=== PATIENT | male | born 1955 | race Caucasian/White ===

== ENCOUNTER 2017-04-27 23:44 | Inpatient (IN) | payer MEDICARE, MEDICAID ==
[~2017-04-27] VITALS: Ht 170.2 cm; Wt 99.3 kg
[2017-04-27 23:50] VITALS: BP 145/84
[2017-04-28] VITALS (7 sets, daily range): BP systolic 101–123; BP diastolic 56–68
[2017-04-28] MEDS ORDERED: LORazepam Inj 2mg/ml 1ml IV ONE
[2017-04-28] MEDS: Nitroglycerin Subl 0.4mg tab (Bottle Of 25) SL PRN ×2 (00:32→01:23)
[2017-04-28 00:41] LABS: BASOPHILS % (AUTO) 0.3 % (0.0-2.0); EOSINOPHILS % (AUTO) 2.7 % (0.0-3.0); LYMPHOCYTES % (AUTO) 19.3 % (20.0-45.0); MEAN CORPUSCULAR HEMOGLOBIN 31.5 PG (27.0-31.0); MEAN CORPUSCULAR HGB CONC 34.5 G/DL (32.0-36.0); MEAN CORPUSCULAR VOLUME 92 FL (80-99); MONOCYTES % (AUTO) 7.8 % (1.0-10.0); NEUTROPHILS % (AUTO) 69.9 % (45.0-75.0); PLATELET COUNT 145 K/UL (150-450); RED BLOOD COUNT 4.14 M/UL (4.70-6.10); RED CELL DISTRIBUTION WIDTH 14.8 % (11.6-14.8); WHITE BLOOD COUNT 4.6 K/UL (4.8-10.8)
--- NOTE | 2017-04-28 00:52 | Emergency Room Report ---
History of Present Illness General Chief Complaint: Chest Pain Source: Patient Present Illness HPI Is a 61-year-old male who resides in a fdc. He has his anxiety but also history of CAD with previous [place]. He present with chief complaint of chest pain. Is worsen when he is under stress or has lack of sleep. He was in [facility] looking at new places to stay where level care is just above assisted-living but not full fdc care. There was some paperwork problem where he was not yet improve. He had to drive all the way back to the old fdc. On the way there he was very stressed and has not taken his nighttime medicine yet. He developed chest pain. He called 911. Patient described pain as mid chest substernal. No radiation. Denies any fever or chills. EMS gave him aspirin and one spray of nitroglycerin. Pain went from 10 -6. Allergies: Coded Allergies: ADHESIVE TAPE (Verified Allergy, Unknown, 04/27/17) AMIODARONE (Verified Allergy, Unknown, 04/27/17) INFLUENZA VIRUS VACCINES (Verified Allergy, Unknown, 04/27/17) SULFAMETHIZOLE (Verified Allergy, Unknown, 04/27/17) Patient History Past Medical History: see triage record, old chart reviewed, HTN, AK Past Surgical History: other Pertinent Family History: none Social History: Denies: drug use Immunizations: other Reviewed Nursing Documentation: PMH: Agreed, PSxH: Agreed Nursing Documentation-PMH Hx Cardiac Problems: Yes - CAD, bypass 2003 Hx Hypertension: Yes - dysphagia, hyperlipidemia, anemia History Of Psychiatric Problem: Yes - upspecified psychosis Review of Systems Eye: Denies: eye pain, blurred vision ENT: Denies: ear pain, nose congestion, throat swelling Respiratory: Denies: cough, shortness of breath Cardiovascular: Reports: chest pain, Denies: palpitations Gastrointestinal: Denies: abdominal pain, diarrhea, nausea, vomiting Musculoskeletal: Denies: back pain, joint pain Skin: Denies: rash Neurological: Denies: headache, numbness Endocrine: Denies: increased thirst, increased urine Hematologic/Lymphatic: Denies: easy bruising All Other Systems: negative except mentioned in HPI Physical Exam Vital Signs Date Time Temp Pulse Resp B/P (MAP) Pulse Ox O2 Delivery O2 Flow Rate FiO2 04/27/17 23:46 79 16 145/84 98 Room Air 04/27/17 23:50 98.5 vitals normal Sp02 EP Interpretation: reviewed, normal General Appearance: well appearing, no apparent distress, alert, obese Head: normocephalic, atraumatic Eyes: bilateral eye PERRL, bilateral eye EOMI ENT: hearing grossly normal, normal pharynx Neck: full range of motion, supple, no meningismus Respiratory: chest non-tender, lungs clear, normal breath sounds Cardiovascular #1: regular rate, rhythm, no murmur Gastrointestinal: normal bowel sounds, non tender, no mass, no organomegaly, no bruit, non-distended Musculoskeletal: back normal, normal range of motion Neurologic: alert, oriented x3 Psychiatric: anxious Skin: warm/dry Medical Decision Making Diagnostic Impression: Primary Impression: Chest pain Qualified Codes: R07.9 - Chest pain, unspecified Additional Impressions: Stress reaction Hyperglycemia due to type 2 diabetes mellitus Qualified Codes: E11.65 - Type 2 diabetes mellitus with hyperglycemia; 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 Atypical in nature. He does have however known CAD. First set of troponins negative. Will admit for further workup. I discussed the case with Dr. Silva for admission. Also contacted Dr. Luna for orders. EKG Diagnostic Results EKG Time: 00:52 Rate: normal Rhythm: NSR ST Segments: no acute changes Rhythm Strip Diag. Results Rhythm Strip Time: 00:52 EP Interpretation: yes Rate: 72 Rhythm: NSR, no PVC's, no ectopy Chest X-Ray Diagnostic Results Chest X-Ray Diagnostic Results : Chest X-Ray Ordered: Yes # of Views/Limited/Complete: 1 View Indication: Chest Pain EP Interpretation: Yes Interpretation: no consolidation, no effusion, no pneumothorax, no acute cardiopulmonary disease Impression: No acute disease Interpreting ER Provider: Electronically signed by Donald Nath MD Last Vital Signs Date Time Temp Pulse Resp B/P (MAP) Pulse Ox O2 Delivery O2 Flow Rate FiO2 04/28/17 00:32 149/79 04/27/17 23:50 79 16 Room Air 04/27/17 23:50 98.5 98 Status: improved Disposition: ADMITTED INPATIENT Condition: Serious Referrals: ANDRE SILVA (PCP) DONALD NATH M.D. Apr 28, 2017 00:52
[2017-04-28 00:54] LABS: TROPONIN I < 0.30 ng/mL (<=0.30)
[2017-04-28 00:57] LABS: ALANINE AMINOTRANSFERASE 51 U/L (3-41); ALBUMIN/GLOBULIN RATIO 1.1 (1.0-2.7); ANION GAP 12 (5-15); ASPARTATE AMINO TRANSFERASE 35 U/L (5-40); CALCIUM 9.3 mg/dL (8.6-10.2); CARBON DIOXIDE 24 mEQ/L (20-30); CHLORIDE 105 mEQ/L (98-107); CREATININE 1.2 mg/dL (0.7-1.2); GLOMERULAR FILTRATION RATE > 60 mL/min (>60); HEMOLYSIS 6; POTASSIUM 3.7 mEQ/L (3.4-4.9); SODIUM 141 mEQ/L (135-145)
[2017-04-28 01:07] LABS: CKMB < 1.5 ng/mL (< 6.7)
[2017-04-28] MEDS ORDERED: PLAVIX75 MG ORAL (02:03)
[2017-04-28] MEDS ORDERED: METOPROLOL SUCC25 MG ORAL (02:04)
[2017-04-28] MEDS ORDERED: ISORDIL30 MG PO (02:06)
[2017-04-28] MEDS ORDERED: COUMADIN5 MG ORAL (02:08)
[2017-04-28] MEDS ORDERED: ATORVASTATIN CA40 MG ORAL ×2 (02:09→02:19)
[2017-04-28] MEDS ORDERED: ZETIA10 MG ORAL (02:19)
[2017-04-28] MEDS ORDERED: NITROGLYCERIN0.4 MG SL (02:22)
[2017-04-28] MEDS ORDERED: AMOXICILLI250 MG/5 M ORAL (02:30)
[2017-04-28] MEDS ORDERED: AMBIEN10 M1 ORAL (02:30)
[2017-04-28] MEDS ORDERED: TAMSULOSIN HCL0.4 MG ORAL (02:30)
[2017-04-28] MEDS ORDERED: HIBICLENS118 ML TP (02:30)
[2017-04-28] MEDS ORDERED: ABILIFY20 MG ORAL (02:30)
[2017-04-28] MEDS ORDERED: ASPIR 8181 MG ORAL (02:30)
[2017-04-28] MEDS ORDERED: LEXAPRO20 MG ORAL (02:30)
[2017-04-28] MEDS ORDERED: PROTONIX40 MG ORAL (02:30)
[2017-04-28] MEDS ORDERED: MELATONIN5 M4 ORAL (02:30)
[2017-04-28] MEDS ORDERED: SEROQUEL200 MG ORAL (02:30)
[2017-04-28] MEDS ORDERED: ALLOPURINOL300 M1 ORAL (02:30)
[2017-04-28] MEDS ORDERED: COENZYME Q10100 MG PO (02:30)
[2017-04-28] MEDS ORDERED: FUROSEMIDE20 M1 ORAL (02:30)
[2017-04-28] MEDS ORDERED: LANTUS SOL100 UNIT/1 SUBQ (02:33)
[2017-04-28] MEDS ORDERED: ASCORBIC ACID500 MG ORAL (02:33)
[2017-04-28] MEDS ORDERED: VITAMIN D310000 UNIT PO (02:33)
[2017-04-28] MEDS ORDERED: MULTIVITAMINS1 EAC2 ORAL (02:33)
[2017-04-28] MEDS ORDERED: FERROUS SULFAT325 MG ORAL (02:33)
[2017-04-28] MEDS ORDERED: MAGNESIUM250 M2 PO (02:33)
[2017-04-28] MEDS ORDERED: Ketorolac 30mg Inj IV PRN (06:30)
[2017-04-28] MEDS ORDERED: DuoNeb 0.5-3(2.5)mg/3ml neb HHN PRN (07:30)
[2017-04-28] MEDS ORDERED: Enalaprilat 2.5mg/2ml Inj IV PRN (07:30)
[2017-04-28] MEDS ORDERED: Diltiazem 25mg/5ml IV PRN (07:30)
[2017-04-28] MEDS ORDERED: QUEtiapine 200mg tab ORAL ONE (08:00)
[2017-04-28 08:20] LABS: TROPONIN I < 0.30 ng/mL (<=0.30)
[2017-04-28] MEDS: Aspirin Baby 81mg ORAL SCH (08:37)
[2017-04-28] MEDS: NovoLOG Insulin Flexpen SUBQ SCH ×4 (08:51→22:16)
[2017-04-28] MEDS ORDERED: Miralax 17gm pkt ORAL PRN (09:00)
[2017-04-28] MEDS ORDERED: ARIPiprazole 10mg tab ORAL SCH (10:00)
--- NOTE | 2017-04-28 11:12 | Diagnostic Imaging Report ---
Indication: Chest pain Comparison: None A single view chest radiograph was obtained. Findings: The bones are osteopenic. Sternotomy noted. Aorta is mildly ectatic. Lungs are clear. Heart size is normal. Impression: No acute disease
--- NOTE | 2017-04-28 13:31 | Consultation ---
History of Present Illness General Date patient seen: Apr 28, 2017 Chief Complaint: Chest Pain Reason for Consultation: inpatient management Present Illness HPI 61-year-old male with hx of anxiety, CAD with previous [place] presented to ER with chief complaint of chest pain. Patient described the pain as mid chest substernal. No radiation. Denies any fever or chills. EMS gave him aspirin and one spray of nitroglycerin. Pain went from 10-6. He is admitted to telemetry to rule out acute [place]. Allergies: Coded Allergies: ADHESIVE TAPE (Verified Allergy, Unknown, 04/27/17) AMIODARONE (Verified Allergy, Unknown, 04/27/17) INFLUENZA VIRUS VACCINES (Verified Allergy, Unknown, 04/27/17) SULFAMETHIZOLE (Verified Allergy, Unknown, 04/27/17) Medication History Scheduled Allopurinol* (Allopurinol*), 300 MG ORAL DAILY, (Reported) Amoxicillin* (Amoxicillin*), 2 GM ORAL EVERY 8 HOURS, (Reported) Aripiprazole* (Abilify*), 35 MG ORAL DAILY, (Reported) Ascorbic Acid* (Ascorbic Acid*), 500 MG ORAL TWICE A DAY, (Reported) Aspirin* (Aspir 81*), 81 MG ORAL DAILY, (Reported) Atorvastatin Calcium* (Atorvastatin Calcium*), 40 MG ORAL BEDTIME, (Reported) Atorvastatin Calcium* (Atorvastatin Calcium*), 40 MG ORAL BEDTIME, (Reported) Cholecalciferol (Vitamin D3) (Vitamin D3), 2,000 UNIT PO BID, (Reported) Clopidogrel Bisulfate* (Plavix*), 75 MG ORAL DAILY, (Reported) Escitalopram Oxalate* (Lexapro*), 20 MG ORAL DAILY, (Reported) Ezetimibe (Zetia*), 10 MG ORAL BEDTIME, (Reported) Ferrous Sulfate* (Ferrous Sulfate*), 325 MG ORAL TWICE A DAY, (Reported) Furosemide* (Lasix*), 20 MG ORAL DAILY, (Reported) Insulin Glargine (Lantus), 26 SUBQ BEDTIME, (Reported) Isosorbide Dinitrate (Isosorbide Dinitrate), 30 MG PO DAILY, (Reported) Magnesium Oxide (Magnesium), 200 MG PO DAILY, (Reported) Metoprolol Succinate* (Metoprolol Succinate*), 25 MG ORAL DAILY, (Reported) Multivitamins* (Multivitamins*), 1 TAB ORAL DAILY, (Reported) Pantoprazole* (Protonix*), 40 MG ORAL DAILY, (Reported) Quetiapine Fumarate* (Seroquel*), 200 MG ORAL BEDTIME, (Reported) Tamsulosin Hcl (Tamsulosin Hcl*), 0.4 MG ORAL BEDTIME, (Reported) Ubidecarenone (Coenzyme Q10), 300 MG PO BID, (Reported) Warfarin Sod* (Coumadin*), 5.5 MG ORAL DAILY, (Reported) Scheduled PRN Melatonin (Melatonin), 6 MG ORAL BEDTIME PRN for Insomnia, (Reported) Nitroglycerin (Nitroglycerin), 0.4 MG SL for For Pain, (Reported) Zolpidem Tartrate* (Ambien*), 10 MG ORAL HS PRN for Insomnia, (Reported) Miscellaneous Medications Chlorhexidine Gluconate* (Hibiclens*), 118 ML TP, (Reported) Patient History Healthcare decision maker Resuscitation status Full Code Advanced Directive on File No Past Medical/Surgical History Past Medical/Surgical History: (1) Diabetes mellitus (2) CAD (coronary artery disease) Review of Systems All Other Systems: negative except mentioned in HPI Physical Exam General Appearance: WD/WN, mild distress Lines, tubes and drains: peripheral HEENT: normocephalic, atraumatic Neck: non-tender, normal alignment Respiratory/Chest: chest wall non-tender, lungs clear Breasts: no masses Cardiovascular/Chest: normal peripheral pulses Abdomen: normal bowel sounds Genitourinary/Rectal: normal genital exam Extremities: normal range of motion, non-tender Last 24 Hour Vital Signs Date Time Temp Pulse Resp B/P (MAP) Pulse Ox O2 Delivery O2 Flow Rate FiO2 04/28/17 12:13 97.5 66 19 113/65 97 Nasal Cannula 2.0 66 04/28/17 12:00 72 04/28/17 08:00 76 04/28/17 04:05 79 04/28/17 03:16 98.1 83 20 115/62 95 Nasal Cannula 2.0 04/28/17 02:35 98.1 83 20 115/62 95 Nasal Cannula 2.0 04/28/17 01:59 98.0 76 20 101/56 96 Nasal Cannula 2.0 04/28/17 01:30 98.5 90 19 121/61 95 Nasal Cannula 2.0 04/28/17 01:23 121/61 04/28/17 00:32 149/79 04/27/17 23:50 79 16 Room Air 04/27/17 23:50 98.5 84 16 145/84 98 Room Air 04/27/17 23:46 79 16 145/84 98 Room Air Intake and Output 04/28/17 04/29/17 19:00 07:00 Intake Total 480 ml Balance 480 ml Intake Oral 480 ml # Voids 1 # Bowel Movements 1 Laboratory Tests Test 04/28/17 00:20 04/28/17 07:40 White Blood Count 4.6 K/UL (4.8-10.8) L Red Blood Count 4.14 M/UL (4.70-6.10) L Hemoglobin 13.0 G/DL (14.2-18.0) L Hematocrit 37.9 % (42.0-52.0) L Mean Corpuscular Volume 92 FL (80-99) Mean Corpuscular Hemoglobin 31.5 PG (27.0-31.0) H Mean Corpuscular Hemoglobin Concent 34.5 G/DL (32.0-36.0) Red Cell Distribution Width 14.8 % (11.6-14.8) Platelet Count 145 K/UL (150-450) L Mean Platelet Volume 6.0 FL (6.5-10.1) L Neutrophils (%) (Auto) 69.9 % (45.0-75.0) Lymphocytes (%) (Auto) 19.3 % (20.0-45.0) L Monocytes (%) (Auto) 7.8 % (1.0-10.0) Eosinophils (%) (Auto) 2.7 % (0.0-3.0) Basophils (%) (Auto) 0.3 % (0.0-2.0) Sodium Level 141 mEQ/L (135-145) Potassium Level 3.7 mEQ/L (3.4-4.9) Chloride Level 105 mEQ/L (98-107) Carbon Dioxide Level 24 mEQ/L (20-30) Anion Gap 12 (5-15) Blood Urea Nitrogen 18 mg/dL (7-23) Creatinine 1.2 mg/dL (0.7-1.2) Estimat Glomerular Filtration Rate > 60 mL/min (>60) Glucose Level 256 mg/dL (74-106) H Calcium Level 9.3 mg/dL (8.6-10.2) Total Bilirubin 0.4 mg/dL (0.0-1.2) Aspartate Amino Transf (AST/SGOT) 35 U/L (5-40) Alanine Aminotransferase (ALT/SGPT) 51 U/L (3-41) H Alkaline Phosphatase 125 U/L (40-129) Total Creatine Kinase 56 U/L (38-174) Creatine Kinase MB < 1.5 ng/mL (< 6.7) Creatine Kinase MB Relative Index 2.6 Troponin I < 0.30 ng/mL (<=0.30) < 0.30 ng/mL (<=0.30) Total Protein 7.0 g/dL (6.6-8.7) Albumin 3.8 g/dL (3.5-5.2) Globulin 3.2 g/dL Albumin/Globulin Ratio 1.1 (1.0-2.7) Height (Feet): 5 Height (Inches): 7.00 Weight (Pounds): 219 Medications Current Medications Medications (Trade) Dose Ordered Sig/Tanner Route PRN Reason Start Time Stop Time Status Last Admin Dose Admin Acetaminophen (Tylenol) 650 mg Q4H PRN ORAL FEVER>100.5 04/28/17 07:30 05/28/17 07:29 Albuterol/ Ipratropium (DuoNeb 0.5-3(2.5)mg/3ml) 3 ml Q4H PRN HHN Shortness of Breath 04/28/17 07:30 05/03/17 07:29 Allopurinol (Allopurinol) 300 mg DAILY ORAL 04/28/17 09:00 05/28/17 08:59 04/28/17 08:37 Aripiprazole (Abilify) 30 mg DAILY@1300 ORAL 04/28/17 13:00 05/28/17 12:59 Aspirin (ASA) 162 mg DAILY ORAL 04/28/17 09:00 05/28/17 08:59 04/28/17 08:37 Atorvastatin Calcium (Lipitor) 40 mg BEDTIME ORAL 04/28/17 21:00 05/28/17 20:59 Clopidogrel Bisulfate (Plavix) 75 mg DAILY ORAL 04/28/17 09:00 05/28/17 08:59 04/28/17 08:53 Dextrose (Dextrose 50%) STAT PRN IV Hypoglycemia 04/28/17 07:30 05/28/17 07:29 Diltiazem HCl (Cardizem) 10 mg Q1H PRN IV heart rate more than 120, 04/28/17 07:30 05/28/17 07:29 Enalaprilat (Vasotec) 2.5 mg Q6H PRN IV sbp more than 160 04/28/17 07:30 05/28/17 07:29 Escitalopram Oxalate (Lexapro) 20 mg DAILY@1300 ORAL 04/28/17 13:00 05/28/17 12:59 Heparin Sodium (Porcine) (Heparin 5000 units/ml) 5,000 units EVERY 8 HOURS SUBQ 04/28/17 14:00 05/28/17 13:59 Insulin Aspart (NovoLOG) BEFORE MEALS AND HS SUBQ 04/28/17 08:30 05/28/17 08:29 04/28/17 12:34 Mirtazapine (Remeron) 30 mg QHS ORAL 04/28/17 21:00 05/28/17 20:59 Morphine Sulfate (Morphine Sulfate) 2 mg Q4H PRN IVP severe Pain (Pain Scale 7-10) 04/28/17 07:30 05/05/17 07:29 Nitroglycerin (Ntg) 0.4 mg Q5M PRN SL Prn Chest Pain 04/28/17 07:30 05/28/17 07:29 Ondansetron HCl (Zofran) 4 mg Q6H PRN IVP Nausea & Vomiting 04/28/17 07:30 05/28/17 07:29 Pantoprazole (Protonix) 40 mg ACBREAKFAST ORAL 04/28/17 09:00 05/28/17 08:59 04/28/17 08:37 Polyethylene Glycol (Miralax) 17 gm DAILYPRN PRN ORAL Constipation 04/28/17 09:00 05/28/17 08:59 Quetiapine Fumarate (SEROquel) 200 mg BEDTIME ORAL 04/28/17 21:00 05/28/17 20:59 Tamsulosin HCl (Flomax) 0.4 mg BEDTIME ORAL 04/28/17 21:00 05/28/17 20:59 Temazepam (Restoril) 15 mg HSPRN PRN ORAL Insomnia 04/28/17 21:00 05/05/17 20:59 Assessment/Plan Problem List: (1) Acute coronary syndrome ICD Codes: I24.9 - Acute ischemic heart disease, unspecified SNOMED: 025431520 (2) Chest pain ICD Codes: R07.9 - Chest pain, unspecified SNOMED: 94349881 Qualifiers: Qualified Codes: R07.9 - Chest pain, unspecified (3) Diabetes mellitus ICD Codes: E11.9 - Type 2 diabetes mellitus without complications SNOMED: 06566048 (4) CAD (coronary artery disease) ICD Codes: I25.10 - Atherosclerotic heart disease of [place] coronary artery without angina pectoris SNOMED: 23650458 (5) Hx of CABG ICD Codes: Z95.1 - Presence of aortocoronary bypass graft SNOMED: 513672559, 058018702 Assessment/Plan serial ekg, troponin echo cardiology evaluation symptomatic treatment sliding scale diabetic diet pt/ot THADDEUS YA Apr 28, 2017 13:31
[2017-04-28] MEDS: ARIPiprazole 10mg tab ORAL SCH (13:35)
--- NOTE | 2017-04-28 13:37 | Diagnostic Imaging Report ---
APPROVED REPORT CPT Code: 51652 Present Symptoms Shortness of breath Comments: Chest pain. Hx CAD, [place], HTN. BILATERAL: Imaging reveals a patent deep venous system bilaterally. There is no evidence of thrombus within the femoral, popliteal or tibial segments. The greater saphenous veins are also within normal limits. Doppler indicates normal spontaneous flow within these segments.
--- NOTE | 2017-04-28 13:41 | Cardiology Report ---
APPROVED REPORT EKG Measurement Heart [id number] Normal sinus rhythm Low voltage QRS Nonspecific T wave abnormality Prolonged QT Abnormal ECG
[2017-04-28] MEDS ORDERED: Heparin 5000 units/ml inj SUBQ SCH (14:00)
--- NOTE | 2017-04-28 14:01 | Cardiology Report ---
APPROVED REPORT EXAM: Two-dimensional and M-mode echocardiogram with Doppler and color Doppler. INDICATION LV function M-Mode DIMENSIONS IVSd1.5 (0.7-1.1cm)Left Atrium (MM)5.0 (1.6-4.0cm) LVDd5.8 (3.5-5.6cm)Aortic Root3.5 (2.0-3.7cm) PWd0.7 (0.7-1.1cm)Aortic Cusp Exc.1.3 (1.5-2.0cm) IVSs1.8 cm LVDs4.3 (2.5-4.0cm) PWs1.8 cm Other Information Technically limited study due to poor acoustical windows. Normal left ventricular chamber size, systolic function and wall motion to extent visualized. Left ventricular ejection fraction estimated to be 60-65 %. Mild left ventricular hypertrophy. Anterior Echo-free space, may be due to pericardial fat or effusion. Left and right atrial sizes at upper limits of normal. Right ventricular chamber sizes i within normal limits. Aortic valve calcification with decreased cusp excursion c/w aortic stenosis. Thickened mitral valve leaflets with normal excursion. Mitral annulus and aortic root calcification. Pulmonic valve not well visualized. Normal tricuspid valve structure. IVC measured at 2.1 cm with physiologic collapse. A color flow and spectral Doppler study was performed and revealed: Trace aortic regurgitation. Peak aortic valve gradient of 35 mm Hg and a mean of 17 mmHg. Aortic valve area 1.1 cm2 calculated by continuity equation suggestive of moderate aortic stenosis. Trace to mild mitral regurgitation. Mitral inflow indicates normal left ventricular diastolic function. Trace to mild tricuspid regurgitation. Tricuspid systolic velocities suggests peak right ventricular systolic pressure of 32 mmHg.
--- NOTE | 2017-04-28 14:31 | Cardiac Electrophysiology PN ---
Subjective Subjective [id number] Objective Last 24 Hour Vital Signs Date Time Temp Pulse Resp B/P (MAP) Pulse Ox O2 Delivery O2 Flow Rate FiO2 04/28/17 12:13 97.5 66 19 113/65 97 Nasal Cannula 2.0 66 04/28/17 12:00 72 04/28/17 08:00 76 04/28/17 04:05 79 04/28/17 03:16 98.1 83 20 115/62 95 Nasal Cannula 2.0 04/28/17 02:35 98.1 83 20 115/62 95 Nasal Cannula 2.0 04/28/17 01:59 98.0 76 20 101/56 96 Nasal Cannula 2.0 04/28/17 01:30 98.5 90 19 121/61 95 Nasal Cannula 2.0 04/28/17 01:23 121/61 04/28/17 00:32 149/79 04/27/17 23:50 79 16 Room Air 04/27/17 23:50 98.5 84 16 145/84 98 Room Air 04/27/17 23:46 79 16 145/84 98 Room Air Intake and Output 04/28/17 04/29/17 19:00 07:00 Intake Total 480 ml Balance 480 ml Intake Oral 480 ml # Voids 1 # Bowel Movements 1 Laboratory Tests Test 04/28/17 00:20 04/28/17 07:40 White Blood Count 4.6 K/UL (4.8-10.8) L Red Blood Count 4.14 M/UL (4.70-6.10) L Hemoglobin 13.0 G/DL (14.2-18.0) L Hematocrit 37.9 % (42.0-52.0) L Mean Corpuscular Volume 92 FL (80-99) Mean Corpuscular Hemoglobin 31.5 PG (27.0-31.0) H Mean Corpuscular Hemoglobin Concent 34.5 G/DL (32.0-36.0) Red Cell Distribution Width 14.8 % (11.6-14.8) Platelet Count 145 K/UL (150-450) L Mean Platelet Volume 6.0 FL (6.5-10.1) L Neutrophils (%) (Auto) 69.9 % (45.0-75.0) Lymphocytes (%) (Auto) 19.3 % (20.0-45.0) L Monocytes (%) (Auto) 7.8 % (1.0-10.0) Eosinophils (%) (Auto) 2.7 % (0.0-3.0) Basophils (%) (Auto) 0.3 % (0.0-2.0) Sodium Level 141 mEQ/L (135-145) Potassium Level 3.7 mEQ/L (3.4-4.9) Chloride Level 105 mEQ/L (98-107) Carbon Dioxide Level 24 mEQ/L (20-30) Anion Gap 12 (5-15) Blood Urea Nitrogen 18 mg/dL (7-23) Creatinine 1.2 mg/dL (0.7-1.2) Estimat Glomerular Filtration Rate > 60 mL/min (>60) Glucose Level 256 mg/dL (74-106) H Calcium Level 9.3 mg/dL (8.6-10.2) Total Bilirubin 0.4 mg/dL (0.0-1.2) Aspartate Amino Transf (AST/SGOT) 35 U/L (5-40) Alanine Aminotransferase (ALT/SGPT) 51 U/L (3-41) H Alkaline Phosphatase 125 U/L (40-129) Total Creatine Kinase 56 U/L (38-174) Creatine Kinase MB < 1.5 ng/mL (< 6.7) Creatine Kinase MB Relative Index 2.6 Troponin I < 0.30 ng/mL (<=0.30) < 0.30 ng/mL (<=0.30) Total Protein 7.0 g/dL (6.6-8.7) Albumin 3.8 g/dL (3.5-5.2) Globulin 3.2 g/dL Albumin/Globulin Ratio 1.1 (1.0-2.7) ALEX VALDES Apr 28, 2017 14:31
--- NOTE | 2017-04-28 15:41 | Infectious Diseases Prog Note ---
Assessment/Plan Problems: (1) Diarrhea Assessment & Plan: rule out recurrent C DIFF, was treated for C diff colitis a month ago, will send stool culture and C diff toxin and start him on oral vancomycin empirically (2) Chest pain Assessment & Plan: rule out ACS , monitr in tele, follow troponin trends, cardiology is following (3) Diabetes mellitus Assessment & Plan: recommend tight glycemic control to keep blood glucose between 80-120 (4) CAD (coronary artery disease) Assessment & Plan: continue cardiac meds, cardiology is following Subjective Allergies: Coded Allergies: ADHESIVE TAPE (Verified Allergy, Unknown, 04/27/17) AMIODARONE (Verified Allergy, Unknown, 04/27/17) INFLUENZA VIRUS VACCINES (Verified Allergy, Unknown, 04/27/17) SULFAMETHIZOLE (Verified Allergy, Unknown, 04/27/17) Objective Vital Signs Last 24 Hour Vital Signs Date Time Temp Pulse Resp B/P (MAP) Pulse Ox O2 Delivery O2 Flow Rate FiO2 04/28/17 12:13 97.5 66 19 113/65 97 Nasal Cannula 2.0 66 04/28/17 12:00 72 04/28/17 08:00 76 04/28/17 04:05 79 04/28/17 03:16 98.1 83 20 115/62 95 Nasal Cannula 2.0 04/28/17 02:35 98.1 83 20 115/62 95 Nasal Cannula 2.0 04/28/17 01:59 98.0 76 20 101/56 96 Nasal Cannula 2.0 04/28/17 01:30 98.5 90 19 121/61 95 Nasal Cannula 2.0 04/28/17 01:23 121/61 04/28/17 00:32 149/79 04/27/17 23:50 79 16 Room Air 04/27/17 23:50 98.5 84 16 145/84 98 Room Air 04/27/17 23:46 79 16 145/84 98 Room Air Height (Feet): 5 Height (Inches): 7.00 Weight (Pounds): 219 Laboratory Tests Test 04/28/17 00:20 04/28/17 07:40 White Blood Count 4.6 K/UL (4.8-10.8) L Red Blood Count 4.14 M/UL (4.70-6.10) L Hemoglobin 13.0 G/DL (14.2-18.0) L Hematocrit 37.9 % (42.0-52.0) L Mean Corpuscular Volume 92 FL (80-99) Mean Corpuscular Hemoglobin 31.5 PG (27.0-31.0) H Mean Corpuscular Hemoglobin Concent 34.5 G/DL (32.0-36.0) Red Cell Distribution Width 14.8 % (11.6-14.8) Platelet Count 145 K/UL (150-450) L Mean Platelet Volume 6.0 FL (6.5-10.1) L Neutrophils (%) (Auto) 69.9 % (45.0-75.0) Lymphocytes (%) (Auto) 19.3 % (20.0-45.0) L Monocytes (%) (Auto) 7.8 % (1.0-10.0) Eosinophils (%) (Auto) 2.7 % (0.0-3.0) Basophils (%) (Auto) 0.3 % (0.0-2.0) Sodium Level 141 mEQ/L (135-145) Potassium Level 3.7 mEQ/L (3.4-4.9) Chloride Level 105 mEQ/L (98-107) Carbon Dioxide Level 24 mEQ/L (20-30) Anion Gap 12 (5-15) Blood Urea Nitrogen 18 mg/dL (7-23) Creatinine 1.2 mg/dL (0.7-1.2) Estimat Glomerular Filtration Rate > 60 mL/min (>60) Glucose Level 256 mg/dL (74-106) H Calcium Level 9.3 mg/dL (8.6-10.2) Total Bilirubin 0.4 mg/dL (0.0-1.2) Aspartate Amino Transf (AST/SGOT) 35 U/L (5-40) Alanine Aminotransferase (ALT/SGPT) 51 U/L (3-41) H Alkaline Phosphatase 125 U/L (40-129) Total Creatine Kinase 56 U/L (38-174) Creatine Kinase MB < 1.5 ng/mL (< 6.7) Creatine Kinase MB Relative Index 2.6 Troponin I < 0.30 ng/mL (<=0.30) < 0.30 ng/mL (<=0.30) Total Protein 7.0 g/dL (6.6-8.7) Albumin 3.8 g/dL (3.5-5.2) Globulin 3.2 g/dL Albumin/Globulin Ratio 1.1 (1.0-2.7) Current Medications Medications (Trade) Dose Ordered Sig/Tanner Route PRN Reason Start Time Stop Time Status Last Admin Dose Admin Acetaminophen (Tylenol) 650 mg Q4H PRN ORAL FEVER>100.5 04/28/17 07:30 05/28/17 07:29 Albuterol/ Ipratropium (DuoNeb 0.5-3(2.5)mg/3ml) 3 ml Q4H PRN HHN Shortness of Breath 04/28/17 07:30 05/03/17 07:29 Allopurinol (Allopurinol) 300 mg DAILY ORAL 04/28/17 09:00 05/28/17 08:59 04/28/17 08:37 Aripiprazole (Abilify) 30 mg DAILY@1300 ORAL 04/28/17 13:00 05/28/17 12:59 04/28/17 13:35 Aspirin (ASA) 162 mg DAILY ORAL 04/28/17 09:00 05/28/17 08:59 04/28/17 08:37 Atorvastatin Calcium (Lipitor) 40 mg BEDTIME ORAL 04/28/17 21:00 05/28/17 20:59 Clopidogrel Bisulfate (Plavix) 75 mg DAILY ORAL 04/28/17 09:00 05/28/17 08:59 04/28/17 08:53 Dextrose (Dextrose 50%) STAT PRN IV Hypoglycemia 04/28/17 07:30 05/28/17 07:29 Diltiazem HCl (Cardizem) 10 mg Q1H PRN IV heart rate more than 120, 04/28/17 07:30 05/28/17 07:29 Enalaprilat (Vasotec) 2.5 mg Q6H PRN IV sbp more than 160 04/28/17 07:30 05/28/17 07:29 Escitalopram Oxalate (Lexapro) 20 mg DAILY@1300 ORAL 04/28/17 13:00 05/28/17 12:59 04/28/17 13:35 Heparin Sodium (Porcine) (Heparin 5000 units/ml) 5,000 units EVERY 8 HOURS SUBQ 04/28/17 14:00 05/28/17 13:59 Insulin Aspart (NovoLOG) BEFORE MEALS AND HS SUBQ 04/28/17 08:30 05/28/17 08:29 04/28/17 12:34 Metoprolol Tartrate (Lopressor) 50 mg Q12HR ORAL 04/28/17 21:00 05/28/17 20:59 Mirtazapine (Remeron) 30 mg QHS ORAL 04/28/17 21:00 05/28/17 20:59 Morphine Sulfate (Morphine Sulfate) 2 mg Q4H PRN IVP severe Pain (Pain Scale 7-10) 04/28/17 07:30 05/05/17 07:29 Nitroglycerin (Ntg) 0.4 mg Q5M PRN SL Prn Chest Pain 04/28/17 07:30 05/28/17 07:29 Ondansetron HCl (Zofran) 4 mg Q6H PRN IVP Nausea & Vomiting 04/28/17 07:30 05/28/17 07:29 Pantoprazole (Protonix) 40 mg ACBREAKFAST ORAL 04/28/17 09:00 05/28/17 08:59 04/28/17 08:37 Polyethylene Glycol (Miralax) 17 gm DAILYPRN PRN ORAL Constipation 04/28/17 09:00 05/28/17 08:59 Quetiapine Fumarate (SEROquel) 200 mg BEDTIME ORAL 04/28/17 21:00 05/28/17 20:59 Tamsulosin HCl (Flomax) 0.4 mg BEDTIME ORAL 04/28/17 21:00 05/28/17 20:59 Temazepam (Restoril) 15 mg HSPRN PRN ORAL Insomnia 04/28/17 21:00 05/05/17 20:59 Warfarin Sodium (Coumadin per pharmacy) 1 ea DAILY PRN MISC Per rx protocol 04/28/17 14:45 05/28/17 14:44 Gladys Aguilar M.D. Apr 28, 2017 15:41
[2017-04-28] MEDS: Morphine Sulfate 2mg/ml Inj IVP PRN (16:06)
[2017-04-28 16:34] LABS: INR 1.9 (0.9-1.1); PROTHROMBIN TIME 20.2 SEC (9.30-11.50)
[2017-04-28] MEDS ORDERED: Vancomycin oral 125mg/2.5ml ORAL SCH (17:00)
[2017-04-28] MEDS ORDERED: Warfarin Sodium 3mg ORAL ONE (17:30)
[2017-04-28] MEDS: Vancomycin oral 125mg/2.5ml ORAL SCH ×2 (18:45→22:18)
[2017-04-28] MEDS: Atorvastatin 80mg tab ORAL SCH (22:07)
[2017-04-28] MEDS: Tamsulosin 0.4mg cap ORAL SCH (22:08)
[2017-04-28] MEDS: QUEtiapine 200mg tab ORAL SCH (22:08)
[2017-04-28] MEDS: Metoprolol Tartrate 50mg tab ORAL SCH (22:09)
[2017-04-29 03:54] VITALS: BP 105/62
--- NOTE | 2017-04-29 04:31 | History and Physical Report ---
DATE OF ADMISSION: 04/28/2017 TIME SEEN: At 3 p.m. CONSULTANTS: 1. Arnoldo Luna M.D. 2. Jody Armas M.D. 3. Cahdd Liu M.D. CHIEF COMPLAINT: Shortness of breath and chest pain. BRIEF HISTORY: The patient is a 61-year-old male, resident of [facility], presented with substernal chest pain yesterday, slight short of breath, sharp, and no radiation. The patient diagnosed with the above and admitted to telemetry for further care. Currently, slightly weak in bed, slight short of breath, O2 NC, getting echocardiogram and ultrasound. PAST MEDICAL HISTORY: Hypertension, diabetes, and encephalopathy. PAST SURGICAL HISTORY: Status post cardiac stent. MEDICATIONS: Lipitor, Seroquel, Flomax, Restoril, Remeron, Lopressor, heparin, Abilify, Lexapro, allopurinol, Plavix, and aspirin. ALLERGIES: Amiodarone, sulfa, and Spiriva. SOCIAL HISTORY: No smoking, no alcohol, and no intravenous drug abuse. FAMILY HISTORY: Noncontributory. PHYSICAL EXAMINATION: GENERAL: Calm in bed, oriented x3, slightly weak. VITAL SIGNS: Temperature is 97 degrees, pulse 56, respirations 19, and blood pressure 113/65. CARDIOVASCULAR: No murmurs. LUNGS: Poor exchange. ABDOMEN: Positive bowel sounds. Soft, nontender, and nondistended. EXTREMITIES: No cyanosis, clubbing, or edema. NEUROLOGIC: The patient moves all extremities. Slightly weak. LABORATORY DATA: White count of 4.6, hemoglobin and hematocrit are 13 and 37, and platelets 145,000. BMP showed glucose 256. ALT 51, otherwise CMP is normal. Troponin less than 0.3 x2. ASSESSMENT: 1. Shortness of breath. 2. Chest pain. 3. Hypertension. 4. Encephalopathy. 5. Diabetes. 6. Pancytopenia. PLAN: 1. Continue premedications. 2. O2 and pulmonary treatment. 3. Troponin q.8 h. x3. 4. EKG in the morning. 5. Resume home medications. 6. Pain control. 7. Blood pressure and blood sugar control. 8. OT, PT, and dietary evaluation. 9. CBC and BMP in the morning. 10. Dr. Luna, Dr. Armas, Dr. Liu, and Dr. Willis to consult. 11. We will continue to follow this patient medically. Sven Ordoñez D.O. DR: COBY JOB#: [id number] CC:
[2017-04-29] MEDS: NovoLOG Insulin Flexpen SUBQ SCH ×4 (05:20→20:39)
[2017-04-29 06:07] LABS: BASOPHILS % (AUTO) 0.6 % (0.0-2.0); EOSINOPHILS % (AUTO) 4.9 % (0.0-3.0); LYMPHOCYTES % (AUTO) 33.1 % (20.0-45.0); MEAN CORPUSCULAR HEMOGLOBIN 32.1 PG (27.0-31.0); MEAN CORPUSCULAR HGB CONC 34.2 G/DL (32.0-36.0); MEAN CORPUSCULAR VOLUME 94 FL (80-99); MEAN PLATELET VOLUME 5.2 FL (6.5-10.1); MONOCYTES % (AUTO) 8.9 % (1.0-10.0); NEUTROPHILS % (AUTO) 52.5 % (45.0-75.0); PLATELET COUNT 119 K/UL (150-450); RED BLOOD COUNT 3.85 M/UL (4.70-6.10); RED CELL DISTRIBUTION WIDTH 15.2 % (11.6-14.8); WHITE BLOOD COUNT 3.8 K/UL (4.8-10.8)
[2017-04-29 06:23] LABS: INR 1.6 (0.9-1.1); PROTHROMBIN TIME 17.1 SEC (9.30-11.50)
[2017-04-29 06:29] LABS: TROPONIN I < 0.30 ng/mL (<=0.30)
[2017-04-29 06:38] LABS: THYROID STIMULATING HORMONE 0.8 uIU/mL (0.300-4.500)
[2017-04-29 06:40] LABS: ANION GAP 13 (5-15); CALCIUM 9.1 mg/dL (8.6-10.2); CARBON DIOXIDE 24 mEQ/L (20-30); CHLORIDE 106 mEQ/L (98-107); CREATININE 1.1 mg/dL (0.7-1.2); GLOMERULAR FILTRATION RATE > 60 mL/min (>60); HEMOLYSIS 6; POTASSIUM 3.9 mEQ/L (3.4-4.9); SODIUM 143 mEQ/L (135-145)
[2017-04-29 06:41] LABS: CHOLESTEROL/HDL RATIO 6.4 (3.3-4.4); CRP QUANT 0.3 mg/dL (< 0.5)
[2017-04-29 08:00] VITALS: BP 112/65
[2017-04-29] MEDS: Metoprolol Tartrate 50mg tab ORAL SCH ×2 (09:00→20:37)
[2017-04-29] MEDS: Aspirin Baby 81mg ORAL SCH (10:14)
[2017-04-29] MEDS: Vancomycin oral 125mg/2.5ml ORAL SCH ×4 (10:21→20:35)
--- NOTE | 2017-04-29 10:30 | Consultation ---
DATE OF CONSULTATION: 04/28/2017 NOTE: "POOR AUDIO QUALITY" HISTORY OF PRESENT ILLNESS: This is a 61-year-old male patient, who has been admitted to [facility] acute coronary syndrome with chest pain and substernal chest pain, sharp, and radiating to the medication as well. working mg daily 30 mg at bedtime and Ambien 10 mg at bedtime . The patient he was admitted to the hospital . As far as this patient . SOCIAL HISTORY: . He is financially supported by [employer] and Medicare. SUBSTANCE ABUSE HISTORY: Denies drug and alcohol use. MEDICAL PROBLEMS: Acute coronary syndrome, . MENTAL STATUS EXAMINATION: This is a 61-year-old male with psychomotor retardation. Mood is depressed. Affect guarded and restricted. Thought process is disorganized and illogical. Denies any suicidal or homicidal thoughts. Insight and judgment is . DIAGNOSIS: Schizoaffective, bipolar type. PLAN: The patient this patient Abilify mg daily this patient mg daily, and Ambien 10 mg at bedtime . . Chart was reviewed and discussed with staff. The patient is seen and assessed at the bedside. I would like to thank, Dr. Sven Ordoñez, for this interesting consultation. Jody Armas M.D. DR: SUZETTE JOB#: [id number] CC:
[2017-04-29 12:00] VITALS: BP 110/66
--- NOTE | 2017-04-29 12:30 | Consultation ---
DATE OF CONSULTATION: 04/28/2017 CARDIOLOGY CONSULTATION REASON FOR CONSULTATION: Chest pain. HISTORY OF PRESENT ILLNESS: The patient is a 61-year-old gentleman with history of hypertension and coronary artery disease with history of coronary artery bypass graft as well as porcine aortic valve replacement in 2003. The patient also had multiple coronary interventions since then including [facility] in [place]. The most recent one was in June of 2016 and he had an angiogram in [facility] and he was told that some of his bypass grafts were occluded. The patient also has history of atrial fibrillation and ablation in 2013 in [place]. The patient presented to the emergency room complaining of chest pain, which was midsternal without any radiation. The patient received aspirin and nitroglycerin by EMS and the pain subsided from 10 to 6. His EKG shows sinus rhythm with nonspecific T-wave abnormality, but no acute ST elevation. PAST MEDICAL HISTORY: 1. Hypertension. 2. Myocardial infarction. 3. Coronary artery bypass graft in 2003. 4. Status post porcine aortic valve replacement in 2003. 5. History of atrial fibrillation and ablation in 2013 in [place]. 6. Multiple coronary interventions in 2013, 2014, and most recent one was in June 2016. 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 MEDICATIONS: Per reconciliation. ALLERGIES: He is allergic to adhesive, amiodarone, sulfamethizole, and influenza vaccine. REVIEW OF SYSTEMS: Review of systems was performed and was negative other than what was mentioned in the history of present illness. PHYSICAL EXAMINATION: VITAL SIGNS: Blood pressure is 113/65, pulse 66, respirations 18, and he is afebrile. HEAD AND NECK: Shows no JVD. LUNGS: Clear. CARDIOVASCULAR: Shows regular S1 and S2 with no gallop or murmur. is intact. ABDOMEN: Soft. EXTREMITIES: A 1+ pitting edema. LABORATORY DATA: Showed white count of 4.0, hemoglobin of 13, hematocrit 38, and platelet count of 145,000. Sodium 141, potassium 3.7, BUN of 18, creatinine 1.2, and glucose of 256. Troponins are negative x2. ASSESSMENT AND PLAN: 1. Chest pain. The patient with history of coronary artery bypass graft and multiple coronary interventions since then including most recent one in June 2016. We will try to get the report from [facility]. The patient was already ruled out for myocardial infarction. In the meantime, I scheduled the patient for nuclear stress test tomorrow. A 2D echocardiogram is also pending. The patient is also going to be continued with aspirin and Plavix and Lipitor 40 mg daily. 2. History of coronary artery bypass graft. 3. Status post aortic valve replacement with a porcine aortic valve. Echocardiogram is pending. 4. History of atrial fibrillation and ablation, currently in sinus rhythm. He is on aspirin and Plavix. The patient states he was on Coumadin for deep vein thrombosis. I will check the INR for further evaluation. 5. Diabetes. 6. Depression. 7. Status post amputation of the fingers. Thank you very much, Dr. Ordoñez, for allowing me to participate in the care of this patient. Please do not hesitate to contact for any questions regarding my evaluation. Chadd Liu M.D. DR: JAE JOB#: [id number] CC:
--- NOTE | 2017-04-29 13:47 | Pulmonology Progress Note ---
Assessment/Plan Problems: (1) Acute coronary syndrome (2) Chest pain (3) Diabetes mellitus (4) CAD (coronary artery disease) (5) Hx of CABG Assessment/Plan stress test in process symptomatic treatment sliding scale diabetic diet Subjective ROS Limited/Unobtainable: No Constitutional: Reports: no symptoms HEENT: Repors: no symptoms Respiratory: Reports: no symptoms Allergies: Coded Allergies: ADHESIVE TAPE (Verified Allergy, Unknown, 04/27/17) AMIODARONE (Verified Allergy, Unknown, 04/27/17) INFLUENZA VIRUS VACCINES (Verified Allergy, Unknown, 04/27/17) SULFAMETHIZOLE (Verified Allergy, Unknown, 04/27/17) Objective Last 24 Hour Vital Signs Date Time Temp Pulse Resp B/P (MAP) Pulse Ox O2 Delivery O2 Flow Rate FiO2 04/29/17 12:00 97.0 59 21 110/66 95 Nasal Cannula 2.0 04/29/17 08:00 97.2 58 21 112/65 98 Nasal Cannula 2.0 04/29/17 08:00 74 04/29/17 04:00 66 04/29/17 03:54 98.2 67 21 105/62 98 Nasal Cannula 67 04/29/17 00:00 65 04/28/17 23:32 98.2 69 20 104/67 98 Nasal Cannula 69 04/28/17 22:09 80 130/65 04/28/17 20:45 98.2 78 21 110/61 98 Nasal Cannula 78 04/28/17 20:10 82 18 Room Air 04/28/17 20:00 71 04/28/17 16:15 97.2 80 20 123/68 95 Room Air 80 04/28/17 16:00 88 General Appearance: WD/WN HEENT: normocephalic, atraumatic, anicteric Respiratory/Chest: chest wall non-tender Cardiovascular: normal peripheral pulses, normal rate Abdomen: normal bowel sounds, soft, non tender Genitourinary: normal external genitalia Extremities: no cyanosis Skin: no rash 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, no motor/sensory deficits Lymphatic: no neck adenopathy Laboratory Tests 04/28/17 15:50: Prothrombin Time 20.2H, Prothromb Time International Ratio 1.9H 04/29/17 05:35: Prothrombin Time 17.1H, Prothromb Time International Ratio 1.6H, White Blood Count 3.8L, Red Blood Count 3.85L, Hemoglobin 12.4L, Hematocrit 36.2L, Mean Corpuscular Volume 94, Mean Corpuscular Hemoglobin 32.1H, Mean Corpuscular Hemoglobin Concent 34.2, Red Cell Distribution Width 15.2H, Platelet Count 119L , Mean Platelet Volume 5.2L, Neutrophils (%) (Auto) 52.5, Lymphocytes (%) (Auto ) 33.1, Monocytes (%) (Auto) 8.9, Eosinophils (%) (Auto) 4.9H, Basophils (%) ( Auto) 0.6, Activated Partial Thromboplast Time 31, Sodium Level 143, Potassium Level 3.9, Chloride Level 106, Carbon Dioxide Level 24, Anion Gap 13, Blood Urea Nitrogen 14, Creatinine 1.1, Estimat Glomerular Filtration Rate > 60, Glucose Level 158H, Calcium Level 9.1, Troponin I < 0.30, C-Reactive Protein, Quantitative 0.3, Pro-B-Type Natriuretic Peptide 157H, Triglycerides Level 375H , Cholesterol Level 173, LDL Cholesterol 71, HDL Cholesterol 27, Cholesterol/ HDL Ratio 6.4H, Thyroid Stimulating Hormone (TSH) 0.800, Hepatitis A IgM Antibody [Pending], Hepatitis B Surface Antigen [Pending], Hepatitis B Core IgM Antibody [Pending], Hepatitis C Antibody [Pending], HIV (1&2) Antibody Rapid Negative Current Medications Medications (Trade) Dose Ordered Sig/Tanner Route PRN Reason Start Time Stop Time Status Last Admin Dose Admin Acetaminophen (Tylenol) 650 mg Q4H PRN ORAL FEVER>100.5 04/28/17 07:30 05/28/17 07:29 Albuterol/ Ipratropium (DuoNeb 0.5-3(2.5)mg/3ml) 3 ml Q4H PRN HHN Shortness of Breath 04/28/17 07:30 05/03/17 07:29 Allopurinol (Allopurinol) 300 mg DAILY ORAL 04/28/17 09:00 05/28/17 08:59 04/29/17 10:13 Aripiprazole (Abilify) 30 mg DAILY@1300 ORAL 04/28/17 13:00 05/28/17 12:59 04/28/17 13:35 Aspirin (ASA) 162 mg DAILY ORAL 04/28/17 09:00 05/28/17 08:59 04/29/17 10:14 Atorvastatin Calcium (Lipitor) 40 mg BEDTIME ORAL 04/28/17 21:00 05/28/17 20:59 04/28/17 22:07 Clopidogrel Bisulfate (Plavix) 75 mg DAILY ORAL 04/28/17 09:00 05/28/17 08:59 04/29/17 10:14 Dextrose (Dextrose 50%) STAT PRN IV Hypoglycemia 04/28/17 07:30 05/28/17 07:29 Diltiazem HCl (Cardizem) 10 mg Q1H PRN IV heart rate more than 120, 04/28/17 07:30 05/28/17 07:29 Enalaprilat (Vasotec) 2.5 mg Q6H PRN IV sbp more than 160 04/28/17 07:30 05/28/17 07:29 Escitalopram Oxalate (Lexapro) 20 mg DAILY@1300 ORAL 04/28/17 13:00 05/28/17 12:59 04/28/17 13:35 Insulin Aspart (NovoLOG) BEFORE MEALS AND HS SUBQ 04/28/17 08:30 05/28/17 08:29 04/28/17 22:16 Metoprolol Tartrate (Lopressor) 50 mg Q12HR ORAL 04/28/17 21:00 05/28/17 20:59 04/28/17 22:09 Mirtazapine (Remeron) 30 mg QHS ORAL 04/28/17 21:00 05/28/17 20:59 04/28/17 22:06 Morphine Sulfate (Morphine Sulfate) 2 mg Q4H PRN IVP severe Pain (Pain Scale 7-10) 04/28/17 07:30 05/05/17 07:29 04/28/17 16:06 Nitroglycerin (Ntg) 0.4 mg Q5M PRN SL Prn Chest Pain 04/28/17 07:30 05/28/17 07:29 Ondansetron HCl (Zofran) 4 mg Q6H PRN IVP Nausea & Vomiting 04/28/17 07:30 05/28/17 07:29 Pantoprazole (Protonix) 40 mg ACBREAKFAST ORAL 04/28/17 09:00 05/28/17 08:59 04/29/17 05:20 Polyethylene Glycol (Miralax) 17 gm DAILYPRN PRN ORAL Constipation 04/28/17 09:00 05/28/17 08:59 Quetiapine Fumarate (SEROquel) 200 mg BEDTIME ORAL 04/28/17 21:00 05/28/17 20:59 04/28/17 22:08 Tamsulosin HCl (Flomax) 0.4 mg BEDTIME ORAL 04/28/17 21:00 05/28/17 20:59 04/28/17 22:08 Temazepam (Restoril) 15 mg HSPRN PRN ORAL Insomnia 04/28/17 21:00 05/05/17 20:59 04/28/17 23:32 Vancomycin HCl (Vancomycin) 125 mg FOUR TIMES A DAY ORAL 04/28/17 18:00 05/05/17 17:59 04/29/17 10:21 Warfarin Sodium (Coumadin per pharmacy) 1 ea DAILYPRN PRN MISC Per rx protocol 04/28/17 14:45 05/28/17 14:44 Warfarin Sodium (Coumadin) 6 mg COUMADIN ONCE ORAL 04/29/17 17:00 04/29/17 17:01 THADDEUS YA Apr 29, 2017 13:47
--- NOTE | 2017-04-29 14:49 | General Progress Note ---
Assessment/Plan Problem List: (1) Stress reaction ICD Codes: F43.0 - Acute stress reaction SNOMED: 30451180 (2) Hyperglycemia due to type 2 diabetes mellitus ICD Codes: E11.65 - Type 2 diabetes mellitus with hyperglycemia SNOMED: 361238691930179, 07635217 Qualifiers: Qualified Codes: E11.65 - Type 2 diabetes mellitus with hyperglycemia; Z79.4 - [facility]CI (current) use of insulin (3) Chest pain ICD Codes: R07.9 - Chest pain, unspecified SNOMED: 15765881 Qualifiers: Qualified Codes: R07.9 - Chest pain, unspecified (4) Diabetes mellitus ICD Codes: E11.9 - Type 2 diabetes mellitus without complications SNOMED: 48963571 (5) Acute coronary syndrome ICD Codes: I24.9 - Acute ischemic heart disease, unspecified SNOMED: 813914920 Status: stable, progressing, tolerating diet Assessment/Plan ot pt diet pain control cbc bmp am dc plan to snf Subjective Constitutional: Reports: weakness Allergies: Coded Allergies: ADHESIVE TAPE (Verified Allergy, Unknown, 04/27/17) AMIODARONE (Verified Allergy, Unknown, 04/27/17) INFLUENZA VIRUS VACCINES (Verified Allergy, Unknown, 04/27/17) SULFAMETHIZOLE (Verified Allergy, Unknown, 04/27/17) All Systems: reviewed and negative except above Subjective sl chest pain sl weak Objective Last 24 Hour Vital Signs Date Time Temp Pulse Resp B/P (MAP) Pulse Ox O2 Delivery O2 Flow Rate FiO2 04/29/17 12:00 97.0 59 21 110/66 95 Nasal Cannula 2.0 04/29/17 08:00 97.2 58 21 112/65 98 Nasal Cannula 2.0 04/29/17 08:00 74 04/29/17 04:00 66 04/29/17 03:54 98.2 67 21 105/62 98 Nasal Cannula 67 04/29/17 00:00 65 04/28/17 23:32 98.2 69 20 104/67 98 Nasal Cannula 69 04/28/17 22:09 80 130/65 04/28/17 20:45 98.2 78 21 110/61 98 Nasal Cannula 78 04/28/17 20:10 82 18 Room Air 04/28/17 20:00 71 04/28/17 16:15 97.2 80 20 123/68 95 Room Air 80 04/28/17 16:00 88 Laboratory Tests 04/28/17 15:50: Prothrombin Time 20.2H, Prothromb Time International Ratio 1.9H 04/29/17 05:35: Prothrombin Time 17.1H, Prothromb Time International Ratio 1.6H, White Blood Count 3.8L, Red Blood Count 3.85L, Hemoglobin 12.4L, Hematocrit 36.2L, Mean Corpuscular Volume 94, Mean Corpuscular Hemoglobin 32.1H, Mean Corpuscular Hemoglobin Concent 34.2, Red Cell Distribution Width 15.2H, Platelet Count 119L , Mean Platelet Volume 5.2L, Neutrophils (%) (Auto) 52.5, Lymphocytes (%) (Auto ) 33.1, Monocytes (%) (Auto) 8.9, Eosinophils (%) (Auto) 4.9H, Basophils (%) ( Auto) 0.6, Activated Partial Thromboplast Time 31, Sodium Level 143, Potassium Level 3.9, Chloride Level 106, Carbon Dioxide Level 24, Anion Gap 13, Blood Urea Nitrogen 14, Creatinine 1.1, Estimat Glomerular Filtration Rate > 60, Glucose Level 158H, Calcium Level 9.1, Troponin I < 0.30, C-Reactive Protein, Quantitative 0.3, Pro-B-Type Natriuretic Peptide 157H, Triglycerides Level 375H , Cholesterol Level 173, LDL Cholesterol 71, HDL Cholesterol 27, Cholesterol/ HDL Ratio 6.4H, Thyroid Stimulating Hormone (TSH) 0.800, Hepatitis A IgM Antibody [Pending], Hepatitis B Surface Antigen [Pending], Hepatitis B Core IgM Antibody [Pending], Hepatitis C Antibody [Pending], HIV (1&2) Antibody Rapid Negative Height (Feet): 5 Height (Inches): 7.00 Weight (Pounds): 219 General Appearance: lethargic EENT: normal ENT inspection Neck: normal alignment Cardiovascular: normal peripheral pulses, normal rate, regular rhythm Respiratory/Chest: chest wall non-tender, lungs clear, normal breath sounds Abdomen: normal bowel sounds, non tender, soft Extremities: normal inspection Edema: no edema noted Arm (L), no edema noted Arm (R), no edema noted Leg (L), no edema noted Leg (R), no edema noted Pedal (L), no edema noted Pedal (R), no edema noted Generalized Neurologic: responsive, motor weakness Skin: normal pigmentation, warm/dry ANDRE SILVA Apr 29, 2017 14:49
[2017-04-29] MEDS: ARIPiprazole 10mg tab ORAL SCH (14:56)
--- NOTE | 2017-04-29 15:25 | Diagnostic Imaging Report ---
Indication: chest pain Technique: The study was conducted under the supervision of a education technician. Dolbutamine administration followed by intravenous administration of 32.6 mCi of technetium 99m Myoview was performed. Three plane SPECT imaging of the heart was then performed. A resting study was performed as part of the one-day protocol with 10.1 mCi of technetium 99m myoview injected intravenously at that time. Three plane SPECT imaging of the heart was obtained. Comparison: None Clinical data: Infusion was for 12 minutes. Resting heart rate: 56. Peak heart rate: 120 (75% maximum predicted heart rate) Resting BP: 122/84. Peak BP: 183/105 Patient experienced chest pain and palpitations. PVCs were noted on an EKG. 1. Clinical response: Ischemic 2. Electrocardiographic response: Ischemic Findings: The myocardial perfusion scan demonstrates no definite fixed or reversible perfusion defects. There is attenuation of the inferior wall. Impression: No definite scintigraphic evidence for myocardial ischemia. LVEF 70% Attenuation of the inferior wall noted.
[2017-04-29 16:00] VITALS: BP 103/64
--- NOTE | 2017-04-29 16:30 | Consultation ---
DATE OF CONSULTATION: INFECTIOUS DISEASE CONSULTATION REQUESTING PHYSICIAN: Sven Ordoñez D.O. REASON FOR CONSULTATION: Diarrhea, rule out recurrent Clostridium difficile colitis infection. HISTORY OF PRESENT ILLNESS: The patient is a 61-year-old male, who was sent from [facility] with history of coronary artery disease and CT with chief complaint of chest pain, which gets worse when he is under stress or with lack of sleep. The patient had a recent C. difficile colitis infection a month ago and he was treated for it. Today, he was admitted to [facility] for evaluation of his chest pain and to rule out acute coronary syndrome and I was consulted by the primary provider to rule out recurrent C diff colitis infection since he was having bouts of diarrhea. As of note, the patient is a poor historian. History has been obtained from the at the bedside and medical records. PAST MEDICAL HISTORY: Significant for coronary artery disease status post bypass, dysphagia, hyperlipidemia, anemia, and psychosis. PAST SURGICAL HISTORY: He had bypass surgery in 2003. MEDICATIONS: He is on atorvastatin, Seroquel, Flomax, Restoril, Remeron, Lopressor, vancomycin, warfarin, heparin, Abilify. ALLERGIES: He is allergic to adhesive tape, amiodarone, influenza virus vaccine, and sulfa drugs. SOCIAL HISTORY: He is a [facility] resident. Denied recent drugs, tobacco, or alcohol. FAMILY HISTORY: Noncontributory. REVIEW OF SYSTEMS: Unable to obtain at this point, the patient is a poor historian. PHYSICAL EXAMINATION: GENERAL: The patient is an elderly male, lying in bed, obese, alert and awake, not in distress, follow commands. VITAL SIGNS: Temperature 97.5 degrees, pulse 66, respirations 19, blood pressure 113/65, and saturation 97% on two liters nasal cannula. HEENT: Normocephalic and atraumatic. Pupils are reactive to light. Moist oral mucosa. No exudate or thrush. NECK: Supple. No lymphadenopathy. CARDIOVASCULAR: Regular rate and rhythm. No murmur or gallop. LUNGS: Clear bilaterally. Diminished breathing sounds at the bases. No wheezes or rhonchi. ABDOMEN: Soft, nontender, and nondistended. Positive bowel sounds. No hepatosplenomegaly. No ascites. EXTREMITIES: Trace edema. No cyanosis. SKIN: No rash. No hives. LABORATORY DATA: Labs showed white count of 4.6, hemoglobin 13, and platelet count of 145,000. BUN of 18 and creatinine of 1.2. AST 35 and ALT of 51. RADIOLOGY: Chest x-ray on admission showed no acute disease. Venous Doppler of both lower extremity showed patent deep vein system bilaterally with no evidence of thrombus within the veins. ASSESSMENT AND RECOMMENDATION: 1. Diarrhea, rule out recurrent Clostridium difficile, was treated for Clostridium colitis a month ago. We will send stool culture and stool for Clostridium difficile toxin check and start him empirically on oral vancomycin, pending test results. 2. Chest pain, rule out acute coronary syndrome. Monitor in telemetry unite. cardiology is following. 3. Diabetes. Recommend tight glycemic control to keep blood glucose between 80 to 120. 4. Coronary artery disease. Continue cardiac medications. Cardiology is following. 5. Psychosis. Continue psych medications. Consult psychiatrist. Thank you for the consultation. ID will continue to follow with you. Gladys Murillo M.D. DR: NOEMÍ JOB#: [id number] CC: ELOY
[2017-04-29] MEDS ORDERED: Warfarin Sodium 3mg ORAL ONE (17:00)
--- NOTE | 2017-04-29 18:39 | Infectious Diseases Prog Note ---
Assessment/Plan Problems: (1) Diarrhea Assessment & Plan: rule out recurrent C DIFF, was treated for C diff colitis a month ago, await stool culture and C diff toxin and continue oral vancomycin empirically (2) Chest pain Assessment & Plan: rule out ACS , monitr in tele, follow troponin trends, cardiology is following (3) Diabetes mellitus Assessment & Plan: recommend tight glycemic control to keep blood glucose between 80-120 (4) CAD (coronary artery disease) Assessment & Plan: continue cardiac meds, cardiology is following Subjective Constitutional: Reports: no symptoms HEENT: Reports: no symptoms Respiratory: Reports: no symptoms Breasts: Reports: no symptoms Cardiovascular: Reports: chest pain Gastrointestinal/Abdominal: Reports: diarrhea Genitourinary: Reports: no symptoms Neurologic: Reports: no symptoms Psychiatric: Reports: no symptoms Skin: Reports: ulcer Endocrine: Reports: feels warm Hematologic: Reports: no symptoms Allergies: Coded Allergies: ADHESIVE TAPE (Verified Allergy, Unknown, 04/27/17) AMIODARONE (Verified Allergy, Unknown, 04/27/17) INFLUENZA VIRUS VACCINES (Verified Allergy, Unknown, 04/27/17) SULFAMETHIZOLE (Verified Allergy, Unknown, 04/27/17) Objective Vital Signs Last 24 Hour Vital Signs Date Time Temp Pulse Resp B/P (MAP) Pulse Ox O2 Delivery O2 Flow Rate FiO2 04/29/17 16:00 97.1 71 21 103/64 Nasal Cannula 2.0 04/29/17 12:00 56 04/29/17 12:00 97.0 59 21 110/66 95 Nasal Cannula 2.0 04/29/17 09:00 70 109/70 04/29/17 08:00 97.2 58 21 112/65 98 Nasal Cannula 2.0 04/29/17 08:00 74 04/29/17 04:00 66 04/29/17 03:54 98.2 67 21 105/62 98 Nasal Cannula 67 04/29/17 00:00 65 04/28/17 23:32 98.2 69 20 104/67 98 Nasal Cannula 69 04/28/17 22:09 80 130/65 04/28/17 20:45 98.2 78 21 110/61 98 Nasal Cannula 78 04/28/17 20:10 82 18 Room Air 04/28/17 20:00 71 Height (Feet): 5 Height (Inches): 7.00 Weight (Pounds): 219 General Appearance: WD/WN, no acute distress HEENT: normocephalic, atraumatic, anicteric, mucous membranes moist, PERRL Respiratory/Chest: chest wall non-tender, lungs clear, normal breath sounds, no respiratory distress, no accessory muscle use Cardiovascular: normal peripheral pulses, normal rate, regular rhythm, no gallop/murmur, no JVD Abdomen: normal bowel sounds, soft, non tender, no organomegaly, non distended , no mass, no scars Extremities: no cyanosis, no clubbing Skin: no rash, no lesions, no ulcers Neurologic/Psychiatric: alert, responsive Lymphatic: no neck adenopathy, no groin adenopathy Laboratory Tests Test 04/29/17 05:35 White Blood Count 3.8 K/UL (4.8-10.8) L Red Blood Count 3.85 M/UL (4.70-6.10) L Hemoglobin 12.4 G/DL (14.2-18.0) L Hematocrit 36.2 % (42.0-52.0) L Mean Corpuscular Volume 94 FL (80-99) Mean Corpuscular Hemoglobin 32.1 PG (27.0-31.0) H Mean Corpuscular Hemoglobin Concent 34.2 G/DL (32.0-36.0) Red Cell Distribution Width 15.2 % (11.6-14.8) H Platelet Count 119 K/UL (150-450) L Mean Platelet Volume 5.2 FL (6.5-10.1) L Neutrophils (%) (Auto) 52.5 % (45.0-75.0) Lymphocytes (%) (Auto) 33.1 % (20.0-45.0) Monocytes (%) (Auto) 8.9 % (1.0-10.0) Eosinophils (%) (Auto) 4.9 % (0.0-3.0) H Basophils (%) (Auto) 0.6 % (0.0-2.0) Prothrombin Time 17.1 SEC (9.30-11.50) H Prothromb Time International Ratio 1.6 (0.9-1.1) H Activated Partial Thromboplast Time 31 SEC (23-33) Sodium Level 143 mEQ/L (135-145) Potassium Level 3.9 mEQ/L (3.4-4.9) Chloride Level 106 mEQ/L (98-107) Carbon Dioxide Level 24 mEQ/L (20-30) Anion Gap 13 (5-15) Blood Urea Nitrogen 14 mg/dL (7-23) Creatinine 1.1 mg/dL (0.7-1.2) Estimat Glomerular Filtration Rate > 60 mL/min (>60) Glucose Level 158 mg/dL (74-106) H Calcium Level 9.1 mg/dL (8.6-10.2) Troponin I < 0.30 ng/mL (<=0.30) C-Reactive Protein, Quantitative 0.3 mg/dL (< 0.5) Pro-B-Type Natriuretic Peptide 157 pg/mL (0-125) H Triglycerides Level 375 mg/dL (< 150) H Cholesterol Level 173 mg/dL (< 200) LDL Cholesterol 71 mg/dL (60-99) HDL Cholesterol 27 mg/dL (> 60) Cholesterol/HDL Ratio 6.4 (3.3-4.4) H Thyroid Stimulating Hormone (TSH) 0.800 uIU/mL (0.300-4.500) Hepatitis A IgM Antibody Pending Hepatitis B Surface Antigen Pending Hepatitis B Core IgM Antibody Pending Hepatitis C Antibody Pending HIV (1&2) Antibody Rapid Negative (NEGATIVE) Current Medications Medications (Trade) Dose Ordered Sig/Tanner Route PRN Reason Start Time Stop Time Status Last Admin Dose Admin Acetaminophen (Tylenol) 650 mg Q4H PRN ORAL FEVER>100.5 04/28/17 07:30 05/28/17 07:29 Albuterol/ Ipratropium (DuoNeb 0.5-3(2.5)mg/3ml) 3 ml Q4H PRN HHN Shortness of Breath 04/28/17 07:30 05/03/17 07:29 Allopurinol (Allopurinol) 300 mg DAILY ORAL 04/28/17 09:00 05/28/17 08:59 04/29/17 10:13 Aripiprazole (Abilify) 30 mg DAILY@1300 ORAL 04/28/17 13:00 05/28/17 12:59 04/29/17 14:56 Aspirin (ASA) 162 mg DAILY ORAL 04/28/17 09:00 05/28/17 08:59 04/29/17 10:14 Atorvastatin Calcium (Lipitor) 40 mg BEDTIME ORAL 04/28/17 21:00 05/28/17 20:59 04/28/17 22:07 Clopidogrel Bisulfate (Plavix) 75 mg DAILY ORAL 04/28/17 09:00 05/28/17 08:59 04/29/17 10:14 Dextrose (Dextrose 50%) STAT PRN IV Hypoglycemia 04/28/17 07:30 05/28/17 07:29 Diltiazem HCl (Cardizem) 10 mg Q1H PRN IV heart rate more than 120, 04/28/17 07:30 05/28/17 07:29 Enalaprilat (Vasotec) 2.5 mg Q6H PRN IV sbp more than 160 04/28/17 07:30 05/28/17 07:29 Escitalopram Oxalate (Lexapro) 20 mg DAILY@1300 ORAL 04/28/17 13:00 05/28/17 12:59 04/29/17 14:55 Insulin Aspart (NovoLOG) BEFORE MEALS AND HS SUBQ 04/28/17 08:30 05/28/17 08:29 04/29/17 18:11 Metoprolol Tartrate (Lopressor) 50 mg Q12HR ORAL 04/28/17 21:00 05/28/17 20:59 04/28/17 22:09 Mirtazapine (Remeron) 30 mg QHS ORAL 04/28/17 21:00 05/28/17 20:59 04/28/17 22:06 Morphine Sulfate (Morphine Sulfate) 2 mg Q4H PRN IVP severe Pain (Pain Scale 7-10) 04/28/17 07:30 05/05/17 07:29 04/28/17 16:06 Nitroglycerin (Ntg) 0.4 mg Q5M PRN SL Prn Chest Pain 04/28/17 07:30 05/28/17 07:29 Ondansetron HCl (Zofran) 4 mg Q6H PRN IVP Nausea & Vomiting 04/28/17 07:30 05/28/17 07:29 Pantoprazole (Protonix) 40 mg ACBREAKFAST ORAL 04/28/17 09:00 05/28/17 08:59 04/29/17 05:20 Polyethylene Glycol (Miralax) 17 gm DAILYPRN PRN ORAL Constipation 04/28/17 09:00 05/28/17 08:59 Quetiapine Fumarate (SEROquel) 200 mg BEDTIME ORAL 04/28/17 21:00 05/28/17 20:59 04/28/17 22:08 Tamsulosin HCl (Flomax) 0.4 mg BEDTIME ORAL 04/28/17 21:00 05/28/17 20:59 04/28/17 22:08 Temazepam (Restoril) 15 mg HSPRN PRN ORAL Insomnia 04/28/17 21:00 05/05/17 20:59 04/28/17 23:32 Vancomycin HCl (Vancomycin) 125 mg FOUR TIMES A DAY ORAL 04/28/17 18:00 05/05/17 17:59 04/29/17 18:10 Warfarin Sodium (Coumadin per pharmacy) 1 ea DAILYPRN PRN MISC Per rx protocol 04/28/17 14:45 05/28/17 14:44 Gladys Murillo M.D. Apr 29, 2017 18:38
--- NOTE | 2017-04-29 18:40 | Cardiac Electrophysiology PN ---
Assessment/Plan Assessment/Plan 1. Chest pain in a patient with history of coronary artery bypass graft and multiple coronary interventions since then including most recent one in June 2016. Awaiting cath report from [facility]. The patient was already ruled out for myocardial infarction. Nuclear stress test today showed no definite ischemia. 2D echocardiogram EF 65%. Continue aspirin,Toprol, Plavix and Lipitor 40 mg daily. 2. History of coronary artery bypass graft. 3. Status post aortic valve replacement with a porcine aortic valve. Echocardiogram mod . 4. History of atrial fibrillation and ablation, remained in sinus rhythm. He is on aspirin,Toprol 50 bid, Coumadin and Plavix. 5. Diabetes. 6. Depression. 7. Status post amputation of the fingers. DW Sister and RN Subjective Subjective Feeling better in SR. RN and sister at bedside. Completed adenosine stress test with no definitive ischemia on nuclear images.. Objective Last 24 Hour Vital Signs Date Time Temp Pulse Resp B/P (MAP) Pulse Ox O2 Delivery O2 Flow Rate FiO2 04/29/17 16:00 97.1 71 21 103/64 Nasal Cannula 2.0 04/29/17 12:00 56 04/29/17 12:00 97.0 59 21 110/66 95 Nasal Cannula 2.0 04/29/17 09:00 70 109/70 04/29/17 08:00 97.2 58 21 112/65 98 Nasal Cannula 2.0 04/29/17 08:00 74 04/29/17 04:00 66 04/29/17 03:54 98.2 67 21 105/62 98 Nasal Cannula 67 04/29/17 00:00 65 04/28/17 23:32 98.2 69 20 104/67 98 Nasal Cannula 69 04/28/17 22:09 80 130/65 04/28/17 20:45 98.2 78 21 110/61 98 Nasal Cannula 78 04/28/17 20:10 82 18 Room Air 04/28/17 20:00 71 Laboratory Tests Test 04/29/17 05:35 White Blood Count 3.8 K/UL (4.8-10.8) L Red Blood Count 3.85 M/UL (4.70-6.10) L Hemoglobin 12.4 G/DL (14.2-18.0) L Hematocrit 36.2 % (42.0-52.0) L Mean Corpuscular Volume 94 FL (80-99) Mean Corpuscular Hemoglobin 32.1 PG (27.0-31.0) H Mean Corpuscular Hemoglobin Concent 34.2 G/DL (32.0-36.0) Red Cell Distribution Width 15.2 % (11.6-14.8) H Platelet Count 119 K/UL (150-450) L Mean Platelet Volume 5.2 FL (6.5-10.1) L Neutrophils (%) (Auto) 52.5 % (45.0-75.0) Lymphocytes (%) (Auto) 33.1 % (20.0-45.0) Monocytes (%) (Auto) 8.9 % (1.0-10.0) Eosinophils (%) (Auto) 4.9 % (0.0-3.0) H Basophils (%) (Auto) 0.6 % (0.0-2.0) Prothrombin Time 17.1 SEC (9.30-11.50) H Prothromb Time International Ratio 1.6 (0.9-1.1) H Activated Partial Thromboplast Time 31 SEC (23-33) Sodium Level 143 mEQ/L (135-145) Potassium Level 3.9 mEQ/L (3.4-4.9) Chloride Level 106 mEQ/L (98-107) Carbon Dioxide Level 24 mEQ/L (20-30) Anion Gap 13 (5-15) Blood Urea Nitrogen 14 mg/dL (7-23) Creatinine 1.1 mg/dL (0.7-1.2) Estimat Glomerular Filtration Rate > 60 mL/min (>60) Glucose Level 158 mg/dL (74-106) H Calcium Level 9.1 mg/dL (8.6-10.2) Troponin I < 0.30 ng/mL (<=0.30) C-Reactive Protein, Quantitative 0.3 mg/dL (< 0.5) Pro-B-Type Natriuretic Peptide 157 pg/mL (0-125) H Triglycerides Level 375 mg/dL (< 150) H Cholesterol Level 173 mg/dL (< 200) LDL Cholesterol 71 mg/dL (60-99) HDL Cholesterol 27 mg/dL (> 60) Cholesterol/HDL Ratio 6.4 (3.3-4.4) H Thyroid Stimulating Hormone (TSH) 0.800 uIU/mL (0.300-4.500) Hepatitis A IgM Antibody Pending Hepatitis B Surface Antigen Pending Hepatitis B Core IgM Antibody Pending Hepatitis C Antibody Pending HIV (1&2) Antibody Rapid Negative (NEGATIVE) Objective HEAD AND NECK: Shows no JVD. LUNGS: Clear. CARDIOVASCULAR: Shows regular S1 and S2 with no gallop or murmur ABDOMEN: Soft. EXTREMITIES: A 1+ pitting edema. ALEX VALDES Apr 29, 2017 18:40
[2017-04-29 20:03] VITALS: BP 108/67
[2017-04-29] MEDS: QUEtiapine 200mg tab ORAL SCH (20:34)
[2017-04-29] MEDS: Atorvastatin 80mg tab ORAL SCH (20:35)
[2017-04-29] MEDS: Tamsulosin 0.4mg cap ORAL SCH (20:35)
[2017-04-30 00:30] VITALS: BP 97/60
--- NOTE | 2017-04-30 02:45 | Consultation ---
DATE OF CONSULTATION: 04/28/2017 NOTE: "POOR AUDIO QUALITY" HEMATOLOGY/ONCOLOGY CONSULTATION CONSULTING PHYSICIAN: Enrique Willis M.D. REFERRING PHYSICIAN: Sven Ordoñez D.O. REASON FOR CONSULTATION: Evaluation of pancytopenia. IDENTIFICATION DATA: Dear Dr. Sven Ordoñez, The patient is a pleasant 61-year-old male with a past medical history significant for anxiety, CAD, and previous history of CO, at this time presents to the ER with complaints of chest pain, described as midsternal, substernal, as well as nitroglycerin, pain improved, and admitted to telemetry. He has been seen by Dr. Liu from Cardiology service. The patient was noted to have pancytopenia. Therefore, Hematology service was consulted for evaluation. PAST MEDICAL HISTORY: CAD, diabetes mellitus, and history of BPH. PAST SURGICAL HISTORY: Has been reviewed. MEDICATIONS: Allopurinol, aspirin, Lipitor, enalapril, Celexa, Zofran, tamsulosin, and . ALLERGIES: Adhesive tape, amiodarone, and . REVIEW OF SYSTEMS: Negative except as mentioned in the HPI. PHYSICAL EXAMINATION: GENERAL: The patient is in no acute distress. VITAL SIGNS: Temperature 98 degrees Fahrenheit, pulse of 83, respiratory rate 12, and blood pressure 112/62. PULMONARY: Decreased breath sounds. No crackles noted at the bases. CARDIOVASCULAR: Regular rate. No S3 or S4. ABDOMEN: Soft, nontender, and nondistended. EXTREMITIES: There is 1+ edema. LABORATORY DATA: WBC 4.6, hemoglobin 13, hematocrit 38, and platelet count 145,000. ASSESSMENT: 1. Pancytopenia. I have reviewed the patient's medications potentially pantoprazole versus allopurinol versus most likely Lipitor. Potentially, the patient has a history of underlying liver disease. Ultrasound of the abdomen to be ordered as well as hepatitis and human immunodeficiency virus panel . 2. Anemia, very mild. Continue to closely monitor, likely secondary to chronic disease. 3. Diarrhea, rule out Clostridium difficile. He will be seen by ID team. 4. Chest pain, rule out acute coronary syndrome. Cardiology service is following. 5. Diabetes mellitus. Blood sugar goal between 80 and 120. I appreciate the consultation. Enrique Willis M.D. DR: JOHN JOB#: [id number] CC:
[2017-04-30 04:00] VITALS: BP 97/63
[2017-04-30] MEDS: NovoLOG Insulin Flexpen SUBQ SCH ×4 (05:22→22:01)
[2017-04-30 07:30] LABS: MEAN CORPUSCULAR HEMOGLOBIN 32.9 PG (27.0-31.0); MEAN CORPUSCULAR HGB CONC 34.7 G/DL (32.0-36.0); MEAN CORPUSCULAR VOLUME 95 FL (80-99); PLATELET COUNT 126 K/UL (150-450); RED BLOOD COUNT 3.67 M/UL (4.70-6.10); RED CELL DISTRIBUTION WIDTH 15.1 % (11.6-14.8); WHITE BLOOD COUNT 4.5 K/UL (4.8-10.8)
--- NOTE | 2017-04-30 07:42 | Pulmonology Progress Note ---
Assessment/Plan Assessment/Plan ASSESSMENT Chest pain Possible ACS CAD with hx of CABG and multiple cardiac interventions s/p AVR Moderate Hx of A fib with ablation DM Schizoaffective disorder, bipolar type Diarrhea, r/o C dif PLAN OF CARE Tele Serial troponin x 3 negative Cardio follows ECHO with pEF 60-65% and RBSP of 32, moderate Nuclear stress test negative Continue antiplatelet therapy ( ASA and Plavix), Coumadin, BB and statin- as per cardio recomemdnations Lipid panel with elevated TG counseled on low fat low cholesterol diet Add Fish oil Consider Tricor if cardio ok O2 prn to keep sat above 92% Pulmonary toilet prn CXR negative BS management with SS of insulin ID follows Hx of C dif, s/p Rx, on empiric Vanco stool C dif negative Psych follows Psych meds optimized as per psych Pain management PT/OT dc plan as per PMD case discussed and evaluated by supervising physician Subjective Allergies: Coded Allergies: ADHESIVE TAPE (Verified Allergy, Unknown, 04/27/17) AMIODARONE (Verified Allergy, Unknown, 04/27/17) INFLUENZA VIRUS VACCINES (Verified Allergy, Unknown, 04/27/17) SULFAMETHIZOLE (Verified Allergy, Unknown, 04/27/17) Subjective no chest pain, reports unsteady gait when ambulates to the bathroom Objective Last 24 Hour Vital Signs Date Time Temp Pulse Resp B/P (MAP) Pulse Ox O2 Delivery O2 Flow Rate FiO2 04/30/17 04:55 66 12 92 Full Face 25.0 04/30/17 04:00 59 04/30/17 04:00 98.0 56 20 97/63 98 Bi-pap 04/30/17 02:47 57 13 90 Full Face 25.0 04/30/17 01:06 52 14 92 Full Face 25.0 04/30/17 00:30 97.2 63 20 97/60 96 Bi-pap 04/30/17 00:00 61 04/29/17 22:58 88 15 98 Full Face 25.0 04/29/17 20:37 67 115/68 04/29/17 20:03 97.0 65 20 108/67 95 Room Air 04/29/17 20:00 64 04/29/17 19:57 63 18 Room Air 04/29/17 16:00 97 04/29/17 16:00 97.1 71 21 103/64 Nasal Cannula 2.0 04/29/17 12:00 56 04/29/17 12:00 97.0 59 21 110/66 95 Nasal Cannula 2.0 04/29/17 09:00 70 109/70 04/29/17 08:00 97.2 58 21 112/65 98 Nasal Cannula 2.0 04/29/17 08:00 74 General Appearance: no acute distress, other - awake, alert, responsive obese male HEENT: normocephalic, atraumatic, anicteric, mucous membranes moist Respiratory/Chest: chest wall non-tender, lungs clear, no respiratory distress , no accessory muscle use Cardiovascular: normal rate, regular rhythm Abdomen: normal bowel sounds, soft, non tender - obese Genitourinary: normal external genitalia Extremities: no edema, pedal pulses normal Neurologic/Psychiatric: abnormal gait, alert, responsive Musculoskeletal: normal muscle bulk Microbiology Date/Time Source Procedure Growth Status 04/28/17 01:48 Nasal Nares MRSA Culture - Final NO METHICILLIN RESISTANT STAPH AUREUS... Complete 04/29/17 20:19 Stool Stool Culture Pending Resulted 04/29/17 20:19 Stool Clostridium difficile Toxin Assay - Final Resulted 04/28/17 01:48 Rectum VRE Culture - Final Enterococcus Faecium - Vre Complete Laboratory Tests 04/30/17 05:25: White Blood Count 4.5L, Red Blood Count 3.67L, Hemoglobin 12.1L, Hematocrit 34.9L, Mean Corpuscular Volume 95, Mean Corpuscular Hemoglobin 32.9H, Mean Corpuscular Hemoglobin Concent 34.7, Red Cell Distribution Width 15.1H, Platelet Count 126L, Mean Platelet Volume 6.0L, Neutrophils (%) (Auto) , Lymphocytes (%) (Auto) , Monocytes (%) (Auto) , Eosinophils (%) (Auto) , Basophils (%) (Auto) , Neutrophils % (Manual) [Pending], Lymphocytes % (Manual) [Pending], Platelet Estimate [Pending], Platelet Morphology [Pending], Prothrombin Time [Pending], Prothromb Time International Ratio [Pending], Sodium Level [Pending], Potassium Level [Pending], Chloride Level [Pending], Carbon Dioxide Level [Pending], Blood Urea Nitrogen [Pending], Creatinine [ Pending], Estimat Glomerular Filtration Rate [Pending], Glucose Level [Pending] , Calcium Level [Pending], Troponin I [Pending] Current Medications Medications (Trade) Dose Ordered Sig/Tanner Route PRN Reason Start Time Stop Time Status Last Admin Dose Admin Acetaminophen (Tylenol) 650 mg Q4H PRN ORAL FEVER>100.5 04/28/17 07:30 05/28/17 07:29 Albuterol/ Ipratropium (DuoNeb 0.5-3(2.5)mg/3ml) 3 ml Q4H PRN HHN Shortness of Breath 04/28/17 07:30 05/03/17 07:29 Allopurinol (Allopurinol) 300 mg DAILY ORAL 04/28/17 09:00 05/28/17 08:59 04/29/17 10:13 Aripiprazole (Abilify) 30 mg DAILY@1300 ORAL 04/28/17 13:00 05/28/17 12:59 04/29/17 14:56 Aspirin (ASA) 162 mg DAILY ORAL 04/28/17 09:00 05/28/17 08:59 04/29/17 10:14 Atorvastatin Calcium (Lipitor) 40 mg BEDTIME ORAL 04/28/17 21:00 05/28/17 20:59 04/29/17 20:35 Clopidogrel Bisulfate (Plavix) 75 mg DAILY ORAL 04/28/17 09:00 05/28/17 08:59 04/29/17 10:14 Dextrose (Dextrose 50%) STAT PRN IV Hypoglycemia 04/28/17 07:30 05/28/17 07:29 Diltiazem HCl (Cardizem) 10 mg Q1H PRN IV heart rate more than 120, 04/28/17 07:30 05/28/17 07:29 Enalaprilat (Vasotec) 2.5 mg Q6H PRN IV sbp more than 160 04/28/17 07:30 05/28/17 07:29 Escitalopram Oxalate (Lexapro) 20 mg DAILY@1300 ORAL 04/28/17 13:00 05/28/17 12:59 04/29/17 14:55 Insulin Aspart (NovoLOG) BEFORE MEALS AND HS SUBQ 04/28/17 08:30 05/28/17 08:29 04/29/17 20:39 Metoprolol Tartrate (Lopressor) 50 mg Q12HR ORAL 04/28/17 21:00 05/28/17 20:59 04/29/17 20:37 Mirtazapine (Remeron) 30 mg QHS ORAL 04/28/17 21:00 05/28/17 20:59 04/29/17 20:35 Morphine Sulfate (Morphine Sulfate) 2 mg Q4H PRN IVP severe Pain (Pain Scale 7-10) 04/28/17 07:30 05/05/17 07:29 04/28/17 16:06 Nitroglycerin (Ntg) 0.4 mg Q5M PRN SL Prn Chest Pain 04/28/17 07:30 05/28/17 07:29 Ondansetron HCl (Zofran) 4 mg Q6H PRN IVP Nausea & Vomiting 04/28/17 07:30 05/28/17 07:29 Pantoprazole (Protonix) 40 mg ACBREAKFAST ORAL 04/28/17 09:00 05/28/17 08:59 04/30/17 05:18 Polyethylene Glycol (Miralax) 17 gm DAILYPRN PRN ORAL Constipation 04/28/17 09:00 05/28/17 08:59 Quetiapine Fumarate (SEROquel) 200 mg BEDTIME ORAL 04/28/17 21:00 05/28/17 20:59 04/29/17 20:34 Tamsulosin HCl (Flomax) 0.4 mg BEDTIME ORAL 04/28/17 21:00 05/28/17 20:59 04/29/17 20:35 Temazepam (Restoril) 15 mg HSPRN PRN ORAL Insomnia 04/28/17 21:00 05/05/17 20:59 04/29/17 22:32 Vancomycin HCl (Vancomycin) 125 mg FOUR TIMES A DAY ORAL 04/28/17 18:00 05/05/17 17:59 04/29/17 20:35 Warfarin Sodium (Coumadin per pharmacy) 1 ea DAILYPRN PRN MISC Per rx protocol 04/28/17 14:45 05/28/17 14:44 Kennedi Vickers NP (Vanchtein) Apr 30, 2017 07:41
[2017-04-30 07:43] LABS: TROPONIN I < 0.30 ng/mL (<=0.30)
[2017-04-30 08:00] VITALS: BP 99/67
[2017-04-30 08:14] LABS: CALCIUM 9.4 mg/dL (8.6-10.2); CREATININE 1.3 mg/dL (0.7-1.2); GLOMERULAR FILTRATION RATE 56.1 mL/min (>60); POTASSIUM 3.9 mEQ/L (3.4-4.9)
[2017-04-30 08:27] LABS: INR 1.7 (0.9-1.1); PROTHROMBIN TIME 16.8 SEC (9.30-11.50)
[2017-04-30] MEDS: Metoprolol Tartrate 50mg tab ORAL SCH ×2 (09:00→21:10)
--- NOTE | 2017-04-30 09:25 | General Progress Note ---
Assessment/Plan Problem List: (1) Stress reaction ICD Codes: F43.0 - Acute stress reaction SNOMED: 00052168 (2) Hyperglycemia due to type 2 diabetes mellitus ICD Codes: E11.65 - Type 2 diabetes mellitus with hyperglycemia SNOMED: 568777829395972, [id number] Qualifiers: Qualified Codes: E11.65 - Type 2 diabetes mellitus with hyperglycemia; Z79.4 - [facility] (current) use of insulin (3) Chest pain ICD Codes: R07.9 - Chest pain, unspecified SNOMED: 05455545 Qualifiers: Qualified Codes: R07.9 - Chest pain, unspecified (4) Diabetes mellitus ICD Codes: E11.9 - Type 2 diabetes mellitus without complications SNOMED: 78127382 (5) Acute coronary syndrome ICD Codes: I24.9 - Acute ischemic heart disease, unspecified SNOMED: 880817675 Status: stable, progressing, tolerating diet Assessment/Plan ot pt diet pain control cbc bmp am dc plan to snf Subjective Constitutional: Reports: weakness Allergies: Coded Allergies: ADHESIVE TAPE (Verified Allergy, Unknown, 04/27/17) AMIODARONE (Verified Allergy, Unknown, 04/27/17) INFLUENZA VIRUS VACCINES (Verified Allergy, Unknown, 04/27/17) SULFAMETHIZOLE (Verified Allergy, Unknown, 04/27/17) All Systems: reviewed and negative except above Subjective sl chest pain sl weak Objective Last 24 Hour Vital Signs Date Time Temp Pulse Resp B/P (MAP) Pulse Ox O2 Delivery O2 Flow Rate FiO2 04/30/17 08:00 97.8 60 20 99/67 100 Endotracheal Tube 2.0 04/30/17 04:55 66 12 92 Full Face 25.0 04/30/17 04:00 59 04/30/17 04:00 98.0 56 20 97/63 98 Bi-pap 04/30/17 02:47 57 13 90 Full Face 25.0 04/30/17 01:06 52 14 92 Full Face 25.0 04/30/17 00:30 97.2 63 20 97/60 96 Bi-pap 04/30/17 00:00 61 04/29/17 22:58 88 15 98 Full Face 25.0 25 04/29/17 20:37 67 115/68 04/29/17 20:03 97.0 65 20 108/67 95 Room Air 04/29/17 20:00 64 04/29/17 19:57 63 18 Room Air 04/29/17 16:00 97 04/29/17 16:00 97.1 71 21 103/64 Nasal Cannula 2.0 04/29/17 12:00 56 04/29/17 12:00 97.0 59 21 110/66 95 Nasal Cannula 2.0 Laboratory Tests 04/30/17 05:25: White Blood Count 4.5L, Red Blood Count 3.67L, Hemoglobin 12.1L, Hematocrit 34.9L, Mean Corpuscular Volume 95, Mean Corpuscular Hemoglobin 32.9H, Mean Corpuscular Hemoglobin Concent 34.7, Red Cell Distribution Width 15.1H, Platelet Count 126L, Mean Platelet Volume 6.0L, Neutrophils (%) (Auto) , Lymphocytes (%) (Auto) , Monocytes (%) (Auto) , Eosinophils (%) (Auto) , Basophils (%) (Auto) , Neutrophils % (Manual) [Pending], Lymphocytes % (Manual) [Pending], Platelet Estimate [Pending], Platelet Morphology [Pending], Prothrombin Time 16.8H, Prothromb Time International Ratio 1.7H, Sodium Level 139, Potassium Level 3.9, Chloride Level 102, Carbon Dioxide Level 26, Anion Gap 11, Blood Urea Nitrogen 17, Creatinine 1.3H, Estimat Glomerular Filtration Rate 56.1, Glucose Level 196H, Calcium Level 9.4, Troponin I < 0.30 Height (Feet): 5 Height (Inches): 7.00 Weight (Pounds): 219 General Appearance: lethargic EENT: normal ENT inspection Neck: normal alignment Cardiovascular: normal peripheral pulses, normal rate, regular rhythm Respiratory/Chest: chest wall non-tender, lungs clear, normal breath sounds Abdomen: normal bowel sounds, non tender, soft Extremities: normal inspection Edema: no edema noted Arm (L), no edema noted Arm (R), no edema noted Leg (L), no edema noted Leg (R), no edema noted Pedal (L), no edema noted Pedal (R), no edema noted Generalized Neurologic: motor weakness Skin: normal pigmentation, warm/dry ANDRE SILVA Apr 30, 2017 09:25
[2017-04-30] MEDS: Nitroglycerin Subl 0.4mg tab (Bottle Of 25) SL PRN (09:42)
[2017-04-30] MEDS: Aspirin Baby 81mg ORAL SCH (09:44)
[2017-04-30] MEDS: Vancomycin oral 125mg/2.5ml ORAL SCH ×2 (09:45→12:07)
[2017-04-30 09:51] LABS: ANISOCYTOSIS 1+; BAND NEUTROPHILS % (MANUAL) 0 % (0-8); BASOPHILS % (MANUAL) 0 % (0-2); EOSINOPHILS % (MANUAL) 5 % (0-3); LYMPHOCYTES % (MANUAL) 35 % (20-45); NEUTROPHILS % (MANUAL) 53 % (45-75); PLATELET ESTIMATE DECREASED; PLATELET MORPHOLOGY NORMAL; TOTAL CELLS COUNTED 100
[2017-04-30 12:00] VITALS: BP 107/71
[2017-04-30] MEDS: ARIPiprazole 10mg tab ORAL SCH (12:08)
--- NOTE | 2017-04-30 15:05 | Cardiac Electrophysiology PN ---
Assessment/Plan Assessment/Plan 1. Chest pain in a patient with history of CABG and multiple coronary interventions including most recent one in June 2016. Awaiting cath report from [facility]. Already ruled out for myocardial infarction. Nuclear stress test showed no definite ischemia. 2D echocardiogram EF 65%. Continue aspirin,Toprol, Plavix and Lipitor 2. History of coronary artery bypass graft. 3. Status post aortic valve replacement with a porcine aortic valve. Echocardiogram mod . 4. History of atrial fibrillation and ablation, remained in sinus rhythm. He is on aspirin,Toprol 50 bid, Coumadin and Plavix. 5. Diabetes. 6. Depression. 7. Status post amputation of the fingers. DW Sister and RN Subjective Subjective Feeling better in SR.Sister at bedside. Stress test with no definitive ischemia on nuclear images.. Objective Last 24 Hour Vital Signs Date Time Temp Pulse Resp B/P (MAP) Pulse Ox O2 Delivery O2 Flow Rate FiO2 04/30/17 12:00 69 04/30/17 12:00 97.2 61 21 107/71 97 Nasal Cannula 2.0 04/30/17 09:42 99/67 04/30/17 09:00 60 99/67 04/30/17 08:00 97.8 60 20 99/67 100 Endotracheal Tube 2.0 04/30/17 08:00 63 04/30/17 04:55 66 12 92 Full Face 25.0 04/30/17 04:00 59 04/30/17 04:00 98.0 56 20 97/63 98 Bi-pap 04/30/17 02:47 57 13 90 Full Face 25.0 04/30/17 01:06 52 14 92 Full Face 25.0 04/30/17 00:30 97.2 63 20 97/60 96 Bi-pap 04/30/17 00:00 61 04/29/17 22:58 88 15 98 Full Face 25.0 04/29/17 20:37 67 115/68 04/29/17 20:03 97.0 65 20 108/67 95 Room Air 04/29/17 20:00 64 04/29/17 19:57 63 18 Room Air 04/29/17 16:00 97 04/29/17 16:00 97.1 71 21 103/64 Nasal Cannula 2.0 Laboratory Tests Test 04/30/17 05:25 White Blood Count 4.5 K/UL (4.8-10.8) L Red Blood Count 3.67 M/UL (4.70-6.10) L Hemoglobin 12.1 G/DL (14.2-18.0) L Hematocrit 34.9 % (42.0-52.0) L Mean Corpuscular Volume 95 FL (80-99) Mean Corpuscular Hemoglobin 32.9 PG (27.0-31.0) H Mean Corpuscular Hemoglobin Concent 34.7 G/DL (32.0-36.0) Red Cell Distribution Width 15.1 % (11.6-14.8) H Platelet Count 126 K/UL (150-450) L Mean Platelet Volume 6.0 FL (6.5-10.1) L Neutrophils (%) (Auto) % (45.0-75.0) Lymphocytes (%) (Auto) % (20.0-45.0) Monocytes (%) (Auto) % (1.0-10.0) Eosinophils (%) (Auto) % (0.0-3.0) Basophils (%) (Auto) % (0.0-2.0) Differential Total Cells Counted 100 Neutrophils % (Manual) 53 % (45-75) Lymphocytes % (Manual) 35 % (20-45) Monocytes % (Manual) 7 % (1-10) Eosinophils % (Manual) 5 % (0-3) H Basophils % (Manual) 0 % (0-2) Band Neutrophils 0 % (0-8) Platelet Estimate Decreased L Platelet Morphology Normal Anisocytosis 1+ Prothrombin Time 16.8 SEC (9.30-11.50) H Prothromb Time International Ratio 1.7 (0.9-1.1) H Sodium Level 139 mEQ/L (135-145) Potassium Level 3.9 mEQ/L (3.4-4.9) Chloride Level 102 mEQ/L (98-107) Carbon Dioxide Level 26 mEQ/L (20-30) Anion Gap 11 (5-15) Blood Urea Nitrogen 17 mg/dL (7-23) Creatinine 1.3 mg/dL (0.7-1.2) H Estimat Glomerular Filtration Rate 56.1 mL/min (>60) Glucose Level 196 mg/dL (74-106) H Calcium Level 9.4 mg/dL (8.6-10.2) Troponin I < 0.30 ng/mL (<=0.30) Microbiology Date/Time Source Procedure Growth Status 04/28/17 01:48 Nasal Nares MRSA Culture - Final NO METHICILLIN RESISTANT STAPH AUREUS... Complete 04/29/17 20:19 Stool Stool Culture Pending Resulted 04/29/17 20:19 Stool Clostridium difficile Toxin Assay - Final Resulted 04/28/17 01:48 Rectum VRE Culture - Final Enterococcus Faecium - Vre Complete Objective HEAD AND NECK: Shows no JVD. LUNGS: Clear. CARDIOVASCULAR: Regular S1 and S2 with no gallop . 2/6 S. murmur. Sternotomy intact ABDOMEN: Soft. EXTREMITIES: A 1+ pitting edema. ALEX VALDES Apr 30, 2017 15:05
--- NOTE | 2017-04-30 15:09 | Infectious Diseases Prog Note ---
Assessment/Plan Problems: (1) Diarrhea Assessment & Plan: no evidence of recurrent C DIFF, await stool culture , will stop oral vancomycin empirically, avoid antibiotics (2) Chest pain Assessment & Plan: rule out ACS , monitr in tele, follow troponin trends, cardiology is following (3) Diabetes mellitus Assessment & Plan: recommend tight glycemic control to keep blood glucose between 80-120 (4) CAD (coronary artery disease) Assessment & Plan: continue cardiac meds, cardiology is following Subjective Constitutional: Reports: no symptoms HEENT: Reports: no symptoms Respiratory: Reports: no symptoms Breasts: Reports: no symptoms Cardiovascular: Reports: no symptoms Gastrointestinal/Abdominal: Reports: diarrhea Genitourinary: Reports: no symptoms Neurologic: Reports: no symptoms Psychiatric: Reports: no symptoms Skin: Reports: no symptoms Endocrine: Reports: no symptoms Hematologic: Reports: no symptoms Allergies: Coded Allergies: ADHESIVE TAPE (Verified Allergy, Unknown, 04/27/17) AMIODARONE (Verified Allergy, Unknown, 04/27/17) INFLUENZA VIRUS VACCINES (Verified Allergy, Unknown, 04/27/17) SULFAMETHIZOLE (Verified Allergy, Unknown, 04/27/17) Objective Vital Signs Last 24 Hour Vital Signs Date Time Temp Pulse Resp B/P (MAP) Pulse Ox O2 Delivery O2 Flow Rate FiO2 04/30/17 12:00 69 04/30/17 12:00 97.2 61 21 107/71 97 Nasal Cannula 2.0 04/30/17 09:42 99/67 04/30/17 09:00 60 99/67 04/30/17 08:00 97.8 60 20 99/67 100 Endotracheal Tube 2.0 04/30/17 08:00 63 04/30/17 04:55 66 12 92 Full Face 25.0 25 04/30/17 04:00 59 04/30/17 04:00 98.0 56 20 97/63 98 Bi-pap 04/30/17 02:47 57 13 90 Full Face 25.0 25 04/30/17 01:06 52 14 92 Full Face 25.0 25 04/30/17 00:30 97.2 63 20 97/60 96 Bi-pap 04/30/17 00:00 61 04/29/17 22:58 88 15 98 Full Face 25.0 25 04/29/17 20:37 67 115/68 04/29/17 20:03 97.0 65 20 108/67 95 Room Air 04/29/17 20:00 64 04/29/17 19:57 63 18 Room Air 04/29/17 16:00 97 04/29/17 16:00 97.1 71 21 103/64 Nasal Cannula 2.0 Height (Feet): 5 Height (Inches): 7.00 Weight (Pounds): 219 General Appearance: WD/WN, no acute distress HEENT: normocephalic, atraumatic, anicteric, mucous membranes moist, EOMI, pharynx normal, supple, no JVD Respiratory/Chest: chest wall non-tender, lungs clear, normal breath sounds, no respiratory distress, no accessory muscle use Breasts: no masses Cardiovascular: normal peripheral pulses, normal rate, regular rhythm, no gallop/murmur, no JVD Abdomen: normal bowel sounds, soft, non tender, no organomegaly, non distended , no mass, no scars Extremities: no cyanosis, no clubbing Skin: no rash, no lesions, no ulcers Neurologic/Psychiatric: alert, oriented x 3, responsive Lymphatic: no neck adenopathy, no groin adenopathy Microbiology Date/Time Source Procedure Growth Status 04/28/17 01:48 Nasal Nares MRSA Culture - Final NO METHICILLIN RESISTANT STAPH AUREUS... Complete 04/29/17 20:19 Stool Stool Culture Pending Resulted 04/29/17 20:19 Stool Clostridium difficile Toxin Assay - Final Resulted 04/28/17 01:48 Rectum VRE Culture - Final Enterococcus Faecium - Vre Complete Laboratory Tests Test 04/30/17 05:25 White Blood Count 4.5 K/UL (4.8-10.8) L Red Blood Count 3.67 M/UL (4.70-6.10) L Hemoglobin 12.1 G/DL (14.2-18.0) L Hematocrit 34.9 % (42.0-52.0) L Mean Corpuscular Volume 95 FL (80-99) Mean Corpuscular Hemoglobin 32.9 PG (27.0-31.0) H Mean Corpuscular Hemoglobin Concent 34.7 G/DL (32.0-36.0) Red Cell Distribution Width 15.1 % (11.6-14.8) H Platelet Count 126 K/UL (150-450) L Mean Platelet Volume 6.0 FL (6.5-10.1) L Neutrophils (%) (Auto) % (45.0-75.0) Lymphocytes (%) (Auto) % (20.0-45.0) Monocytes (%) (Auto) % (1.0-10.0) Eosinophils (%) (Auto) % (0.0-3.0) Basophils (%) (Auto) % (0.0-2.0) Differential Total Cells Counted 100 Neutrophils % (Manual) 53 % (45-75) Lymphocytes % (Manual) 35 % (20-45) Monocytes % (Manual) 7 % (1-10) Eosinophils % (Manual) 5 % (0-3) H Basophils % (Manual) 0 % (0-2) Band Neutrophils 0 % (0-8) Platelet Estimate Decreased L Platelet Morphology Normal Anisocytosis 1+ Prothrombin Time 16.8 SEC (9.30-11.50) H Prothromb Time International Ratio 1.7 (0.9-1.1) H Sodium Level 139 mEQ/L (135-145) Potassium Level 3.9 mEQ/L (3.4-4.9) Chloride Level 102 mEQ/L (98-107) Carbon Dioxide Level 26 mEQ/L (20-30) Anion Gap 11 (5-15) Blood Urea Nitrogen 17 mg/dL (7-23) Creatinine 1.3 mg/dL (0.7-1.2) H Estimat Glomerular Filtration Rate 56.1 mL/min (>60) Glucose Level 196 mg/dL (74-106) H Calcium Level 9.4 mg/dL (8.6-10.2) Troponin I < 0.30 ng/mL (<=0.30) Current Medications Medications (Trade) Dose Ordered Sig/Tanner Route PRN Reason Start Time Stop Time Status Last Admin Dose Admin Acetaminophen (Tylenol) 650 mg Q4H PRN ORAL FEVER>100.5 04/28/17 07:30 05/28/17 07:29 Albuterol/ Ipratropium (DuoNeb 0.5-3(2.5)mg/3ml) 3 ml Q4H PRN HHN Shortness of Breath 04/28/17 07:30 05/03/17 07:29 Allopurinol (Allopurinol) 300 mg DAILY ORAL 04/28/17 09:00 05/28/17 08:59 04/30/17 09:44 Aripiprazole (Abilify) 30 mg DAILY@1300 ORAL 04/28/17 13:00 05/28/17 12:59 04/30/17 12:08 Aspirin (ASA) 162 mg DAILY ORAL 04/28/17 09:00 05/28/17 08:59 04/30/17 09:44 Atorvastatin Calcium (Lipitor) 40 mg BEDTIME ORAL 04/28/17 21:00 05/28/17 20:59 04/29/17 20:35 Clopidogrel Bisulfate (Plavix) 75 mg DAILY ORAL 04/28/17 09:00 05/28/17 08:59 04/30/17 09:44 Dextrose (Dextrose 50%) STAT PRN IV Hypoglycemia 04/28/17 07:30 05/28/17 07:29 Diltiazem HCl (Cardizem) 10 mg Q1H PRN IV heart rate more than 120, 04/28/17 07:30 05/28/17 07:29 Enalaprilat (Vasotec) 2.5 mg Q6H PRN IV sbp more than 160 04/28/17 07:30 05/28/17 07:29 Escitalopram Oxalate (Lexapro) 20 mg DAILY@1300 ORAL 04/28/17 13:00 05/28/17 12:59 04/30/17 12:07 Fish Oil (Fish Oil) 1,000 mg DAILY ORAL 05/01/17 09:00 05/31/17 08:59 Insulin Aspart (NovoLOG) BEFORE MEALS AND HS SUBQ 04/28/17 08:30 05/28/17 08:29 04/30/17 12:51 Metoprolol Tartrate (Lopressor) 50 mg Q12HR ORAL 04/30/17 21:00 05/30/17 20:59 Mirtazapine (Remeron) 30 mg QHS ORAL 04/28/17 21:00 05/28/17 20:59 04/29/17 20:35 Morphine Sulfate (Morphine Sulfate) 2 mg Q4H PRN IVP severe Pain (Pain Scale 7-10) 04/28/17 07:30 05/05/17 07:29 04/28/17 16:06 Nitroglycerin (Ntg) 0.4 mg Q5M PRN SL Prn Chest Pain 04/28/17 07:30 05/28/17 07:29 04/30/17 09:42 Ondansetron HCl (Zofran) 4 mg Q6H PRN IVP Nausea & Vomiting 04/28/17 07:30 05/28/17 07:29 Pantoprazole (Protonix) 40 mg ACBREAKFAST ORAL 04/28/17 09:00 05/28/17 08:59 04/30/17 05:18 Polyethylene Glycol (Miralax) 17 gm DAILYPRN PRN ORAL Constipation 04/28/17 09:00 05/28/17 08:59 Quetiapine Fumarate (SEROquel) 200 mg BEDTIME ORAL 04/28/17 21:00 05/28/17 20:59 04/29/17 20:34 Tamsulosin HCl (Flomax) 0.4 mg BEDTIME ORAL 04/28/17 21:00 05/28/17 20:59 04/29/17 20:35 Temazepam (Restoril) 15 mg HSPRN PRN ORAL Insomnia 04/28/17 21:00 05/05/17 20:59 04/29/17 22:32 Warfarin Sodium (Coumadin per pharmacy) 1 ea DAILYPRN PRN MISC Per rx protocol 04/28/17 14:45 05/28/17 14:44 Warfarin Sodium (Coumadin) 7.5 mg ONCE ONCE ORAL 04/30/17 17:00 04/30/17 17:01 Gladys Murillo M.D. Apr 30, 2017 15:09
[2017-04-30 16:00] VITALS: BP 114/69
[2017-04-30] MEDS ORDERED: Warfarin Sodium 7.5mg ORAL ONE (17:00)
[2017-04-30 20:28] VITALS: BP 119/72
[2017-04-30] MEDS: QUEtiapine 200mg tab ORAL SCH (21:06)
[2017-04-30] MEDS: Tamsulosin 0.4mg cap ORAL SCH (21:07)
[2017-04-30] MEDS: Atorvastatin 80mg tab ORAL SCH (21:08)
[2017-05-01] VITALS (7 sets, daily range): BP systolic 102–123; BP diastolic 65–78
[2017-05-01] MEDS: NovoLOG Insulin Flexpen SUBQ SCH ×4 (06:33→20:47)
--- NOTE | 2017-05-01 06:58 | General Progress Note ---
Assessment/Plan Problem List: (1) Stress reaction ICD Codes: F43.0 - Acute stress reaction SNOMED: 76372732 (2) Hyperglycemia due to type 2 diabetes mellitus ICD Codes: E11.65 - Type 2 diabetes mellitus with hyperglycemia SNOMED: 841860750371538, [id number] Qualifiers: Qualified Codes: E11.65 - Type 2 diabetes mellitus with hyperglycemia; Z79.4 - prison (current) use of insulin (3) Chest pain ICD Codes: R07.9 - Chest pain, unspecified SNOMED: 59463895 Qualifiers: Qualified Codes: R07.9 - Chest pain, unspecified (4) Diabetes mellitus ICD Codes: E11.9 - Type 2 diabetes mellitus without complications SNOMED: 00441006 (5) Acute coronary syndrome ICD Codes: I24.9 - Acute ischemic heart disease, unspecified SNOMED: 619458887 Status: stable, progressing, tolerating diet Assessment/Plan ot pt diet pain control cbc bmp am dc plan to snf Subjective Constitutional: Reports: weakness Allergies: Coded Allergies: ADHESIVE TAPE (Verified Allergy, Unknown, 04/27/17) AMIODARONE (Verified Allergy, Unknown, 04/27/17) INFLUENZA VIRUS VACCINES (Verified Allergy, Unknown, 04/27/17) SULFAMETHIZOLE (Verified Allergy, Unknown, 04/27/17) All Systems: reviewed and negative except above Subjective sl chest pain sl weak Objective Last 24 Hour Vital Signs Date Time Temp Pulse Resp B/P (MAP) Pulse Ox O2 Delivery O2 Flow Rate FiO2 05/01/17 04:29 66 14 96 Full Face 25.0 30 05/01/17 04:00 97.2 58 19 119/74 100 Mechanical Ventilator 58 58 05/01/17 04:00 54 05/01/17 02:55 53 15 94 Full Face 25.0 30 05/01/17 00:49 60 15 94 Full Face 25.0 30 05/01/17 00:38 22 118/78 Bi-pap 05/01/17 00:08 97.2 05/01/17 00:00 55 04/30/17 22:15 63 14 98 Full Face 25.0 25 04/30/17 21:10 62 108/67 04/30/17 20:28 96.4 61 19 119/72 Room Air 61 61 04/30/17 20:00 66 04/30/17 19:46 66 18 Room Air 21 04/30/17 16:00 97.0 70 20 114/69 96 Room Air 04/30/17 16:00 61 04/30/17 12:00 69 04/30/17 12:00 97.2 61 21 107/71 97 Nasal Cannula 2.0 04/30/17 09:42 99/67 04/30/17 09:00 60 99/67 04/30/17 08:00 97.8 60 20 99/67 100 Endotracheal Tube 2.0 04/30/17 08:00 63 04/30/17 07:30 60 20 Nasal Cannula 2.0 28 Height (Feet): 5 Height (Inches): 7.00 Weight (Pounds): 219 General Appearance: lethargic EENT: normal ENT inspection Neck: normal alignment Cardiovascular: normal peripheral pulses, normal rate, regular rhythm Respiratory/Chest: chest wall non-tender, lungs clear, normal breath sounds Abdomen: normal bowel sounds, non tender, soft Extremities: normal inspection Edema: no edema noted Arm (L), no edema noted Arm (R), no edema noted Leg (L), no edema noted Leg (R), no edema noted Pedal (L), no edema noted Pedal (R), no edema noted Generalized Neurologic: responsive, motor weakness Skin: normal pigmentation, warm/dry ANDRE SILVA May 01, 2017 06:58
[2017-05-01 07:55] LABS: ANION GAP 13 (5-15); CALCIUM 9.9 mg/dL (8.6-10.2); CARBON DIOXIDE 25 mEQ/L (20-30); CHLORIDE 104 mEQ/L (98-107); CREATININE 1.2 mg/dL (0.7-1.2); GLOMERULAR FILTRATION RATE > 60 mL/min (>60); HEMOLYSIS 5; SODIUM 142 mEQ/L (135-145)
[2017-05-01] MEDS: Nitroglycerin Subl 0.4mg tab (Bottle Of 25) SL PRN ×2 (08:14→08:37)
[2017-05-01 08:16] LABS: BASOPHILS % (AUTO) 4.1 % (0.0-2.0); EOSINOPHILS % (AUTO) 5.4 % (0.0-3.0); MEAN CORPUSCULAR HGB CONC 34.4 G/DL (32.0-36.0); MEAN CORPUSCULAR VOLUME 93 FL (80-99); MEAN PLATELET VOLUME 5.6 FL (6.5-10.1); MONOCYTES % (AUTO) 15.5 % (1.0-10.0); NEUTROPHILS % (AUTO) 55.1 % (45.0-75.0); PLATELET COUNT 118 K/UL (150-450); RED BLOOD COUNT 4.06 M/UL (4.70-6.10); RED CELL DISTRIBUTION WIDTH 14.7 % (11.6-14.8); WHITE BLOOD COUNT 4.8 K/UL (4.8-10.8)
[2017-05-01 08:19] LABS: INR 1.7 (0.9-1.1); PROTHROMBIN TIME 17.2 SEC (9.30-11.50)
[2017-05-01] MEDS ORDERED: Dyna-Hex 2% Top Sol 8oz TOPIC SCH (09:00)
[2017-05-01] MEDS: Metoprolol Tartrate 50mg tab ORAL SCH ×2 (09:00→21:00)
[2017-05-01] MEDS: Aspirin Baby 81mg ORAL SCH (09:51)
--- NOTE | 2017-05-01 11:37 | Diagnostic Imaging Report ---
Indication:Abdominal pain Technique: Grayscale and duplex Doppler imaging of the abdomen performed. Comparison: None Findings: The liver is heterogeneous and increased echogenicity is noted. No obvious surface nodularity identified. Main portal vein is patent by Doppler. There are multiple cysts within the right kidney. The left kidney is not seen. Gallbladder is contracted. CBD is 5 mm. The main portal vein is patent. There is no ascites. Aorta is calcified. Spleen is enlarged measuring 15 cm. Impression: Fatty liver. Splenomegaly. Atherosclerotic vascular disease. Multiple cysts within the right kidney Absent left kidney
[2017-05-01] MEDS: ARIPiprazole 10mg tab ORAL SCH (12:24)
--- NOTE | 2017-05-01 13:25 | Pulmonology Progress Note ---
Assessment/Plan Assessment/Plan ASSESSMENT Chest pain Possible ACS CAD with hx of CABG and multiple cardiac interventions s/p AVR Moderate Hx of A fib with ablation DM Schizoaffective disorder, bipolar type Diarrhea, r/o C dif PLAN OF CARE Tele Serial troponin x 3 negative ECG no acute ischemic changes, ruled out for acute OH Cardio follows ECHO with pEF 60-65% and RBSP of 32, moderate Nuclear stress test negative Continue antiplatelet therapy ( ASA and Plavix), Coumadin, BB and statin- as per cardio recomemdnations Lipid panel with elevated TG counseled on low fat low cholesterol diet Added Fish oil Consider Tricor if cardio ok O2 prn to keep sat above 92% Pulmonary toilet prn CXR negative BS management with SS of insulin ID follows Hx of C dif, s/p Rx, on empiric Vanco stool C dif negative abdominal US with evidence of fatty liver. Splenomegaly. Psych follows Psych meds optimized as per psych Pain management PT/OT dc plan as per PMD awaiting for disposition case discussed and evaluated by supervising physician Subjective Allergies: Coded Allergies: ADHESIVE TAPE (Verified Allergy, Unknown, 04/27/17) AMIODARONE (Verified Allergy, Unknown, 04/27/17) INFLUENZA VIRUS VACCINES (Verified Allergy, Unknown, 04/27/17) SULFAMETHIZOLE (Verified Allergy, Unknown, 04/27/17) Subjective no chest pain, reports unsteady gait when ambulates to the bathroom feeling somewhat better awaiting for placement Objective Last 24 Hour Vital Signs Date Time Temp Pulse Resp B/P (MAP) Pulse Ox O2 Delivery O2 Flow Rate FiO2 05/01/17 11:43 97.5 71 18 114/75 96 Room Air 05/01/17 09:11 65 16 94 05/01/17 09:00 58 05/01/17 08:37 100/65 05/01/17 08:14 102/65 05/01/17 08:09 97.2 62 18 102/65 96 Room Air 05/01/17 08:00 60 05/01/17 06:47 63 16 93 05/01/17 06:47 63 16 Room Air 05/01/17 04:29 66 14 96 Full Face 25.0 30 05/01/17 04:00 97.2 58 19 119/74 100 Mechanical Ventilator 58 58 05/01/17 04:00 54 05/01/17 02:55 53 15 94 Full Face 25.0 30 05/01/17 00:49 60 15 94 Full Face 25.0 30 05/01/17 00:38 22 118/78 Bi-pap 05/01/17 00:08 97.2 05/01/17 00:00 55 04/30/17 22:15 63 14 98 Full Face 25.0 25 04/30/17 21:10 62 108/67 04/30/17 20:28 96.4 61 19 119/72 Room Air 61 61 04/30/17 20:00 66 04/30/17 19:46 66 18 Room Air 21 04/30/17 16:00 97.0 70 20 114/69 96 Room Air 04/30/17 16:00 61 Objective General Appearance: no acute distress, other - awake, alert, responsive obese male HEENT: normocephalic, atraumatic, anicteric, mucous membranes moist Respiratory/Chest: chest wall non-tender, lungs clear, no respiratory distress , no accessory muscle use Cardiovascular: normal rate, regular rhythm Abdomen: normal bowel sounds, soft, non tender - obese Genitourinary: normal external genitalia Extremities: no edema, pedal pulses normal Neurologic/Psychiatric: abnormal gait, alert, responsive Musculoskeletal: normal muscle bulk Microbiology Date/Time Source Procedure Growth Status 04/29/17 20:19 Stool Stool Culture - Preliminary NORMAL FECAL JESSICA. Resulted 04/29/17 20:19 Stool Clostridium difficile Toxin Assay - Final Resulted Laboratory Tests 05/01/17 05:55: White Blood Count 4.8, Red Blood Count 4.06L, Hemoglobin 13.0L, Hematocrit 37.8L , Mean Corpuscular Volume 93, Mean Corpuscular Hemoglobin 32.0H, Mean Corpuscular Hemoglobin Concent 34.4, Red Cell Distribution Width 14.7, Platelet Count 118L, Mean Platelet Volume 5.6L, Neutrophils (%) (Auto) 55.1, Lymphocytes (%) (Auto) 20.0, Monocytes (%) (Auto) 15.5H, Eosinophils (%) (Auto) 5.4H, Basophils (%) (Auto) 4.1H, Prothrombin Time 17.2H, Prothromb Time International Ratio 1.7H, Sodium Level 142, Potassium Level 4.0, Chloride Level 104, Carbon Dioxide Level 25, Anion Gap 13, Blood Urea Nitrogen 18, Creatinine 1.2, Estimat Glomerular Filtration Rate > 60, Glucose Level 192H, Calcium Level 9.9 Current Medications Medications (Trade) Dose Ordered Sig/Tanner Route PRN Reason Start Time Stop Time Status Last Admin Dose Admin Acetaminophen (Tylenol) 650 mg Q4H PRN ORAL FEVER>100.5 04/28/17 07:30 05/28/17 07:29 Albuterol/ Ipratropium (DuoNeb 0.5-3(2.5)mg/3ml) 3 ml Q4H PRN HHN Shortness of Breath 04/28/17 07:30 05/03/17 07:29 Allopurinol (Allopurinol) 300 mg DAILY ORAL 04/28/17 09:00 05/28/17 08:59 05/01/17 09:50 Aripiprazole (Abilify) 30 mg DAILY@1300 ORAL 04/28/17 13:00 05/28/17 12:59 05/01/17 12:24 Aspirin (ASA) 162 mg DAILY ORAL 04/28/17 09:00 05/28/17 08:59 05/01/17 09:51 Atorvastatin Calcium (Lipitor) 40 mg BEDTIME ORAL 04/28/17 21:00 05/28/17 20:59 04/30/17 21:08 Clopidogrel Bisulfate (Plavix) 75 mg DAILY ORAL 04/28/17 09:00 05/28/17 08:59 05/01/17 09:50 Dextrose (Dextrose 50%) STAT PRN IV Hypoglycemia 04/28/17 07:30 05/28/17 07:29 Diltiazem HCl (Cardizem) 10 mg Q1H PRN IV heart rate more than 120, 04/28/17 07:30 05/28/17 07:29 Enalaprilat (Vasotec) 2.5 mg Q6H PRN IV sbp more than 160 04/28/17 07:30 05/28/17 07:29 Escitalopram Oxalate (Lexapro) 20 mg DAILY@1300 ORAL 04/28/17 13:00 05/28/17 12:59 05/01/17 12:24 Fish Oil (Fish Oil) 1,000 mg DAILY ORAL 05/01/17 09:00 05/31/17 08:59 05/01/17 09:51 Insulin Aspart (NovoLOG) BEFORE MEALS AND HS SUBQ 04/28/17 08:30 05/28/17 08:29 05/01/17 12:25 Metoprolol Tartrate (Lopressor) 50 mg Q12HR ORAL 04/30/17 21:00 05/30/17 20:59 04/30/17 21:10 Mirtazapine (Remeron) 30 mg QHS ORAL 04/28/17 21:00 05/28/17 20:59 04/30/17 21:08 Morphine Sulfate (Morphine Sulfate) 2 mg Q4H PRN IVP severe Pain (Pain Scale 7-10) 04/28/17 07:30 05/05/17 07:29 04/28/17 16:06 Nitroglycerin (Ntg) 0.4 mg Q5M PRN SL Prn Chest Pain 04/28/17 07:30 05/28/17 07:29 05/01/17 08:37 Ondansetron HCl (Zofran) 4 mg Q6H PRN IVP Nausea & Vomiting 04/28/17 07:30 05/28/17 07:29 Pantoprazole (Protonix) 40 mg ACBREAKFAST ORAL 04/28/17 09:00 05/28/17 08:59 05/01/17 06:28 Polyethylene Glycol (Miralax) 17 gm DAILYPRN PRN ORAL Constipation 04/28/17 09:00 05/28/17 08:59 Quetiapine Fumarate (SEROquel) 25 mg DAILY@1700 ORAL 04/30/17 17:00 05/30/17 16:59 04/30/17 17:32 Quetiapine Fumarate (SEROquel) 200 mg BEDTIME ORAL 04/28/17 21:00 05/28/17 20:59 04/30/17 21:06 Tamsulosin HCl (Flomax) 0.4 mg BEDTIME ORAL 04/28/17 21:00 05/28/17 20:59 04/30/17 21:07 Temazepam (Restoril) 15 mg HSPRN PRN ORAL Insomnia 04/28/17 21:00 05/05/17 20:59 04/30/17 21:28 Warfarin Sodium (Coumadin per pharmacy) 1 ea DAILYPRN PRN MISC Per rx protocol 04/28/17 14:45 05/28/17 14:44 Warfarin Sodium (Coumadin) 10 mg COUMADIN ONCE ORAL 05/01/17 17:00 05/01/17 17:01 Rancho (Karthikeyanricky)Kennedi NP May 01, 2017 13:25
--- NOTE | 2017-05-01 15:33 | Infectious Diseases Prog Note ---
Assessment/Plan Problems: (1) Diarrhea Assessment & Plan: no evidence of recurrent C DIFF, or stool infection and negative stool culture , keep off antibiotics (2) Chest pain Assessment & Plan: rule out ACS , monitr in tele, follow troponin trends, cardiology is following (3) Diabetes mellitus Assessment & Plan: recommend tight glycemic control to keep blood glucose between 80-120 (4) CAD (coronary artery disease) Assessment & Plan: continue cardiac meds, cardiology is following (5) Dermatitis, seborrheic Assessment & Plan: ok for ketoconazol shampoo or cream Subjective Constitutional: Reports: no symptoms HEENT: Reports: no symptoms Respiratory: Reports: no symptoms Breasts: Reports: no symptoms Cardiovascular: Reports: no symptoms Gastrointestinal/Abdominal: Reports: no symptoms Genitourinary: Reports: no symptoms Neurologic: Reports: no symptoms Psychiatric: Reports: no symptoms Skin: Reports: no symptoms Endocrine: Reports: no symptoms Hematologic: Reports: no symptoms Musculoskeletal: Reports: no symptoms Allergies: Coded Allergies: ADHESIVE TAPE (Verified Allergy, Unknown, 04/27/17) AMIODARONE (Verified Allergy, Unknown, 04/27/17) INFLUENZA VIRUS VACCINES (Verified Allergy, Unknown, 04/27/17) SULFAMETHIZOLE (Verified Allergy, Unknown, 04/27/17) Objective Vital Signs Last 24 Hour Vital Signs Date Time Temp Pulse Resp B/P (MAP) Pulse Ox O2 Delivery O2 Flow Rate FiO2 05/01/17 12:00 63 05/01/17 11:43 97.5 71 18 114/75 96 Room Air 05/01/17 09:11 65 16 94 05/01/17 09:00 58 05/01/17 08:37 100/65 05/01/17 08:14 102/65 05/01/17 08:09 97.2 62 18 102/65 96 Room Air 05/01/17 08:00 60 05/01/17 06:47 63 16 93 05/01/17 06:47 63 16 Room Air 05/01/17 04:29 66 14 96 Full Face 25.0 30 05/01/17 04:00 97.2 58 19 119/74 100 Mechanical Ventilator 58 58 05/01/17 04:00 54 05/01/17 02:55 53 15 94 Full Face 25.0 30 05/01/17 00:49 60 15 94 Full Face 25.0 30 05/01/17 00:38 22 118/78 Bi-pap 05/01/17 00:08 97.2 05/01/17 00:00 55 04/30/17 22:15 63 14 98 Full Face 25.0 25 04/30/17 21:10 62 108/67 04/30/17 20:28 96.4 61 19 119/72 Room Air 61 61 04/30/17 20:00 66 04/30/17 19:46 66 18 Room Air 21 04/30/17 16:00 97.0 70 20 114/69 96 Room Air 04/30/17 16:00 61 Height (Feet): 5 Height (Inches): 7.00 Weight (Pounds): 219 General Appearance: WD/WN, no acute distress HEENT: normocephalic, atraumatic, anicteric, mucous membranes moist, PERRL, EOMI, pharynx normal, supple, no JVD Respiratory/Chest: chest wall non-tender, lungs clear, normal breath sounds, no respiratory distress, no accessory muscle use Cardiovascular: normal peripheral pulses, normal rate, regular rhythm, no gallop/murmur, no JVD Abdomen: normal bowel sounds, soft, non tender, no organomegaly, non distended , no mass, no scars Extremities: no cyanosis, no clubbing Skin: no rash, no lesions, no ulcers Neurologic/Psychiatric: alert, oriented x 3, responsive Microbiology Date/Time Source Procedure Growth Status 04/29/17 20:19 Stool Stool Culture - Preliminary NORMAL FECAL JESSICA. Resulted 04/29/17 20:19 Stool Clostridium difficile Toxin Assay - Final Resulted Laboratory Tests Test 05/01/17 05:55 White Blood Count 4.8 K/UL (4.8-10.8) Red Blood Count 4.06 M/UL (4.70-6.10) L Hemoglobin 13.0 G/DL (14.2-18.0) L Hematocrit 37.8 % (42.0-52.0) L Mean Corpuscular Volume 93 FL (80-99) Mean Corpuscular Hemoglobin 32.0 PG (27.0-31.0) H Mean Corpuscular Hemoglobin Concent 34.4 G/DL (32.0-36.0) Red Cell Distribution Width 14.7 % (11.6-14.8) Platelet Count 118 K/UL (150-450) L Mean Platelet Volume 5.6 FL (6.5-10.1) L Neutrophils (%) (Auto) 55.1 % (45.0-75.0) Lymphocytes (%) (Auto) 20.0 % (20.0-45.0) Monocytes (%) (Auto) 15.5 % (1.0-10.0) H Eosinophils (%) (Auto) 5.4 % (0.0-3.0) H Basophils (%) (Auto) 4.1 % (0.0-2.0) H Prothrombin Time 17.2 SEC (9.30-11.50) H Prothromb Time International Ratio 1.7 (0.9-1.1) H Sodium Level 142 mEQ/L (135-145) Potassium Level 4.0 mEQ/L (3.4-4.9) Chloride Level 104 mEQ/L (98-107) Carbon Dioxide Level 25 mEQ/L (20-30) Anion Gap 13 (5-15) Blood Urea Nitrogen 18 mg/dL (7-23) Creatinine 1.2 mg/dL (0.7-1.2) Estimat Glomerular Filtration Rate > 60 mL/min (>60) Glucose Level 192 mg/dL (74-106) H Calcium Level 9.9 mg/dL (8.6-10.2) Current Medications Medications (Trade) Dose Ordered Sig/Tanner Route PRN Reason Start Time Stop Time Status Last Admin Dose Admin Acetaminophen (Tylenol) 650 mg Q4H PRN ORAL FEVER>100.5 04/28/17 07:30 05/28/17 07:29 Albuterol/ Ipratropium (DuoNeb 0.5-3(2.5)mg/3ml) 3 ml Q4H PRN HHN Shortness of Breath 04/28/17 07:30 05/03/17 07:29 Allopurinol (Allopurinol) 300 mg DAILY ORAL 04/28/17 09:00 05/28/17 08:59 05/01/17 09:50 Aripiprazole (Abilify) 30 mg DAILY ORAL 05/02/17 09:00 05/28/17 12:59 Aspirin (ASA) 162 mg DAILY ORAL 04/28/17 09:00 05/28/17 08:59 05/01/17 09:51 Atorvastatin Calcium (Lipitor) 40 mg BEDTIME ORAL 04/28/17 21:00 05/28/17 20:59 04/30/17 21:08 Clopidogrel Bisulfate (Plavix) 75 mg DAILY ORAL 04/28/17 09:00 05/28/17 08:59 05/01/17 09:50 Dextrose (Dextrose 50%) STAT PRN IV Hypoglycemia 04/28/17 07:30 05/28/17 07:29 Diltiazem HCl (Cardizem) 10 mg Q1H PRN IV heart rate more than 120, 04/28/17 07:30 05/28/17 07:29 Enalaprilat (Vasotec) 2.5 mg Q6H PRN IV sbp more than 160 04/28/17 07:30 05/28/17 07:29 Escitalopram Oxalate (Lexapro) 20 mg DAILY ORAL 05/02/17 09:00 05/28/17 12:59 Fish Oil (Fish Oil) 1,000 mg DAILY ORAL 05/01/17 09:00 05/31/17 08:59 05/01/17 09:51 Insulin Aspart (NovoLOG) BEFORE MEALS AND HS SUBQ 04/28/17 08:30 05/28/17 08:29 05/01/17 12:25 Metoprolol Tartrate (Lopressor) 50 mg Q12HR ORAL 04/30/17 21:00 05/30/17 20:59 04/30/17 21:10 Mirtazapine (Remeron) 30 mg QHS ORAL 04/28/17 21:00 05/28/17 20:59 04/30/17 21:08 Morphine Sulfate (Morphine Sulfate) 2 mg Q4H PRN IVP severe Pain (Pain Scale 7-10) 04/28/17 07:30 05/05/17 07:29 04/28/17 16:06 Nitroglycerin (Ntg) 0.4 mg Q5M PRN SL Prn Chest Pain 04/28/17 07:30 05/28/17 07:29 05/01/17 08:37 Ondansetron HCl (Zofran) 4 mg Q6H PRN IVP Nausea & Vomiting 04/28/17 07:30 05/28/17 07:29 Pantoprazole (Protonix) 40 mg ACBREAKFAST ORAL 04/28/17 09:00 05/28/17 08:59 05/01/17 06:28 Polyethylene Glycol (Miralax) 17 gm DAILYPRN PRN ORAL Constipation 04/28/17 09:00 05/28/17 08:59 Quetiapine Fumarate (SEROquel) 25 mg DAILY@1700 ORAL 04/30/17 17:00 05/30/17 16:59 04/30/17 17:32 Quetiapine Fumarate (SEROquel) 200 mg BEDTIME ORAL 04/28/17 21:00 05/28/17 20:59 04/30/17 21:06 Tamsulosin HCl (Flomax) 0.4 mg BEDTIME ORAL 04/28/17 21:00 05/28/17 20:59 04/30/17 21:07 Temazepam (Restoril) 15 mg HSPRN PRN ORAL Insomnia 04/28/17 21:00 05/05/17 20:59 04/30/17 21:28 Warfarin Sodium (Coumadin per pharmacy) 1 ea DAILYPRN PRN MISC Per rx protocol 04/28/17 14:45 05/28/17 14:44 Warfarin Sodium (Coumadin) 10 mg COUMADIN ONCE ORAL 05/01/17 17:00 05/01/17 17:01 Gladys Murillo M.D. May 01, 2017 15:33
[2017-05-01] MEDS ORDERED: Warfarin Sodium 10mg ORAL ONE (17:00)
[2017-05-01] MEDS: Atorvastatin 80mg tab ORAL SCH (20:48)
[2017-05-01] MEDS: Tamsulosin 0.4mg cap ORAL SCH (20:51)
[2017-05-01] MEDS: QUEtiapine 200mg tab ORAL SCH (20:54)
--- NOTE | 2017-05-01 23:52 | General Progress Note ---
Assessment/Plan Assessment/Plan 1. Pancytopenia. I have reviewed the patient's medications potentially pantoprazole versus allopurinol versus most likely Lipitor. Potentially, the patient has a history of underlying liver disease. Ultrasound of the abdomen to be ordered as well as hepatitis and human immunodeficiency virus panel. 2. Anemia, very mild. Continue to closely monitor, likely secondary to chronic disease. --> No blood transfusion required unless symptomatic or hgb<7 3. Diarrhea, rule out Clostridium difficile. He will be seen by ID team. 4. Chest pain, rule out acute coronary syndrome. Cardiology service is following. 5. Diabetes mellitus. Blood sugar goal between 80 and 120. Subjective Date patient seen: Apr 30, 2017 Constitutional: Denies: no symptoms, chills, diaphoresis, fever, malaise, weakness, other HEENT: Denies: no symptoms, eye pain, blurred vision, tearing, double vision, ear pain, ear discharge, nose pain, nose congestion, throat pain, throat swelling, mouth pain, mouth swelling, other Respiratory: Denies: no symptoms, cough, orthopnea, shortness of breath, SOB with excertion, SOB at rest, sputum, stridor, wheezing, other Gastrointestinal/Abdominal: Denies: no symptoms, abdomen distended, abdominal pain, black stools, tarry stools, blood in stool, constipated, diarrhea, difficulty swallowing, nausea, poor appetite, poor fluid intake, rectal bleeding , vomiting, other Genitourinary: Denies: no symptoms, burning, discharge, frequency, flank pain, hematuria, incontinence, pain, urgency, other Hematologic/Lymphatic: Reports: anemia Allergies: Coded Allergies: ADHESIVE TAPE (Verified Allergy, Unknown, 04/27/17) AMIODARONE (Verified Allergy, Unknown, 04/27/17) INFLUENZA VIRUS VACCINES (Verified Allergy, Unknown, 04/27/17) SULFAMETHIZOLE (Verified Allergy, Unknown, 04/27/17) Subjective Anemia stable. Patient complained of chest pain Objective Last 24 Hour Vital Signs Date Time Temp Pulse Resp B/P (MAP) Pulse Ox O2 Delivery O2 Flow Rate FiO2 05/01/17 21:00 72 104/69 05/01/17 20:00 97.9 86 20 123/75 95 Room Air 05/01/17 19:30 82 20 Room Air 21 05/01/17 16:00 86 05/01/17 15:44 97.2 62 18 116/71 98 Room Air 05/01/17 12:00 63 05/01/17 11:43 97.5 71 18 114/75 96 Room Air 05/01/17 09:11 65 16 94 05/01/17 09:00 58 05/01/17 08:37 100/65 05/01/17 08:14 102/65 05/01/17 08:09 97.2 62 18 102/65 96 Room Air 05/01/17 08:00 60 05/01/17 06:47 63 16 93 05/01/17 06:47 63 16 Room Air 05/01/17 04:29 66 14 96 Full Face 25.0 30 05/01/17 04:00 97.2 58 19 119/74 100 Mechanical Ventilator 58 58 05/01/17 04:00 54 05/01/17 02:55 53 15 94 Full Face 25.0 30 05/01/17 00:49 60 15 94 Full Face 25.0 30 05/01/17 00:38 22 118/78 Bi-pap 05/01/17 00:08 97.2 05/01/17 00:00 55 04/30/17 22:15 63 14 98 Full Face 25.0 25 04/30/17 21:10 62 108/67 04/30/17 20:28 96.4 61 19 119/72 Room Air 61 61 04/30/17 20:00 66 04/30/17 19:46 66 18 Room Air 21 04/30/17 16:00 97.0 70 20 114/69 96 Room Air 04/30/17 16:00 61 04/30/17 12:00 69 04/30/17 12:00 97.2 61 21 107/71 97 Nasal Cannula 2.0 04/30/17 09:42 99/67 04/30/17 09:00 60 99/67 04/30/17 08:00 97.8 60 20 99/67 100 Endotracheal Tube 2.0 04/30/17 08:00 63 04/30/17 07:30 60 20 Nasal Cannula 2.0 28 04/30/17 04:55 66 12 92 Full Face 25.0 25 04/30/17 04:00 59 04/30/17 04:00 98.0 56 20 97/63 98 Bi-pap 04/30/17 02:47 57 13 90 Full Face 25.0 25 04/30/17 01:06 52 14 92 Full Face 25.0 25 04/30/17 00:30 97.2 63 20 97/60 96 Bi-pap 04/30/17 00:00 61 Last 24 Hour Vital Signs Date Time Temp Pulse Resp B/P (MAP) Pulse Ox O2 Delivery O2 Flow Rate FiO2 05/01/17 21:00 72 104/69 05/01/17 20:00 97.9 86 20 123/75 95 Room Air 05/01/17 19:30 82 20 Room Air 21 05/01/17 16:00 86 05/01/17 15:44 97.2 62 18 116/71 98 Room Air 05/01/17 12:00 63 05/01/17 11:43 97.5 71 18 114/75 96 Room Air 05/01/17 09:11 65 16 94 05/01/17 09:00 58 05/01/17 08:37 100/65 05/01/17 08:14 102/65 05/01/17 08:09 97.2 62 18 102/65 96 Room Air 05/01/17 08:00 60 05/01/17 06:47 63 16 93 05/01/17 06:47 63 16 Room Air 05/01/17 04:29 66 14 96 Full Face 25.0 30 05/01/17 04:00 97.2 58 19 119/74 100 Mechanical Ventilator 58 58 05/01/17 04:00 54 05/01/17 02:55 53 15 94 Full Face 25.0 30 05/01/17 00:49 60 15 94 Full Face 25.0 30 05/01/17 00:38 22 118/78 Bi-pap 05/01/17 00:08 97.2 05/01/17 00:00 55 Intake and Output 05/01/17 05/02/17 19:00 07:00 Intake Total 600 ml Balance 600 ml Intake Oral 600 ml # Voids 3 Labs Test 04/30/17 05:25 05/01/17 05:55 White Blood Count 4.5 K/UL (4.8-10.8) 4.8 K/UL (4.8-10.8) Red Blood Count 3.67 M/UL (4.70-6.10) 4.06 M/UL (4.70-6.10) Hemoglobin 12.1 G/DL (14.2-18.0) 13.0 G/DL (14.2-18.0) Hematocrit 34.9 % (42.0-52.0) 37.8 % (42.0-52.0) Mean Corpuscular Volume 95 FL (80-99) 93 FL (80-99) Mean Corpuscular Hemoglobin 32.9 PG (27.0-31.0) 32.0 PG (27.0-31.0) Mean Corpuscular Hemoglobin Concent 34.7 G/DL (32.0-36.0) 34.4 G/DL (32.0-36.0) Red Cell Distribution Width 15.1 % (11.6-14.8) 14.7 % (11.6-14.8) Platelet Count 126 K/UL (150-450) 118 K/UL (150-450) Mean Platelet Volume 6.0 FL (6.5-10.1) 5.6 FL (6.5-10.1) Neutrophils (%) (Auto) % (45.0-75.0) 55.1 % (45.0-75.0) Lymphocytes (%) (Auto) % (20.0-45.0) 20.0 % (20.0-45.0) Monocytes (%) (Auto) % (1.0-10.0) 15.5 % (1.0-10.0) Eosinophils (%) (Auto) % (0.0-3.0) 5.4 % (0.0-3.0) Basophils (%) (Auto) % (0.0-2.0) 4.1 % (0.0-2.0) Differential Total Cells Counted 100 Neutrophils % (Manual) 53 % (45-75) Lymphocytes % (Manual) 35 % (20-45) Monocytes % (Manual) 7 % (1-10) Eosinophils % (Manual) 5 % (0-3) Basophils % (Manual) 0 % (0-2) Band Neutrophils 0 % (0-8) Platelet Estimate Decreased Platelet Morphology Normal Anisocytosis 1+ Prothrombin Time 16.8 SEC (9.30-11.50) 17.2 SEC (9.30-11.50) Prothromb Time International Ratio 1.7 (0.9-1.1) 1.7 (0.9-1.1) Sodium Level 139 mEQ/L (135-145) 142 mEQ/L (135-145) Potassium Level 3.9 mEQ/L (3.4-4.9) 4.0 mEQ/L (3.4-4.9) Chloride Level 102 mEQ/L (98-107) 104 mEQ/L (98-107) Carbon Dioxide Level 26 mEQ/L (20-30) 25 mEQ/L (20-30) Anion Gap 11 (5-15) 13 (5-15) Blood Urea Nitrogen 17 mg/dL (7-23) 18 mg/dL (7-23) Creatinine 1.3 mg/dL (0.7-1.2) 1.2 mg/dL (0.7-1.2) Estimat Glomerular Filtration Rate 56.1 mL/min (>60) > 60 mL/min (>60) Glucose Level 196 mg/dL (74-106) 192 mg/dL (74-106) Calcium Level 9.4 mg/dL (8.6-10.2) 9.9 mg/dL (8.6-10.2) Troponin I < 0.30 ng/mL (<=0.30) Laboratory Tests 05/01/17 05:55: White Blood Count 4.8, Red Blood Count 4.06L, Hemoglobin 13.0L, Hematocrit 37.8L , Mean Corpuscular Volume 93, Mean Corpuscular Hemoglobin 32.0H, Mean Corpuscular Hemoglobin Concent 34.4, Red Cell Distribution Width 14.7, Platelet Count 118L, Mean Platelet Volume 5.6L, Neutrophils (%) (Auto) 55.1, Lymphocytes (%) (Auto) 20.0, Monocytes (%) (Auto) 15.5H, Eosinophils (%) (Auto) 5.4H, Basophils (%) (Auto) 4.1H, Prothrombin Time 17.2H, Prothromb Time International Ratio 1.7H, Sodium Level 142, Potassium Level 4.0, Chloride Level 104, Carbon Dioxide Level 25, Anion Gap 13, Blood Urea Nitrogen 18, Creatinine 1.2, Estimat Glomerular Filtration Rate > 60, Glucose Level 192H, Calcium Level 9.9 Height (Feet): 5 Height (Inches): 7.00 Weight (Pounds): 219 PREMA FONG May 01, 2017 23:52
--- NOTE | 2017-05-01 23:54 | General Progress Note ---
Assessment/Plan Status: stable Assessment/Plan 1. Pancytopenia. I have reviewed the patient's medications potentially pantoprazole versus allopurinol versus most likely Lipitor. Potentially, the patient has a history of underlying liver disease. Ultrasound of the abdomen to be ordered as well as hepatitis and human immunodeficiency virus panel. 2. Anemia, very mild. Continue to closely monitor, likely secondary to chronic disease. --> No blood transfusion required unless symptomatic or hgb<7 3. Diarrhea, rule out Clostridium difficile. He will be seen by ID team. 4. Chest pain, rule out acute coronary syndrome. Cardiology service is following. 5. Diabetes mellitus. Blood sugar goal between 80 and 120. Subjective Date patient seen: May 01, 2017 Constitutional: Denies: no symptoms, chills, diaphoresis, fever, malaise, weakness, other HEENT: Denies: no symptoms, eye pain, blurred vision, tearing, double vision, ear pain, ear discharge, nose pain, nose congestion, throat pain, throat swelling, mouth pain, mouth swelling, other Cardiovascular: Denies: no symptoms, chest pain, edema, irregular heart rate, lightheadedness, palpitations, syncope, other Respiratory: Denies: no symptoms, cough, orthopnea, shortness of breath, SOB with excertion, SOB at rest, sputum, stridor, wheezing, other Gastrointestinal/Abdominal: Denies: no symptoms, abdomen distended, abdominal pain, black stools, tarry stools, blood in stool, constipated, diarrhea, difficulty swallowing, nausea, poor appetite, poor fluid intake, rectal bleeding , vomiting, other Neurologic/Psychiatric: Denies: no symptoms, anxiety, depressed, emotional problems, headache, numbness, paresthesia, pre-existing deficit, seizure, tingling, tremors, weakness, other Hematologic/Lymphatic: Reports: anemia Allergies: Coded Allergies: ADHESIVE TAPE (Verified Allergy, Unknown, 04/27/17) AMIODARONE (Verified Allergy, Unknown, 04/27/17) INFLUENZA VIRUS VACCINES (Verified Allergy, Unknown, 04/27/17) SULFAMETHIZOLE (Verified Allergy, Unknown, 04/27/17) Subjective Anemia stable. Patient complained of chest pain. Afebrile. Pt in bed. Objective Last 24 Hour Vital Signs Date Time Temp Pulse Resp B/P (MAP) Pulse Ox O2 Delivery O2 Flow Rate FiO2 05/01/17 21:00 72 104/69 05/01/17 20:00 97.9 86 20 123/75 95 Room Air 05/01/17 19:30 82 20 Room Air 21 05/01/17 16:00 86 05/01/17 15:44 97.2 62 18 116/71 98 Room Air 05/01/17 12:00 63 05/01/17 11:43 97.5 71 18 114/75 96 Room Air 05/01/17 09:11 65 16 94 05/01/17 09:00 58 05/01/17 08:37 100/65 05/01/17 08:14 102/65 05/01/17 08:09 97.2 62 18 102/65 96 Room Air 05/01/17 08:00 60 05/01/17 06:47 63 16 93 05/01/17 06:47 63 16 Room Air 05/01/17 04:29 66 14 96 Full Face 25.0 30 05/01/17 04:00 97.2 58 19 119/74 100 Mechanical Ventilator 58 58 05/01/17 04:00 54 05/01/17 02:55 53 15 94 Full Face 25.0 30 05/01/17 00:49 60 15 94 Full Face 25.0 30 05/01/17 00:38 22 118/78 Bi-pap 05/01/17 00:08 97.2 05/01/17 00:00 55 Intake and Output 05/01/17 05/02/17 19:00 07:00 Intake Total 600 ml Balance 600 ml Intake Oral 600 ml # Voids 3 Laboratory Tests 05/01/17 05:55: White Blood Count 4.8, Red Blood Count 4.06L, Hemoglobin 13.0L, Hematocrit 37.8L , Mean Corpuscular Volume 93, Mean Corpuscular Hemoglobin 32.0H, Mean Corpuscular Hemoglobin Concent 34.4, Red Cell Distribution Width 14.7, Platelet Count 118L, Mean Platelet Volume 5.6L, Neutrophils (%) (Auto) 55.1, Lymphocytes (%) (Auto) 20.0, Monocytes (%) (Auto) 15.5H, Eosinophils (%) (Auto) 5.4H, Basophils (%) (Auto) 4.1H, Prothrombin Time 17.2H, Prothromb Time International Ratio 1.7H, Sodium Level 142, Potassium Level 4.0, Chloride Level 104, Carbon Dioxide Level 25, Anion Gap 13, Blood Urea Nitrogen 18, Creatinine 1.2, Estimat Glomerular Filtration Rate > 60, Glucose Level 192H, Calcium Level 9.9 Height (Feet): 5 Height (Inches): 7.00 Weight (Pounds): 219 General Appearance: mild distress Neck: normal alignment Skin: warm/dry PREMA FONG May 01, 2017 23:53
[2017-05-02] VITALS: BP 103/70
--- NOTE | 2017-05-02 03:02 | Consultation ---
DATE OF CONSULTATION: NOTE: INCOMPLETE DICTATION PSYCHOTHERAPY CONSULTATION PROGRESS NOTE CONSULTING PHYSICIAN: Zhen Davila M.D. TREATING ATTENDING PHYSICIAN: Sven Ordoñez D.O. Zhen Davila PsyD. DR: Rand JOB#: [id number] CC:
[2017-05-02 04:00] VITALS: BP 107/78
--- NOTE | 2017-05-02 04:30 | Consultation ---
DATE OF CONSULTATION: 04/28/2017 PSYCHOTHERAPY CONSULTATION PROGRESS NOTE CONSULTING PHYSICIAN: Zhen Davila M.D. TREATING ATTENDING PHYSICIAN: Sven Ordoñez D.O. HISTORY OF PRESENT ILLNESS: The patient is a 61-year-old male patient. The patient is from [facility]. The patient was brought into the hospital for chest pain and shortness of breath. The patient has a history of encephalopathy, confusion, , depression, and anxiety. The patient has been slightly confused and irritable and for these reasons, she is referred for psychotherapeutic services. PAST MEDICAL HISTORY: The patient's past medical history includes history of diabetes, encephalopathy, and hypertension. ALLERGIES: The patient had allergies to sulfa, Spiriva, and amiodarone. PSYCHIATRIC HISTORY: The patient has a history of encephalopathy, anxiety, and depression. SOCIAL HISTORY: The patient is a 61-year-old male from [facility]. Financially sustained through Medicare and [employer]. The patient is a single male. MENTAL STATUS EXAMINATION: The patient is alert and oriented x2, person and place. His mood is irritable. Affect is blunted. Thought process is disorganized. Thought content confused. The patient has poor attention and concentration. Poor insight, judgment, and impulse control. 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 Mcloud II Deferred. Mcloud III Per History and Physical. PLAN: This clinician assessed this patient, provided this patient with reality orientation and supportive psychotherapy. Continue with medication management and behavioral management. This clinician has reviewed the patient's chart and discussed the treatment with nursing staff. Zhen Davila PsyD. : Rand JOB#: [id number] CC:
[2017-05-02] MEDS: NovoLOG Insulin Flexpen SUBQ SCH ×4 (06:04→21:50)
[2017-05-02 07:30] LABS: MEAN CORPUSCULAR VOLUME 94 FL (80-99); MEAN PLATELET VOLUME 5.6 FL (6.5-10.1); PLATELET COUNT 116 K/UL (150-450); RED BLOOD COUNT 3.78 M/UL (4.70-6.10); RED CELL DISTRIBUTION WIDTH 15.6 % (11.6-14.8)
[2017-05-02 07:34] LABS: ANION GAP 12 (5-15); CALCIUM 9.6 mg/dL (8.6-10.2); CARBON DIOXIDE 25 mEQ/L (20-30); CHLORIDE 104 mEQ/L (98-107); CREATININE 1.1 mg/dL (0.7-1.2); GLOMERULAR FILTRATION RATE > 60 mL/min (>60); HEMOLYSIS 3; POTASSIUM 3.9 mEQ/L (3.4-4.9); SODIUM 141 mEQ/L (135-145)
[2017-05-02 07:57] LABS: PROTHROMBIN TIME 20.6 SEC (9.30-11.50)
[2017-05-02 08:00] VITALS: BP 112/74
[2017-05-02] MEDS ORDERED: KETOCONAZOLE 2% TOPIC SCH (09:00)
[2017-05-02] MEDS: Aspirin Baby 81mg ORAL SCH (09:09)
[2017-05-02] MEDS: ARIPiprazole 10mg tab ORAL SCH (09:09)
[2017-05-02] MEDS: Metoprolol Tartrate 50mg tab ORAL SCH ×2 (09:10→21:00)
[2017-05-02] MEDS: KETOCONAZOLE 2% TOPIC SCH (09:11)
[2017-05-02 10:43] LABS: BAND NEUTROPHILS % (MANUAL) 1 % (0-8); EOSINOPHILS % (MANUAL) 4 % (0-3); LYMPHOCYTES % (MANUAL) 24 % (20-45); NEUTROPHILS % (MANUAL) 62 % (45-75); TOTAL CELLS COUNTED 100
[2017-05-02 10:44] LABS: ANISOCYTOSIS 1+; BASOPHILS % (MANUAL) 0 % (0-2); PLATELET ESTIMATE DECREASED; PLATELET MORPHOLOGY NORMAL
--- NOTE | 2017-05-02 11:19 | Diagnostic Imaging Report ---
APPROVED REPORT CPT Code: 22800 Present Symptoms Comments: R/O DVT BILATERAL UPPER EXTREMITY: Imaging reveals patency of the internal jugular, subclavian, axillary and brachial veins. The cephalic and basilic veins are also patent. Doppler indicates normal spontaneous flow within these venous segments, bilaterally.
[2017-05-02 12:00] VITALS: BP 106/72
--- NOTE | 2017-05-02 12:50 | Pulmonology Progress Note ---
Assessment/Plan Problems: (1) Acute coronary syndrome (2) Chest pain (3) Diabetes mellitus (4) CAD (coronary artery disease) (5) Hx of CABG Assessment/Plan no ischemia on stress study symptomatic treatment bipap at night sliding scale diabetic diet Subjective ROS Limited/Unobtainable: No Constitutional: Reports: no symptoms HEENT: Repors: no symptoms Respiratory: Reports: no symptoms Allergies: Coded Allergies: ADHESIVE TAPE (Verified Allergy, Unknown, 04/27/17) AMIODARONE (Verified Allergy, Unknown, 04/27/17) INFLUENZA VIRUS VACCINES (Verified Allergy, Unknown, 04/27/17) SULFAMETHIZOLE (Verified Allergy, Unknown, 04/27/17) Objective Last 24 Hour Vital Signs Date Time Temp Pulse Resp B/P (MAP) Pulse Ox O2 Delivery O2 Flow Rate FiO2 05/02/17 12:00 66 05/02/17 09:10 80 112/74 05/02/17 08:10 78 18 99 Facial 30 05/02/17 08:10 78 18 Bi-pap 15.0 30 05/02/17 08:00 96.8 77 20 112/74 99 Bi-pap 05/02/17 08:00 100 05/02/17 04:58 70 14 98 Facial 30 05/02/17 04:00 65 05/02/17 04:00 98.4 76 20 107/78 99 05/02/17 02:39 76 20 99 Facial 30 05/02/17 00:03 80 22 99 Facial 30 05/02/17 00:00 67 05/02/17 00:00 97.9 70 20 103/70 96 05/01/17 22:00 97.9 73 20 103/70 05/01/17 21:00 72 104/69 05/01/17 20:00 97.9 86 20 123/75 95 Room Air 05/01/17 20:00 100 05/01/17 19:30 82 20 Room Air 21 05/01/17 16:00 86 05/01/17 15:44 97.2 62 18 116/71 98 Room Air General Appearance: WD/WN, no acute distress HEENT: atraumatic Respiratory/Chest: chest wall non-tender, no respiratory distress Cardiovascular: normal peripheral pulses, regular rhythm Abdomen: normal bowel sounds, soft, non tender Genitourinary: normal external genitalia Extremities: no clubbing Skin: no rash Microbiology Date/Time Source Procedure Growth Status 04/29/17 20:19 Stool Stool Culture - Preliminary Resulted 04/29/17 20:19 Stool Clostridium difficile Toxin Assay - Final Resulted Laboratory Tests 05/02/17 05:10: Sodium Level 141, Potassium Level 3.9, Chloride Level 104, Carbon Dioxide Level 25, Anion Gap 12, Blood Urea Nitrogen 19, Creatinine 1.1, Estimat Glomerular Filtration Rate > 60, Glucose Level 200H, Calcium Level 9.6 05/02/17 05:15: White Blood Count 5.0, Red Blood Count 3.78L, Hemoglobin 12.8L, Hematocrit 35.7L , Mean Corpuscular Volume 94, Mean Corpuscular Hemoglobin 34.0H, Mean Corpuscular Hemoglobin Concent 36.0, Red Cell Distribution Width 15.6H, Platelet Count 116L, Mean Platelet Volume 5.6L, Neutrophils (%) (Auto) , Lymphocytes (%) (Auto) , Monocytes (%) (Auto) , Eosinophils (%) (Auto) , Basophils (%) (Auto) , Differential Total Cells Counted 100, Neutrophils % ( Manual) 62, Lymphocytes % (Manual) 24, Monocytes % (Manual) 9, Eosinophils % ( Manual) 4H, Basophils % (Manual) 0, Band Neutrophils 1, Platelet Estimate DecreasedL, Platelet Morphology Normal, Anisocytosis 1+, Prothrombin Time 20.6H , Prothromb Time International Ratio 2.0H Current Medications Medications (Trade) Dose Ordered Sig/Tanner Route PRN Reason Start Time Stop Time Status Last Admin Dose Admin Acetaminophen (Tylenol) 650 mg Q4H PRN ORAL FEVER>100.5 04/28/17 07:30 05/28/17 07:29 Albuterol/ Ipratropium (DuoNeb 0.5-3(2.5)mg/3ml) 3 ml Q4H PRN HHN Shortness of Breath 04/28/17 07:30 05/03/17 07:29 Allopurinol (Allopurinol) 300 mg DAILY ORAL 04/28/17 09:00 05/28/17 08:59 05/02/17 09:09 Aripiprazole (Abilify) 30 mg DAILY ORAL 05/02/17 09:00 05/28/17 12:59 05/02/17 09:09 Aspirin (ASA) 162 mg DAILY ORAL 04/28/17 09:00 05/28/17 08:59 05/02/17 09:09 Atorvastatin Calcium (Lipitor) 40 mg BEDTIME ORAL 04/28/17 21:00 05/28/17 20:59 05/01/17 20:48 Clopidogrel Bisulfate (Plavix) 75 mg DAILY ORAL 04/28/17 09:00 05/28/17 08:59 05/02/17 09:10 Dextrose (Dextrose 50%) STAT PRN IV Hypoglycemia 04/28/17 07:30 05/28/17 07:29 Diltiazem HCl (Cardizem) 10 mg Q1H PRN IV heart rate more than 120, 04/28/17 07:30 05/28/17 07:29 Enalaprilat (Vasotec) 2.5 mg Q6H PRN IV sbp more than 160 04/28/17 07:30 05/28/17 07:29 Escitalopram Oxalate (Lexapro) 20 mg DAILY ORAL 05/02/17 09:00 05/28/17 12:59 05/02/17 09:10 Fish Oil (Fish Oil) 1,000 mg DAILY ORAL 05/01/17 09:00 05/31/17 08:59 05/02/17 09:09 Insulin Aspart (NovoLOG) BEFORE MEALS AND HS SUBQ 04/28/17 08:30 05/28/17 08:29 05/02/17 11:28 Ketoconazole (Nizoral 2% Cream) 1 applic DAILY TOPIC 05/02/17 09:00 06/01/17 08:59 05/02/17 09:11 Ketoconazole (Nizoral 2% Shampoo) 1 applic DAILY TOPIC 05/02/17 09:00 06/01/17 08:59 05/02/17 09:11 Metoprolol Tartrate (Lopressor) 50 mg Q12HR ORAL 04/30/17 21:00 05/30/17 20:59 05/02/17 09:10 Mirtazapine (Remeron) 30 mg QHS ORAL 04/28/17 21:00 05/28/17 20:59 05/01/17 20:54 Morphine Sulfate (Morphine Sulfate) 2 mg Q4H PRN IVP severe Pain (Pain Scale 7-10) 04/28/17 07:30 05/05/17 07:29 04/28/17 16:06 Nitroglycerin (Ntg) 0.4 mg Q5M PRN SL Prn Chest Pain 04/28/17 07:30 05/28/17 07:29 05/01/17 08:37 Ondansetron HCl (Zofran) 4 mg Q6H PRN IVP Nausea & Vomiting 04/28/17 07:30 05/28/17 07:29 Pantoprazole (Protonix) 40 mg ACBREAKFAST ORAL 04/28/17 09:00 05/28/17 08:59 05/01/17 06:28 Polyethylene Glycol (Miralax) 17 gm DAILYPRN PRN ORAL Constipation 04/28/17 09:00 05/28/17 08:59 Quetiapine Fumarate (SEROquel) 25 mg DAILY@1700 ORAL 04/30/17 17:00 05/30/17 16:59 05/01/17 16:50 Quetiapine Fumarate (SEROquel) 200 mg BEDTIME ORAL 04/28/17 21:00 05/28/17 20:59 05/01/17 20:54 Tamsulosin HCl (Flomax) 0.4 mg BEDTIME ORAL 04/28/17 21:00 05/28/17 20:59 05/01/17 20:51 Temazepam (Restoril) 15 mg HSPRN PRN ORAL Insomnia 04/28/17 21:00 05/05/17 20:59 05/01/17 20:55 Warfarin Sodium (Coumadin per pharmacy) 1 ea DAILYPRN PRN MISC Per rx protocol 04/28/17 14:45 05/28/17 14:44 Warfarin Sodium (Coumadin) 8 mg COUMADIN ONCE PO 05/02/17 17:00 05/02/17 17:01 THADDEUS YA May 02, 2017 12:50
--- NOTE | 2017-05-02 14:22 | General Progress Note ---
Assessment/Plan Problem List: (1) Stress reaction ICD Codes: F43.0 - Acute stress reaction SNOMED: 58049129 (2) Hyperglycemia due to type 2 diabetes mellitus ICD Codes: E11.65 - Type 2 diabetes mellitus with hyperglycemia SNOMED: 459347706098147, [id number] Qualifiers: Qualified Codes: E11.65 - Type 2 diabetes mellitus with hyperglycemia; Z79.4 - group home (current) use of insulin (3) Chest pain ICD Codes: R07.9 - Chest pain, unspecified SNOMED: 12666327 Qualifiers: Qualified Codes: R07.9 - Chest pain, unspecified (4) Diabetes mellitus ICD Codes: E11.9 - Type 2 diabetes mellitus without complications SNOMED: 04177536 (5) Acute coronary syndrome ICD Codes: I24.9 - Acute ischemic heart disease, unspecified SNOMED: 593087423 Status: stable, progressing, tolerating diet Assessment/Plan ot pt diet pain control dc to snf Subjective Constitutional: Reports: weakness Allergies: Coded Allergies: ADHESIVE TAPE (Verified Allergy, Unknown, 04/27/17) AMIODARONE (Verified Allergy, Unknown, 04/27/17) INFLUENZA VIRUS VACCINES (Verified Allergy, Unknown, 04/27/17) SULFAMETHIZOLE (Verified Allergy, Unknown, 04/27/17) All Systems: reviewed and negative except above Subjective sl weak Objective Last 24 Hour Vital Signs Date Time Temp Pulse Resp B/P (MAP) Pulse Ox O2 Delivery O2 Flow Rate FiO2 05/02/17 12:00 97.0 62 18 106/72 96 Room Air 05/02/17 12:00 66 05/02/17 09:10 80 112/74 05/02/17 08:10 78 18 99 Facial 30 05/02/17 08:10 78 18 Bi-pap 15.0 30 05/02/17 08:00 96.8 77 20 112/74 99 Bi-pap 05/02/17 08:00 100 05/02/17 04:58 70 14 98 Facial 30 05/02/17 04:00 65 05/02/17 04:00 98.4 76 20 107/78 99 05/02/17 02:39 76 20 99 Facial 30 05/02/17 00:03 80 22 99 Facial 30 05/02/17 00:00 67 05/02/17 00:00 97.9 70 20 103/70 96 05/01/17 22:00 97.9 73 20 103/70 05/01/17 21:00 72 104/69 05/01/17 20:00 97.9 86 20 123/75 95 Room Air 05/01/17 20:00 100 05/01/17 19:30 82 20 Room Air 21 05/01/17 16:00 86 05/01/17 15:44 97.2 62 18 116/71 98 Room Air Laboratory Tests 05/02/17 05:10: Sodium Level 141, Potassium Level 3.9, Chloride Level 104, Carbon Dioxide Level 25, Anion Gap 12, Blood Urea Nitrogen 19, Creatinine 1.1, Estimat Glomerular Filtration Rate > 60, Glucose Level 200H, Calcium Level 9.6 05/02/17 05:15: White Blood Count 5.0, Red Blood Count 3.78L, Hemoglobin 12.8L, Hematocrit 35.7L , Mean Corpuscular Volume 94, Mean Corpuscular Hemoglobin 34.0H, Mean Corpuscular Hemoglobin Concent 36.0, Red Cell Distribution Width 15.6H, Platelet Count 116L, Mean Platelet Volume 5.6L, Neutrophils (%) (Auto) , Lymphocytes (%) (Auto) , Monocytes (%) (Auto) , Eosinophils (%) (Auto) , Basophils (%) (Auto) , Differential Total Cells Counted 100, Neutrophils % ( Manual) 62, Lymphocytes % (Manual) 24, Monocytes % (Manual) 9, Eosinophils % ( Manual) 4H, Basophils % (Manual) 0, Band Neutrophils 1, Platelet Estimate DecreasedL, Platelet Morphology Normal, Anisocytosis 1+, Prothrombin Time 20.6H , Prothromb Time International Ratio 2.0H Height (Feet): 5 Height (Inches): 7.00 Weight (Pounds): 219 General Appearance: lethargic EENT: normal ENT inspection Neck: non-tender, normal alignment, supple Cardiovascular: normal peripheral pulses, normal rate, regular rhythm Respiratory/Chest: chest wall non-tender, lungs clear, normal breath sounds Abdomen: normal bowel sounds, non tender, soft Extremities: normal inspection Edema: no edema noted Arm (L), no edema noted Arm (R), no edema noted Leg (L), no edema noted Leg (R), no edema noted Pedal (L), no edema noted Pedal (R), no edema noted Generalized Neurologic: motor weakness Skin: normal pigmentation, warm/dry ANDRE SILVA May 02, 2017 14:22
--- NOTE | 2017-05-02 15:36 | Infectious Diseases Prog Note ---
Assessment/Plan Problems: (1) Diarrhea Assessment & Plan: improving, with no evidence of recurrent C DIFF, or stool infection and negative stool culture , keep off antibiotics (2) Chest pain Assessment & Plan: ruled out for ACS , with negative stress test , monitr in tele, cardiology is following (3) Diabetes mellitus Assessment & Plan: recommend tight glycemic control to keep blood glucose between 80-120 (4) CAD (coronary artery disease) Assessment & Plan: continue cardiac meds, cardiology is following (5) Dermatitis, seborrheic Assessment & Plan: ok for ketoconazol shampoo or cream Subjective Constitutional: Reports: no symptoms HEENT: Reports: no symptoms Respiratory: Reports: no symptoms Breasts: Reports: no symptoms Cardiovascular: Reports: no symptoms Gastrointestinal/Abdominal: Reports: no symptoms Genitourinary: Reports: no symptoms Neurologic: Reports: no symptoms Psychiatric: Reports: no symptoms Skin: Reports: no symptoms Endocrine: Reports: no symptoms Hematologic: Reports: no symptoms Allergies: Coded Allergies: ADHESIVE TAPE (Verified Allergy, Unknown, 04/27/17) AMIODARONE (Verified Allergy, Unknown, 04/27/17) INFLUENZA VIRUS VACCINES (Verified Allergy, Unknown, 04/27/17) SULFAMETHIZOLE (Verified Allergy, Unknown, 04/27/17) Objective Vital Signs Last 24 Hour Vital Signs Date Time Temp Pulse Resp B/P (MAP) Pulse Ox O2 Delivery O2 Flow Rate FiO2 05/02/17 12:00 97.0 62 18 106/72 96 Room Air 05/02/17 12:00 66 05/02/17 09:10 80 112/74 05/02/17 08:10 78 18 99 Facial 30 05/02/17 08:10 78 18 Bi-pap 15.0 30 05/02/17 08:00 96.8 77 20 112/74 99 Bi-pap 05/02/17 08:00 100 05/02/17 04:58 70 14 98 Facial 30 05/02/17 04:00 65 05/02/17 04:00 98.4 76 20 107/78 99 05/02/17 02:39 76 20 99 Facial 30 05/02/17 00:03 80 22 99 Facial 30 05/02/17 00:00 67 05/02/17 00:00 97.9 70 20 103/70 96 05/01/17 22:00 97.9 73 20 103/70 05/01/17 21:00 72 104/69 05/01/17 20:00 97.9 86 20 123/75 95 Room Air 05/01/17 20:00 100 05/01/17 19:30 82 20 Room Air 21 05/01/17 16:00 86 05/01/17 15:44 97.2 62 18 116/71 98 Room Air Height (Feet): 5 Height (Inches): 7.00 Weight (Pounds): 219 General Appearance: WD/WN, no acute distress HEENT: normocephalic, atraumatic, anicteric, mucous membranes moist Respiratory/Chest: chest wall non-tender, lungs clear, normal breath sounds, no respiratory distress, no accessory muscle use Cardiovascular: normal peripheral pulses, normal rate, regular rhythm, no gallop/murmur, no JVD Abdomen: normal bowel sounds, soft, non tender, no organomegaly, non distended , no mass Extremities: no cyanosis, no clubbing Skin: no rash, no lesions, no ulcers Neurologic/Psychiatric: alert, oriented x 3, responsive Lymphatic: no neck adenopathy, no groin adenopathy Musculoskeletal: normal muscle bulk Microbiology Date/Time Source Procedure Growth Status 04/29/17 20:19 Stool Stool Culture - Preliminary Resulted 04/29/17 20:19 Stool Clostridium difficile Toxin Assay - Final Resulted Laboratory Tests Test 05/02/17 05:10 05/02/17 05:15 Sodium Level 141 mEQ/L (135-145) Potassium Level 3.9 mEQ/L (3.4-4.9) Chloride Level 104 mEQ/L (98-107) Carbon Dioxide Level 25 mEQ/L (20-30) Anion Gap 12 (5-15) Blood Urea Nitrogen 19 mg/dL (7-23) Creatinine 1.1 mg/dL (0.7-1.2) Estimat Glomerular Filtration Rate > 60 mL/min (>60) Glucose Level 200 mg/dL (74-106) H Calcium Level 9.6 mg/dL (8.6-10.2) White Blood Count 5.0 K/UL (4.8-10.8) Red Blood Count 3.78 M/UL (4.70-6.10) L Hemoglobin 12.8 G/DL (14.2-18.0) L Hematocrit 35.7 % (42.0-52.0) L Mean Corpuscular Volume 94 FL (80-99) Mean Corpuscular Hemoglobin 34.0 PG (27.0-31.0) H Mean Corpuscular Hemoglobin Concent 36.0 G/DL (32.0-36.0) Red Cell Distribution Width 15.6 % (11.6-14.8) H Platelet Count 116 K/UL (150-450) L Mean Platelet Volume 5.6 FL (6.5-10.1) L Neutrophils (%) (Auto) % (45.0-75.0) Lymphocytes (%) (Auto) % (20.0-45.0) Monocytes (%) (Auto) % (1.0-10.0) Eosinophils (%) (Auto) % (0.0-3.0) Basophils (%) (Auto) % (0.0-2.0) Differential Total Cells Counted 100 Neutrophils % (Manual) 62 % (45-75) Lymphocytes % (Manual) 24 % (20-45) Monocytes % (Manual) 9 % (1-10) Eosinophils % (Manual) 4 % (0-3) H Basophils % (Manual) 0 % (0-2) Band Neutrophils 1 % (0-8) Platelet Estimate Decreased L Platelet Morphology Normal Anisocytosis 1+ Prothrombin Time 20.6 SEC (9.30-11.50) H Prothromb Time International Ratio 2.0 (0.9-1.1) H Current Medications Medications (Trade) Dose Ordered Sig/Tanner Route PRN Reason Start Time Stop Time Status Last Admin Dose Admin Acetaminophen (Tylenol) 650 mg Q4H PRN ORAL FEVER>100.5 04/28/17 07:30 05/28/17 07:29 Albuterol/ Ipratropium (DuoNeb 0.5-3(2.5)mg/3ml) 3 ml Q4H PRN HHN Shortness of Breath 04/28/17 07:30 05/03/17 07:29 Allopurinol (Allopurinol) 300 mg DAILY ORAL 04/28/17 09:00 05/28/17 08:59 05/02/17 09:09 Aripiprazole (Abilify) 30 mg DAILY ORAL 05/02/17 09:00 05/28/17 12:59 05/02/17 09:09 Aspirin (ASA) 162 mg DAILY ORAL 04/28/17 09:00 05/28/17 08:59 05/02/17 09:09 Atorvastatin Calcium (Lipitor) 40 mg BEDTIME ORAL 04/28/17 21:00 05/28/17 20:59 05/01/17 20:48 Clopidogrel Bisulfate (Plavix) 75 mg DAILY ORAL 04/28/17 09:00 05/28/17 08:59 05/02/17 09:10 Dextrose (Dextrose 50%) STAT PRN IV Hypoglycemia 04/28/17 07:30 05/28/17 07:29 Diltiazem HCl (Cardizem) 10 mg Q1H PRN IV heart rate more than 120, 04/28/17 07:30 05/28/17 07:29 Enalaprilat (Vasotec) 2.5 mg Q6H PRN IV sbp more than 160 04/28/17 07:30 05/28/17 07:29 Escitalopram Oxalate (Lexapro) 20 mg DAILY ORAL 05/02/17 09:00 05/28/17 12:59 05/02/17 09:10 Fish Oil (Fish Oil) 1,000 mg DAILY ORAL 05/01/17 09:00 05/31/17 08:59 05/02/17 09:09 Insulin Aspart (NovoLOG) BEFORE MEALS AND HS SUBQ 04/28/17 08:30 05/28/17 08:29 05/02/17 11:28 Ketoconazole (Nizoral 2% Cream) 1 applic DAILY TOPIC 05/02/17 09:00 06/01/17 08:59 05/02/17 09:11 Ketoconazole (Nizoral 2% Shampoo) 1 applic DAILY TOPIC 05/02/17 09:00 06/01/17 08:59 05/02/17 09:11 Metoprolol Tartrate (Lopressor) 50 mg Q12HR ORAL 04/30/17 21:00 05/30/17 20:59 05/02/17 09:10 Mirtazapine (Remeron) 30 mg QHS ORAL 04/28/17 21:00 05/28/17 20:59 05/01/17 20:54 Morphine Sulfate (Morphine Sulfate) 2 mg Q4H PRN IVP severe Pain (Pain Scale 7-10) 04/28/17 07:30 05/05/17 07:29 04/28/17 16:06 Nitroglycerin (Ntg) 0.4 mg Q5M PRN SL Prn Chest Pain 04/28/17 07:30 05/28/17 07:29 05/01/17 08:37 Ondansetron HCl (Zofran) 4 mg Q6H PRN IVP Nausea & Vomiting 04/28/17 07:30 05/28/17 07:29 Pantoprazole (Protonix) 40 mg ACBREAKFAST ORAL 04/28/17 09:00 05/28/17 08:59 05/01/17 06:28 Polyethylene Glycol (Miralax) 17 gm DAILYPRN PRN ORAL Constipation 04/28/17 09:00 05/28/17 08:59 Quetiapine Fumarate (SEROquel) 25 mg DAILY@1700 ORAL 04/30/17 17:00 05/30/17 16:59 05/01/17 16:50 Quetiapine Fumarate (SEROquel) 200 mg BEDTIME ORAL 04/28/17 21:00 05/28/17 20:59 05/01/17 20:54 Tamsulosin HCl (Flomax) 0.4 mg BEDTIME ORAL 04/28/17 21:00 05/28/17 20:59 05/01/17 20:51 Temazepam (Restoril) 15 mg HSPRN PRN ORAL Insomnia 04/28/17 21:00 05/05/17 20:59 05/01/17 20:55 Warfarin Sodium (Coumadin per pharmacy) 1 ea DAILYPRN PRN MISC Per rx protocol 04/28/17 14:45 05/28/17 14:44 Warfarin Sodium (Coumadin) 8 mg COUMADIN ONCE PO 05/02/17 17:00 05/02/17 17:01 Gladys Murillo M.D. May 02, 2017 15:36
[2017-05-02 16:03] VITALS: BP 116/73
--- NOTE | 2017-05-02 16:45 | Progress Note ---
DATE: 04/30/2017 Plan for this patient is that I am going to treat him with psychotropic medication regimen consisting of Remeron 30 mg nightly for depression, Seroquel 25 mg q.5 p.m. at 200 mg nightly for mood stabilization, and Lexapro 20 mg daily. Chart was reviewed and discussed with staff. Seen and assessed at bedside. Jody Armas M.D. DR: LOLA JOB#: [id number] CC:
[2017-05-02] MEDS ORDERED: Warfarin Sodium 4mg PO ONE (17:00)
--- NOTE | 2017-05-02 17:12 | Cardiac Electrophysiology PN ---
Assessment/Plan Assessment/Plan 1. Chest pain in a patient with history of CABG and multiple coronary interventions with most recent one June 2016. Awaiting cath report from [facility]. Already ruled out for myocardial infarction. Nuclear stress test showed no definite ischemia. 2D echocardiogram EF 65%. Continue aspirin,Toprol, Plavix and Lipitor 2. History of coronary artery bypass graft. 3. Status post aortic valve replacement with a porcine aortic valve. Echocardiogram mod . 4. History of atrial fibrillation and ablation, remained in sinus rhythm on aspirin,Toprol 50 bid, Coumadin and Plavix. 5. Diabetes. 6. Depression. 7. Status post amputation of the fingers. DW Sister and RN OK to DC from my perspective Subjective Subjective Alert in NAD.Sister at bedside. Stress test showed no definitive ischemia on nuclear images. Objective Last 24 Hour Vital Signs Date Time Temp Pulse Resp B/P (MAP) Pulse Ox O2 Delivery O2 Flow Rate FiO2 05/02/17 16:03 97.9 73 18 116/73 97 Room Air 05/02/17 12:00 97.0 62 18 106/72 96 Room Air 05/02/17 12:00 66 05/02/17 09:10 80 112/74 05/02/17 08:10 78 18 99 Facial 30 05/02/17 08:10 78 18 Bi-pap 15.0 30 05/02/17 08:00 96.8 77 20 112/74 99 Bi-pap 05/02/17 08:00 100 05/02/17 04:58 70 14 98 Facial 30 05/02/17 04:00 65 05/02/17 04:00 98.4 76 20 107/78 99 05/02/17 02:39 76 20 99 Facial 30 05/02/17 00:03 80 22 99 Facial 30 05/02/17 00:00 67 05/02/17 00:00 97.9 70 20 103/70 96 05/01/17 22:00 97.9 73 20 103/70 05/01/17 21:00 72 104/69 05/01/17 20:00 97.9 86 20 123/75 95 Room Air 05/01/17 20:00 100 05/01/17 19:30 82 20 Room Air 21 Intake and Output 05/02/17 05/03/17 19:00 07:00 Intake Total 720 ml Balance 720 ml Intake Oral 720 ml # Voids 3 Laboratory Tests Test 8/28/17 05:10 05/02/17 05:15 Sodium Level 141 mEQ/L (135-145) Potassium Level 3.9 mEQ/L (3.4-4.9) Chloride Level 104 mEQ/L (98-107) Carbon Dioxide Level 25 mEQ/L (20-30) Anion Gap 12 (5-15) Blood Urea Nitrogen 19 mg/dL (7-23) Creatinine 1.1 mg/dL (0.7-1.2) Estimat Glomerular Filtration Rate > 60 mL/min (>60) Glucose Level 200 mg/dL (74-106) H Calcium Level 9.6 mg/dL (8.6-10.2) White Blood Count 5.0 K/UL (4.8-10.8) Red Blood Count 3.78 M/UL (4.70-6.10) L Hemoglobin 12.8 G/DL (14.2-18.0) L Hematocrit 35.7 % (42.0-52.0) L Mean Corpuscular Volume 94 FL (80-99) Mean Corpuscular Hemoglobin 34.0 PG (27.0-31.0) H Mean Corpuscular Hemoglobin Concent 36.0 G/DL (32.0-36.0) Red Cell Distribution Width 15.6 % (11.6-14.8) H Platelet Count 116 K/UL (150-450) L Mean Platelet Volume 5.6 FL (6.5-10.1) L Neutrophils (%) (Auto) % (45.0-75.0) Lymphocytes (%) (Auto) % (20.0-45.0) Monocytes (%) (Auto) % (1.0-10.0) Eosinophils (%) (Auto) % (0.0-3.0) Basophils (%) (Auto) % (0.0-2.0) Differential Total Cells Counted 100 Neutrophils % (Manual) 62 % (45-75) Lymphocytes % (Manual) 24 % (20-45) Monocytes % (Manual) 9 % (1-10) Eosinophils % (Manual) 4 % (0-3) H Basophils % (Manual) 0 % (0-2) Band Neutrophils 1 % (0-8) Platelet Estimate Decreased L Platelet Morphology Normal Anisocytosis 1+ Prothrombin Time 20.6 SEC (9.30-11.50) H Prothromb Time International Ratio 2.0 (0.9-1.1) H Microbiology Date/Time Source Procedure Growth Status 04/29/17 20:19 Stool Stool Culture - Preliminary Resulted 04/29/17 20:19 Stool Clostridium difficile Toxin Assay - Final Resulted Objective HEAD AND NECK: Shows no JVD. LUNGS: Clear. CARDIOVASCULAR: Regular S1 and S2 with no gallop . 2/6 S. murmur. Sternotomy intact ABDOMEN: Soft. EXTREMITIES: A 1+ pitting edema. ALEX VALDES May 02, 2017 17:12
--- NOTE | 2017-05-02 17:45 | Progress Note ---
DATE: 04/29/2017 SUBJECTIVE: This is a male patient, who was admitted. He continues to have confusion, disorganized thought process, and mood lability. He still has some high levels of anxiety and agitation. Secondary to the progression of his medical illness, he does require acute inpatient treatment at this time. He has some confusion and disorganized thought process. The reason why he is in the hospital because he has coronary artery disease. Plan: My plan for this patient is to treat him with a psychiatric medication consisting of Seroquel 200 mg at night and 25 mg at 5:00 p.m. I am also going to treat with Remeron at a dose of 30 mg at bedtime, Lexapro 20 mg daily. He will continued to be followed by Psychiatry throughout his hospital course . Chart reviewed and discussed staff. Seen and assessed at bedside. Jody Armas M.D. DR: LOLA JOB#: [id number] CC:
--- NOTE | 2017-05-02 19:44 | General Progress Note ---
Assessment/Plan Status: unchanged Assessment/Plan 1. Pancytopenia. --> I have reviewed the patient's medications potentially pantoprazole versus allopurinol versus most likely Lipitor. --> Potentially, the patient has a history of underlying liver disease. --> Ultrasound of the abdomen to be ordered as well as hepatitis and human immunodeficiency virus panel. 2. Anemia, very mild. --> Continue to closely monitor, likely secondary to chronic disease. --> No blood transfusion required unless symptomatic or hgb<7 3. Diarrhea, rule out Clostridium difficile. He will be seen by ID team. 4. Chest pain, rule out acute coronary syndrome. Cardiology service is following. 5. Diabetes mellitus. Blood sugar goal between 80 and 120. Subjective Date patient seen: May 02, 2017 Constitutional: Reports: weakness Allergies: Coded Allergies: ADHESIVE TAPE (Verified Allergy, Unknown, 04/27/17) AMIODARONE (Verified Allergy, Unknown, 04/27/17) INFLUENZA VIRUS VACCINES (Verified Allergy, Unknown, 04/27/17) SULFAMETHIZOLE (Verified Allergy, Unknown, 04/27/17) Subjective Anemia stable. Patient complained of chest pain. Afebrile. Pt in bed. General weakness Objective Last 24 Hour Vital Signs Date Time Temp Pulse Resp B/P (MAP) Pulse Ox O2 Delivery O2 Flow Rate FiO2 05/02/17 16:03 97.9 73 18 116/73 97 Room Air 05/02/17 12:00 97.0 62 18 106/72 96 Room Air 05/02/17 12:00 66 05/02/17 09:10 80 112/74 05/02/17 08:10 78 18 99 Facial 30 05/02/17 08:10 78 18 Bi-pap 15.0 30 05/02/17 08:00 96.8 77 20 112/74 99 Bi-pap 05/02/17 08:00 100 05/02/17 04:58 70 14 98 Facial 30 05/02/17 04:00 65 05/02/17 04:00 98.4 76 20 107/78 99 05/02/17 02:39 76 20 99 Facial 30 05/02/17 00:03 80 22 99 Facial 30 05/02/17 00:00 67 05/02/17 00:00 97.9 70 20 103/70 96 05/01/17 22:00 97.9 73 20 103/70 8/27/17 21:00 72 104/69 05/01/17 20:00 97.9 86 20 123/75 95 Room Air 05/01/17 20:00 100 Intake and Output 05/02/17 05/03/17 19:00 07:00 Intake Total 1200 ml Balance 1200 ml Intake Oral 1200 ml # Voids 5 # Bowel Movements 1 Laboratory Tests 05/02/17 05:10: Sodium Level 141, Potassium Level 3.9, Chloride Level 104, Carbon Dioxide Level 25, Anion Gap 12, Blood Urea Nitrogen 19, Creatinine 1.1, Estimat Glomerular Filtration Rate > 60, Glucose Level 200H, Calcium Level 9.6 05/02/17 05:15: White Blood Count 5.0, Red Blood Count 3.78L, Hemoglobin 12.8L, Hematocrit 35.7L , Mean Corpuscular Volume 94, Mean Corpuscular Hemoglobin 34.0H, Mean Corpuscular Hemoglobin Concent 36.0, Red Cell Distribution Width 15.6H, Platelet Count 116L, Mean Platelet Volume 5.6L, Neutrophils (%) (Auto) , Lymphocytes (%) (Auto) , Monocytes (%) (Auto) , Eosinophils (%) (Auto) , Basophils (%) (Auto) , Differential Total Cells Counted 100, Neutrophils % ( Manual) 62, Lymphocytes % (Manual) 24, Monocytes % (Manual) 9, Eosinophils % ( Manual) 4H, Basophils % (Manual) 0, Band Neutrophils 1, Platelet Estimate DecreasedL, Platelet Morphology Normal, Anisocytosis 1+, Prothrombin Time 20.6H , Prothromb Time International Ratio 2.0H Height (Feet): 5 Height (Inches): 7.00 Weight (Pounds): 219 General Appearance: lethargic Neck: non-tender, normal alignment Cardiovascular: normal rate, regular rhythm Respiratory/Chest: decreased breath sounds Abdomen: normal bowel sounds, non tender PREMA FONG May 02, 2017 19:44
[2017-05-02 20:23] VITALS: BP 106/70
[2017-05-02] MEDS: Atorvastatin 80mg tab ORAL SCH (21:36)
[2017-05-02] MEDS: QUEtiapine 200mg tab ORAL SCH (21:51)
[2017-05-02] MEDS: Tamsulosin 0.4mg cap ORAL SCH (21:52)
--- NOTE | 2017-05-02 23:45 | Progress Note ---
DATE: 05/01/2017 SUBJECTIVE: This is a 61-year-old male patient with acute coronary syndrome. This patient is confused and disorganised with altered mental status. We will continue to treatment him with medication to stabilize his mood. PLAN: I am going to continue treatment with the medical regimen consisting of Lexapro 20 mg daily for depression; Remeron 30 mg nightly for insomnia, depression, and anxiety; Seroquel 25 mg daily at 5 p.m. and then 200 mg nightly; and encourage him to interact appropriately with staff. Chart reviewed and discussed with staff. Jody Armas M.D. DR: LOLA JOB#: [id number] CC:
[2017-05-03] VITALS (7 sets, daily range): BP systolic 93–120; BP diastolic 57–74
--- NOTE | 2017-05-03 01:45 | Progress Note ---
DATE: 05/02/2017 SUBJECTIVE: The patient was seen and assessed in his room. Continue treatment with Seroquel 25 mg daily, 200 mg nightly as well as Remeron 30 mg nightly, and Lexapro 20 mg daily to prevent any decline in his cognition. Chart was reviewed and discussed with staff. Seen and assessed at bedside. Jody Armas M.D. DR: LOLA JOB#: [id number] CC:
[2017-05-03] MEDS: NovoLOG Insulin Flexpen SUBQ SCH ×4 (06:47→21:10)
[2017-05-03] MEDS: Nitroglycerin Subl 0.4mg tab (Bottle Of 25) SL PRN ×3 (08:07→10:25)
[2017-05-03] MEDS: Metoprolol Tartrate 50mg tab ORAL SCH ×2 (09:00→21:05)
[2017-05-03 09:08] LABS: INR 2.9 (0.9-1.1); PROTHROMBIN TIME 30.4 SEC (9.30-11.50)
[2017-05-03] MEDS: Aspirin Baby 81mg ORAL SCH (09:17)
[2017-05-03] MEDS: ARIPiprazole 10mg tab ORAL SCH (09:17)
[2017-05-03] MEDS: Morphine Sulfate 2mg/ml Inj IVP PRN (09:17)
[2017-05-03] MEDS: KETOCONAZOLE 2% TOPIC SCH (09:37)
--- NOTE | 2017-05-03 14:21 | General Progress Note ---
Assessment/Plan Problem List: (1) Stress reaction ICD Codes: F43.0 - Acute stress reaction SNOMED: 48945719 (2) Hyperglycemia due to type 2 diabetes mellitus ICD Codes: E11.65 - Type 2 diabetes mellitus with hyperglycemia SNOMED: 552384476835676, 92808128 Qualifiers: Qualified Codes: E11.65 - Type 2 diabetes mellitus with hyperglycemia; Z79.4 - [facility] (current) use of insulin (3) Chest pain ICD Codes: R07.9 - Chest pain, unspecified SNOMED: 79242857 Qualifiers: Qualified Codes: R07.9 - Chest pain, unspecified (4) Diabetes mellitus ICD Codes: E11.9 - Type 2 diabetes mellitus without complications SNOMED: 82704955 (5) Acute coronary syndrome ICD Codes: I24.9 - Acute ischemic heart disease, unspecified SNOMED: 809529382 Status: stable, progressing, tolerating diet Assessment/Plan ot pt diet pain control dc w hh Subjective Constitutional: Reports: weakness Allergies: Coded Allergies: ADHESIVE TAPE (Verified Allergy, Unknown, 04/27/17) AMIODARONE (Verified Allergy, Unknown, 04/27/17) INFLUENZA VIRUS VACCINES (Verified Allergy, Unknown, 04/27/17) SULFAMETHIZOLE (Verified Allergy, Unknown, 04/27/17) All Systems: reviewed and negative except above Subjective sl weak Objective Last 24 Hour Vital Signs Date Time Temp Pulse Resp B/P (MAP) Pulse Ox O2 Delivery O2 Flow Rate FiO2 05/03/17 12:00 97.2 68 20 93/57 98 Room Air 05/03/17 10:25 100/62 05/03/17 09:35 107/65 05/03/17 09:00 69 107/65 05/03/17 08:19 81 18 Room Air 21 05/03/17 08:07 115/71 05/03/17 08:00 96.4 70 22 109/74 96 Room Air 05/03/17 05:14 77 16 99 Facial 30 05/03/17 04:25 98.0 67 20 106/71 96 Bi-pap 05/03/17 03:12 74 16 99 Facial 30 05/03/17 01:01 76 17 99 Facial 30 05/03/17 00:23 97.0 63 20 99/57 100 Bi-pap 05/02/17 23:01 73 17 99 Facial 30 05/02/17 21:00 70 98/72 05/02/17 20:23 97.7 70 20 106/70 96 Room Air 05/02/17 19:59 78 18 Room Air 21 05/02/17 16:03 97.9 73 18 116/73 97 Room Air Intake and Output 05/03/17 05/04/17 19:00 07:00 Intake Total 480 ml Balance 480 ml Intake Oral 480 ml Laboratory Tests 05/03/17 08:20: Prothrombin Time 30.4H, Prothromb Time International Ratio 2.9H Height (Feet): 5 Height (Inches): 7.00 Weight (Pounds): 219 General Appearance: alert EENT: normal ENT inspection Neck: normal alignment Cardiovascular: normal peripheral pulses, normal rate, regular rhythm Respiratory/Chest: chest wall non-tender, lungs clear, normal breath sounds Abdomen: normal bowel sounds, non tender, soft Extremities: normal inspection Edema: no edema noted Arm (L), no edema noted Arm (R), no edema noted Leg (L), no edema noted Leg (R), no edema noted Pedal (L), no edema noted Pedal (R), no edema noted Generalized Neurologic: responsive, motor weakness Skin: normal pigmentation, warm/dry ANDRE SILVA May 03, 2017 14:21
--- NOTE | 2017-05-03 14:51 | Infectious Diseases Prog Note ---
Assessment/Plan Problems: (1) Diarrhea Assessment & Plan: improving, with no evidence of recurrent C DIFF, or stool infection and negative stool culture , keep off antibiotics (2) Chest pain Assessment & Plan: ruled out for ACS , with negative stress test , medical management , cardiology is following (3) Diabetes mellitus Assessment & Plan: recommend tight glycemic control to keep blood glucose between 80-120 (4) CAD (coronary artery disease) Assessment & Plan: continue cardiac meds, cardiology is following (5) Dermatitis, seborrheic Assessment & Plan: ok for ketoconazol shampoo or cream Subjective Constitutional: Reports: no symptoms HEENT: Reports: no symptoms Respiratory: Reports: no symptoms Breasts: Reports: no symptoms Cardiovascular: Reports: no symptoms Gastrointestinal/Abdominal: Reports: no symptoms Genitourinary: Reports: no symptoms Neurologic: Reports: no symptoms Psychiatric: Reports: no symptoms Skin: Reports: no symptoms Endocrine: Reports: no symptoms Hematologic: Reports: no symptoms Allergies: Coded Allergies: ADHESIVE TAPE (Verified Allergy, Unknown, 04/27/17) AMIODARONE (Verified Allergy, Unknown, 04/27/17) INFLUENZA VIRUS VACCINES (Verified Allergy, Unknown, 04/27/17) SULFAMETHIZOLE (Verified Allergy, Unknown, 04/27/17) Objective Vital Signs Last 24 Hour Vital Signs Date Time Temp Pulse Resp B/P (MAP) Pulse Ox O2 Delivery O2 Flow Rate FiO2 05/03/17 12:00 97.2 68 20 93/57 98 Room Air 05/03/17 10:25 100/62 05/03/17 09:35 107/65 05/03/17 09:00 69 107/65 05/03/17 08:19 81 18 Room Air 21 05/03/17 08:07 115/71 05/03/17 08:00 96.4 70 22 109/74 96 Room Air 05/03/17 05:14 77 16 99 Facial 30 05/03/17 04:25 98.0 67 20 106/71 96 Bi-pap 05/03/17 03:12 74 16 99 Facial 30 05/03/17 01:01 76 17 99 Facial 30 05/03/17 00:23 97.0 63 20 99/57 100 Bi-pap 05/02/17 23:01 73 17 99 Facial 30 05/02/17 21:00 70 98/72 05/02/17 20:23 97.7 70 20 106/70 96 Room Air 05/02/17 19:59 78 18 Room Air 21 05/02/17 16:03 97.9 73 18 116/73 97 Room Air Height (Feet): 5 Height (Inches): 7.00 Weight (Pounds): 219 General Appearance: WD/WN, no acute distress HEENT: normocephalic, atraumatic, anicteric, mucous membranes moist, PERRL, EOMI, pharynx normal, supple, no JVD Respiratory/Chest: chest wall non-tender, lungs clear, normal breath sounds, no respiratory distress, no accessory muscle use Cardiovascular: normal peripheral pulses, normal rate, regular rhythm, no gallop/murmur, no JVD Abdomen: normal bowel sounds, soft, non tender, no organomegaly, non distended , no mass, no scars Extremities: no cyanosis, no clubbing Skin: no rash, no lesions Neurologic/Psychiatric: alert, oriented x 3, responsive Lymphatic: no neck adenopathy, no groin adenopathy Laboratory Tests Test 05/03/17 08:20 Prothrombin Time 30.4 SEC (9.30-11.50) H Prothromb Time International Ratio 2.9 (0.9-1.1) H Current Medications Medications (Trade) Dose Ordered Sig/Tanner Route PRN Reason Start Time Stop Time Status Last Admin Dose Admin Acetaminophen (Tylenol) 650 mg Q4H PRN ORAL FEVER>100.5 04/28/17 07:30 05/28/17 07:29 Allopurinol (Allopurinol) 300 mg DAILY ORAL 04/28/17 09:00 05/28/17 08:59 05/03/17 09:18 Aripiprazole (Abilify) 35 mg DAILY ORAL 05/04/17 09:00 06/03/17 08:59 Aspirin (ASA) 162 mg DAILY ORAL 04/28/17 09:00 05/28/17 08:59 05/03/17 09:17 Atorvastatin Calcium (Lipitor) 40 mg BEDTIME ORAL 04/28/17 21:00 05/28/17 20:59 05/02/17 21:36 Clopidogrel Bisulfate (Plavix) 75 mg DAILY ORAL 04/28/17 09:00 05/28/17 08:59 05/03/17 09:17 Dextrose (Dextrose 50%) STAT PRN IV Hypoglycemia 04/28/17 07:30 05/28/17 07:29 Diltiazem HCl (Cardizem) 10 mg Q1H PRN IV heart rate more than 120, 04/28/17 07:30 05/28/17 07:29 Enalaprilat (Vasotec) 2.5 mg Q6H PRN IV sbp more than 160 04/28/17 07:30 05/28/17 07:29 Escitalopram Oxalate (Lexapro) 20 mg DAILY ORAL 05/02/17 09:00 05/28/17 12:59 05/03/17 09:17 Fish Oil (Fish Oil) 1,000 mg DAILY ORAL 05/01/17 09:00 05/31/17 08:59 05/02/17 09:09 Insulin Aspart (NovoLOG) BEFORE MEALS AND HS SUBQ 04/28/17 08:30 05/28/17 08:29 05/03/17 11:45 Ketoconazole (Nizoral 2% Cream) 1 applic DAILY TOPIC 05/02/17 09:00 06/01/17 08:59 05/03/17 09:37 Ketoconazole (Nizoral 2% Shampoo) 1 applic DAILY TOPIC 05/02/17 09:00 06/01/17 08:59 05/03/17 09:37 Metoprolol Tartrate (Lopressor) 50 mg Q12HR ORAL 04/30/17 21:00 05/30/17 20:59 05/02/17 09:10 Mirtazapine (Remeron) 30 mg QHS ORAL 04/28/17 21:00 05/28/17 20:59 05/02/17 21:51 Morphine Sulfate (Morphine Sulfate) 2 mg Q4H PRN IVP severe Pain (Pain Scale 7-10) 04/28/17 07:30 05/05/17 07:29 04/28/17 16:06 Nitroglycerin (Ntg) 0.4 mg Q5M PRN SL Prn Chest Pain 04/28/17 07:30 05/28/17 07:29 05/03/17 10:25 Ondansetron HCl (Zofran) 4 mg Q6H PRN IVP Nausea & Vomiting 04/28/17 07:30 05/28/17 07:29 Pantoprazole (Protonix) 40 mg ACBREAKFAST ORAL 04/28/17 09:00 05/28/17 08:59 05/01/17 06:28 Polyethylene Glycol (Miralax) 17 gm DAILYPRN PRN ORAL Constipation 04/28/17 09:00 05/28/17 08:59 Quetiapine Fumarate (SEROquel) 25 mg DAILY@1700 ORAL 04/30/17 17:00 05/30/17 16:59 05/02/17 17:00 Quetiapine Fumarate (SEROquel) 200 mg BEDTIME ORAL 04/28/17 21:00 05/28/17 20:59 05/02/17 21:51 Tamsulosin HCl (Flomax) 0.4 mg BEDTIME ORAL 04/28/17 21:00 05/28/17 20:59 05/02/17 21:52 Temazepam (Restoril) 15 mg HSPRN PRN ORAL Insomnia 04/28/17 21:00 05/05/17 20:59 05/02/17 22:03 Warfarin Sodium (Coumadin per pharmacy) 1 ea DAILYPRN PRN MISC Per rx protocol 04/28/17 14:45 05/28/17 14:44 Gladys Murillo M.D. May 03, 2017 14:51
--- NOTE | 2017-05-03 17:12 | Cardiac Electrophysiology PN ---
Assessment/Plan Assessment/Plan 1. Chest pain and history of CABG and most recent PCI one June 2016 at [facility]. Already ruled out for myocardial infarction. Nuclear stress test showed no definite ischemia. 2D echocardiogram EF 65%. Continue aspirin,Toprol, Plavix and Lipitor. Add Imdur 60 daily and Renaxa 500 2. History of coronary artery bypass graft. 3. Status post aortic valve replacement with a porcine aortic valve. Echocardiogram mod . 4. History of atrial fibrillation and ablation, remained in sinus rhythm on aspirin,Toprol 50 bid, Coumadin and Plavix. 5. Diabetes. 6. Depression. 7. Status post amputation of the fingers. DW Sister and RN OK to DC from cardiac perspective Subjective Subjective Alert in NAD, had mild chest pain earlier.Sister at bedside. Stress test showed no definitive ischemia on nuclear images.No arrhythmia on tele. Objective Last 24 Hour Vital Signs Date Time Temp Pulse Resp B/P (MAP) Pulse Ox O2 Delivery O2 Flow Rate FiO2 05/03/17 12:00 97.2 68 20 93/57 98 Room Air 05/03/17 10:25 100/62 05/03/17 09:35 107/65 05/03/17 09:00 69 107/65 05/03/17 08:19 81 18 Room Air 21 05/03/17 08:07 115/71 05/03/17 08:00 96.4 70 22 109/74 96 Room Air 05/03/17 05:14 77 16 99 Facial 30 05/03/17 04:25 98.0 67 20 106/71 96 Bi-pap 05/03/17 03:12 74 16 99 Facial 30 05/03/17 01:01 76 17 99 Facial 30 05/03/17 00:23 97.0 63 20 99/57 100 Bi-pap 05/02/17 23:01 73 17 99 Facial 30 05/02/17 21:00 70 98/72 05/02/17 20:23 97.7 70 20 106/70 96 Room Air 05/02/17 19:59 78 18 Room Air 21 Intake and Output 05/03/17 05/04/17 19:00 07:00 Intake Total 480 ml Balance 480 ml Intake Oral 480 ml Laboratory Tests Test 05/03/17 08:20 Prothrombin Time 30.4 SEC (9.30-11.50) H Prothromb Time International Ratio 2.9 (0.9-1.1) H Objective HEAD AND NECK: Shows no JVD. LUNGS: Clear. CARDIOVASCULAR: Regular S1 and S2 with no gallop . 2/6 S. murmur. Sternotomy intact ABDOMEN: Soft. EXTREMITIES: A 1+ pitting edema. ALEX VALDES May 03, 2017 17:11
--- NOTE | 2017-05-03 18:53 | Pulmonology Progress Note ---
Assessment/Plan Problems: (1) Acute coronary syndrome (2) Chest pain (3) Diabetes mellitus (4) CAD (coronary artery disease) (5) Hx of CABG Assessment/Plan no ischemia on stress study symptomatic treatment bipap at night sliding scale diabetic diet dc planning in progress Subjective ROS Limited/Unobtainable: No Interval Events: no new complains Allergies: Coded Allergies: ADHESIVE TAPE (Verified Allergy, Unknown, 04/27/17) AMIODARONE (Verified Allergy, Unknown, 04/27/17) INFLUENZA VIRUS VACCINES (Verified Allergy, Unknown, 04/27/17) SULFAMETHIZOLE (Verified Allergy, Unknown, 04/27/17) Objective Last 24 Hour Vital Signs Date Time Temp Pulse Resp B/P (MAP) Pulse Ox O2 Delivery O2 Flow Rate FiO2 05/03/17 16:00 97.3 85 19 120/73 98 Room Air 05/03/17 12:00 97.2 68 20 93/57 98 Room Air 05/03/17 10:25 100/62 05/03/17 09:35 107/65 05/03/17 09:00 69 107/65 05/03/17 08:19 81 18 Room Air 21 05/03/17 08:07 115/71 05/03/17 08:00 96.4 70 22 109/74 96 Room Air 05/03/17 05:14 77 16 99 Facial 30 05/03/17 04:25 98.0 67 20 106/71 96 Bi-pap 05/03/17 03:12 74 16 99 Facial 30 05/03/17 01:01 76 17 99 Facial 30 05/03/17 00:23 97.0 63 20 99/57 100 Bi-pap 05/02/17 23:01 73 17 99 Facial 30 05/02/17 21:00 70 98/72 05/02/17 20:23 97.7 70 20 106/70 96 Room Air 05/02/17 19:59 78 18 Room Air 21 Intake and Output 05/03/17 05/04/17 19:00 07:00 Intake Total 600 ml Balance 600 ml Intake Oral 600 ml General Appearance: WD/WN HEENT: normocephalic, atraumatic Respiratory/Chest: chest wall non-tender, lungs clear Cardiovascular: normal peripheral pulses, normal rate Abdomen: normal bowel sounds, soft, non tender Genitourinary: normal external genitalia Extremities: no cyanosis Skin: no rash 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 Laboratory Tests 05/03/17 08:20: Prothrombin Time 30.4H, Prothromb Time International Ratio 2.9H Current Medications Medications (Trade) Dose Ordered Sig/Tanner Route PRN Reason Start Time Stop Time Status Last Admin Dose Admin Acetaminophen (Tylenol) 650 mg Q4H PRN ORAL FEVER>100.5 04/28/17 07:30 05/28/17 07:29 Allopurinol (Allopurinol) 300 mg DAILY ORAL 04/28/17 09:00 05/28/17 08:59 05/03/17 09:18 Aripiprazole (Abilify) 35 mg DAILY ORAL 05/04/17 09:00 06/03/17 08:59 Aspirin (ASA) 162 mg DAILY ORAL 04/28/17 09:00 05/28/17 08:59 05/03/17 09:17 Atorvastatin Calcium (Lipitor) 40 mg BEDTIME ORAL 04/28/17 21:00 05/28/17 20:59 05/02/17 21:36 Clopidogrel Bisulfate (Plavix) 75 mg DAILY ORAL 04/28/17 09:00 05/28/17 08:59 05/03/17 09:17 Dextrose (Dextrose 50%) STAT PRN IV Hypoglycemia 04/28/17 07:30 05/28/17 07:29 Diltiazem HCl (Cardizem) 10 mg Q1H PRN IV heart rate more than 120, 04/28/17 07:30 05/28/17 07:29 Enalaprilat (Vasotec) 2.5 mg Q6H PRN IV sbp more than 160 04/28/17 07:30 05/28/17 07:29 Escitalopram Oxalate (Lexapro) 20 mg DAILY ORAL 05/02/17 09:00 05/28/17 12:59 05/03/17 09:17 Fish Oil (Fish Oil) 1,000 mg DAILY ORAL 05/01/17 09:00 05/31/17 08:59 05/02/17 09:09 Insulin Aspart (NovoLOG) BEFORE MEALS AND HS SUBQ 04/28/17 08:30 05/28/17 08:29 05/03/17 16:34 Isosorbide Dinitrate (Isordil) 30 mg Q12HR ORAL 05/03/17 21:00 06/02/17 20:59 Ketoconazole (Nizoral 2% Cream) 1 applic DAILY TOPIC 05/02/17 09:00 06/01/17 08:59 05/03/17 09:37 Ketoconazole (Nizoral 2% Shampoo) 1 applic DAILY TOPIC 05/02/17 09:00 06/01/17 08:59 05/03/17 09:37 Metoprolol Tartrate (Lopressor) 50 mg Q12HR ORAL 04/30/17 21:00 05/30/17 20:59 05/02/17 09:10 Mirtazapine (Remeron) 30 mg QHS ORAL 04/28/17 21:00 05/28/17 20:59 05/02/17 21:51 Morphine Sulfate (Morphine Sulfate) 2 mg Q4H PRN IVP severe Pain (Pain Scale 7-10) 04/28/17 07:30 05/05/17 07:29 04/28/17 16:06 Nitroglycerin (Ntg) 0.4 mg Q5M PRN SL Prn Chest Pain 04/28/17 07:30 05/28/17 07:29 05/03/17 10:25 Ondansetron HCl (Zofran) 4 mg Q6H PRN IVP Nausea & Vomiting 04/28/17 07:30 05/28/17 07:29 Pantoprazole (Protonix) 40 mg ACBREAKFAST ORAL 04/28/17 09:00 05/28/17 08:59 05/01/17 06:28 Polyethylene Glycol (Miralax) 17 gm DAILYPRN PRN ORAL Constipation 04/28/17 09:00 05/28/17 08:59 Quetiapine Fumarate (SEROquel) 25 mg DAILY@1700 ORAL 04/30/17 17:00 05/30/17 16:59 05/03/17 16:35 Quetiapine Fumarate (SEROquel) 200 mg BEDTIME ORAL 04/28/17 21:00 05/28/17 20:59 05/02/17 21:51 Ranolazine (Ranexa ER 500mg) 500 mg Q12HR ORAL 05/03/17 21:00 06/02/17 20:59 Tamsulosin HCl (Flomax) 0.4 mg BEDTIME ORAL 04/28/17 21:00 05/28/17 20:59 05/02/17 21:52 Temazepam (Restoril) 15 mg HSPRN PRN ORAL Insomnia 04/28/17 21:00 05/05/17 20:59 05/02/17 22:03 Warfarin Sodium (Coumadin per pharmacy) 1 ea DAILYPRN PRN MISC Per rx protocol 04/28/17 14:45 05/28/17 14:44 THADDEUS YA May 03, 2017 18:53
[2017-05-03] MEDS: Tamsulosin 0.4mg cap ORAL SCH (21:05)
[2017-05-03] MEDS: Atorvastatin 80mg tab ORAL SCH (21:05)
[2017-05-03] MEDS: QUEtiapine 200mg tab ORAL SCH (21:06)
[2017-05-03] MEDS: Ranolazine 500mg tab ORAL SCH (21:10)
--- NOTE | 2017-05-03 22:49 | General Progress Note ---
Assessment/Plan Status: unchanged Assessment/Plan 1. Pancytopenia. --> Wbc, hgb, and platelets have been stable --> Potentially, the patient has a history of underlying liver disease. --> HIV and hepatitis panel are both negative --> Ultrasound of the abdomen reveal cysts on right kidney and that the liver is heterogenous and increased echogenicity noted. 2. Anemia, very mild. --> Continue to closely monitor, likely secondary to chronic disease. --> No blood transfusion required unless symptomatic or hgb<7 --> Has been stable with hgb >12 3. Diarrhea, rule out Clostridium difficile. He will be seen by ID team. 4. Chest pain, rule out acute coronary syndrome. Cardiology service is following. 5. Diabetes mellitus. Blood sugar goal between 80 and 120. Subjective Date patient seen: May 03, 2017 Time patient seen: 06:00 Constitutional: Reports: weakness HEENT: Denies: no symptoms, eye pain, blurred vision, tearing, double vision, ear pain, ear discharge, nose pain, nose congestion, throat pain, throat swelling, mouth pain, mouth swelling, other Cardiovascular: Denies: no symptoms, chest pain, edema, irregular heart rate, lightheadedness, palpitations, syncope, other Respiratory: Denies: no symptoms, cough, orthopnea, shortness of breath, SOB with excertion, SOB at rest, sputum, stridor, wheezing, other Gastrointestinal/Abdominal: Denies: no symptoms, abdomen distended, abdominal pain, black stools, tarry stools, blood in stool, constipated, diarrhea, difficulty swallowing, nausea, poor appetite, poor fluid intake, rectal bleeding , vomiting, other Genitourinary: Denies: no symptoms, burning, discharge, frequency, flank pain, hematuria, incontinence, pain, urgency, other Neurologic/Psychiatric: Denies: no symptoms, anxiety, depressed, emotional problems, headache, numbness, paresthesia, pre-existing deficit, seizure, tingling, tremors, weakness, other Allergies: Coded Allergies: ADHESIVE TAPE (Verified Allergy, Unknown, 04/27/17) AMIODARONE (Verified Allergy, Unknown, 04/27/17) INFLUENZA VIRUS VACCINES (Verified Allergy, Unknown, 04/27/17) SULFAMETHIZOLE (Verified Allergy, Unknown, 04/27/17) Subjective Anemia stable. Patient complained of chest pain. Afebrile. Pt in bed. General weakness Objective Last 24 Hour Vital Signs Date Time Temp Pulse Resp B/P (MAP) Pulse Ox O2 Delivery O2 Flow Rate FiO2 05/03/17 21:05 117/70 05/03/17 21:05 70 117/70 05/03/17 20:39 97.3 70 19 117/70 Room Air 05/03/17 19:30 84 20 Room Air 21 05/03/17 16:00 97.3 85 19 120/73 98 Room Air 05/03/17 12:00 97.2 68 20 93/57 98 Room Air 05/03/17 10:25 100/62 05/03/17 09:35 107/65 05/03/17 09:00 69 107/65 05/03/17 08:19 81 18 Room Air 21 05/03/17 08:07 115/71 05/03/17 08:00 96.4 70 22 109/74 96 Room Air 05/03/17 05:14 77 16 99 Facial 30 05/03/17 04:25 98.0 67 20 106/71 96 Bi-pap 05/03/17 03:12 74 16 99 Facial 30 05/03/17 01:01 76 17 99 Facial 30 05/03/17 00:23 97.0 63 20 99/57 100 Bi-pap 05/02/17 23:01 73 17 99 Facial 30 Intake and Output 05/03/17 05/04/17 19:00 07:00 Intake Total 600 ml Balance 600 ml Intake Oral 600 ml Labs Test 05/02/17 05:10 05/02/17 05:15 05/03/17 08:20 Sodium Level 141 mEQ/L (135-145) Potassium Level 3.9 mEQ/L (3.4-4.9) Chloride Level 104 mEQ/L (98-107) Carbon Dioxide Level 25 mEQ/L (20-30) Anion Gap 12 (5-15) Blood Urea Nitrogen 19 mg/dL (7-23) Creatinine 1.1 mg/dL (0.7-1.2) Estimat Glomerular Filtration Rate > 60 mL/min (>60) Glucose Level 200 mg/dL (74-106) Calcium Level 9.6 mg/dL (8.6-10.2) White Blood Count 5.0 K/UL (4.8-10.8) Red Blood Count 3.78 M/UL (4.70-6.10) Hemoglobin 12.8 G/DL (14.2-18.0) Hematocrit 35.7 % (42.0-52.0) Mean Corpuscular Volume 94 FL (80-99) Mean Corpuscular Hemoglobin 34.0 PG (27.0-31.0) Mean Corpuscular Hemoglobin Concent 36.0 G/DL (32.0-36.0) Red Cell Distribution Width 15.6 % (11.6-14.8) Platelet Count 116 K/UL (150-450) Mean Platelet Volume 5.6 FL (6.5-10.1) Neutrophils (%) (Auto) % (45.0-75.0) Lymphocytes (%) (Auto) % (20.0-45.0) Monocytes (%) (Auto) % (1.0-10.0) Eosinophils (%) (Auto) % (0.0-3.0) Basophils (%) (Auto) % (0.0-2.0) Differential Total Cells Counted 100 Neutrophils % (Manual) 62 % (45-75) Lymphocytes % (Manual) 24 % (20-45) Monocytes % (Manual) 9 % (1-10) Eosinophils % (Manual) 4 % (0-3) Basophils % (Manual) 0 % (0-2) Band Neutrophils 1 % (0-8) Platelet Estimate Decreased Platelet Morphology Normal Anisocytosis 1+ Prothrombin Time 20.6 SEC (9.30-11.50) 30.4 SEC (9.30-11.50) Prothromb Time International Ratio 2.0 (0.9-1.1) 2.9 (0.9-1.1) Laboratory Tests 05/03/17 08:20: Prothrombin Time 30.4H, Prothromb Time International Ratio 2.9H Height (Feet): 5 Height (Inches): 7.00 Weight (Pounds): 219 General Appearance: lethargic EENT: normal ENT inspection Neck: normal alignment Cardiovascular: normal rate, regular rhythm Respiratory/Chest: decreased breath sounds Abdomen: normal bowel sounds, non tender PREMA FONG May 03, 2017 22:49
[2017-05-04] VITALS (7 sets, daily range): BP systolic 81–107; BP diastolic 54–64
[2017-05-04] MEDS: NovoLOG Insulin Flexpen SUBQ SCH ×4 (06:40→21:31)
[2017-05-04 08:26] LABS: BASOPHILS % (AUTO) 0.4 % (0.0-2.0); EOSINOPHILS % (AUTO) 5.2 % (0.0-3.0); LYMPHOCYTES % (AUTO) 29.9 % (20.0-45.0); MEAN CORPUSCULAR HEMOGLOBIN 33.1 PG (27.0-31.0); MEAN CORPUSCULAR HGB CONC 35.3 G/DL (32.0-36.0); MEAN CORPUSCULAR VOLUME 94 FL (80-99); MEAN PLATELET VOLUME 5.5 FL (6.5-10.1); NEUTROPHILS % (AUTO) 54.5 % (45.0-75.0); PLATELET COUNT 114 K/UL (150-450); RED BLOOD COUNT 3.68 M/UL (4.70-6.10); RED CELL DISTRIBUTION WIDTH 15.4 % (11.6-14.8); WHITE BLOOD COUNT 4.6 K/UL (4.8-10.8)
[2017-05-04 08:41] LABS: INR 2.3 (0.9-1.1); PROTHROMBIN TIME 24.4 SEC (9.30-11.50)
[2017-05-04 08:45] LABS: CALCIUM 9.4 mg/dL (8.6-10.2); CREATININE 1.3 mg/dL (0.7-1.2); GLOMERULAR FILTRATION RATE 56.1 mL/min (>60); POTASSIUM 3.8 mEQ/L (3.4-4.9)
[2017-05-04] MEDS: Metoprolol Tartrate 50mg tab ORAL SCH ×2 (09:00→21:00)
[2017-05-04] MEDS: ARIPiprazole 10mg tab ORAL SCH (09:41)
[2017-05-04] MEDS: Aspirin Baby 81mg ORAL SCH (09:42)
[2017-05-04] MEDS: Ranolazine 500mg tab ORAL SCH ×2 (09:52→21:25)
[2017-05-04] MEDS: KETOCONAZOLE 2% TOPIC SCH (09:52)
--- NOTE | 2017-05-04 11:56 | Wound Care Consultation ---
Wound Assessment Wound Assessment : Wound Number: 1 Wound Present on Admission: Yes New Wound: No Status Change of Wound: No Wound Location Body Site Modif: mid Wound Location Body Site: other - sacrococcygeal Wound Type: pressure ulcer Kayla Test: Does not Kayla Pressure Ulcer Stage: I Wound Length: 4.5 Wound Width: 3.0 Percent of Wound [place]ver[place]/Red: 100 Wound Drainage Amount: None Wound Drainage Odor: None/Absent Tissue Surrounding Wound: Intact Wound General Appearance: Reddened Wound Comment #1 Sacrococcygeal stage I pressure ulcer Recommendation -Local wound care per protocol -Keep clean and dry -Low air loss SPR mattress -Turn and reposition -Optimize nutrition -Offload both heels -Heel protector on both heels -Assess and f/u accordingly for any changes SURY DIAZ RN May 04, 2017 11:56
--- NOTE | 2017-05-04 13:05 | General Progress Note ---
Assessment/Plan Problem List: (1) Stress reaction ICD Codes: F43.0 - Acute stress reaction SNOMED: 56439887 (2) Hyperglycemia due to type 2 diabetes mellitus ICD Codes: E11.65 - Type 2 diabetes mellitus with hyperglycemia SNOMED: 242113998772334, 72306208 Qualifiers: Qualified Codes: E11.65 - Type 2 diabetes mellitus with hyperglycemia; Z79.4 - [facility] (current) use of insulin (3) Chest pain ICD Codes: R07.9 - Chest pain, unspecified SNOMED: 16900699 Qualifiers: Qualified Codes: R07.9 - Chest pain, unspecified (4) Diabetes mellitus ICD Codes: E11.9 - Type 2 diabetes mellitus without complications SNOMED: 86621570 (5) Acute coronary syndrome ICD Codes: I24.9 - Acute ischemic heart disease, unspecified SNOMED: 932275331 Status: stable, progressing, tolerating diet Assessment/Plan ot pt diet pain control dc to snf Subjective Constitutional: Reports: weakness Allergies: Coded Allergies: ADHESIVE TAPE (Verified Allergy, Unknown, 04/27/17) AMIODARONE (Verified Allergy, Unknown, 04/27/17) INFLUENZA VIRUS VACCINES (Verified Allergy, Unknown, 04/27/17) SULFAMETHIZOLE (Verified Allergy, Unknown, 04/27/17) All Systems: reviewed and negative except above Subjective sl weak Objective Last 24 Hour Vital Signs Date Time Temp Pulse Resp B/P (MAP) Pulse Ox O2 Delivery O2 Flow Rate FiO2 05/04/17 12:46 87 95/60 05/04/17 11:37 97.6 64 20 81/54 94 Room Air 05/04/17 09:44 105/63 05/04/17 09:00 66 105/66 05/04/17 08:05 97.4 66 20 90/63 94 Room Air 05/04/17 07:55 66 18 Room Air 05/04/17 04:41 70 18 99 Facial 30 05/04/17 04:41 97.5 64 19 92/64 98 Room Air 64 05/04/17 03:30 68 20 97 Facial 30 05/04/17 01:30 64 18 98 Facial 30 05/03/17 23:53 97.3 69 19 100/67 98 Room Air 05/03/17 22:56 70 20 98 Facial 30 05/03/17 21:05 117/70 05/03/17 21:05 70 117/70 05/03/17 20:39 97.3 70 19 117/70 Room Air 05/03/17 19:30 84 20 Room Air 21 05/03/17 16:00 97.3 85 19 120/73 98 Room Air Laboratory Tests 05/04/17 07:35: White Blood Count 4.6L, Red Blood Count 3.68L, Hemoglobin 12.2L, Hematocrit 34.5L, Mean Corpuscular Volume 94, Mean Corpuscular Hemoglobin 33.1H, Mean Corpuscular Hemoglobin Concent 35.3, Red Cell Distribution Width 15.4H, Platelet Count 114L, Mean Platelet Volume 5.5L, Neutrophils (%) (Auto) 54.5, Lymphocytes (%) (Auto) 29.9, Monocytes (%) (Auto) 10.0, Eosinophils (%) (Auto) 5.2H, Basophils (%) (Auto) 0.4, Prothrombin Time 24.4H, Prothromb Time International Ratio 2.3H, Sodium Level 140, Potassium Level 3.8, Chloride Level 103, Carbon Dioxide Level 24, Anion Gap 13, Blood Urea Nitrogen 20, Creatinine 1.3H, Estimat Glomerular Filtration Rate 56.1, Glucose Level 206H, Calcium Level 9.4 Height (Feet): 5 Height (Inches): 7.00 Weight (Pounds): 219 General Appearance: lethargic EENT: normal ENT inspection Neck: normal alignment Cardiovascular: normal peripheral pulses, normal rate, regular rhythm Respiratory/Chest: chest wall non-tender, lungs clear, normal breath sounds Abdomen: normal bowel sounds, non tender, soft Extremities: normal inspection Edema: no edema noted Arm (L), no edema noted Arm (R), no edema noted Leg (L), no edema noted Leg (R), no edema noted Pedal (L), no edema noted Pedal (R), no edema noted Generalized Neurologic: responsive, motor weakness Skin: normal pigmentation, warm/dry ANDRE SILVA May 04, 2017 13:05
--- NOTE | 2017-05-04 15:35 | Infectious Diseases Prog Note ---
Assessment/Plan Problems: (1) Diarrhea Assessment & Plan: resolved, no evidence of recurrent C DIFF, or stool infection and negative stool culture , keep off antibiotics. advised to avoid any unnecessary antibiotics in the future (2) Chest pain Assessment & Plan: ruled out for ACS , with negative stress test , medical management , cardiology is following (3) Diabetes mellitus Assessment & Plan: recommend tight glycemic control to keep blood glucose between 80-120 (4) CAD (coronary artery disease) Assessment & Plan: continue cardiac meds, cardiology is following (5) Dermatitis, seborrheic Assessment & Plan: on ketoconazole shampoo prn Subjective Constitutional: Reports: no symptoms HEENT: Reports: no symptoms Respiratory: Reports: no symptoms Breasts: Reports: no symptoms Cardiovascular: Reports: no symptoms Gastrointestinal/Abdominal: Reports: no symptoms Genitourinary: Reports: no symptoms Neurologic: Reports: no symptoms Psychiatric: Reports: no symptoms Skin: Reports: no symptoms Endocrine: Reports: no symptoms Hematologic: Reports: no symptoms Musculoskeletal: Reports: no symptoms Allergies: Coded Allergies: ADHESIVE TAPE (Verified Allergy, Unknown, 04/27/17) AMIODARONE (Verified Allergy, Unknown, 04/27/17) INFLUENZA VIRUS VACCINES (Verified Allergy, Unknown, 04/27/17) SULFAMETHIZOLE (Verified Allergy, Unknown, 04/27/17) Objective Vital Signs Last 24 Hour Vital Signs Date Time Temp Pulse Resp B/P (MAP) Pulse Ox O2 Delivery O2 Flow Rate FiO2 05/04/17 12:46 87 95/60 05/04/17 11:37 97.6 64 20 81/54 94 Room Air 05/04/17 09:44 105/63 05/04/17 09:00 66 105/66 05/04/17 08:05 97.4 66 20 90/63 94 Room Air 05/04/17 07:55 66 18 Room Air 05/04/17 04:41 70 18 99 Facial 30 05/04/17 04:41 97.5 64 19 92/64 98 Room Air 64 05/04/17 03:30 68 20 97 Facial 30 05/04/17 01:30 64 18 98 Facial 30 05/03/17 23:53 97.3 69 19 100/67 98 Room Air 05/03/17 22:56 70 20 98 Facial 30 05/03/17 21:05 117/70 05/03/17 21:05 70 117/70 05/03/17 20:39 97.3 70 19 117/70 Room Air 05/03/17 19:30 84 20 Room Air 21 05/03/17 16:00 97.3 85 19 120/73 98 Room Air Height (Feet): 5 Height (Inches): 7.00 Weight (Pounds): 219 General Appearance: WD/WN, no acute distress HEENT: normocephalic, atraumatic, anicteric, mucous membranes moist, PERRL, EOMI, pharynx normal, supple, no JVD Respiratory/Chest: chest wall non-tender, lungs clear, normal breath sounds, no respiratory distress, no accessory muscle use Breasts: no masses Cardiovascular: normal peripheral pulses, normal rate, regular rhythm, no gallop/murmur, no JVD Abdomen: normal bowel sounds, soft, non tender, no organomegaly, non distended , no mass, no scars Extremities: no cyanosis, no clubbing Skin: no rash, no lesions, no ulcers Neurologic/Psychiatric: alert, oriented x 3, responsive Musculoskeletal: normal muscle bulk, no effusion Laboratory Tests Test 05/04/17 07:35 White Blood Count 4.6 K/UL (4.8-10.8) L Red Blood Count 3.68 M/UL (4.70-6.10) L Hemoglobin 12.2 G/DL (14.2-18.0) L Hematocrit 34.5 % (42.0-52.0) L Mean Corpuscular Volume 94 FL (80-99) Mean Corpuscular Hemoglobin 33.1 PG (27.0-31.0) H Mean Corpuscular Hemoglobin Concent 35.3 G/DL (32.0-36.0) Red Cell Distribution Width 15.4 % (11.6-14.8) H Platelet Count 114 K/UL (150-450) L Mean Platelet Volume 5.5 FL (6.5-10.1) L Neutrophils (%) (Auto) 54.5 % (45.0-75.0) Lymphocytes (%) (Auto) 29.9 % (20.0-45.0) Monocytes (%) (Auto) 10.0 % (1.0-10.0) Eosinophils (%) (Auto) 5.2 % (0.0-3.0) H Basophils (%) (Auto) 0.4 % (0.0-2.0) Prothrombin Time 24.4 SEC (9.30-11.50) H Prothromb Time International Ratio 2.3 (0.9-1.1) H Sodium Level 140 mEQ/L (135-145) Potassium Level 3.8 mEQ/L (3.4-4.9) Chloride Level 103 mEQ/L (98-107) Carbon Dioxide Level 24 mEQ/L (20-30) Anion Gap 13 (5-15) Blood Urea Nitrogen 20 mg/dL (7-23) Creatinine 1.3 mg/dL (0.7-1.2) H Estimat Glomerular Filtration Rate 56.1 mL/min (>60) Glucose Level 206 mg/dL (74-106) H Calcium Level 9.4 mg/dL (8.6-10.2) Current Medications Medications (Trade) Dose Ordered Sig/Tanner Route PRN Reason Start Time Stop Time Status Last Admin Dose Admin Acetaminophen (Tylenol) 650 mg Q4H PRN ORAL FEVER>100.5 04/28/17 07:30 05/28/17 07:29 Allopurinol (Allopurinol) 300 mg DAILY ORAL 04/28/17 09:00 05/28/17 08:59 05/04/17 09:42 Aripiprazole (Abilify) 35 mg DAILY ORAL 05/04/17 09:00 06/03/17 08:59 05/04/17 09:41 Aspirin (ASA) 162 mg DAILY ORAL 04/28/17 09:00 05/28/17 08:59 05/04/17 09:42 Atorvastatin Calcium (Lipitor) 40 mg BEDTIME ORAL 04/28/17 21:00 05/28/17 20:59 05/03/17 21:05 Clopidogrel Bisulfate (Plavix) 75 mg DAILY ORAL 04/28/17 09:00 05/28/17 08:59 05/04/17 09:46 Dextrose (Dextrose 50%) STAT PRN IV Hypoglycemia 04/28/17 07:30 05/28/17 07:29 Diltiazem HCl (Cardizem) 10 mg Q1H PRN IV heart rate more than 120, 04/28/17 07:30 05/28/17 07:29 Enalaprilat (Vasotec) 2.5 mg Q6H PRN IV sbp more than 160 04/28/17 07:30 05/28/17 07:29 Escitalopram Oxalate (Lexapro) 20 mg DAILY ORAL 05/02/17 09:00 05/28/17 12:59 05/04/17 09:44 Fish Oil (Fish Oil) 1,000 mg DAILY ORAL 05/01/17 09:00 05/31/17 08:59 05/02/17 09:09 Insulin Aspart (NovoLOG) BEFORE MEALS AND HS SUBQ 04/28/17 08:30 05/28/17 08:29 05/04/17 12:17 Isosorbide Dinitrate (Isordil) 30 mg Q12HR ORAL 05/03/17 21:00 06/02/17 20:59 05/04/17 09:44 Ketoconazole (Nizoral 2% Cream) 1 applic DAILY TOPIC 05/02/17 09:00 06/01/17 08:59 05/04/17 09:52 Ketoconazole (Nizoral 2% Shampoo) 1 applic DAILY TOPIC 05/02/17 09:00 06/01/17 08:59 05/04/17 09:52 Metoprolol Tartrate (Lopressor) 50 mg Q12HR ORAL 04/30/17 21:00 05/30/17 20:59 05/03/17 21:05 Mirtazapine (Remeron) 30 mg QHS ORAL 04/28/17 21:00 05/28/17 20:59 05/03/17 21:06 Morphine Sulfate (Morphine Sulfate) 2 mg Q4H PRN IVP severe Pain (Pain Scale 7-10) 04/28/17 07:30 05/05/17 07:29 04/28/17 16:06 Nitroglycerin (Ntg) 0.4 mg Q5M PRN SL Prn Chest Pain 04/28/17 07:30 05/28/17 07:29 05/03/17 10:25 Ondansetron HCl (Zofran) 4 mg Q6H PRN IVP Nausea & Vomiting 04/28/17 07:30 05/28/17 07:29 Pantoprazole (Protonix) 40 mg ACBREAKFAST ORAL 04/28/17 09:00 05/28/17 08:59 05/04/17 06:37 Polyethylene Glycol (Miralax) 17 gm DAILYPRN PRN ORAL Constipation 04/28/17 09:00 05/28/17 08:59 Quetiapine Fumarate (SEROquel) 25 mg DAILY@1700 ORAL 04/30/17 17:00 05/30/17 16:59 05/03/17 16:35 Quetiapine Fumarate (SEROquel) 200 mg BEDTIME ORAL 04/28/17 21:00 05/28/17 20:59 05/03/17 21:06 Ranolazine (Ranexa ER 500mg) 500 mg Q12HR ORAL 05/03/17 21:00 06/02/17 20:59 05/04/17 09:52 Tamsulosin HCl (Flomax) 0.4 mg BEDTIME ORAL 04/28/17 21:00 05/28/17 20:59 05/03/17 21:05 Temazepam (Restoril) 15 mg HSPRN PRN ORAL Insomnia 04/28/17 21:00 05/05/17 20:59 05/03/17 21:41 Warfarin Sodium (Coumadin per pharmacy) 1 ea DAILYPRN PRN MISC Per rx protocol 04/28/17 14:45 05/28/17 14:44 Warfarin Sodium (Coumadin) 5 mg COUMADIN ORAL 05/04/17 17:00 05/04/17 17:01 Gladys Murillo M.D. May 04, 2017 15:35
[2017-05-04] MEDS ORDERED: Warfarin Sodium 5mg ORAL SCH (17:00)
--- NOTE | 2017-05-04 17:38 | Cardiac Electrophysiology PN ---
Assessment/Plan Assessment/Plan 1. Chest pain and history of CABG and most recent PCI one June 2016 at [facility]. Already ruled out for myocardial infarction. Nuclear stress test showed no definite ischemia. 2D echocardiogram EF 65%. Continue aspirin,Toprol, Plavix and Lipitor and Renaxa 500. Change isordil to 30 bid 6 am and 6 pm. 2. History of coronary artery bypass graft. 3. Status post aortic valve replacement with a porcine aortic valve. Echocardiogram mod . 4. History of atrial fibrillation and ablation, remained in sinus rhythm on aspirin,Toprol 50 bid, Coumadin and Plavix. 5. Diabetes. 6. Depression. 7. Status post amputation of the fingers. DW Sister and RN DC to [facility] in am. Subjective Subjective Alert in NAD, feeling better. Says BP dropped after Isordil in am.Sister at bedside. Now is off tele. Objective Last 24 Hour Vital Signs Date Time Temp Pulse Resp B/P (MAP) Pulse Ox O2 Delivery O2 Flow Rate FiO2 05/04/17 15:42 97.5 72 20 101/63 97 Room Air 05/04/17 12:46 87 95/60 05/04/17 11:37 97.6 64 20 81/54 94 Room Air 05/04/17 09:44 105/63 05/04/17 09:00 66 105/66 05/04/17 08:05 97.4 66 20 90/63 94 Room Air 05/04/17 07:55 66 18 Room Air 05/04/17 04:41 70 18 99 Facial 30 05/04/17 04:41 97.5 64 19 92/64 98 Room Air 64 05/04/17 03:30 68 20 97 Facial 30 05/04/17 01:30 64 18 98 Facial 30 05/03/17 23:53 97.3 69 19 100/67 98 Room Air 05/03/17 22:56 70 20 98 Facial 30 05/03/17 21:05 117/70 05/03/17 21:05 70 117/70 05/03/17 20:39 97.3 70 19 117/70 Room Air 05/03/17 19:30 84 20 Room Air 21 Intake and Output 05/04/17 05/05/17 19:00 07:00 Intake Total 650 ml Balance 650 ml Intake Oral 650 ml # Voids 3 Laboratory Tests Test 8/30/17 07:35 White Blood Count 4.6 K/UL (4.8-10.8) L Red Blood Count 3.68 M/UL (4.70-6.10) L Hemoglobin 12.2 G/DL (14.2-18.0) L Hematocrit 34.5 % (42.0-52.0) L Mean Corpuscular Volume 94 FL (80-99) Mean Corpuscular Hemoglobin 33.1 PG (27.0-31.0) H Mean Corpuscular Hemoglobin Concent 35.3 G/DL (32.0-36.0) Red Cell Distribution Width 15.4 % (11.6-14.8) H Platelet Count 114 K/UL (150-450) L Mean Platelet Volume 5.5 FL (6.5-10.1) L Neutrophils (%) (Auto) 54.5 % (45.0-75.0) Lymphocytes (%) (Auto) 29.9 % (20.0-45.0) Monocytes (%) (Auto) 10.0 % (1.0-10.0) Eosinophils (%) (Auto) 5.2 % (0.0-3.0) H Basophils (%) (Auto) 0.4 % (0.0-2.0) Prothrombin Time 24.4 SEC (9.30-11.50) H Prothromb Time International Ratio 2.3 (0.9-1.1) H Sodium Level 140 mEQ/L (135-145) Potassium Level 3.8 mEQ/L (3.4-4.9) Chloride Level 103 mEQ/L (98-107) Carbon Dioxide Level 24 mEQ/L (20-30) Anion Gap 13 (5-15) Blood Urea Nitrogen 20 mg/dL (7-23) Creatinine 1.3 mg/dL (0.7-1.2) H Estimat Glomerular Filtration Rate 56.1 mL/min (>60) Glucose Level 206 mg/dL (74-106) H Calcium Level 9.4 mg/dL (8.6-10.2) Objective HEAD AND NECK: Shows no JVD. LUNGS: Clear. CARDIOVASCULAR: Regular S1 and S2 with no gallop . 2/6 S. murmur. Sternotomy intact ABDOMEN: Soft. EXTREMITIES: A 1+ pitting edema. ALEX VALDES May 04, 2017 17:38
--- NOTE | 2017-05-04 18:24 | Pulmonology Progress Note ---
Assessment/Plan Problems: (1) Acute coronary syndrome (2) Chest pain (3) Diabetes mellitus (4) CAD (coronary artery disease) (5) Hx of CABG Assessment/Plan no new complains, doing better symptomatic treatment bipap at night sliding scale diabetic diet dc planning in progress Subjective ROS Limited/Unobtainable: No Constitutional: Reports: no symptoms HEENT: Repors: no symptoms Respiratory: Reports: no symptoms Allergies: Coded Allergies: ADHESIVE TAPE (Verified Allergy, Unknown, 04/27/17) AMIODARONE (Verified Allergy, Unknown, 04/27/17) INFLUENZA VIRUS VACCINES (Verified Allergy, Unknown, 04/27/17) SULFAMETHIZOLE (Verified Allergy, Unknown, 04/27/17) Objective Last 24 Hour Vital Signs Date Time Temp Pulse Resp B/P (MAP) Pulse Ox O2 Delivery O2 Flow Rate FiO2 05/04/17 18:15 106/61 05/04/17 15:42 97.5 72 20 101/63 97 Room Air 05/04/17 12:46 87 95/60 05/04/17 11:37 97.6 64 20 81/54 94 Room Air 05/04/17 09:44 105/63 05/04/17 09:00 66 105/66 05/04/17 08:05 97.4 66 20 90/63 94 Room Air 05/04/17 07:55 66 18 Room Air 05/04/17 04:41 70 18 99 Facial 30 05/04/17 04:41 97.5 64 19 92/64 98 Room Air 64 05/04/17 03:30 68 20 97 Facial 30 05/04/17 01:30 64 18 98 Facial 30 05/03/17 23:53 97.3 69 19 100/67 98 Room Air 05/03/17 22:56 70 20 98 Facial 30 05/03/17 21:05 117/70 05/03/17 21:05 70 117/70 05/03/17 20:39 97.3 70 19 117/70 Room Air 05/03/17 19:30 84 20 Room Air 21 Intake and Output 05/04/17 05/05/17 19:00 07:00 Intake Total 1010 ml Balance 1010 ml Intake Oral 1010 ml # Voids 5 General Appearance: WD/WN HEENT: normocephalic, atraumatic Respiratory/Chest: chest wall non-tender, lungs clear Cardiovascular: normal peripheral pulses, normal rate Abdomen: normal bowel sounds, soft, non tender Extremities: no cyanosis Skin: no rash 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 Laboratory Tests 05/04/17 07:35: White Blood Count 4.6L, Red Blood Count 3.68L, Hemoglobin 12.2L, Hematocrit 34.5L, Mean Corpuscular Volume 94, Mean Corpuscular Hemoglobin 33.1H, Mean Corpuscular Hemoglobin Concent 35.3, Red Cell Distribution Width 15.4H, Platelet Count 114L, Mean Platelet Volume 5.5L, Neutrophils (%) (Auto) 54.5, Lymphocytes (%) (Auto) 29.9, Monocytes (%) (Auto) 10.0, Eosinophils (%) (Auto) 5.2H, Basophils (%) (Auto) 0.4, Prothrombin Time 24.4H, Prothromb Time International Ratio 2.3H, Sodium Level 140, Potassium Level 3.8, Chloride Level 103, Carbon Dioxide Level 24, Anion Gap 13, Blood Urea Nitrogen 20, Creatinine 1.3H, Estimat Glomerular Filtration Rate 56.1, Glucose Level 206H, Calcium Level 9.4 Current Medications Medications (Trade) Dose Ordered Sig/Tanner Route PRN Reason Start Time Stop Time Status Last Admin Dose Admin Acetaminophen (Tylenol) 650 mg Q4H PRN ORAL FEVER>100.5 04/28/17 07:30 05/28/17 07:29 Allopurinol (Allopurinol) 300 mg DAILY ORAL 04/28/17 09:00 05/28/17 08:59 05/04/17 09:42 Aripiprazole (Abilify) 35 mg DAILY ORAL 05/04/17 09:00 06/03/17 08:59 05/04/17 09:41 Aspirin (ASA) 162 mg DAILY ORAL 04/28/17 09:00 05/28/17 08:59 05/04/17 09:42 Atorvastatin Calcium (Lipitor) 40 mg BEDTIME ORAL 04/28/17 21:00 05/28/17 20:59 05/03/17 21:05 Clopidogrel Bisulfate (Plavix) 75 mg DAILY ORAL 04/28/17 09:00 05/28/17 08:59 05/04/17 09:46 Dextrose (Dextrose 50%) STAT PRN IV Hypoglycemia 04/28/17 07:30 05/28/17 07:29 Diltiazem HCl (Cardizem) 10 mg Q1H PRN IV heart rate more than 120, 04/28/17 07:30 05/28/17 07:29 Enalaprilat (Vasotec) 2.5 mg Q6H PRN IV sbp more than 160 04/28/17 07:30 05/28/17 07:29 Escitalopram Oxalate (Lexapro) 20 mg DAILY ORAL 05/02/17 09:00 05/28/17 12:59 05/04/17 09:44 Fish Oil (Fish Oil) 1,000 mg DAILY ORAL 05/01/17 09:00 05/31/17 08:59 05/02/17 09:09 Insulin Aspart (NovoLOG) BEFORE MEALS AND HS SUBQ 04/28/17 08:30 05/28/17 08:29 05/04/17 17:14 Isosorbide Dinitrate (Isordil) 30 mg BID@0600,1800 ORAL 05/04/17 18:05 06/03/17 18:04 05/04/17 18:15 Ketoconazole (Nizoral 2% Cream) 1 applic DAILY TOPIC 05/02/17 09:00 06/01/17 08:59 05/04/17 09:52 Ketoconazole (Nizoral 2% Shampoo) 1 applic DAILY TOPIC 05/02/17 09:00 06/01/17 08:59 05/04/17 09:52 Metoprolol Tartrate (Lopressor) 50 mg Q12HR ORAL 04/30/17 21:00 05/30/17 20:59 05/03/17 21:05 Mirtazapine (Remeron) 30 mg QHS ORAL 04/28/17 21:00 05/28/17 20:59 05/03/17 21:06 Morphine Sulfate (Morphine Sulfate) 2 mg Q4H PRN IVP severe Pain (Pain Scale 7-10) 04/28/17 07:30 05/05/17 07:29 04/28/17 16:06 Nitroglycerin (Ntg) 0.4 mg Q5M PRN SL Prn Chest Pain 04/28/17 07:30 05/28/17 07:29 05/03/17 10:25 Ondansetron HCl (Zofran) 4 mg Q6H PRN IVP Nausea & Vomiting 04/28/17 07:30 05/28/17 07:29 Pantoprazole (Protonix) 40 mg ACBREAKFAST ORAL 04/28/17 09:00 05/28/17 08:59 05/04/17 06:37 Polyethylene Glycol (Miralax) 17 gm DAILYPRN PRN ORAL Constipation 04/28/17 09:00 05/28/17 08:59 Quetiapine Fumarate (SEROquel) 25 mg DAILY@1700 ORAL 04/30/17 17:00 05/30/17 16:59 05/04/17 17:24 Quetiapine Fumarate (SEROquel) 200 mg BEDTIME ORAL 04/28/17 21:00 05/28/17 20:59 05/03/17 21:06 Ranolazine (Ranexa ER 500mg) 500 mg Q12HR ORAL 05/03/17 21:00 06/02/17 20:59 05/04/17 09:52 Tamsulosin HCl (Flomax) 0.4 mg BEDTIME ORAL 04/28/17 21:00 05/28/17 20:59 05/03/17 21:05 Temazepam (Restoril) 15 mg HSPRN PRN ORAL Insomnia 04/28/17 21:00 05/05/17 20:59 05/03/17 21:41 Warfarin Sodium (Coumadin per pharmacy) 1 ea DAILYPRN PRN MISC Per rx protocol 04/28/17 14:45 05/28/17 14:44 THADDEUS YA May 04, 2017 18:24
[2017-05-04] MEDS: Tamsulosin 0.4mg cap ORAL SCH (21:23)
[2017-05-04] MEDS: QUEtiapine 200mg tab ORAL SCH (21:24)
[2017-05-04] MEDS: Atorvastatin 80mg tab ORAL SCH (21:25)
--- NOTE | 2017-05-04 22:51 | General Progress Note ---
Assessment/Plan Status: unchanged Assessment/Plan 1. Pancytopenia. --> Wbc, hgb, and platelets are low but not critical --> Give prbc if hgb<7 and platelets if <20k --> Potentially, the patient has a history of underlying liver disease. --> HIV and hepatitis panel are both negative --> Ultrasound of the abdomen reveal cysts on right kidney, fatty liver, splenomegaly, atherosclerotic vascular disease, and absent left kidney 2. Anemia, very mild. --> Continue to closely monitor, likely secondary to chronic disease. --> No blood transfusion required unless symptomatic or hgb<7 --> Has been stable with hgb >12 3. Diarrhea, rule out Clostridium difficile. He will be seen by ID team. 4. Chest pain, rule out acute coronary syndrome. Cardiology service is following. 5. Diabetes mellitus. Blood sugar goal between 80 and 120. Subjective Date patient seen: May 04, 2017 Time patient seen: 06:00 Constitutional: Reports: weakness HEENT: Denies: no symptoms, eye pain, blurred vision, tearing, double vision, ear pain, ear discharge, nose pain, nose congestion, throat pain, throat swelling, mouth pain, mouth swelling, other Cardiovascular: Denies: no symptoms, chest pain, edema, irregular heart rate, lightheadedness, palpitations, syncope, other Respiratory: Denies: no symptoms, cough, orthopnea, shortness of breath, SOB with excertion, SOB at rest, sputum, stridor, wheezing, other Gastrointestinal/Abdominal: Denies: no symptoms, abdomen distended, abdominal pain, black stools, tarry stools, blood in stool, constipated, diarrhea, difficulty swallowing, nausea, poor appetite, poor fluid intake, rectal bleeding , vomiting, other Genitourinary: Denies: no symptoms, burning, discharge, frequency, flank pain, hematuria, incontinence, pain, urgency, other Neurologic/Psychiatric: Denies: no symptoms, anxiety, depressed, emotional problems, headache, numbness, paresthesia, pre-existing deficit, seizure, tingling, tremors, weakness, other Hematologic/Lymphatic: Reports: anemia Allergies: Coded Allergies: ADHESIVE TAPE (Verified Allergy, Unknown, 04/27/17) AMIODARONE (Verified Allergy, Unknown, 04/27/17) INFLUENZA VIRUS VACCINES (Verified Allergy, Unknown, 04/27/17) SULFAMETHIZOLE (Verified Allergy, Unknown, 04/27/17) Subjective Anemia stable as hgb high. Afebrile. Pt in bed. General weakness. No active bleeding. Objective Last 24 Hour Vital Signs Date Time Temp Pulse Resp B/P (MAP) Pulse Ox O2 Delivery O2 Flow Rate FiO2 05/04/17 21:37 69 18 Room Air 05/04/17 21:00 65 101/62 05/04/17 20:17 96.8 65 21 101/62 98 Room Air 05/04/17 18:15 106/61 05/04/17 15:42 97.5 72 20 101/63 97 Room Air 05/04/17 12:46 87 95/60 05/04/17 11:37 97.6 64 20 81/54 94 Room Air 05/04/17 09:44 105/63 05/04/17 09:00 66 105/66 05/04/17 08:05 97.4 66 20 90/63 94 Room Air 05/04/17 07:55 66 18 Room Air 05/04/17 04:41 70 18 99 Facial 30 05/04/17 04:41 97.5 64 19 92/64 98 Room Air 64 05/04/17 03:30 68 20 97 Facial 30 05/04/17 01:30 64 18 98 Facial 30 05/03/17 23:53 97.3 69 19 100/67 98 Room Air 05/03/17 22:56 70 20 98 Facial 30 Intake and Output 05/04/17 05/05/17 19:00 07:00 Intake Total 1010 ml Balance 1010 ml Intake Oral 1010 ml # Voids 5 Laboratory Tests 05/04/17 07:35: White Blood Count 4.6L, Red Blood Count 3.68L, Hemoglobin 12.2L, Hematocrit 34.5L, Mean Corpuscular Volume 94, Mean Corpuscular Hemoglobin 33.1H, Mean Corpuscular Hemoglobin Concent 35.3, Red Cell Distribution Width 15.4H, Platelet Count 114L, Mean Platelet Volume 5.5L, Neutrophils (%) (Auto) 54.5, Lymphocytes (%) (Auto) 29.9, Monocytes (%) (Auto) 10.0, Eosinophils (%) (Auto) 5.2H, Basophils (%) (Auto) 0.4, Prothrombin Time 24.4H, Prothromb Time International Ratio 2.3H, Sodium Level 140, Potassium Level 3.8, Chloride Level 103, Carbon Dioxide Level 24, Anion Gap 13, Blood Urea Nitrogen 20, Creatinine 1.3H, Estimat Glomerular Filtration Rate 56.1, Glucose Level 206H, Calcium Level 9.4 Height (Feet): 5 Height (Inches): 7.00 Weight (Pounds): 219 General Appearance: lethargic Neck: non-tender Cardiovascular: normal rate, regular rhythm Respiratory/Chest: chest wall non-tender, lungs clear, decreased breath sounds Abdomen: normal bowel sounds, non tender PREMA FONG May 04, 2017 22:51
[2017-05-05 03:56] VITALS: BP 103/71
[2017-05-05] MEDS: NovoLOG Insulin Flexpen SUBQ SCH ×4 (06:27→21:34)
[2017-05-05 08:00] VITALS: BP 109/62
[2017-05-05] MEDS: Metoprolol Tartrate 50mg tab ORAL SCH ×2 (09:00→21:00)
[2017-05-05] MEDS: Aspirin Baby 81mg ORAL SCH (09:13)
[2017-05-05] MEDS: Ranolazine 500mg tab ORAL SCH ×2 (09:14→21:27)
[2017-05-05] MEDS: ARIPiprazole 10mg tab ORAL SCH (09:15)
[2017-05-05] MEDS: KETOCONAZOLE 2% TOPIC SCH (09:15)
[2017-05-05 10:58] LABS: INR 1.9 (0.9-1.1); PROTHROMBIN TIME 20.4 SEC (9.30-11.50)
[2017-05-05 11:53] VITALS: BP 107/70
--- NOTE | 2017-05-05 12:04 | General Progress Note ---
Assessment/Plan Problem List: (1) Stress reaction ICD Codes: F43.0 - Acute stress reaction SNOMED: 24191416 (2) Hyperglycemia due to type 2 diabetes mellitus ICD Codes: E11.65 - Type 2 diabetes mellitus with hyperglycemia SNOMED: 532501655488954, [id number] Qualifiers: Qualified Codes: E11.65 - Type 2 diabetes mellitus with hyperglycemia; Z79.4 - care home (current) use of insulin (3) Chest pain ICD Codes: R07.9 - Chest pain, unspecified SNOMED: 10028069 Qualifiers: Qualified Codes: R07.9 - Chest pain, unspecified (4) Diabetes mellitus ICD Codes: E11.9 - Type 2 diabetes mellitus without complications SNOMED: 46178449 (5) Acute coronary syndrome ICD Codes: I24.9 - Acute ischemic heart disease, unspecified SNOMED: 846637800 Status: stable, progressing, tolerating diet Assessment/Plan ot pt diet pain control dc to snf Subjective Constitutional: Reports: weakness Allergies: Coded Allergies: ADHESIVE TAPE (Verified Allergy, Unknown, 04/27/17) AMIODARONE (Verified Allergy, Unknown, 04/27/17) INFLUENZA VIRUS VACCINES (Verified Allergy, Unknown, 04/27/17) SULFAMETHIZOLE (Verified Allergy, Unknown, 04/27/17) All Systems: reviewed and negative except above Subjective sl weak Objective Last 24 Hour Vital Signs Date Time Temp Pulse Resp B/P (MAP) Pulse Ox O2 Delivery O2 Flow Rate FiO2 05/05/17 11:53 97.2 82 20 107/70 97 Room Air 05/05/17 09:00 82 109/67 05/05/17 08:10 75 18 Room Air 05/05/17 08:00 96.8 82 19 109/62 97 Room Air 05/05/17 06:00 97/63 05/05/17 05:23 75 18 99 Facial 30 05/05/17 03:56 97.3 60 19 103/71 100 Bi-pap 05/05/17 03:07 73 19 99 Facial 30 05/04/17 23:54 96.6 71 20 107/62 96 Bi-pap 05/04/17 22:59 71 19 99 Facial 30 05/04/17 21:37 69 18 Room Air 05/04/17 21:00 65 101/62 05/04/17 20:17 96.8 65 21 101/62 98 Room Air 05/04/17 18:15 106/61 05/04/17 15:42 97.5 72 20 101/63 97 Room Air 05/04/17 12:46 87 95/60 Laboratory Tests 05/05/17 04:00: Prothrombin Time 20.4H, Prothromb Time International Ratio 1.9H Height (Feet): 5 Height (Inches): 7.00 Weight (Pounds): 219 General Appearance: lethargic EENT: normal ENT inspection Neck: normal alignment Cardiovascular: normal peripheral pulses, normal rate, regular rhythm Respiratory/Chest: chest wall non-tender, lungs clear, normal breath sounds Abdomen: normal bowel sounds, non tender, soft Extremities: normal inspection Edema: no edema noted Arm (L), no edema noted Arm (R), no edema noted Leg (L), no edema noted Leg (R), no edema noted Pedal (L), no edema noted Pedal (R), no edema noted Generalized Neurologic: responsive, motor weakness Skin: normal pigmentation, warm/dry ANDRE SILVA May 05, 2017 12:04
--- NOTE | 2017-05-05 15:49 | Pulmonology Progress Note ---
Assessment/Plan Problems: (1) Acute coronary syndrome (2) Chest pain (3) Diabetes mellitus (4) CAD (coronary artery disease) (5) Hx of CABG Assessment/Plan no new complains, doing better symptomatic treatment bipap at night sliding scale diabetic diet dc planning in progress Subjective ROS Limited/Unobtainable: No Constitutional: Reports: no symptoms HEENT: Repors: no symptoms Respiratory: Reports: no symptoms Allergies: Coded Allergies: ADHESIVE TAPE (Verified Allergy, Unknown, 04/27/17) AMIODARONE (Verified Allergy, Unknown, 04/27/17) INFLUENZA VIRUS VACCINES (Verified Allergy, Unknown, 04/27/17) SULFAMETHIZOLE (Verified Allergy, Unknown, 04/27/17) Objective Last 24 Hour Vital Signs Date Time Temp Pulse Resp B/P (MAP) Pulse Ox O2 Delivery O2 Flow Rate FiO2 05/05/17 11:53 97.2 82 20 107/70 97 Room Air 05/05/17 09:00 82 109/67 05/05/17 08:10 75 18 Room Air 05/05/17 08:00 96.8 82 19 109/62 97 Room Air 05/05/17 06:00 97/63 05/05/17 05:23 75 18 99 Facial 30 05/05/17 03:56 97.3 60 19 103/71 100 Bi-pap 05/05/17 03:07 73 19 99 Facial 30 05/04/17 23:54 96.6 71 20 107/62 96 Bi-pap 05/04/17 22:59 71 19 99 Facial 30 05/04/17 21:37 69 18 Room Air 05/04/17 21:00 65 101/62 05/04/17 20:17 96.8 65 21 101/62 98 Room Air 05/04/17 18:15 106/61 General Appearance: WD/WN HEENT: normocephalic, atraumatic Respiratory/Chest: chest wall non-tender, lungs clear Cardiovascular: normal peripheral pulses, normal rate Abdomen: normal bowel sounds, soft, non tender Extremities: no cyanosis Skin: no rash 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, no motor/sensory deficits Laboratory Tests 05/05/17 04:00: Prothrombin Time 20.4H, Prothromb Time International Ratio 1.9H Current Medications Medications (Trade) Dose Ordered Sig/Tanner Route PRN Reason Start Time Stop Time Status Last Admin Dose Admin Acetaminophen (Tylenol) 650 mg Q4H PRN ORAL FEVER>100.5 04/28/17 07:30 05/28/17 07:29 Allopurinol (Allopurinol) 300 mg DAILY ORAL 04/28/17 09:00 05/28/17 08:59 05/05/17 09:13 Aripiprazole (Abilify) 35 mg DAILY ORAL 05/04/17 09:00 06/03/17 08:59 05/05/17 09:15 Aspirin (ASA) 162 mg DAILY ORAL 04/28/17 09:00 05/28/17 08:59 05/05/17 09:13 Atorvastatin Calcium (Lipitor) 40 mg BEDTIME ORAL 04/28/17 21:00 05/28/17 20:59 05/04/17 21:25 Clopidogrel Bisulfate (Plavix) 75 mg DAILY ORAL 04/28/17 09:00 05/28/17 08:59 05/05/17 09:14 Dextrose (Dextrose 50%) STAT PRN IV Hypoglycemia 04/28/17 07:30 05/28/17 07:29 Diltiazem HCl (Cardizem) 10 mg Q1H PRN IV heart rate more than 120, 04/28/17 07:30 05/28/17 07:29 Enalaprilat (Vasotec) 2.5 mg Q6H PRN IV sbp more than 160 04/28/17 07:30 05/28/17 07:29 Escitalopram Oxalate (Lexapro) 20 mg DAILY ORAL 05/02/17 09:00 05/28/17 12:59 05/05/17 09:14 Fish Oil (Fish Oil) 1,000 mg DAILY ORAL 05/01/17 09:00 05/31/17 08:59 05/02/17 09:09 Insulin Aspart (NovoLOG) BEFORE MEALS AND HS SUBQ 04/28/17 08:30 05/28/17 08:29 05/05/17 12:19 Isosorbide Dinitrate (Isordil) 30 mg BID@0600,1800 ORAL 05/04/17 18:05 06/03/17 18:04 05/04/17 18:15 Ketoconazole (Nizoral 2% Cream) 1 applic DAILY TOPIC 05/02/17 09:00 06/01/17 08:59 05/05/17 09:15 Ketoconazole (Nizoral 2% Shampoo) 1 applic DAILY TOPIC 05/02/17 09:00 06/01/17 08:59 05/05/17 09:15 Metoprolol Tartrate (Lopressor) 50 mg Q12HR ORAL 04/30/17 21:00 05/30/17 20:59 05/03/17 21:05 Mirtazapine (Remeron) 30 mg QHS ORAL 04/28/17 21:00 05/28/17 20:59 05/04/17 21:24 Nitroglycerin (Ntg) 0.4 mg Q5M PRN SL Prn Chest Pain 04/28/17 07:30 05/28/17 07:29 05/03/17 10:25 Ondansetron HCl (Zofran) 4 mg Q6H PRN IVP Nausea & Vomiting 04/28/17 07:30 05/28/17 07:29 Pantoprazole (Protonix) 40 mg ACBREAKFAST ORAL 04/28/17 09:00 05/28/17 08:59 05/05/17 06:24 Polyethylene Glycol (Miralax) 17 gm DAILYPRN PRN ORAL Constipation 04/28/17 09:00 05/28/17 08:59 Quetiapine Fumarate (SEROquel) 25 mg DAILY@1700 ORAL 04/30/17 17:00 05/30/17 16:59 05/04/17 17:24 Quetiapine Fumarate (SEROquel) 200 mg BEDTIME ORAL 04/28/17 21:00 05/28/17 20:59 05/04/17 21:24 Ranolazine (Ranexa ER 500mg) 500 mg Q12HR ORAL 05/03/17 21:00 06/02/17 20:59 05/05/17 09:14 Tamsulosin HCl (Flomax) 0.4 mg BEDTIME ORAL 04/28/17 21:00 05/28/17 20:59 05/04/17 21:23 Temazepam (Restoril) 15 mg HSPRN PRN ORAL Insomnia 04/28/17 21:00 05/05/17 20:59 05/04/17 21:27 Warfarin Sodium (Coumadin per pharmacy) 1 ea DAILYPRN PRN MISC Per rx protocol 04/28/17 14:45 05/28/17 14:44 Warfarin Sodium (Coumadin) 7.5 mg COUMADIN ORAL 05/05/17 17:00 05/05/17 17:01 THADDEUS YA May 05, 2017 15:49
[2017-05-05 16:00] VITALS: BP 107/73
[2017-05-05] MEDS ORDERED: Diltiazem 25mg/5ml IV PRN (16:30)
[2017-05-05] MEDS ORDERED: Enalaprilat 2.5mg/2ml Inj IV PRN (17:00)
[2017-05-05] MEDS ORDERED: Warfarin Sodium 7.5mg ORAL SCH ×2 (17:00)
[2017-05-05] MEDS ORDERED: Miralax 17gm pkt ORAL PRN (17:00)
--- NOTE | 2017-05-05 17:24 | Infectious Diseases Prog Note ---
Assessment/Plan Problems: (1) Diarrhea Assessment & Plan: resolved, no evidence of recurrent C DIFF, or stool infection and negative stool culture , keep off antibiotics. advised to avoid any unnecessary antibiotics in the future (2) Chest pain Assessment & Plan: ruled out for ACS , with negative stress test , medical management , cardiology is following (3) Diabetes mellitus Assessment & Plan: recommend tight glycemic control to keep blood glucose between 80-120 (4) CAD (coronary artery disease) Assessment & Plan: continue cardiac meds, cardiology is following (5) Dermatitis, seborrheic Assessment & Plan: on ketoconazole shampoo prn Subjective Constitutional: Reports: no symptoms HEENT: Reports: no symptoms Respiratory: Reports: no symptoms Breasts: Reports: no symptoms Cardiovascular: Reports: no symptoms Gastrointestinal/Abdominal: Reports: no symptoms Genitourinary: Reports: no symptoms Neurologic: Reports: no symptoms Psychiatric: Reports: no symptoms Skin: Reports: no symptoms Endocrine: Reports: no symptoms Hematologic: Reports: no symptoms Musculoskeletal: Reports: no symptoms Allergies: Coded Allergies: ADHESIVE TAPE (Verified Allergy, Unknown, 04/27/17) AMIODARONE (Verified Allergy, Unknown, 04/27/17) INFLUENZA VIRUS VACCINES (Verified Allergy, Unknown, 04/27/17) SULFAMETHIZOLE (Verified Allergy, Unknown, 04/27/17) Objective Vital Signs Last 24 Hour Vital Signs Date Time Temp Pulse Resp B/P (MAP) Pulse Ox O2 Delivery O2 Flow Rate FiO2 05/05/17 11:53 97.2 82 20 107/70 97 Room Air 05/05/17 09:00 82 109/67 05/05/17 08:10 75 18 Room Air 05/05/17 08:00 96.8 82 19 109/62 97 Room Air 05/05/17 06:00 97/63 05/05/17 05:23 75 18 99 Facial 30 05/05/17 03:56 97.3 60 19 103/71 100 Bi-pap 05/05/17 03:07 73 19 99 Facial 30 05/04/17 23:54 96.6 71 20 107/62 96 Bi-pap 05/04/17 22:59 71 19 99 Facial 30 05/04/17 21:37 69 18 Room Air 05/04/17 21:00 65 101/62 05/04/17 20:17 96.8 65 21 101/62 98 Room Air 05/04/17 18:15 106/61 Height (Feet): 5 Height (Inches): 7.00 Weight (Pounds): 219 General Appearance: WD/WN, no acute distress HEENT: normocephalic, atraumatic, anicteric, mucous membranes moist, PERRL, pharynx normal, no JVD Respiratory/Chest: chest wall non-tender, lungs clear, normal breath sounds, no respiratory distress, no accessory muscle use Cardiovascular: normal peripheral pulses, normal rate, regular rhythm, no gallop/murmur, no JVD Abdomen: normal bowel sounds, soft, non tender, no organomegaly, non distended , no mass, no scars Extremities: no cyanosis, no clubbing Skin: no rash, no lesions, no ulcers Neurologic/Psychiatric: alert, oriented x 3 Lymphatic: no neck adenopathy, no groin adenopathy Musculoskeletal: normal muscle bulk Laboratory Tests Test 05/05/17 04:00 Prothrombin Time 20.4 SEC (9.30-11.50) H Prothromb Time International Ratio 1.9 (0.9-1.1) H Current Medications Medications (Trade) Dose Ordered Sig/Tanner Route PRN Reason Start Time Stop Time Status Last Admin Dose Admin Acetaminophen (Tylenol) 650 mg Q4H PRN ORAL FEVER>100.5 05/05/17 17:00 05/28/17 16:59 Allopurinol (Allopurinol) 300 mg DAILY ORAL 05/06/17 09:00 05/28/17 08:59 Aripiprazole (Abilify) 35 mg DAILY ORAL 05/06/17 09:00 06/05/17 08:59 Aspirin (ASA) 162 mg DAILY ORAL 05/06/17 09:00 05/28/17 08:59 Atorvastatin Calcium (Lipitor) 40 mg BEDTIME ORAL 05/05/17 21:00 05/28/17 20:59 Clopidogrel Bisulfate (Plavix) 75 mg DAILY ORAL 05/06/17 09:00 05/28/17 08:59 Dextrose (Dextrose 50%) STAT PRN IV Hypoglycemia 05/05/17 17:00 06/04/17 16:59 Enalaprilat (Vasotec) 2.5 mg Q6H PRN IV sbp more than 160 05/05/17 17:00 06/04/17 16:59 Escitalopram Oxalate (Lexapro) 20 mg DAILY ORAL 05/06/17 09:00 05/28/17 12:59 Fish Oil (Fish Oil) 1,000 mg DAILY ORAL 05/06/17 09:00 05/31/17 08:59 Insulin Aspart (NovoLOG) BEFORE MEALS AND HS SUBQ 05/05/17 17:30 05/28/17 17:29 Isosorbide Dinitrate (Isordil) 30 mg BID@0600,1800 ORAL 05/05/17 18:00 06/03/17 18:04 Ketoconazole (Nizoral 2% Cream) 1 applic DAILY TOPIC 05/06/17 09:00 06/01/17 08:59 Ketoconazole (Nizoral 2% Shampoo) 1 applic DAILY TOPIC 05/06/17 09:00 06/01/17 08:59 Metoprolol Tartrate (Lopressor) 50 mg Q12HR ORAL 05/05/17 21:00 05/30/17 20:59 Mirtazapine (Remeron) 30 mg QHS ORAL 05/05/17 21:00 05/28/17 20:59 Nitroglycerin (Ntg) 0.4 mg Q5MIN PRN SL Prn Chest Pain 05/05/17 16:00 06/04/17 15:59 Ondansetron HCl (Zofran) 4 mg Q6H PRN IVP Nausea & Vomiting 05/05/17 17:00 05/28/17 16:59 Pantoprazole (Protonix) 40 mg ACBREAKFAST ORAL 05/06/17 06:30 05/28/17 08:59 Polyethylene Glycol (Miralax) 17 gm DAILYPRN PRN ORAL Constipation 05/05/17 17:00 06/04/17 16:59 Quetiapine Fumarate (SEROquel) 25 mg DAILY@1700 ORAL 05/05/17 17:00 05/30/17 16:59 Quetiapine Fumarate (SEROquel) 200 mg BEDTIME ORAL 05/05/17 21:00 05/28/17 20:59 Ranolazine (Ranexa ER 500mg) 500 mg Q12HR ORAL 05/05/17 21:00 06/02/17 20:59 Tamsulosin HCl (Flomax) 0.4 mg BEDTIME ORAL 05/05/17 21:00 05/28/17 20:59 Temazepam (Restoril) 15 mg HSPRN PRN ORAL Insomnia 05/05/17 21:00 05/06/17 20:59 Warfarin Sodium (Coumadin per pharmacy) 1 ea DAILYPRN PRN MISC Per rx protocol 05/05/17 17:00 06/04/17 16:59 Gladys Murillo M.D. May 05, 2017 17:24
--- NOTE | 2017-05-05 17:58 | Cardiac Electrophysiology PN ---
Assessment/Plan Assessment/Plan 1. Chest pain and history of CABG and most recent PCI June 2016 at [facility]. Already ruled out for myocardial infarction. Nuclear stress test showed no definite ischemia. 2D echocardiogram EF 65%. Continue aspirin,Toprol, Plavix and Lipitor and Renaxa 500. 2. History of coronary artery bypass graft. 3. Status post aortic valve replacement with a porcine aortic valve. Echocardiogram mod . 4. History of atrial fibrillation and ablation, remained in sinus rhythm on aspirin,Toprol 50 bid, Coumadin and Plavix. 5. Diabetes. 6. Depression. 7. Status post amputation of the fingers. DW Sister and RN DC to NH today Subjective Subjective Alert in NAD, feeling better. Awaiting DC today if BIPAP machine delivered to NH..Sister at bedside. Objective Last 24 Hour Vital Signs Date Time Temp Pulse Resp B/P (MAP) Pulse Ox O2 Delivery O2 Flow Rate FiO2 05/05/17 16:00 97.2 83 18 107/73 96 Room Air 05/05/17 11:53 97.2 82 20 107/70 97 Room Air 05/05/17 09:00 82 109/67 05/05/17 08:10 75 18 Room Air 05/05/17 08:00 96.8 82 19 109/62 97 Room Air 05/05/17 06:00 97/63 05/05/17 05:23 75 18 99 Facial 30 05/05/17 03:56 97.3 60 19 103/71 100 Bi-pap 05/05/17 03:07 73 19 99 Facial 30 05/04/17 23:54 96.6 71 20 107/62 96 Bi-pap 05/04/17 22:59 71 19 99 Facial 30 05/04/17 21:37 69 18 Room Air 05/04/17 21:00 65 101/62 05/04/17 20:17 96.8 65 21 101/62 98 Room Air 05/04/17 18:15 106/61 Intake and Output 05/05/17 05/06/17 19:00 07:00 Intake Total 480 ml Balance 480 ml Intake Oral 480 ml # Voids 2 Laboratory Tests Test 05/05/17 04:00 Prothrombin Time 20.4 SEC (9.30-11.50) H Prothromb Time International Ratio 1.9 (0.9-1.1) H Objective HEAD AND NECK: Shows no JVD. LUNGS: Clear. CARDIOVASCULAR: Regular S1 and S2 with no gallop . 2/6 S. murmur. Sternotomy intact ABDOMEN: Soft. EXTREMITIES: A 1+ pitting edema. ALEX VALDES May 05, 2017 17:58
[2017-05-05] MEDS ORDERED: ATORVASTATIN CA40 MG ORAL (18:12)
[2017-05-05] MEDS ORDERED: QUETIAPINE FUM300 MG ORAL (18:14)
[2017-05-05] MEDS ORDERED: FLOMAX0.4 MG ORAL (18:14)
[2017-05-05] MEDS ORDERED: PANTOPRAZOLE SO20 MG ORAL (18:15)
[2017-05-05] MEDS ORDERED: NOVOLOG100 UNIT/5 (18:16)
[2017-05-05] MEDS ORDERED: METOPROLOL TART50 M1 ORAL (18:20)
[2017-05-05] MEDS ORDERED: LEXAPRO20 MG ORAL (18:24)
[2017-05-05] MEDS ORDERED: NIZORAL 2% C1 APPLIC TOPIC (18:26)
[2017-05-05] MEDS ORDERED: ARIPIPRAZOLE10 MG PO (18:27)
[2017-05-05] MEDS ORDERED: MIRTAZAPINE30 M1 ORAL (18:28)
[2017-05-05] MEDS ORDERED: RANEXA500 MG ORAL (18:28)
[2017-05-05] MEDS ORDERED: COUMADIN7.5 MG ORAL (18:28)
[2017-05-05] MEDS ORDERED: FISH OIL 1,0001 EAC5 ORAL (18:29)
[2017-05-05 20:00] VITALS: BP 96/65
[2017-05-05] MEDS: QUEtiapine 200mg tab ORAL SCH (21:00)
[2017-05-05] MEDS ORDERED: Atorvastatin 80mg tab ORAL SCH (21:00)
[2017-05-05] MEDS: Tamsulosin 0.4mg cap ORAL SCH (21:29)
--- NOTE | 2017-05-05 23:19 | General Progress Note ---
Assessment/Plan Status: unchanged Assessment/Plan 1. Pancytopenia. --> Wbc, hgb, and platelets are low but not critical --> Give prbc if hgb<7 and platelets if <20k --> Potentially, the patient has a history of underlying liver disease. --> HIV and hepatitis panel are both negative --> Ultrasound of the abdomen reveal cysts on right kidney, fatty liver, splenomegaly, atherosclerotic vascular disease, and absent left kidney 2. Anemia, very mild. --> Continue to closely monitor, likely secondary to chronic disease. --> No blood transfusion required unless symptomatic or hgb<7 --> Has been stable with hgb >12 3. Diarrhea, rule out Clostridium difficile. He will be seen by ID team. 4. Chest pain, rule out acute coronary syndrome. Cardiology service is following. 5. Diabetes mellitus. Blood sugar goal between 80 and 120. Subjective Date patient seen: May 05, 2017 Time patient seen: 06:00 Hematologic/Lymphatic: Reports: anemia Allergies: Coded Allergies: ADHESIVE TAPE (Verified Allergy, Unknown, 04/27/17) AMIODARONE (Verified Allergy, Unknown, 04/27/17) INFLUENZA VIRUS VACCINES (Verified Allergy, Unknown, 04/27/17) SULFAMETHIZOLE (Verified Allergy, Unknown, 04/27/17) Subjective Anemia stable as hgb high. Afebrile. Pt in bed. General weakness. No active bleeding. No acute distress. Objective Last 24 Hour Vital Signs Date Time Temp Pulse Resp B/P (MAP) Pulse Ox O2 Delivery O2 Flow Rate FiO2 05/05/17 21:00 77 96/65 05/05/17 20:00 97.0 77 18 96/65 95 Room Air 05/05/17 19:12 78 20 Room Air 05/05/17 19:02 107/73 05/05/17 16:00 97.2 83 18 107/73 96 Room Air 05/05/17 11:53 97.2 82 20 107/70 97 Room Air 05/05/17 09:00 82 109/67 05/05/17 08:10 75 18 Room Air 05/05/17 08:00 96.8 82 19 109/62 97 Room Air 05/05/17 06:00 97/63 05/05/17 05:23 75 18 99 Facial 30 05/05/17 03:56 97.3 60 19 103/71 100 Bi-pap 05/05/17 03:07 73 19 99 Facial 30 05/04/17 23:54 96.6 71 20 107/62 96 Bi-pap Intake and Output 05/05/17 05/06/17 19:00 07:00 Intake Total 840 ml 360 ml Balance 840 ml 360 ml Intake Oral 840 ml 360 ml # Voids 2 Labs Test 05/04/17 07:35 05/05/17 04:00 White Blood Count 4.6 K/UL (4.8-10.8) Red Blood Count 3.68 M/UL (4.70-6.10) Hemoglobin 12.2 G/DL (14.2-18.0) Hematocrit 34.5 % (42.0-52.0) Mean Corpuscular Volume 94 FL (80-99) Mean Corpuscular Hemoglobin 33.1 PG (27.0-31.0) Mean Corpuscular Hemoglobin Concent 35.3 G/DL (32.0-36.0) Red Cell Distribution Width 15.4 % (11.6-14.8) Platelet Count 114 K/UL (150-450) Mean Platelet Volume 5.5 FL (6.5-10.1) Neutrophils (%) (Auto) 54.5 % (45.0-75.0) Lymphocytes (%) (Auto) 29.9 % (20.0-45.0) Monocytes (%) (Auto) 10.0 % (1.0-10.0) Eosinophils (%) (Auto) 5.2 % (0.0-3.0) Basophils (%) (Auto) 0.4 % (0.0-2.0) Prothrombin Time 24.4 SEC (9.30-11.50) 20.4 SEC (9.30-11.50) Prothromb Time International Ratio 2.3 (0.9-1.1) 1.9 (0.9-1.1) Sodium Level 140 mEQ/L (135-145) Potassium Level 3.8 mEQ/L (3.4-4.9) Chloride Level 103 mEQ/L (98-107) Carbon Dioxide Level 24 mEQ/L (20-30) Anion Gap 13 (5-15) Blood Urea Nitrogen 20 mg/dL (7-23) Creatinine 1.3 mg/dL (0.7-1.2) Estimat Glomerular Filtration Rate 56.1 mL/min (>60) Glucose Level 206 mg/dL (74-106) Calcium Level 9.4 mg/dL (8.6-10.2) Laboratory Tests 05/05/17 04:00: Prothrombin Time 20.4H, Prothromb Time International Ratio 1.9H Height (Feet): 5 Height (Inches): 7.00 Weight (Pounds): 219 General Appearance: lethargic Neck: non-tender, normal alignment Cardiovascular: normal rate, regular rhythm Respiratory/Chest: chest wall non-tender, lungs clear Abdomen: normal bowel sounds, non tender, soft PREMA FONG May 05, 2017 23:19
[2017-05-06] VITALS (8 sets, daily range): BP systolic 93–118; BP diastolic 52–73
[2017-05-06 05:43] LABS: PROTHROMBIN TIME 21.3 SEC (9.30-11.50)
[2017-05-06] MEDS: NovoLOG Insulin Flexpen SUBQ SCH ×4 (06:50→22:01)
[2017-05-06] MEDS: KETOCONAZOLE 2% TOPIC SCH (09:00)
[2017-05-06] MEDS: Aspirin Baby 81mg ORAL SCH (09:00)
[2017-05-06] MEDS: ARIPiprazole 10mg tab ORAL SCH (09:35)
[2017-05-06] MEDS: Ranolazine 500mg tab ORAL SCH ×2 (09:37→21:37)
[2017-05-06] MEDS: Metoprolol Tartrate 50mg tab ORAL SCH ×2 (09:38→21:00)
--- NOTE | 2017-05-06 13:01 | General Progress Note ---
Assessment/Plan Problem List: (1) Stress reaction ICD Codes: F43.0 - Acute stress reaction SNOMED: 37126850 (2) Hyperglycemia due to type 2 diabetes mellitus ICD Codes: E11.65 - Type 2 diabetes mellitus with hyperglycemia SNOMED: 910921028640305, 12771008 Qualifiers: Qualified Codes: E11.65 - Type 2 diabetes mellitus with hyperglycemia; Z79.4 - halfway (current) use of insulin (3) Chest pain ICD Codes: R07.9 - Chest pain, unspecified SNOMED: 16832378 Qualifiers: Qualified Codes: R07.9 - Chest pain, unspecified (4) Diabetes mellitus ICD Codes: E11.9 - Type 2 diabetes mellitus without complications SNOMED: 95793378 (5) Acute coronary syndrome ICD Codes: I24.9 - Acute ischemic heart disease, unspecified SNOMED: 018348299 Status: stable, progressing, tolerating diet Assessment/Plan ot pt diet pain control dc to snf Subjective Constitutional: Reports: weakness Allergies: Coded Allergies: ADHESIVE TAPE (Verified Allergy, Unknown, 04/27/17) AMIODARONE (Verified Allergy, Unknown, 04/27/17) INFLUENZA VIRUS VACCINES (Verified Allergy, Unknown, 04/27/17) SULFAMETHIZOLE (Verified Allergy, Unknown, 04/27/17) All Systems: reviewed and negative except above Subjective sl weak Objective Last 24 Hour Vital Signs Date Time Temp Pulse Resp B/P (MAP) Pulse Ox O2 Delivery O2 Flow Rate FiO2 05/06/17 09:38 86 118/73 05/06/17 08:00 97.2 86 18 118/73 95 Room Air 05/06/17 07:59 76 18 Room Air 05/06/17 06:00 98/66 05/06/17 05:42 71 98/66 05/06/17 05:10 70 14 99 Facial 30 05/06/17 04:00 97.1 64 18 98/54 95 Bi-pap 05/06/17 03:15 68 12 99 Facial 30 05/06/17 01:05 70 19 99 Facial 30 05/06/17 00:00 97.6 79 18 101/69 96 Room Air 05/05/17 23:30 66 19 99 30 05/05/17 21:00 77 96/65 05/05/17 20:00 97.0 77 18 96/65 95 Room Air 05/05/17 19:12 78 20 Room Air 05/05/17 19:02 107/73 05/05/17 16:00 97.2 83 18 107/73 96 Room Air Laboratory Tests 05/06/17 05:10: Prothrombin Time 21.3H, Prothromb Time International Ratio 2.0H Height (Feet): 5 Height (Inches): 7.00 Weight (Pounds): 219 General Appearance: lethargic EENT: normal ENT inspection Neck: normal alignment Cardiovascular: normal peripheral pulses, normal rate, regular rhythm Respiratory/Chest: chest wall non-tender, lungs clear, normal breath sounds Abdomen: normal bowel sounds, non tender, soft Extremities: normal inspection Edema: no edema noted Arm (L), no edema noted Arm (R), no edema noted Leg (L), no edema noted Leg (R), no edema noted Pedal (L), no edema noted Pedal (R), no edema noted Generalized Neurologic: responsive, motor weakness Skin: normal pigmentation, warm/dry ANDRE SILVA May 06, 2017 13:01
--- NOTE | 2017-05-06 13:25 | Pulmonology Progress Note ---
Assessment/Plan Problems: (1) Acute coronary syndrome (2) Chest pain (3) Diabetes mellitus (4) CAD (coronary artery disease) (5) Hx of CABG Assessment/Plan no new complains, doing better symptomatic treatment bipap at night sliding scale diabetic diet dc planning in progress Subjective ROS Limited/Unobtainable: No Constitutional: Reports: no symptoms HEENT: Repors: no symptoms Cardiovascular: Reports: no symptoms Allergies: Coded Allergies: ADHESIVE TAPE (Verified Allergy, Unknown, 04/27/17) AMIODARONE (Verified Allergy, Unknown, 04/27/17) INFLUENZA VIRUS VACCINES (Verified Allergy, Unknown, 04/27/17) SULFAMETHIZOLE (Verified Allergy, Unknown, 04/27/17) Objective Last 24 Hour Vital Signs Date Time Temp Pulse Resp B/P (MAP) Pulse Ox O2 Delivery O2 Flow Rate FiO2 05/06/17 12:00 98.2 60 18 107/65 97 Room Air 05/06/17 09:38 86 118/73 05/06/17 08:00 97.2 86 18 118/73 95 Room Air 05/06/17 07:59 76 18 Room Air 05/06/17 06:00 98/66 05/06/17 05:42 71 98/66 05/06/17 05:10 70 14 99 Facial 30 05/06/17 04:00 97.1 64 18 98/54 95 Bi-pap 05/06/17 03:15 68 12 99 Facial 30 05/06/17 01:05 70 19 99 Facial 30 05/06/17 00:00 97.6 79 18 101/69 96 Room Air 05/05/17 23:30 66 19 99 30 05/05/17 21:00 77 96/65 05/05/17 20:00 97.0 77 18 96/65 95 Room Air 05/05/17 19:12 78 20 Room Air 05/05/17 19:02 107/73 05/05/17 16:00 97.2 83 18 107/73 96 Room Air General Appearance: WD/WN HEENT: normocephalic, atraumatic Respiratory/Chest: chest wall non-tender, lungs clear Cardiovascular: normal peripheral pulses, normal rate Abdomen: no organomegaly Extremities: no cyanosis, no clubbing Skin: no rash Laboratory Tests 05/06/17 05:10: Prothrombin Time 21.3H, Prothromb Time International Ratio 2.0H Current Medications Medications (Trade) Dose Ordered Sig/Tanner Route PRN Reason Start Time Stop Time Status Last Admin Dose Admin Acetaminophen (Tylenol) 650 mg Q4H PRN ORAL FEVER>100.5 05/05/17 17:00 05/28/17 16:59 Allopurinol (Allopurinol) 300 mg DAILY ORAL 05/06/17 09:00 05/28/17 08:59 05/06/17 09:29 Aripiprazole (Abilify) 35 mg DAILY ORAL 05/06/17 09:00 06/05/17 08:59 05/06/17 09:35 Aspirin (ASA) 162 mg DAILY ORAL 05/06/17 09:00 05/28/17 08:59 05/06/17 09:00 Atorvastatin Calcium (Lipitor) 40 mg BEDTIME ORAL 05/05/17 21:00 05/28/17 20:59 05/05/17 21:27 Clopidogrel Bisulfate (Plavix) 75 mg DAILY ORAL 05/06/17 09:00 05/28/17 08:59 05/06/17 09:37 Dextrose (Dextrose 50%) STAT PRN IV Hypoglycemia 05/05/17 17:00 06/04/17 16:59 Enalaprilat (Vasotec) 2.5 mg Q6H PRN IV sbp more than 160 05/05/17 17:00 06/04/17 16:59 Escitalopram Oxalate (Lexapro) 20 mg DAILY ORAL 05/06/17 09:00 05/28/17 12:59 05/06/17 09:30 Fish Oil (Fish Oil) 1,000 mg DAILY ORAL 05/06/17 09:00 05/31/17 08:59 Insulin Aspart (NovoLOG) BEFORE MEALS AND HS SUBQ 05/05/17 17:30 05/28/17 17:29 05/06/17 11:45 Isosorbide Dinitrate (Isordil) 30 mg BID@0600,1800 ORAL 05/05/17 18:00 06/03/17 18:04 05/05/17 19:02 Ketoconazole (Nizoral 2% Cream) 1 applic DAILY TOPIC 05/06/17 09:00 06/01/17 08:59 05/06/17 09:00 Ketoconazole (Nizoral 2% Shampoo) 1 applic DAILY TOPIC 05/06/17 09:00 06/01/17 08:59 05/06/17 09:00 Metoprolol Tartrate (Lopressor) 50 mg Q12HR ORAL 05/05/17 21:00 05/30/17 20:59 05/06/17 09:38 Mirtazapine (Remeron) 30 mg QHS ORAL 05/05/17 21:00 05/28/17 20:59 05/05/17 21:28 Nitroglycerin (Ntg) 0.4 mg Q5MIN PRN SL Prn Chest Pain 05/05/17 16:00 06/04/17 15:59 Ondansetron HCl (Zofran) 4 mg Q6H PRN IVP Nausea & Vomiting 05/05/17 17:00 05/28/17 16:59 Pantoprazole (Protonix) 40 mg ACBREAKFAST ORAL 05/06/17 06:30 05/28/17 08:59 05/06/17 06:43 Polyethylene Glycol (Miralax) 17 gm DAILYPRN PRN ORAL Constipation 05/05/17 17:00 06/04/17 16:59 Quetiapine Fumarate (SEROquel) 25 mg DAILY@1700 ORAL 05/05/17 17:00 05/30/17 16:59 05/05/17 17:39 Quetiapine Fumarate (SEROquel) 200 mg BEDTIME ORAL 05/05/17 21:00 05/28/17 20:59 05/05/17 21:00 Ranolazine (Ranexa ER 500mg) 500 mg Q12HR ORAL 05/05/17 21:00 06/02/17 20:59 05/06/17 09:37 Tamsulosin HCl (Flomax) 0.4 mg BEDTIME ORAL 05/05/17 21:00 05/28/17 20:59 05/05/17 21:29 Temazepam (Restoril) 15 mg HSPRN PRN ORAL Insomnia 05/05/17 21:00 05/06/17 20:59 05/05/17 22:16 Warfarin Sodium (Coumadin per pharmacy) 1 ea DAILYPRN PRN MISC Per rx protocol 05/05/17 17:00 06/04/17 16:59 Warfarin Sodium (Coumadin) 7.5 mg COUMADIN ONCE ORAL 05/06/17 17:00 05/06/17 17:01 THADDEUS YA May 06, 2017 13:25
--- NOTE | 2017-05-06 15:03 | Infectious Diseases Prog Note ---
Assessment/Plan Problems: (1) Diarrhea Assessment & Plan: resolved, with no evidence of recurrent C DIFF, or stool infection and negative stool culture, keep off antibiotics. advised to avoid any unnecessary antibiotics in the future (2) Chest pain Assessment & Plan: ruled out for ACS , with negative stress test , medical management as per cardiology team (3) Diabetes mellitus Assessment & Plan: recommend tight glycemic control to keep blood glucose between 80-120 (4) CAD (coronary artery disease) Assessment & Plan: continue cardiac meds, cardiology is following (5) Dermatitis, seborrheic Assessment & Plan: on ketoconazole shampoo prn Subjective Constitutional: Reports: no symptoms HEENT: Reports: no symptoms Respiratory: Reports: no symptoms Breasts: Reports: no symptoms Cardiovascular: Reports: no symptoms Gastrointestinal/Abdominal: Reports: no symptoms Genitourinary: Reports: no symptoms Neurologic: Reports: no symptoms Psychiatric: Reports: no symptoms Skin: Reports: no symptoms Endocrine: Reports: no symptoms Hematologic: Reports: no symptoms Allergies: Coded Allergies: ADHESIVE TAPE (Verified Allergy, Unknown, 04/27/17) AMIODARONE (Verified Allergy, Unknown, 04/27/17) INFLUENZA VIRUS VACCINES (Verified Allergy, Unknown, 04/27/17) SULFAMETHIZOLE (Verified Allergy, Unknown, 04/27/17) Objective Vital Signs Last 24 Hour Vital Signs Date Time Temp Pulse Resp B/P (MAP) Pulse Ox O2 Delivery O2 Flow Rate FiO2 05/06/17 12:00 98.2 60 18 107/65 97 Room Air 05/06/17 09:38 86 118/73 05/06/17 08:00 97.2 86 18 118/73 95 Room Air 05/06/17 07:59 76 18 Room Air 05/06/17 06:00 98/66 05/06/17 05:42 71 98/66 05/06/17 05:10 70 14 99 Facial 30 05/06/17 04:00 97.1 64 18 98/54 95 Bi-pap 05/06/17 03:15 68 12 99 Facial 30 05/06/17 01:05 70 19 99 Facial 30 05/06/17 00:00 97.6 79 18 101/69 96 Room Air 05/05/17 23:30 66 19 99 30 05/05/17 21:00 77 96/65 05/05/17 20:00 97.0 77 18 96/65 95 Room Air 05/05/17 19:12 78 20 Room Air 05/05/17 19:02 107/73 05/05/17 16:00 97.2 83 18 107/73 96 Room Air Height (Feet): 5 Height (Inches): 7.00 Weight (Pounds): 219 General Appearance: WD/WN, no acute distress HEENT: normocephalic, atraumatic, anicteric, mucous membranes moist Respiratory/Chest: chest wall non-tender, lungs clear, normal breath sounds, no respiratory distress, no accessory muscle use Cardiovascular: normal peripheral pulses, normal rate, regular rhythm, no gallop/murmur, no JVD Abdomen: normal bowel sounds, soft, non tender, no organomegaly, non distended , no mass, no scars Extremities: no cyanosis, no clubbing Skin: no rash, no lesions, no ulcers Neurologic/Psychiatric: alert, oriented x 3 Laboratory Tests Test 05/06/17 05:10 Prothrombin Time 21.3 SEC (9.30-11.50) H Prothromb Time International Ratio 2.0 (0.9-1.1) H Current Medications Medications (Trade) Dose Ordered Sig/Tanner Route PRN Reason Start Time Stop Time Status Last Admin Dose Admin Acetaminophen (Tylenol) 650 mg Q4H PRN ORAL FEVER>100.5 05/05/17 17:00 05/28/17 16:59 Allopurinol (Allopurinol) 300 mg DAILY ORAL 05/06/17 09:00 05/28/17 08:59 05/06/17 09:29 Aripiprazole (Abilify) 35 mg DAILY ORAL 05/06/17 09:00 06/05/17 08:59 05/06/17 09:35 Aspirin (ASA) 162 mg DAILY ORAL 05/06/17 09:00 05/28/17 08:59 05/06/17 09:00 Atorvastatin Calcium (Lipitor) 40 mg BEDTIME ORAL 05/05/17 21:00 05/28/17 20:59 05/05/17 21:27 Clopidogrel Bisulfate (Plavix) 75 mg DAILY ORAL 05/06/17 09:00 05/28/17 08:59 05/06/17 09:37 Dextrose (Dextrose 50%) STAT PRN IV Hypoglycemia 05/05/17 17:00 06/04/17 16:59 Enalaprilat (Vasotec) 2.5 mg Q6H PRN IV sbp more than 160 05/05/17 17:00 06/04/17 16:59 Escitalopram Oxalate (Lexapro) 20 mg DAILY ORAL 05/06/17 09:00 05/28/17 12:59 05/06/17 09:30 Fish Oil (Fish Oil) 1,000 mg DAILY ORAL 05/06/17 09:00 05/31/17 08:59 Insulin Aspart (NovoLOG) BEFORE MEALS AND HS SUBQ 05/05/17 17:30 05/28/17 17:29 05/06/17 11:45 Isosorbide Dinitrate (Isordil) 30 mg BID@0600,1800 ORAL 05/05/17 18:00 06/03/17 18:04 05/05/17 19:02 Ketoconazole (Nizoral 2% Cream) 1 applic DAILY TOPIC 05/06/17 09:00 06/01/17 08:59 05/06/17 09:00 Ketoconazole (Nizoral 2% Shampoo) 1 applic DAILY TOPIC 05/06/17 09:00 06/01/17 08:59 05/06/17 09:00 Metoprolol Tartrate (Lopressor) 50 mg Q12HR ORAL 05/05/17 21:00 05/30/17 20:59 05/06/17 09:38 Mirtazapine (Remeron) 30 mg QHS ORAL 05/05/17 21:00 05/28/17 20:59 05/05/17 21:28 Nitroglycerin (Ntg) 0.4 mg Q5MIN PRN SL Prn Chest Pain 05/05/17 16:00 06/04/17 15:59 Ondansetron HCl (Zofran) 4 mg Q6H PRN IVP Nausea & Vomiting 05/05/17 17:00 05/28/17 16:59 Pantoprazole (Protonix) 40 mg ACBREAKFAST ORAL 05/06/17 06:30 05/28/17 08:59 05/06/17 06:43 Polyethylene Glycol (Miralax) 17 gm DAILYPRN PRN ORAL Constipation 05/05/17 17:00 06/04/17 16:59 Quetiapine Fumarate (SEROquel) 25 mg DAILY@1700 ORAL 05/05/17 17:00 05/30/17 16:59 05/05/17 17:39 Quetiapine Fumarate (SEROquel) 200 mg BEDTIME ORAL 05/05/17 21:00 05/28/17 20:59 05/05/17 21:00 Ranolazine (Ranexa ER 500mg) 500 mg Q12HR ORAL 05/05/17 21:00 06/02/17 20:59 05/06/17 09:37 Tamsulosin HCl (Flomax) 0.4 mg BEDTIME ORAL 05/05/17 21:00 05/28/17 20:59 05/05/17 21:29 Temazepam (Restoril) 15 mg HSPRN PRN ORAL Insomnia 05/05/17 21:00 05/06/17 20:59 05/05/17 22:16 Warfarin Sodium (Coumadin per pharmacy) 1 ea DAILYPRN PRN MISC Per rx protocol 05/05/17 17:00 06/04/17 16:59 Warfarin Sodium (Coumadin) 7.5 mg COUMADIN ONCE ORAL 05/06/17 17:00 05/06/17 17:01 Gladys Murillo M.D. May 06, 2017 15:03
--- NOTE | 2017-05-06 16:19 | Cardiac Electrophysiology PN ---
Assessment/Plan Assessment/Plan 1. Chest pain and history of CABG and most recent PCI June 2016 at [facility]. Already ruled out for myocardial infarction. Nuclear stress test showed no definite ischemia. 2D echocardiogram EF 65%. Continue aspirin,Toprol, Plavix and Lipitor and Renaxa 500. 2. History of coronary artery bypass graft. 3. Status post aortic valve replacement with a porcine aortic valve with residual mod . 4. History of atrial fibrillation and ablation, remained in sinus rhythm on aspirin,Toprol 50 bid, Coumadin and Plavix. 5. Diabetes. 6. Depression. 7. Status post amputation of the fingers. DW Sister and RN Subjective Subjective Alert in NAD. DC today if BIPAP machine delivered to NH. Objective Last 24 Hour Vital Signs Date Time Temp Pulse Resp B/P (MAP) Pulse Ox O2 Delivery O2 Flow Rate FiO2 05/06/17 15:52 97.2 64 19 112/67 95 Room Air 05/06/17 12:00 98.2 60 18 107/65 97 Room Air 05/06/17 09:38 86 118/73 05/06/17 08:00 97.2 86 18 118/73 95 Room Air 05/06/17 07:59 76 18 Room Air 05/06/17 06:00 98/66 05/06/17 05:42 71 98/66 05/06/17 05:10 70 14 99 Facial 30 05/06/17 04:00 97.1 64 18 98/54 95 Bi-pap 05/06/17 03:15 68 12 99 Facial 30 05/06/17 01:05 70 19 99 Facial 30 05/06/17 00:00 97.6 79 18 101/69 96 Room Air 05/05/17 23:30 66 19 99 30 05/05/17 21:00 77 96/65 05/05/17 20:00 97.0 77 18 96/65 95 Room Air 05/05/17 19:12 78 20 Room Air 05/05/17 19:02 107/73 Laboratory Tests Test 05/06/17 05:10 Prothrombin Time 21.3 SEC (9.30-11.50) H Prothromb Time International Ratio 2.0 (0.9-1.1) H Objective HEAD AND NECK: Shows no JVD. LUNGS: Clear. CARDIOVASCULAR: Regular S1 and S2 with no gallop . 2/6 S. murmur. Sternotomy intact ABDOMEN: Soft. EXTREMITIES: A 1+ pitting edema. ALEX VALDES May 06, 2017 16:19
[2017-05-06] MEDS ORDERED: Warfarin Sodium 7.5mg ORAL ONE (17:00)
[2017-05-06] MEDS: Tamsulosin 0.4mg cap ORAL SCH (21:36)
[2017-05-06] MEDS: QUEtiapine 200mg tab ORAL SCH (21:36)
--- NOTE | 2017-05-06 22:20 | General Progress Note ---
Assessment/Plan Status: stable Assessment/Plan 1. Pancytopenia. Monitor. --> Wbc, hgb, and platelets are low but not critical --> Give prbc if hgb<7 and platelets if <20k --> Potentially, the patient has a history of underlying liver disease. --> HIV and hepatitis panel are both negative --> Ultrasound of the abdomen reveal cysts on right kidney, fatty liver, splenomegaly, atherosclerotic vascular disease, and absent left kidney 2. Anemia, very mild. --> Continue to closely monitor, likely secondary to chronic disease. --> No blood transfusion required unless symptomatic or hgb<7 --> Has been stable with hgb >12 3. Diarrhea, rule out Clostridium difficile. He will be seen by ID team. 4. Chest pain, rule out acute coronary syndrome. Cardiology service is following. 5. Diabetes mellitus. Blood sugar goal between 80 and 120. Subjective Date patient seen: May 06, 2017 Time patient seen: 06:00 Hematologic/Lymphatic: Reports: anemia - Mild Allergies: Coded Allergies: ADHESIVE TAPE (Verified Allergy, Unknown, 04/27/17) AMIODARONE (Verified Allergy, Unknown, 04/27/17) INFLUENZA VIRUS VACCINES (Verified Allergy, Unknown, 04/27/17) SULFAMETHIZOLE (Verified Allergy, Unknown, 04/27/17) Subjective Anemia stable as hgb high. Afebrile. Pt in bed. General weakness. No active bleeding. No acute distress. Objective Last 24 Hour Vital Signs Date Time Temp Pulse Resp B/P (MAP) Pulse Ox O2 Delivery O2 Flow Rate FiO2 05/06/17 21:00 61 93/52 05/06/17 20:00 98.7 61 20 93/52 95 Room Air 05/06/17 19:58 72 18 Room Air 05/06/17 17:41 112/67 05/06/17 15:52 97.2 64 19 112/67 95 Room Air 05/06/17 12:00 98.2 60 18 107/65 97 Room Air 05/06/17 09:38 86 118/73 05/06/17 08:00 97.2 86 18 118/73 95 Room Air 05/06/17 07:59 76 18 Room Air 05/06/17 06:00 98/66 05/06/17 05:42 71 98/66 05/06/17 05:10 70 14 99 Facial 30 05/06/17 04:00 97.1 64 18 98/54 95 Bi-pap 05/06/17 03:15 68 12 99 Facial 30 05/06/17 01:05 70 19 99 Facial 30 05/06/17 00:00 97.6 79 18 101/69 96 Room Air 05/05/17 23:30 66 19 99 30 Intake and Output 05/06/17 05/07/17 19:00 07:00 Intake Total 360 ml Output Total 400 ml Balance -40 ml Intake Oral 360 ml Output Urine Total 400 ml Labs Test 05/05/17 04:00 05/06/17 05:10 Prothrombin Time 20.4 SEC (9.30-11.50) 21.3 SEC (9.30-11.50) Prothromb Time International Ratio 1.9 (0.9-1.1) 2.0 (0.9-1.1) Laboratory Tests 05/06/17 05:10: Prothrombin Time 21.3H, Prothromb Time International Ratio 2.0H Height (Feet): 5 Height (Inches): 7.00 Weight (Pounds): 219 General Appearance: no apparent distress PREMA FONG May 06, 2017 22:20
[2017-05-07] MEDS: Nitroglycerin Subl 0.4mg tab (Bottle Of 25) SL PRN (00:12)
[2017-05-07 04:00] VITALS: BP 113/71
[2017-05-07] MEDS: NovoLOG Insulin Flexpen SUBQ SCH ×4 (06:19→21:50)
[2017-05-07 08:15] VITALS: BP 93/58
[2017-05-07 08:17] LABS: BASOPHILS % (AUTO) 3.1 % (0.0-2.0); EOSINOPHILS % (AUTO) 5.6 % (0.0-3.0); LYMPHOCYTES % (AUTO) 29.4 % (20.0-45.0); MEAN CORPUSCULAR HEMOGLOBIN 32.1 PG (27.0-31.0); MEAN CORPUSCULAR HGB CONC 34.3 G/DL (32.0-36.0); MEAN CORPUSCULAR VOLUME 94 FL (80-99); MEAN PLATELET VOLUME 5.8 FL (6.5-10.1); MONOCYTES % (AUTO) 15.7 % (1.0-10.0); NEUTROPHILS % (AUTO) 46.2 % (45.0-75.0); PLATELET COUNT 133 K/UL (150-450); RED BLOOD COUNT 3.64 M/UL (4.70-6.10); RED CELL DISTRIBUTION WIDTH 14.8 % (11.6-14.8); WHITE BLOOD COUNT 4.2 K/UL (4.8-10.8)
[2017-05-07 08:31] LABS: CALCIUM 9.4 mg/dL (8.6-10.2); CREATININE 1.3 mg/dL (0.7-1.2); GLOMERULAR FILTRATION RATE 56.1 mL/min (>60); POTASSIUM 3.5 mEQ/L (3.4-4.9)
--- NOTE | 2017-05-07 08:36 | General Progress Note ---
Assessment/Plan Problem List: (1) Stress reaction ICD Codes: F43.0 - Acute stress reaction SNOMED: 10373646 (2) Hyperglycemia due to type 2 diabetes mellitus ICD Codes: E11.65 - Type 2 diabetes mellitus with hyperglycemia SNOMED: 660885473087048, 71471772 Qualifiers: Qualified Codes: E11.65 - Type 2 diabetes mellitus with hyperglycemia; Z79.4 - prison (current) use of insulin (3) Chest pain ICD Codes: R07.9 - Chest pain, unspecified SNOMED: 21859618 Qualifiers: Qualified Codes: R07.9 - Chest pain, unspecified (4) Diabetes mellitus ICD Codes: E11.9 - Type 2 diabetes mellitus without complications SNOMED: 03784425 (5) Acute coronary syndrome ICD Codes: I24.9 - Acute ischemic heart disease, unspecified SNOMED: 156035978 Status: stable, progressing, tolerating diet Assessment/Plan ot pt diet pain control dc to snf Subjective Constitutional: Reports: weakness Allergies: Coded Allergies: ADHESIVE TAPE (Verified Allergy, Unknown, 04/27/17) AMIODARONE (Verified Allergy, Unknown, 04/27/17) INFLUENZA VIRUS VACCINES (Verified Allergy, Unknown, 04/27/17) SULFAMETHIZOLE (Verified Allergy, Unknown, 04/27/17) All Systems: reviewed and negative except above Subjective sl weak Objective Last 24 Hour Vital Signs Date Time Temp Pulse Resp B/P (MAP) Pulse Ox O2 Delivery O2 Flow Rate FiO2 05/07/17 08:15 97.1 76 19 93/58 94 Room Air 05/07/17 07:03 66 20 Room Air 05/07/17 06:18 113/71 05/07/17 05:21 74 20 99 Facial 30 05/07/17 04:00 97.0 65 18 113/71 94 Room Air 05/07/17 03:11 70 13 99 Facial 30 05/07/17 01:14 73 14 99 Facial 30 05/07/17 00:12 101/66 05/06/17 23:29 98.2 70 20 94/52 95 Room Air 05/06/17 21:00 61 93/52 05/06/17 20:00 98.7 61 20 93/52 95 Room Air 05/06/17 19:58 72 18 Room Air 05/06/17 17:41 112/67 05/06/17 15:52 97.2 64 19 112/67 95 Room Air 05/06/17 12:00 98.2 60 18 107/65 97 Room Air 05/06/17 09:38 86 118/73 Laboratory Tests 05/07/17 06:30: White Blood Count 4.2L, Red Blood Count 3.64L, Hemoglobin 11.7L, Hematocrit 34.0L, Mean Corpuscular Volume 94, Mean Corpuscular Hemoglobin 32.1H, Mean Corpuscular Hemoglobin Concent 34.3, Red Cell Distribution Width 14.8, Platelet Count 133L, Mean Platelet Volume 5.8L, Neutrophils (%) (Auto) 46.2, Lymphocytes (%) (Auto) 29.4, Monocytes (%) (Auto) 15.7H, Eosinophils (%) (Auto) 5.6H, Basophils (%) (Auto) 3.1H, Prothrombin Time [Pending], Prothromb Time International Ratio [Pending], Sodium Level 138, Potassium Level 3.5, Chloride Level 102, Carbon Dioxide Level 24, Anion Gap 12, Blood Urea Nitrogen 17, Creatinine 1.3H, Estimat Glomerular Filtration Rate 56.1, Glucose Level 174H, Calcium Level 9.4 Height (Feet): 5 Height (Inches): 7.00 Weight (Pounds): 219 General Appearance: lethargic EENT: normal ENT inspection Neck: normal alignment Cardiovascular: normal peripheral pulses, normal rate, regular rhythm Respiratory/Chest: chest wall non-tender, lungs clear, normal breath sounds Abdomen: normal bowel sounds, non tender, soft Extremities: normal inspection Edema: no edema noted Arm (L), no edema noted Arm (R), no edema noted Leg (L), no edema noted Leg (R), no edema noted Pedal (L), no edema noted Pedal (R), no edema noted Generalized Neurologic: motor weakness Skin: normal pigmentation, warm/dry ANDRE SILVA May 07, 2017 08:36
[2017-05-07 08:43] LABS: INR 2.2 (0.9-1.1); PROTHROMBIN TIME 23.3 SEC (9.30-11.50)
[2017-05-07] MEDS ORDERED: Dyna-Hex 2% Top Sol 8oz TOPIC SCH (09:00)
[2017-05-07] MEDS: Ranolazine 500mg tab ORAL SCH ×2 (09:12→21:42)
[2017-05-07] MEDS: Aspirin Baby 81mg ORAL SCH (09:12)
[2017-05-07] MEDS: Metoprolol Tartrate 50mg tab ORAL SCH ×2 (09:13→21:42)
[2017-05-07] MEDS: ARIPiprazole 10mg tab ORAL SCH (09:47)
[2017-05-07] MEDS: KETOCONAZOLE 2% TOPIC SCH (10:00)
[2017-05-07 12:00] VITALS: BP 103/63
--- NOTE | 2017-05-07 15:22 | Pulmonology Progress Note ---
Assessment/Plan Problems: (1) Acute coronary syndrome (2) Chest pain (3) Diabetes mellitus (4) CAD (coronary artery disease) (5) Hx of CABG Assessment/Plan no new complains, doing better symptomatic treatment bipap at night sliding scale diabetic diet dc planning in progress Subjective Allergies: Coded Allergies: ADHESIVE TAPE (Verified Allergy, Unknown, 04/27/17) AMIODARONE (Verified Allergy, Unknown, 04/27/17) INFLUENZA VIRUS VACCINES (Verified Allergy, Unknown, 04/27/17) SULFAMETHIZOLE (Verified Allergy, Unknown, 04/27/17) Objective Last 24 Hour Vital Signs Date Time Temp Pulse Resp B/P (MAP) Pulse Ox O2 Delivery O2 Flow Rate FiO2 05/07/17 12:00 97.2 62 19 103/63 96 Room Air 05/07/17 09:13 76 93/58 05/07/17 08:15 97.1 76 19 93/58 94 Room Air 05/07/17 07:03 66 20 Room Air 05/07/17 06:18 113/71 05/07/17 05:21 74 20 99 Facial 30 05/07/17 04:00 97.0 65 18 113/71 94 Room Air 05/07/17 03:11 70 13 99 Facial 30 05/07/17 01:14 73 14 99 Facial 30 05/07/17 00:12 101/66 05/06/17 23:29 98.2 70 20 94/52 95 Room Air 05/06/17 21:00 61 93/52 05/06/17 20:00 98.7 61 20 93/52 95 Room Air 05/06/17 19:58 72 18 Room Air 05/06/17 17:41 112/67 05/06/17 15:52 97.2 64 19 112/67 95 Room Air Intake and Output 05/07/17 05/08/17 19:00 07:00 Intake Total 720 ml Balance 720 ml Intake Oral 720 ml Laboratory Tests 05/07/17 06:30: White Blood Count 4.2L, Red Blood Count 3.64L, Hemoglobin 11.7L, Hematocrit 34.0L, Mean Corpuscular Volume 94, Mean Corpuscular Hemoglobin 32.1H, Mean Corpuscular Hemoglobin Concent 34.3, Red Cell Distribution Width 14.8, Platelet Count 133L, Mean Platelet Volume 5.8L, Neutrophils (%) (Auto) 46.2, Lymphocytes (%) (Auto) 29.4, Monocytes (%) (Auto) 15.7H, Eosinophils (%) (Auto) 5.6H, Basophils (%) (Auto) 3.1H, Prothrombin Time 23.3H, Prothromb Time International Ratio 2.2H, Sodium Level 138, Potassium Level 3.5, Chloride Level 102, Carbon Dioxide Level 24, Anion Gap 12, Blood Urea Nitrogen 17, Creatinine 1.3H, Estimat Glomerular Filtration Rate 56.1, Glucose Level 174H, Calcium Level 9.4 Current Medications Medications (Trade) Dose Ordered Sig/Tanner Route PRN Reason Start Time Stop Time Status Last Admin Dose Admin Acetaminophen (Tylenol) 650 mg Q4H PRN ORAL FEVER>100.5 05/05/17 17:00 05/28/17 16:59 Allopurinol (Allopurinol) 300 mg DAILY ORAL 05/06/17 09:00 05/28/17 08:59 05/07/17 09:12 Aripiprazole (Abilify) 35 mg DAILY ORAL 05/06/17 09:00 06/05/17 08:59 05/07/17 09:47 Aspirin (ASA) 162 mg DAILY ORAL 05/06/17 09:00 05/28/17 08:59 05/07/17 09:12 Atorvastatin Calcium (Lipitor) 40 mg BEDTIME ORAL 05/05/17 21:00 05/28/17 20:59 05/06/17 21:37 Clopidogrel Bisulfate (Plavix) 75 mg DAILY ORAL 05/06/17 09:00 05/28/17 08:59 05/07/17 09:13 Dextrose (Dextrose 50%) STAT PRN IV Hypoglycemia 05/05/17 17:00 06/04/17 16:59 Enalaprilat (Vasotec) 2.5 mg Q6H PRN IV sbp more than 160 05/05/17 17:00 06/04/17 16:59 Escitalopram Oxalate (Lexapro) 20 mg DAILY ORAL 05/06/17 09:00 05/28/17 12:59 05/07/17 09:12 Fish Oil (Fish Oil) 1,000 mg DAILY ORAL 05/06/17 09:00 05/31/17 08:59 05/07/17 09:13 Insulin Aspart (NovoLOG) BEFORE MEALS AND HS SUBQ 05/05/17 17:30 05/28/17 17:29 05/07/17 12:10 Isosorbide Dinitrate (Isordil) 30 mg BID@0600,1800 ORAL 05/05/17 18:00 06/03/17 18:04 05/07/17 06:18 Ketoconazole (Nizoral 2% Cream) 1 applic DAILY TOPIC 05/06/17 09:00 06/01/17 08:59 05/07/17 10:00 Ketoconazole (Nizoral 2% Shampoo) 1 applic DAILY TOPIC 05/06/17 09:00 06/01/17 08:59 05/07/17 10:00 Metoprolol Tartrate (Lopressor) 50 mg Q12HR ORAL 05/05/17 21:00 05/30/17 20:59 05/07/17 09:13 Mirtazapine (Remeron) 30 mg QHS ORAL 05/05/17 21:00 05/28/17 20:59 05/06/17 21:37 Nitroglycerin (Ntg) 0.4 mg Q5MIN PRN SL Prn Chest Pain 05/05/17 16:00 06/04/17 15:59 05/07/17 00:12 Ondansetron HCl (Zofran) 4 mg Q6H PRN IVP Nausea & Vomiting 05/05/17 17:00 05/28/17 16:59 Pantoprazole (Protonix) 40 mg ACBREAKFAST ORAL 05/06/17 06:30 05/28/17 08:59 05/07/17 06:17 Polyethylene Glycol (Miralax) 17 gm DAILYPRN PRN ORAL Constipation 05/05/17 17:00 06/04/17 16:59 Quetiapine Fumarate (SEROquel) 25 mg DAILY@1700 ORAL 05/05/17 17:00 05/30/17 16:59 05/06/17 16:46 Quetiapine Fumarate (SEROquel) 200 mg BEDTIME ORAL 05/05/17 21:00 05/28/17 20:59 05/06/17 21:36 Ranolazine (Ranexa ER 500mg) 500 mg Q12HR ORAL 05/05/17 21:00 06/02/17 20:59 05/07/17 09:12 Tamsulosin HCl (Flomax) 0.4 mg BEDTIME ORAL 05/05/17 21:00 05/28/17 20:59 05/06/17 21:36 Temazepam (Restoril) 15 mg HSPRN PRN ORAL Insomnia 05/06/17 23:30 05/13/17 23:29 05/06/17 23:46 Warfarin Sodium (Coumadin per pharmacy) 1 ea DAILYPRN PRN MISC Per rx protocol 05/05/17 17:00 06/04/17 16:59 Warfarin Sodium (Coumadin) 7.5 mg COUMADIN ONCE ORAL 05/07/17 17:00 05/07/17 17:01 THADDEUS YA May 07, 2017 15:22
--- NOTE | 2017-05-07 15:23 | Cardiac Electrophysiology PN ---
Assessment/Plan Assessment/Plan 1. Chest pain and history of CABG with most recent PCI June 2016 at [facility]. Already ruled out for myocardial infarction. Nuclear stress test showed no definite ischemia. 2D echocardiogram EF 65%. Continue aspirin,Toprol, Plavix and Lipitor and Renaxa 500. 2. Status post CABG and aortic valve replacement with a porcine aortic valve with residual mod . 3. History of atrial fibrillation and ablation, remained in sinus rhythm on aspirin,Toprol 50 bid, Coumadin and Plavix. 4. Diabetes. 5. Depression. 6. Status post amputation of the fingers. DW Sister and RN Subjective Subjective Alert in NAD. Still awaiting DC after BIPAP machine delivered to [facility]. Objective Last 24 Hour Vital Signs Date Time Temp Pulse Resp B/P (MAP) Pulse Ox O2 Delivery O2 Flow Rate FiO2 05/07/17 12:00 97.2 62 19 103/63 96 Room Air 05/07/17 09:13 76 93/58 05/07/17 08:15 97.1 76 19 93/58 94 Room Air 05/07/17 07:03 66 20 Room Air 05/07/17 06:18 113/71 05/07/17 05:21 74 20 99 Facial 30 05/07/17 04:00 97.0 65 18 113/71 94 Room Air 05/07/17 03:11 70 13 99 Facial 30 05/07/17 01:14 73 14 99 Facial 30 05/07/17 00:12 101/66 05/06/17 23:29 98.2 70 20 94/52 95 Room Air 05/06/17 21:00 61 93/52 05/06/17 20:00 98.7 61 20 93/52 95 Room Air 05/06/17 19:58 72 18 Room Air 05/06/17 17:41 112/67 05/06/17 15:52 97.2 64 19 112/67 95 Room Air Intake and Output 05/07/17 05/08/17 19:00 07:00 Intake Total 720 ml Balance 720 ml Intake Oral 720 ml Laboratory Tests Test 05/07/17 06:30 White Blood Count 4.2 K/UL (4.8-10.8) L Red Blood Count 3.64 M/UL (4.70-6.10) L Hemoglobin 11.7 G/DL (14.2-18.0) L Hematocrit 34.0 % (42.0-52.0) L Mean Corpuscular Volume 94 FL (80-99) Mean Corpuscular Hemoglobin 32.1 PG (27.0-31.0) H Mean Corpuscular Hemoglobin Concent 34.3 G/DL (32.0-36.0) Red Cell Distribution Width 14.8 % (11.6-14.8) Platelet Count 133 K/UL (150-450) L Mean Platelet Volume 5.8 FL (6.5-10.1) L Neutrophils (%) (Auto) 46.2 % (45.0-75.0) Lymphocytes (%) (Auto) 29.4 % (20.0-45.0) Monocytes (%) (Auto) 15.7 % (1.0-10.0) H Eosinophils (%) (Auto) 5.6 % (0.0-3.0) H Basophils (%) (Auto) 3.1 % (0.0-2.0) H Prothrombin Time 23.3 SEC (9.30-11.50) H Prothromb Time International Ratio 2.2 (0.9-1.1) H Sodium Level 138 mEQ/L (135-145) Potassium Level 3.5 mEQ/L (3.4-4.9) Chloride Level 102 mEQ/L (98-107) Carbon Dioxide Level 24 mEQ/L (20-30) Anion Gap 12 (5-15) Blood Urea Nitrogen 17 mg/dL (7-23) Creatinine 1.3 mg/dL (0.7-1.2) H Estimat Glomerular Filtration Rate 56.1 mL/min (>60) Glucose Level 174 mg/dL (74-106) H Calcium Level 9.4 mg/dL (8.6-10.2) Objective HEAD AND NECK: Shows no JVD. LUNGS: Clear. CARDIOVASCULAR: Nl S1 and S2 with no gallop . 2/6 S. murmur. Sternotomy intact ABDOMEN: Soft. EXTREMITIES: 1+ pitting edema. ALEX VALDES May 07, 2017 15:23
[2017-05-07 16:00] VITALS: BP 104/59
[2017-05-07] MEDS ORDERED: Warfarin Sodium 7.5mg ORAL ONE (17:00)
[2017-05-07 20:00] VITALS: BP 129/64
--- NOTE | 2017-05-07 21:06 | Infectious Diseases Prog Note ---
Assessment/Plan Problems: (1) Diarrhea Assessment & Plan: resolved, with no evidence of recurrent C DIFF, or stool infection and negative stool culture, keep off antibiotics. advised to avoid any unnecessary antibiotics in the future (2) Chest pain Assessment & Plan: ruled out for ACS , with negative stress test , medical management as per cardiology team (3) Diabetes mellitus Assessment & Plan: recommend tight glycemic control to keep blood glucose between 80-120 (4) CAD (coronary artery disease) Assessment & Plan: continue cardiac meds, cardiology is following (5) Dermatitis, seborrheic Assessment & Plan: on ketoconazole shampoo prn Subjective Allergies: Coded Allergies: ADHESIVE TAPE (Verified Allergy, Unknown, 04/27/17) AMIODARONE (Verified Allergy, Unknown, 04/27/17) INFLUENZA VIRUS VACCINES (Verified Allergy, Unknown, 04/27/17) SULFAMETHIZOLE (Verified Allergy, Unknown, 04/27/17) Objective Vital Signs Last 24 Hour Vital Signs Date Time Temp Pulse Resp B/P (MAP) Pulse Ox O2 Delivery O2 Flow Rate FiO2 05/07/17 17:20 104/59 05/07/17 16:00 97.4 64 19 104/59 95 Room Air 05/07/17 12:00 97.2 62 19 103/63 96 Room Air 05/07/17 09:13 76 93/58 05/07/17 08:15 97.1 76 19 93/58 94 Room Air 05/07/17 07:03 66 20 Room Air 05/07/17 06:18 113/71 05/07/17 05:21 74 20 99 Facial 30 05/07/17 04:00 97.0 65 18 113/71 94 Room Air 05/07/17 03:11 70 13 99 Facial 30 05/07/17 01:14 73 14 99 Facial 30 05/07/17 00:12 101/66 05/06/17 23:29 98.2 70 20 94/52 95 Room Air Height (Feet): 5 Height (Inches): 7.00 Weight (Pounds): 219 Laboratory Tests Test 05/07/17 06:30 White Blood Count 4.2 K/UL (4.8-10.8) L Red Blood Count 3.64 M/UL (4.70-6.10) L Hemoglobin 11.7 G/DL (14.2-18.0) L Hematocrit 34.0 % (42.0-52.0) L Mean Corpuscular Volume 94 FL (80-99) Mean Corpuscular Hemoglobin 32.1 PG (27.0-31.0) H Mean Corpuscular Hemoglobin Concent 34.3 G/DL (32.0-36.0) Red Cell Distribution Width 14.8 % (11.6-14.8) Platelet Count 133 K/UL (150-450) L Mean Platelet Volume 5.8 FL (6.5-10.1) L Neutrophils (%) (Auto) 46.2 % (45.0-75.0) Lymphocytes (%) (Auto) 29.4 % (20.0-45.0) Monocytes (%) (Auto) 15.7 % (1.0-10.0) H Eosinophils (%) (Auto) 5.6 % (0.0-3.0) H Basophils (%) (Auto) 3.1 % (0.0-2.0) H Prothrombin Time 23.3 SEC (9.30-11.50) H Prothromb Time International Ratio 2.2 (0.9-1.1) H Sodium Level 138 mEQ/L (135-145) Potassium Level 3.5 mEQ/L (3.4-4.9) Chloride Level 102 mEQ/L (98-107) Carbon Dioxide Level 24 mEQ/L (20-30) Anion Gap 12 (5-15) Blood Urea Nitrogen 17 mg/dL (7-23) Creatinine 1.3 mg/dL (0.7-1.2) H Estimat Glomerular Filtration Rate 56.1 mL/min (>60) Glucose Level 174 mg/dL (74-106) H Calcium Level 9.4 mg/dL (8.6-10.2) Current Medications Medications (Trade) Dose Ordered Sig/Tanner Route PRN Reason Start Time Stop Time Status Last Admin Dose Admin Acetaminophen (Tylenol) 650 mg Q4H PRN ORAL FEVER>100.5 05/05/17 17:00 05/28/17 16:59 Allopurinol (Allopurinol) 300 mg DAILY ORAL 05/06/17 09:00 05/28/17 08:59 05/07/17 09:12 Aripiprazole (Abilify) 35 mg DAILY ORAL 05/06/17 09:00 06/05/17 08:59 05/07/17 09:47 Aspirin (ASA) 162 mg DAILY ORAL 05/06/17 09:00 05/28/17 08:59 05/07/17 09:12 Atorvastatin Calcium (Lipitor) 40 mg BEDTIME ORAL 05/05/17 21:00 05/28/17 20:59 05/06/17 21:37 Clopidogrel Bisulfate (Plavix) 75 mg DAILY ORAL 05/06/17 09:00 05/28/17 08:59 05/07/17 09:13 Dextrose (Dextrose 50%) STAT PRN IV Hypoglycemia 05/05/17 17:00 06/04/17 16:59 Enalaprilat (Vasotec) 2.5 mg Q6H PRN IV sbp more than 160 05/05/17 17:00 06/04/17 16:59 Escitalopram Oxalate (Lexapro) 20 mg DAILY ORAL 05/06/17 09:00 05/28/17 12:59 05/07/17 09:12 Fish Oil (Fish Oil) 1,000 mg DAILY ORAL 05/06/17 09:00 05/31/17 08:59 05/07/17 09:13 Insulin Aspart (NovoLOG) BEFORE MEALS AND HS SUBQ 05/05/17 17:30 05/28/17 17:29 05/07/17 17:07 Isosorbide Dinitrate (Isordil) 30 mg BID@0600,1800 ORAL 05/05/17 18:00 06/03/17 18:04 05/07/17 17:20 Ketoconazole (Nizoral 2% Cream) 1 applic DAILY TOPIC 05/06/17 09:00 06/01/17 08:59 05/07/17 10:00 Ketoconazole (Nizoral 2% Shampoo) 1 applic DAILY TOPIC 05/06/17 09:00 06/01/17 08:59 05/07/17 10:00 Metoprolol Tartrate (Lopressor) 50 mg Q12HR ORAL 05/05/17 21:00 05/30/17 20:59 05/07/17 09:13 Mirtazapine (Remeron) 30 mg QHS ORAL 05/05/17 21:00 05/28/17 20:59 05/06/17 21:37 Nitroglycerin (Ntg) 0.4 mg Q5MIN PRN SL Prn Chest Pain 05/05/17 16:00 06/04/17 15:59 05/07/17 00:12 Ondansetron HCl (Zofran) 4 mg Q6H PRN IVP Nausea & Vomiting 05/05/17 17:00 05/28/17 16:59 Pantoprazole (Protonix) 40 mg ACBREAKFAST ORAL 05/06/17 06:30 05/28/17 08:59 05/07/17 06:17 Polyethylene Glycol (Miralax) 17 gm DAILYPRN PRN ORAL Constipation 05/05/17 17:00 06/04/17 16:59 Quetiapine Fumarate (SEROquel) 25 mg DAILY@1700 ORAL 05/05/17 17:00 05/30/17 16:59 05/07/17 17:19 Quetiapine Fumarate (SEROquel) 200 mg BEDTIME ORAL 05/05/17 21:00 05/28/17 20:59 05/06/17 21:36 Ranolazine (Ranexa ER 500mg) 500 mg Q12HR ORAL 05/05/17 21:00 06/02/17 20:59 05/07/17 09:12 Tamsulosin HCl (Flomax) 0.4 mg BEDTIME ORAL 05/05/17 21:00 05/28/17 20:59 05/06/17 21:36 Temazepam (Restoril) 15 mg HSPRN PRN ORAL Insomnia 05/06/17 23:30 05/13/17 23:29 05/06/17 23:46 Warfarin Sodium (Coumadin per pharmacy) 1 ea DAILYPRN PRN MISC Per rx protocol 05/05/17 17:00 06/04/17 16:59 Gladys Murillo M.D. May 07, 2017 21:06
--- NOTE | 2017-05-07 21:37 | General Progress Note ---
Assessment/Plan Status: unchanged Assessment/Plan 1. Pancytopenia. Monitor. --> Wbc, hgb, and platelets are low but not critical currently --> Give prbc if hgb<7 and platelets if <20k --> Potentially, the patient has a history of underlying liver disease. --> HIV and hepatitis panel are both negative --> Ultrasound of the abdomen reveal cysts on right kidney, fatty liver, splenomegaly, atherosclerotic vascular disease, and absent left kidney 2. Anemia, very mild. --> Continue to closely monitor, likely secondary to chronic disease. --> No blood transfusion required unless symptomatic or hgb<7 --> Has been stable with hgb >11 3. Diarrhea, rule out Clostridium difficile. He will be seen by ID team. 4. Chest pain, rule out acute coronary syndrome. Cardiology service is following. 5. Diabetes mellitus. Blood sugar goal between 80 and 120. Subjective Date patient seen: May 07, 2017 Time patient seen: 06:00 Constitutional: Reports: weakness Hematologic/Lymphatic: Reports: anemia Allergies: Coded Allergies: ADHESIVE TAPE (Verified Allergy, Unknown, 04/27/17) AMIODARONE (Verified Allergy, Unknown, 04/27/17) INFLUENZA VIRUS VACCINES (Verified Allergy, Unknown, 04/27/17) SULFAMETHIZOLE (Verified Allergy, Unknown, 04/27/17) Subjective Anemia stable as hgb high. Afebrile. General weakness. No active bleeding. No acute distress. Sleeping. Objective Last 24 Hour Vital Signs Date Time Temp Pulse Resp B/P (MAP) Pulse Ox O2 Delivery O2 Flow Rate FiO2 05/07/17 17:20 104/59 05/07/17 16:00 97.4 64 19 104/59 95 Room Air 05/07/17 12:00 97.2 62 19 103/63 96 Room Air 05/07/17 09:13 76 93/58 05/07/17 08:15 97.1 76 19 93/58 94 Room Air 05/07/17 07:03 66 20 Room Air 05/07/17 06:18 113/71 05/07/17 05:21 74 20 99 Facial 30 05/07/17 04:00 97.0 65 18 113/71 94 Room Air 05/07/17 03:11 70 13 99 Facial 30 05/07/17 01:14 73 14 99 Facial 30 05/07/17 00:12 101/66 05/06/17 23:29 98.2 70 20 94/52 95 Room Air Intake and Output 05/07/17 05/08/17 19:00 07:00 Intake Total 1080 ml Balance 1080 ml Intake Oral 1080 ml # Voids 7 # Bowel Movements 2 Laboratory Tests 05/07/17 06:30: White Blood Count 4.2L, Red Blood Count 3.64L, Hemoglobin 11.7L, Hematocrit 34.0L, Mean Corpuscular Volume 94, Mean Corpuscular Hemoglobin 32.1H, Mean Corpuscular Hemoglobin Concent 34.3, Red Cell Distribution Width 14.8, Platelet Count 133L, Mean Platelet Volume 5.8L, Neutrophils (%) (Auto) 46.2, Lymphocytes (%) (Auto) 29.4, Monocytes (%) (Auto) 15.7H, Eosinophils (%) (Auto) 5.6H, Basophils (%) (Auto) 3.1H, Prothrombin Time 23.3H, Prothromb Time International Ratio 2.2H, Sodium Level 138, Potassium Level 3.5, Chloride Level 102, Carbon Dioxide Level 24, Anion Gap 12, Blood Urea Nitrogen 17, Creatinine 1.3H, Estimat Glomerular Filtration Rate 56.1, Glucose Level 174H, Calcium Level 9.4 Height (Feet): 5 Height (Inches): 7.00 Weight (Pounds): 219 General Appearance: no apparent distress Cardiovascular: normal rate, regular rhythm Respiratory/Chest: chest wall non-tender, lungs clear Abdomen: normal bowel sounds, non tender PREMA FONG May 07, 2017 21:37
[2017-05-07] MEDS: Tamsulosin 0.4mg cap ORAL SCH (21:41)
[2017-05-07] MEDS: QUEtiapine 200mg tab ORAL SCH (21:41)
[2017-05-08] VITALS: BP 123/59
[2017-05-08 04:00] VITALS: BP 112/71
[2017-05-08] MEDS: NovoLOG Insulin Flexpen SUBQ SCH ×4 (06:29→22:09)
[2017-05-08 07:14] LABS: MEAN CORPUSCULAR HEMOGLOBIN 33.7 PG (27.0-31.0); MEAN CORPUSCULAR HGB CONC 36.6 G/DL (32.0-36.0); MEAN CORPUSCULAR VOLUME 92 FL (80-99); MEAN PLATELET VOLUME 6.2 FL (6.5-10.1); PLATELET COUNT 137 K/UL (150-450); RED BLOOD COUNT 3.57 M/UL (4.70-6.10); RED CELL DISTRIBUTION WIDTH 14.2 % (11.6-14.8); WHITE BLOOD COUNT 4.1 K/UL (4.8-10.8)
[2017-05-08 07:43] LABS: CALCIUM 9.8 mg/dL (8.6-10.2); CREATININE 1.3 mg/dL (0.7-1.2); GLOMERULAR FILTRATION RATE 56.1 mL/min (>60); POTASSIUM 3.7 mEQ/L (3.4-4.9)
[2017-05-08 07:50] LABS: INR 2.5 (0.9-1.1); PROTHROMBIN TIME 26.1 SEC (9.30-11.50)
[2017-05-08 08:15] VITALS: BP 103/61
[2017-05-08] MEDS: Metoprolol Tartrate 50mg tab ORAL SCH ×2 (09:00→22:06)
[2017-05-08] MEDS: KETOCONAZOLE 2% TOPIC SCH ×2 (09:00→09:34)
[2017-05-08] MEDS: ARIPiprazole 10mg tab ORAL SCH (09:12)
[2017-05-08] MEDS: Aspirin Baby 81mg ORAL SCH (09:13)
[2017-05-08] MEDS: Ranolazine 500mg tab ORAL SCH ×2 (09:13→22:07)
[2017-05-08 09:24] LABS: ANISOCYTOSIS 1+; BAND NEUTROPHILS % (MANUAL) 0 % (0-8); BASOPHILS % (MANUAL) 0 % (0-2); EOSINOPHILS % (MANUAL) 4 % (0-3); LYMPHOCYTES % (MANUAL) 31 % (20-45); NEUTROPHILS % (MANUAL) 59 % (45-75); PLATELET ESTIMATE DECREASED; PLATELET MORPHOLOGY NORMAL; TOTAL CELLS COUNTED 100
[2017-05-08 12:06] VITALS: BP 106/67
--- NOTE | 2017-05-08 14:01 | Pulmonology Progress Note ---
Assessment/Plan Problems: (1) Acute coronary syndrome (2) Chest pain (3) Diabetes mellitus (4) CAD (coronary artery disease) (5) Hx of CABG Assessment/Plan no new complains, doing better symptomatic treatment bipap at night sliding scale diabetic diet dc planning in progress Subjective Allergies: Coded Allergies: ADHESIVE TAPE (Verified Allergy, Unknown, 04/27/17) AMIODARONE (Verified Allergy, Unknown, 04/27/17) INFLUENZA VIRUS VACCINES (Verified Allergy, Unknown, 04/27/17) SULFAMETHIZOLE (Verified Allergy, Unknown, 04/27/17) Objective Last 24 Hour Vital Signs Date Time Temp Pulse Resp B/P (MAP) Pulse Ox O2 Delivery O2 Flow Rate FiO2 05/08/17 12:06 97.7 61 21 106/67 99 Room Air 05/08/17 09:00 59 103/60 05/08/17 08:15 97.3 66 21 103/61 99 Room Air 05/08/17 08:09 70 18 Room Air 21 05/08/17 06:27 112/71 05/08/17 04:09 64 16 99 Facial 30 05/08/17 04:00 97.3 61 20 112/71 100 Bi-pap 05/08/17 01:19 72 20 100 Facial 30 05/08/17 00:00 97.5 66 20 123/59 100 Bi-pap 2.0 05/07/17 23:40 71 21 98 Facial 30 05/07/17 21:42 66 138/64 05/07/17 20:22 66 18 Room Air 05/07/17 20:00 97.3 66 20 129/64 96 Room Air 05/07/17 17:20 104/59 05/07/17 16:00 97.4 64 19 104/59 95 Room Air Intake and Output 05/08/17 05/09/17 19:00 07:00 Intake Total 240 ml Balance 240 ml Intake Oral 240 ml Laboratory Tests 05/08/17 06:40: White Blood Count 4.1L, Red Blood Count 3.57L, Hemoglobin 12.0L, Hematocrit 32.9L, Mean Corpuscular Volume 92, Mean Corpuscular Hemoglobin 33.7H, Mean Corpuscular Hemoglobin Concent 36.6H, Red Cell Distribution Width 14.2, Platelet Count 137L, Mean Platelet Volume 6.2L, Neutrophils (%) (Auto) , Lymphocytes (%) (Auto) , Monocytes (%) (Auto) , Eosinophils (%) (Auto) , Basophils (%) (Auto) , Differential Total Cells Counted 100, Neutrophils % ( Manual) 59, Lymphocytes % (Manual) 31, Monocytes % (Manual) 6, Eosinophils % ( Manual) 4H, Basophils % (Manual) 0, Band Neutrophils 0, Platelet Estimate DecreasedL, Platelet Morphology Normal, Anisocytosis 1+, Prothrombin Time 26.1H , Prothromb Time International Ratio 2.5H, Sodium Level 142, Potassium Level 3.7 , Chloride Level 105, Carbon Dioxide Level 24, Anion Gap 13, Blood Urea Nitrogen 19, Creatinine 1.3H, Estimat Glomerular Filtration Rate 56.1, Glucose Level 268H, Calcium Level 9.8 Current Medications Medications (Trade) Dose Ordered Sig/Tanner Route PRN Reason Start Time Stop Time Status Last Admin Dose Admin Acetaminophen (Tylenol) 650 mg Q4H PRN ORAL FEVER>100.5 05/05/17 17:00 05/28/17 16:59 Allopurinol (Allopurinol) 300 mg DAILY ORAL 05/06/17 09:00 05/28/17 08:59 05/08/17 09:12 Aripiprazole (Abilify) 35 mg DAILY ORAL 05/06/17 09:00 06/05/17 08:59 05/08/17 09:12 Aspirin (ASA) 162 mg DAILY ORAL 05/06/17 09:00 05/28/17 08:59 05/08/17 09:13 Atorvastatin Calcium (Lipitor) 40 mg BEDTIME ORAL 05/05/17 21:00 05/28/17 20:59 05/07/17 21:41 Clopidogrel Bisulfate (Plavix) 75 mg DAILY ORAL 05/06/17 09:00 05/28/17 08:59 05/08/17 09:14 Dextrose (Dextrose 50%) STAT PRN IV Hypoglycemia 05/05/17 17:00 06/04/17 16:59 Enalaprilat (Vasotec) 2.5 mg Q6H PRN IV sbp more than 160 05/05/17 17:00 06/04/17 16:59 Escitalopram Oxalate (Lexapro) 20 mg DAILY ORAL 05/06/17 09:00 05/28/17 12:59 05/08/17 09:14 Fish Oil (Fish Oil) 1,000 mg DAILY ORAL 05/06/17 09:00 05/31/17 08:59 05/07/17 09:13 Insulin Aspart (NovoLOG) BEFORE MEALS AND HS SUBQ 05/05/17 17:30 05/28/17 17:29 05/08/17 11:57 Isosorbide Dinitrate (Isordil) 30 mg BID@0600,1800 ORAL 05/05/17 18:00 06/03/17 18:04 05/08/17 06:27 Ketoconazole (Nizoral 2% Cream) 1 applic DAILY TOPIC 05/06/17 09:00 06/01/17 08:59 05/08/17 09:34 Ketoconazole (Nizoral 2% Shampoo) 1 applic DAILY TOPIC 05/06/17 09:00 06/01/17 08:59 05/07/17 10:00 Metoprolol Tartrate (Lopressor) 50 mg Q12HR ORAL 05/05/17 21:00 05/30/17 20:59 05/07/17 21:42 Mirtazapine (Remeron) 30 mg QHS ORAL 05/05/17 21:00 05/28/17 20:59 05/07/17 21:43 Nitroglycerin (Ntg) 0.4 mg Q5MIN PRN SL Prn Chest Pain 05/05/17 16:00 06/04/17 15:59 05/07/17 00:12 Ondansetron HCl (Zofran) 4 mg Q6H PRN IVP Nausea & Vomiting 05/05/17 17:00 05/28/17 16:59 Pantoprazole (Protonix) 40 mg ACBREAKFAST ORAL 05/06/17 06:30 05/28/17 08:59 05/08/17 06:27 Polyethylene Glycol (Miralax) 17 gm DAILYPRN PRN ORAL Constipation 05/05/17 17:00 06/04/17 16:59 Quetiapine Fumarate (SEROquel) 25 mg DAILY@1700 ORAL 05/05/17 17:00 05/30/17 16:59 05/07/17 17:19 Quetiapine Fumarate (SEROquel) 200 mg BEDTIME ORAL 05/05/17 21:00 05/28/17 20:59 05/07/17 21:41 Ranolazine (Ranexa ER 500mg) 500 mg Q12HR ORAL 05/05/17 21:00 06/02/17 20:59 05/08/17 09:13 Tamsulosin HCl (Flomax) 0.4 mg BEDTIME ORAL 05/05/17 21:00 05/28/17 20:59 05/07/17 21:41 Temazepam (Restoril) 15 mg HSPRN PRN ORAL Insomnia 05/06/17 23:30 05/13/17 23:29 05/07/17 21:42 Warfarin Sodium (Coumadin per pharmacy) 1 ea DAILYPRN PRN MISC Per rx protocol 05/05/17 17:00 06/04/17 16:59 Warfarin Sodium (Coumadin) 7.5 mg COUMADIN ONCE ORAL 05/08/17 17:00 05/08/17 17:01 THADDEUS YA May 08, 2017 14:01
--- NOTE | 2017-05-08 15:02 | Infectious Diseases Prog Note ---
Assessment/Plan Problems: (1) Diarrhea Assessment & Plan: resolved, with no evidence of recurrent C DIFF, or stool infection and negative stool culture, keep off antibiotics. advised to avoid any unnecessary antibiotics in the future (2) Chest pain Assessment & Plan: ruled out for ACS , with negative stress test , medical management as per cardiology team (3) Diabetes mellitus Assessment & Plan: recommend tight glycemic control to keep blood glucose between 80-120 (4) CAD (coronary artery disease) Assessment & Plan: continue cardiac meds, cardiology is following (5) Dermatitis, seborrheic Assessment & Plan: on ketoconazole shampoo prn (6) THOMAS (acute kidney injury) Assessment & Plan: suspect dehydration, recommend hydration and close monitor of renal function test . Subjective Constitutional: Reports: no symptoms HEENT: Reports: no symptoms Respiratory: Reports: no symptoms Breasts: Reports: no symptoms Cardiovascular: Reports: no symptoms Gastrointestinal/Abdominal: Reports: no symptoms Genitourinary: Reports: no symptoms Neurologic: Reports: no symptoms Psychiatric: Reports: no symptoms Skin: Reports: no symptoms Endocrine: Reports: no symptoms Hematologic: Reports: no symptoms Musculoskeletal: Reports: no symptoms Allergies: Coded Allergies: ADHESIVE TAPE (Verified Allergy, Unknown, 04/27/17) AMIODARONE (Verified Allergy, Unknown, 04/27/17) INFLUENZA VIRUS VACCINES (Verified Allergy, Unknown, 04/27/17) SULFAMETHIZOLE (Verified Allergy, Unknown, 04/27/17) Objective Vital Signs Last 24 Hour Vital Signs Date Time Temp Pulse Resp B/P (MAP) Pulse Ox O2 Delivery O2 Flow Rate FiO2 05/08/17 12:06 97.7 61 21 106/67 99 Room Air 05/08/17 09:00 59 103/60 05/08/17 08:15 97.3 66 21 103/61 99 Room Air 05/08/17 08:09 70 18 Room Air 21 05/08/17 06:27 112/71 05/08/17 04:09 64 16 99 Facial 30 05/08/17 04:00 97.3 61 20 112/71 100 Bi-pap 05/08/17 01:19 72 20 100 Facial 30 05/08/17 00:00 97.5 66 20 123/59 100 Bi-pap 2.0 05/07/17 23:40 71 21 98 Facial 30 05/07/17 21:42 66 138/64 9/2/17 20:22 66 18 Room Air 05/07/17 20:00 97.3 66 20 129/64 96 Room Air 05/07/17 17:20 104/59 05/07/17 16:00 97.4 64 19 104/59 95 Room Air Height (Feet): 5 Height (Inches): 7.00 Weight (Pounds): 219 General Appearance: WD/WN, no acute distress HEENT: normocephalic, atraumatic, anicteric, mucous membranes moist, PERRL, EOMI, pharynx normal, supple, no JVD Respiratory/Chest: chest wall non-tender, lungs clear, normal breath sounds, no respiratory distress, no accessory muscle use Cardiovascular: normal peripheral pulses, normal rate, regular rhythm, no gallop/murmur, no JVD Abdomen: normal bowel sounds, soft, non tender, no organomegaly, non distended , no mass, no scars Extremities: no cyanosis, no clubbing Skin: no rash, no lesions, no ulcers Neurologic/Psychiatric: alert, oriented x 3 Lymphatic: no neck adenopathy, no groin adenopathy Laboratory Tests Test 05/08/17 06:40 White Blood Count 4.1 K/UL (4.8-10.8) L Red Blood Count 3.57 M/UL (4.70-6.10) L Hemoglobin 12.0 G/DL (14.2-18.0) L Hematocrit 32.9 % (42.0-52.0) L Mean Corpuscular Volume 92 FL (80-99) Mean Corpuscular Hemoglobin 33.7 PG (27.0-31.0) H Mean Corpuscular Hemoglobin Concent 36.6 G/DL (32.0-36.0) H Red Cell Distribution Width 14.2 % (11.6-14.8) Platelet Count 137 K/UL (150-450) L Mean Platelet Volume 6.2 FL (6.5-10.1) L Neutrophils (%) (Auto) % (45.0-75.0) Lymphocytes (%) (Auto) % (20.0-45.0) Monocytes (%) (Auto) % (1.0-10.0) Eosinophils (%) (Auto) % (0.0-3.0) Basophils (%) (Auto) % (0.0-2.0) Differential Total Cells Counted 100 Neutrophils % (Manual) 59 % (45-75) Lymphocytes % (Manual) 31 % (20-45) Monocytes % (Manual) 6 % (1-10) Eosinophils % (Manual) 4 % (0-3) H Basophils % (Manual) 0 % (0-2) Band Neutrophils 0 % (0-8) Platelet Estimate Decreased L Platelet Morphology Normal Anisocytosis 1+ Prothrombin Time 26.1 SEC (9.30-11.50) H Prothromb Time International Ratio 2.5 (0.9-1.1) H Sodium Level 142 mEQ/L (135-145) Potassium Level 3.7 mEQ/L (3.4-4.9) Chloride Level 105 mEQ/L (98-107) Carbon Dioxide Level 24 mEQ/L (20-30) Anion Gap 13 (5-15) Blood Urea Nitrogen 19 mg/dL (7-23) Creatinine 1.3 mg/dL (0.7-1.2) H Estimat Glomerular Filtration Rate 56.1 mL/min (>60) Glucose Level 268 mg/dL (74-106) H Calcium Level 9.8 mg/dL (8.6-10.2) Current Medications Medications (Trade) Dose Ordered Sig/Tanner Route PRN Reason Start Time Stop Time Status Last Admin Dose Admin Acetaminophen (Tylenol) 650 mg Q4H PRN ORAL FEVER>100.5 05/05/17 17:00 05/28/17 16:59 Allopurinol (Allopurinol) 300 mg DAILY ORAL 05/06/17 09:00 05/28/17 08:59 05/08/17 09:12 Aripiprazole (Abilify) 35 mg DAILY ORAL 05/06/17 09:00 06/05/17 08:59 05/08/17 09:12 Aspirin (ASA) 162 mg DAILY ORAL 05/06/17 09:00 05/28/17 08:59 05/08/17 09:13 Atorvastatin Calcium (Lipitor) 40 mg BEDTIME ORAL 05/05/17 21:00 05/28/17 20:59 05/07/17 21:41 Clopidogrel Bisulfate (Plavix) 75 mg DAILY ORAL 05/06/17 09:00 05/28/17 08:59 05/08/17 09:14 Dextrose (Dextrose 50%) STAT PRN IV Hypoglycemia 05/05/17 17:00 06/04/17 16:59 Enalaprilat (Vasotec) 2.5 mg Q6H PRN IV sbp more than 160 05/05/17 17:00 06/04/17 16:59 Escitalopram Oxalate (Lexapro) 20 mg DAILY ORAL 05/06/17 09:00 05/28/17 12:59 05/08/17 09:14 Fish Oil (Fish Oil) 1,000 mg DAILY ORAL 05/06/17 09:00 05/31/17 08:59 05/07/17 09:13 Insulin Aspart (NovoLOG) BEFORE MEALS AND HS SUBQ 05/05/17 17:30 05/28/17 17:29 05/08/17 11:57 Isosorbide Dinitrate (Isordil) 30 mg BID@0600,1800 ORAL 05/05/17 18:00 06/03/17 18:04 05/08/17 06:27 Ketoconazole (Nizoral 2% Cream) 1 applic DAILY TOPIC 05/06/17 09:00 06/01/17 08:59 05/08/17 09:34 Ketoconazole (Nizoral 2% Shampoo) 1 applic DAILY TOPIC 05/06/17 09:00 06/01/17 08:59 05/07/17 10:00 Metoprolol Tartrate (Lopressor) 50 mg Q12HR ORAL 05/05/17 21:00 05/30/17 20:59 05/07/17 21:42 Mirtazapine (Remeron) 30 mg QHS ORAL 05/05/17 21:00 05/28/17 20:59 05/07/17 21:43 Nitroglycerin (Ntg) 0.4 mg Q5MIN PRN SL Prn Chest Pain 05/05/17 16:00 06/04/17 15:59 05/07/17 00:12 Ondansetron HCl (Zofran) 4 mg Q6H PRN IVP Nausea & Vomiting 05/05/17 17:00 05/28/17 16:59 Pantoprazole (Protonix) 40 mg ACBREAKFAST ORAL 05/06/17 06:30 05/28/17 08:59 05/08/17 06:27 Polyethylene Glycol (Miralax) 17 gm DAILYPRN PRN ORAL Constipation 05/05/17 17:00 06/04/17 16:59 Quetiapine Fumarate (SEROquel) 25 mg DAILY@1700 ORAL 05/05/17 17:00 05/30/17 16:59 05/07/17 17:19 Quetiapine Fumarate (SEROquel) 200 mg BEDTIME ORAL 05/05/17 21:00 05/28/17 20:59 05/07/17 21:41 Ranolazine (Ranexa ER 500mg) 500 mg Q12HR ORAL 05/05/17 21:00 06/02/17 20:59 05/08/17 09:13 Tamsulosin HCl (Flomax) 0.4 mg BEDTIME ORAL 05/05/17 21:00 05/28/17 20:59 05/07/17 21:41 Temazepam (Restoril) 15 mg HSPRN PRN ORAL Insomnia 05/06/17 23:30 05/13/17 23:29 05/07/17 21:42 Warfarin Sodium (Coumadin per pharmacy) 1 ea DAILYPRN PRN MISC Per rx protocol 05/05/17 17:00 06/04/17 16:59 Warfarin Sodium (Coumadin) 7.5 mg COUMADIN ONCE ORAL 05/08/17 17:00 05/08/17 17:01 Gladys Murillo M.D. May 08, 2017 15:02
--- NOTE | 2017-05-08 15:22 | General Progress Note ---
Assessment/Plan Status: stable Assessment/Plan 1. Pancytopenia. Monitor. --> Wbc, hgb, and platelets are low but not critical currently --> Give prbc if hgb<7 and platelets if <20k --> Potentially, the patient has a history of underlying liver disease. --> HIV and hepatitis panel are both negative --> Ultrasound of the abdomen reveal cysts on right kidney, fatty liver, splenomegaly, atherosclerotic vascular disease, and absent left kidney 2. Anemia, very mild. --> Continue to closely monitor, likely secondary to chronic disease. --> No blood transfusion required unless symptomatic or hgb<7 --> Has been stable with hgb >11 3. Diarrhea, rule out Clostridium difficile. He will be seen by ID team. 4. Chest pain, rule out acute coronary syndrome. Cardiology service is following. 5. Diabetes mellitus. Blood sugar goal between 80 and 120. Subjective Date patient seen: May 08, 2017 Time patient seen: 06:00 Constitutional: Reports: weakness Hematologic/Lymphatic: Reports: other - pancytopenia Allergies: Coded Allergies: ADHESIVE TAPE (Verified Allergy, Unknown, 04/27/17) AMIODARONE (Verified Allergy, Unknown, 04/27/17) INFLUENZA VIRUS VACCINES (Verified Allergy, Unknown, 04/27/17) SULFAMETHIZOLE (Verified Allergy, Unknown, 04/27/17) Subjective Vitals are stable. Afebrile. General weakness. No active bleeding. No acute distress. Sleeping. Objective Last 24 Hour Vital Signs Date Time Temp Pulse Resp B/P (MAP) Pulse Ox O2 Delivery O2 Flow Rate FiO2 05/08/17 12:06 97.7 61 21 106/67 99 Room Air 05/08/17 09:00 59 103/60 05/08/17 08:15 97.3 66 21 103/61 99 Room Air 05/08/17 08:09 70 18 Room Air 21 05/08/17 06:27 112/71 05/08/17 04:09 64 16 99 Facial 30 05/08/17 04:00 97.3 61 20 112/71 100 Bi-pap 05/08/17 01:19 72 20 100 Facial 30 05/08/17 00:00 97.5 66 20 123/59 100 Bi-pap 2.0 05/07/17 23:40 71 21 98 Facial 30 05/07/17 21:42 66 138/64 05/07/17 20:22 66 18 Room Air 05/07/17 20:00 97.3 66 20 129/64 96 Room Air 05/07/17 17:20 104/59 05/07/17 16:00 97.4 64 19 104/59 95 Room Air Intake and Output 05/08/17 05/09/17 19:00 07:00 Intake Total 720 ml Balance 720 ml Intake Oral 720 ml Laboratory Tests 05/08/17 06:40: White Blood Count 4.1L, Red Blood Count 3.57L, Hemoglobin 12.0L, Hematocrit 32.9L, Mean Corpuscular Volume 92, Mean Corpuscular Hemoglobin 33.7H, Mean Corpuscular Hemoglobin Concent 36.6H, Red Cell Distribution Width 14.2, Platelet Count 137L, Mean Platelet Volume 6.2L, Neutrophils (%) (Auto) , Lymphocytes (%) (Auto) , Monocytes (%) (Auto) , Eosinophils (%) (Auto) , Basophils (%) (Auto) , Differential Total Cells Counted 100, Neutrophils % ( Manual) 59, Lymphocytes % (Manual) 31, Monocytes % (Manual) 6, Eosinophils % ( Manual) 4H, Basophils % (Manual) 0, Band Neutrophils 0, Platelet Estimate DecreasedL, Platelet Morphology Normal, Anisocytosis 1+, Prothrombin Time 26.1H , Prothromb Time International Ratio 2.5H, Sodium Level 142, Potassium Level 3.7 , Chloride Level 105, Carbon Dioxide Level 24, Anion Gap 13, Blood Urea Nitrogen 19, Creatinine 1.3H, Estimat Glomerular Filtration Rate 56.1, Glucose Level 268H, Calcium Level 9.8 Height (Feet): 5 Height (Inches): 7.00 Weight (Pounds): 219 General Appearance: no apparent distress Cardiovascular: normal peripheral pulses, normal rate Respiratory/Chest: chest wall non-tender, lungs clear, normal breath sounds Abdomen: non tender, soft PREMA FONG May 08, 2017 15:22
[2017-05-08 15:49] VITALS: BP 100/64
[2017-05-08] MEDS ORDERED: Warfarin Sodium 7.5mg ORAL ONE (17:00)
[2017-05-08 20:00] VITALS: BP 108/63
[2017-05-08] MEDS: Tamsulosin 0.4mg cap ORAL SCH (22:06)
[2017-05-08] MEDS: QUEtiapine 200mg tab ORAL SCH (22:07)
[2017-05-09] VITALS (7 sets, daily range): BP systolic 99–120; BP diastolic 62–73
[2017-05-09] MEDS: NovoLOG Insulin Flexpen SUBQ SCH ×4 (05:37→21:25)
[2017-05-09 06:48] LABS: INR 3.2 (0.9-1.1); PROTHROMBIN TIME 33.8 SEC (9.30-11.50)
[2017-05-09] MEDS: Metoprolol Tartrate 50mg tab ORAL SCH ×2 (09:00→20:39)
[2017-05-09] MEDS: Aspirin Baby 81mg ORAL SCH (09:49)
[2017-05-09] MEDS: Ranolazine 500mg tab ORAL SCH ×2 (09:50→20:35)
[2017-05-09] MEDS: ARIPiprazole 10mg tab ORAL SCH (09:53)
[2017-05-09] MEDS: KETOCONAZOLE 2% TOPIC SCH (09:57)
--- NOTE | 2017-05-09 12:32 | General Progress Note ---
Assessment/Plan Problem List: (1) Hyperglycemia due to type 2 diabetes mellitus ICD Codes: E11.65 - Type 2 diabetes mellitus with hyperglycemia SNOMED: 556598154679405, [id number] Qualifiers: Qualified Codes: E11.65 - Type 2 diabetes mellitus with hyperglycemia; Z79.4 - joint terminal attack controller (current) use of insulin (2) Chest pain ICD Codes: R07.9 - Chest pain, unspecified SNOMED: 06913948 Qualifiers: Qualified Codes: R07.9 - Chest pain, unspecified (3) Diabetes mellitus ICD Codes: E11.9 - Type 2 diabetes mellitus without complications SNOMED: 02281080 (4) CAD (coronary artery disease) ICD Codes: I25.10 - Atherosclerotic heart disease of [place] coronary artery without angina pectoris SNOMED: 71578303 (5) Acute coronary syndrome ICD Codes: I24.9 - Acute ischemic heart disease, unspecified SNOMED: 488872216 (6) THOMAS (acute kidney injury) ICD Codes: N17.9 - Acute kidney failure, unspecified SNOMED: 41542669 Status: progressing Assessment/Plan check bg thomas afebrile vitals stable no wheezing cad dm no change Subjective ROS Limited/Unobtainable: Yes Constitutional: Reports: no symptoms Allergies: Coded Allergies: ADHESIVE TAPE (Verified Allergy, Unknown, 04/27/17) AMIODARONE (Verified Allergy, Unknown, 04/27/17) INFLUENZA VIRUS VACCINES (Verified Allergy, Unknown, 04/27/17) SULFAMETHIZOLE (Verified Allergy, Unknown, 04/27/17) Objective Last 24 Hour Vital Signs Date Time Temp Pulse Resp B/P (MAP) Pulse Ox O2 Delivery O2 Flow Rate FiO2 05/09/17 11:55 97.7 66 18 105/66 96 Room Air 05/09/17 09:40 65 106/69 05/09/17 09:00 75 106/69 05/09/17 08:19 96.1 67 18 99/67 100 Room Air 05/09/17 07:48 70 20 Room Air 21 05/09/17 05:34 109/65 05/09/17 04:00 97.2 71 18 109/65 96 Room Air 05/09/17 01:15 62 13 99 Facial 30 05/09/17 00:00 97.5 70 18 110/70 97 Room Air 9/3/17 23:13 68 22 Bi-pap 30 05/08/17 23:13 68 22 99 Facial 30 05/08/17 22:06 73 108/63 05/08/17 20:00 97.1 73 18 108/63 96 Room Air 05/08/17 17:46 100/64 05/08/17 15:49 98.3 60 19 100/64 95 Room Air Intake and Output 05/09/17 05/10/17 19:00 07:00 Intake Total 360 ml Balance 360 ml Intake Oral 360 ml Laboratory Tests 05/09/17 04:55: Prothrombin Time 33.8H, Prothromb Time International Ratio 3.2H Height (Feet): 5 Height (Inches): 7.00 Weight (Pounds): 219 Respiratory/Chest: lungs clear Kim Jessica MD May 09, 2017 12:32
--- NOTE | 2017-05-09 15:35 | Pulmonology Progress Note ---
Assessment/Plan Assessment/Plan ASSESSMENT Chest pain Possible ACS CAD with hx of CABG and multiple cardiac interventions s/p AVR Moderate Hx of A fib with ablation DM Schizoaffective disorder, bipolar type Diarrhea, r/o C dif PLAN OF CARE [facility] floor Serial troponin x 3 negative ECG no acute ischemic changes, ruled out for acute ID Cardio follows ECHO with pEF 60-65% and RBSP of 32, moderate Nuclear stress test negative Continue antiplatelet therapy ( ASA and Plavix), Coumadin, BB , Ranexa , Isosorbide and statin- as per cardio recommendations Lipid panel with elevated TG counseled on low fat low cholesterol diet Added Fish oil Give 500 cc NS check creat in am O2 prn to keep sat above 92% Pulmonary toilet prn CXR negative BS management with SS of insulin ID follows Hx of C dif, s/p Rx, on empiric Vanco stool C dif negative , off Vanco abdominal US with evidence of fatty liver. Splenomegaly. Psych follows Psych meds optimized as per psych Pain management PT/OT dc plan as per PMD awaiting for disposition case discussed and evaluated by supervising physician Subjective Allergies: Coded Allergies: ADHESIVE TAPE (Verified Allergy, Unknown, 04/27/17) AMIODARONE (Verified Allergy, Unknown, 04/27/17) INFLUENZA VIRUS VACCINES (Verified Allergy, Unknown, 04/27/17) SULFAMETHIZOLE (Verified Allergy, Unknown, 04/27/17) Subjective no chest pain, feeling better awaiting for placement creat-1.3 Objective Last 24 Hour Vital Signs Date Time Temp Pulse Resp B/P (MAP) Pulse Ox O2 Delivery O2 Flow Rate FiO2 05/09/17 11:55 97.7 66 18 105/66 96 Room Air 05/09/17 09:40 65 106/69 05/09/17 09:00 75 106/69 05/09/17 08:19 96.1 67 18 99/67 100 Room Air 05/09/17 07:48 70 20 Room Air 21 05/09/17 05:34 109/65 05/09/17 04:00 97.2 71 18 109/65 96 Room Air 05/09/17 01:15 62 13 99 Facial 30 05/09/17 00:00 97.5 70 18 110/70 97 Room Air 05/08/17 23:13 68 22 Bi-pap 30 05/08/17 23:13 68 22 99 Facial 30 05/08/17 22:06 73 108/63 05/08/17 20:00 97.1 73 18 108/63 96 Room Air 05/08/17 17:46 100/64 05/08/17 15:49 98.3 60 19 100/64 95 Room Air Intake and Output 05/09/17 05/10/17 19:00 07:00 Intake Total 720 ml Balance 720 ml Intake Oral 720 ml # Voids 2 Objective General Appearance: no acute distress, other - awake, alert, responsive obese male HEENT: normocephalic, atraumatic, anicteric, mucous membranes moist Respiratory/Chest: chest wall non-tender, lungs clear, no respiratory distress , no accessory muscle use Cardiovascular: normal rate, regular rhythm Abdomen: normal bowel sounds, soft, non tender - obese Genitourinary: normal external genitalia Extremities: no edema, pedal pulses normal Neurologic/Psychiatric: abnormal gait, alert, responsive Musculoskeletal: normal muscle bulk Laboratory Tests 05/09/17 04:55: Prothrombin Time 33.8H, Prothromb Time International Ratio 3.2H Current Medications Medications (Trade) Dose Ordered Sig/Tanner Route PRN Reason Start Time Stop Time Status Last Admin Dose Admin Acetaminophen (Tylenol) 650 mg Q4H PRN ORAL FEVER>100.5 05/05/17 17:00 05/28/17 16:59 Allopurinol (Allopurinol) 300 mg DAILY ORAL 05/06/17 09:00 05/28/17 08:59 05/09/17 09:49 Aripiprazole (Abilify) 35 mg DAILY ORAL 05/06/17 09:00 06/05/17 08:59 05/09/17 09:53 Aspirin (ASA) 162 mg DAILY ORAL 05/06/17 09:00 05/28/17 08:59 05/09/17 09:49 Atorvastatin Calcium (Lipitor) 40 mg BEDTIME ORAL 05/05/17 21:00 05/28/17 20:59 05/08/17 22:06 Clopidogrel Bisulfate (Plavix) 75 mg DAILY ORAL 05/06/17 09:00 05/28/17 08:59 05/09/17 09:50 Dextrose (Dextrose 50%) STAT PRN IV Hypoglycemia 05/05/17 17:00 06/04/17 16:59 Enalaprilat (Vasotec) 2.5 mg Q6H PRN IV sbp more than 160 05/05/17 17:00 06/04/17 16:59 Escitalopram Oxalate (Lexapro) 20 mg DAILY ORAL 05/06/17 09:00 05/28/17 12:59 05/09/17 09:49 Fish Oil (Fish Oil) 1,000 mg DAILY ORAL 05/06/17 09:00 05/31/17 08:59 05/07/17 09:13 Insulin Aspart (NovoLOG) BEFORE MEALS AND HS SUBQ 05/05/17 17:30 05/28/17 17:29 05/09/17 12:15 Isosorbide Dinitrate (Isordil) 30 mg BID@0600,1800 ORAL 05/05/17 18:00 06/03/17 18:04 05/09/17 05:34 Ketoconazole (Nizoral 2% Cream) 1 applic DAILY TOPIC 05/06/17 09:00 06/01/17 08:59 05/09/17 09:58 Ketoconazole (Nizoral 2% Shampoo) 1 applic DAILY TOPIC 05/06/17 09:00 06/01/17 08:59 05/09/17 09:57 Metoprolol Tartrate (Lopressor) 50 mg Q12HR ORAL 05/05/17 21:00 05/30/17 20:59 05/08/17 22:06 Mirtazapine (Remeron) 30 mg QHS ORAL 05/05/17 21:00 05/28/17 20:59 05/08/17 22:06 Nitroglycerin (Ntg) 0.4 mg Q5MIN PRN SL Prn Chest Pain 05/05/17 16:00 06/04/17 15:59 05/07/17 00:12 Ondansetron HCl (Zofran) 4 mg Q6H PRN IVP Nausea & Vomiting 05/05/17 17:00 05/28/17 16:59 Pantoprazole (Protonix) 40 mg ACBREAKFAST ORAL 05/06/17 06:30 05/28/17 08:59 05/09/17 05:34 Polyethylene Glycol (Miralax) 17 gm DAILYPRN PRN ORAL Constipation 05/05/17 17:00 06/04/17 16:59 Quetiapine Fumarate (SEROquel) 25 mg DAILY@1700 ORAL 05/05/17 17:00 05/30/17 16:59 05/08/17 17:00 Quetiapine Fumarate (SEROquel) 200 mg BEDTIME ORAL 05/05/17 21:00 05/28/17 20:59 05/08/17 22:07 Ranolazine (Ranexa ER 500mg) 500 mg Q12HR ORAL 05/05/17 21:00 06/02/17 20:59 05/09/17 09:50 Tamsulosin HCl (Flomax) 0.4 mg BEDTIME ORAL 05/05/17 21:00 05/28/17 20:59 05/08/17 22:06 Temazepam (Restoril) 15 mg HSPRN PRN ORAL Insomnia 05/06/17 23:30 05/13/17 23:29 05/08/17 22:16 Warfarin Sodium (Coumadin per pharmacy) 1 ea DAILYPRN PRN MISC Per rx protocol 05/05/17 17:00 06/04/17 16:59 Warfarin Sodium (Coumadin) 2.5 mg COUMADIN ONCE ORAL 05/09/17 17:00 05/09/17 17:01 [place] [facility] May 09, 2017 15:35
[2017-05-09] MEDS ORDERED: Sodium Chloride 550 ML IV ONE (16:15)
--- NOTE | 2017-05-09 16:37 | Infectious Diseases Prog Note ---
Assessment/Plan Problems: (1) Diarrhea Assessment & Plan: resolved, with no evidence of recurrent C DIFF, or stool infection and negative stool culture, keep off antibiotics. advised to avoid any unnecessary antibiotics in the future (2) Chest pain Assessment & Plan: ruled out for ACS , with negative stress test , medical management as per cardiology team (3) Diabetes mellitus Assessment & Plan: recommend tight glycemic control to keep blood glucose between 80-120 (4) CAD (coronary artery disease) Assessment & Plan: continue cardiac meds, cardiology is following (5) Dermatitis, seborrheic Assessment & Plan: on ketoconazole shampoo prn (6) THOMAS (acute kidney injury) Assessment & Plan: suspect dehydration, recommend hydration and close monitor of renal function test . Subjective Constitutional: Reports: no symptoms HEENT: Reports: no symptoms Respiratory: Reports: no symptoms Breasts: Reports: no symptoms Cardiovascular: Reports: no symptoms Gastrointestinal/Abdominal: Reports: no symptoms Genitourinary: Reports: no symptoms Neurologic: Reports: no symptoms Psychiatric: Reports: no symptoms Skin: Reports: no symptoms Endocrine: Reports: no symptoms Hematologic: Reports: no symptoms Musculoskeletal: Reports: no symptoms Allergies: Coded Allergies: ADHESIVE TAPE (Verified Allergy, Unknown, 04/27/17) AMIODARONE (Verified Allergy, Unknown, 04/27/17) INFLUENZA VIRUS VACCINES (Verified Allergy, Unknown, 04/27/17) SULFAMETHIZOLE (Verified Allergy, Unknown, 04/27/17) Objective Vital Signs Last 24 Hour Vital Signs Date Time Temp Pulse Resp B/P (MAP) Pulse Ox O2 Delivery O2 Flow Rate FiO2 05/09/17 11:55 97.7 66 18 105/66 96 Room Air 05/09/17 09:40 65 106/69 05/09/17 09:00 75 106/69 05/09/17 08:19 96.1 67 18 99/67 100 Room Air 05/09/17 07:48 70 20 Room Air 21 05/09/17 05:34 109/65 05/09/17 04:00 97.2 71 18 109/65 96 Room Air 05/09/17 01:15 62 13 99 Facial 30 05/09/17 00:00 97.5 70 18 110/70 97 Room Air 05/08/17 23:13 68 22 Bi-pap 30 05/08/17 23:13 68 22 99 Facial 30 05/08/17 22:06 73 108/63 05/08/17 20:00 97.1 73 18 108/63 96 Room Air 05/08/17 17:46 100/64 Height (Feet): 5 Height (Inches): 7.00 Weight (Pounds): 219 General Appearance: WD/WN, no acute distress HEENT: normocephalic, atraumatic, anicteric, mucous membranes moist Respiratory/Chest: chest wall non-tender, lungs clear, normal breath sounds, no respiratory distress, no accessory muscle use Cardiovascular: normal peripheral pulses, normal rate, regular rhythm, no gallop/murmur, no JVD Abdomen: normal bowel sounds, soft, non tender, no organomegaly, non distended , no mass, no scars Extremities: no cyanosis, no clubbing Skin: no rash, no lesions Laboratory Tests Test 05/09/17 04:55 Prothrombin Time 33.8 SEC (9.30-11.50) H Prothromb Time International Ratio 3.2 (0.9-1.1) H Current Medications Medications (Trade) Dose Ordered Sig/Tanner Route PRN Reason Start Time Stop Time Status Last Admin Dose Admin Acetaminophen (Tylenol) 650 mg Q4H PRN ORAL FEVER>100.5 05/05/17 17:00 05/28/17 16:59 Allopurinol (Allopurinol) 300 mg DAILY ORAL 05/06/17 09:00 05/28/17 08:59 05/09/17 09:49 Aripiprazole (Abilify) 35 mg DAILY ORAL 05/06/17 09:00 06/05/17 08:59 05/09/17 09:53 Aspirin (ASA) 162 mg DAILY ORAL 05/06/17 09:00 05/28/17 08:59 05/09/17 09:49 Atorvastatin Calcium (Lipitor) 40 mg BEDTIME ORAL 05/05/17 21:00 05/28/17 20:59 05/08/17 22:06 Clopidogrel Bisulfate (Plavix) 75 mg DAILY ORAL 05/06/17 09:00 05/28/17 08:59 05/09/17 09:50 Dextrose (Dextrose 50%) STAT PRN IV Hypoglycemia 05/05/17 17:00 06/04/17 16:59 Enalaprilat (Vasotec) 2.5 mg Q6H PRN IV sbp more than 160 05/05/17 17:00 06/04/17 16:59 Escitalopram Oxalate (Lexapro) 20 mg DAILY ORAL 05/06/17 09:00 05/28/17 12:59 05/09/17 09:49 Fish Oil (Fish Oil) 1,000 mg DAILY ORAL 05/06/17 09:00 05/31/17 08:59 05/07/17 09:13 Insulin Aspart (NovoLOG) BEFORE MEALS AND HS SUBQ 05/05/17 17:30 05/28/17 17:29 05/09/17 12:15 Isosorbide Dinitrate (Isordil) 30 mg BID@0600,1800 ORAL 05/05/17 18:00 06/03/17 18:04 05/09/17 05:34 Ketoconazole (Nizoral 2% Cream) 1 applic DAILY TOPIC 05/06/17 09:00 06/01/17 08:59 05/09/17 09:58 Ketoconazole (Nizoral 2% Shampoo) 1 applic DAILY TOPIC 05/06/17 09:00 06/01/17 08:59 05/09/17 09:57 Metoprolol Tartrate (Lopressor) 50 mg Q12HR ORAL 05/05/17 21:00 05/30/17 20:59 05/08/17 22:06 Mirtazapine (Remeron) 30 mg QHS ORAL 05/05/17 21:00 05/28/17 20:59 05/08/17 22:06 Nitroglycerin (Ntg) 0.4 mg Q5MIN PRN SL Prn Chest Pain 05/05/17 16:00 06/04/17 15:59 05/07/17 00:12 Ondansetron HCl (Zofran) 4 mg Q6H PRN IVP Nausea & Vomiting 05/05/17 17:00 05/28/17 16:59 Pantoprazole (Protonix) 40 mg ACBREAKFAST ORAL 05/06/17 06:30 05/28/17 08:59 05/09/17 05:34 Polyethylene Glycol (Miralax) 17 gm DAILYPRN PRN ORAL Constipation 05/05/17 17:00 06/04/17 16:59 Quetiapine Fumarate (SEROquel) 25 mg DAILY@1700 ORAL 05/05/17 17:00 05/30/17 16:59 05/08/17 17:00 Quetiapine Fumarate (SEROquel) 200 mg BEDTIME ORAL 05/05/17 21:00 05/28/17 20:59 05/08/17 22:07 Ranolazine (Ranexa ER 500mg) 500 mg Q12HR ORAL 05/05/17 21:00 06/02/17 20:59 05/09/17 09:50 Sodium Chloride 500 ml @ 999 mls/hr Q31M ONCE IV 05/09/17 16:15 05/09/17 16:45 Tamsulosin HCl (Flomax) 0.4 mg BEDTIME ORAL 05/05/17 21:00 05/28/17 20:59 05/08/17 22:06 Temazepam (Restoril) 15 mg HSPRN PRN ORAL Insomnia 05/06/17 23:30 05/13/17 23:29 05/08/17 22:16 Warfarin Sodium (Coumadin per pharmacy) 1 ea DAILYPRN PRN MISC Per rx protocol 05/05/17 17:00 06/04/17 16:59 Warfarin Sodium (Coumadin) 2.5 mg COUMADIN ONCE ORAL 05/09/17 17:00 05/09/17 17:01 Gladys Murillo M.D. May 09, 2017 16:37
[2017-05-09] MEDS ORDERED: Warfarin Sodium 2.5mg ORAL ONE (17:00)
[2017-05-09] MEDS: Tamsulosin 0.4mg cap ORAL SCH (20:35)
--- NOTE | 2017-05-09 20:35 | Cardiac Electrophysiology PN ---
Assessment/Plan Assessment/Plan 1. Chest pain and history of CABG with PCI June 2016 at [facility]. Already ruled out for myocardial infarction. Nuclear stress test showed no definite ischemia. 2D echocardiogram EF 65%. Continue aspirin,Toprol, Plavix and Lipitor and Renaxa 500. 2. Status post CABG and aortic valve replacement with a porcine aortic valve with residual mod . 3. History of atrial fibrillation and ablation, remained in sinus rhythm on aspirin,Toprol 50 bid, Coumadin and Plavix. 4. Diabetes. 5. Depression. 6. Status post amputation of the fingers. DW Sister Subjective Subjective Alert in NAD. Still awaiting placement after BIPAP machine delivered. Sister at bedside. Objective Last 24 Hour Vital Signs Date Time Temp Pulse Resp B/P (MAP) Pulse Ox O2 Delivery O2 Flow Rate FiO2 05/09/17 20:00 96.6 69 18 105/62 96 Room Air 05/09/17 19:46 71 18 Room Air 21 05/09/17 17:51 108/69 05/09/17 16:57 97.7 75 20 120/73 95 Room Air 05/09/17 11:55 97.7 66 18 105/66 96 Room Air 05/09/17 09:40 65 106/69 05/09/17 09:00 75 106/69 05/09/17 08:19 96.1 67 18 99/67 100 Room Air 05/09/17 07:48 70 20 Room Air 21 05/09/17 05:34 109/65 05/09/17 04:00 97.2 71 18 109/65 96 Room Air 05/09/17 01:15 62 13 99 Facial 30 05/09/17 00:00 97.5 70 18 110/70 97 Room Air 05/08/17 23:13 68 22 Bi-pap 30 05/08/17 23:13 68 22 99 Facial 30 05/08/17 22:06 73 108/63 Intake and Output 05/09/17 05/10/17 19:00 07:00 Intake Total 1080 ml Balance 1080 ml Intake Oral 1080 ml # Voids 2 Laboratory Tests Test 05/09/17 04:55 Prothrombin Time 33.8 SEC (9.30-11.50) H Prothromb Time International Ratio 3.2 (0.9-1.1) H Objective HEAD AND NECK: Shows no JVD. LUNGS: Clear. CARDIOVASCULAR: Nl S1 and S2 with no gallop . 2/6 S. murmur. Sternotomy intact ABDOMEN: Soft. EXTREMITIES: 1+ pitting edema. ALEX VALDES May 09, 2017 20:35
[2017-05-09] MEDS: QUEtiapine 200mg tab ORAL SCH (20:36)
[2017-05-10] VITALS: BP 109/70
[2017-05-10 04:01] VITALS: BP 106/68
[2017-05-10] MEDS: NovoLOG Insulin Flexpen SUBQ SCH ×4 (05:51→21:33)
[2017-05-10 06:58] LABS: INR 2.8 (0.9-1.1)
[2017-05-10 08:00] VITALS: BP 116/72
[2017-05-10] MEDS: Metoprolol Tartrate 50mg tab ORAL SCH ×2 (09:21→21:00)
[2017-05-10] MEDS: Aspirin Baby 81mg ORAL SCH (09:22)
[2017-05-10] MEDS: Ranolazine 500mg tab ORAL SCH ×2 (09:22→21:31)
[2017-05-10] MEDS: ARIPiprazole 10mg tab ORAL SCH (09:22)
[2017-05-10] MEDS: KETOCONAZOLE 2% TOPIC SCH (09:23)
--- NOTE | 2017-05-10 11:29 | General Progress Note ---
Assessment/Plan Assessment/Plan 1. Pancytopenia. Monitor. --> Wbc, hgb, and platelets are low but not critical currently --> Give prbc if hgb<7 and platelets if <20k --> Potentially, the patient has a history of underlying liver disease. --> HIV and hepatitis panel are both negative --> Ultrasound of the abdomen reveal cysts on right kidney, fatty liver, splenomegaly, atherosclerotic vascular disease, and absent left kidney 2. Thrombocytopenia --> monitor, improving 3. Anemia, very mild. --> Continue to closely monitor, likely secondary to chronic disease. --> No blood transfusion required unless symptomatic or hgb<7 --> Has been stable with hgb >11 4. Diarrhea, rule out Clostridium difficile. He will be seen by ID team. 5. Chest pain, rule out acute coronary syndrome. Cardiology service is following. 6. Diabetes mellitus. Blood sugar goal between 80 and 120. Subjective Date patient seen: May 09, 2017 Constitutional: Reports: no symptoms HEENT: Reports: no symptoms Cardiovascular: Reports: no symptoms Respiratory: Reports: no symptoms Gastrointestinal/Abdominal: Reports: no symptoms Genitourinary: Reports: no symptoms Neurologic/Psychiatric: Reports: no symptoms Endocrine: Reports: no symptoms Hematologic/Lymphatic: Reports: no symptoms Allergies: Coded Allergies: ADHESIVE TAPE (Verified Allergy, Unknown, 04/27/17) AMIODARONE (Verified Allergy, Unknown, 04/27/17) INFLUENZA VIRUS VACCINES (Verified Allergy, Unknown, 04/27/17) SULFAMETHIZOLE (Verified Allergy, Unknown, 04/27/17) Subjective comfortable Objective Last 24 Hour Vital Signs Date Time Temp Pulse Resp B/P (MAP) Pulse Ox O2 Delivery O2 Flow Rate FiO2 05/10/17 09:21 76 116/72 05/10/17 08:04 76 18 Room Air 21 05/10/17 08:00 97.5 75 20 116/72 96 Room Air 05/10/17 05:32 66 16 96 Facial 30 05/10/17 05:17 106/68 05/10/17 04:01 97.0 65 18 106/68 98 05/10/17 03:07 65 18 95 Facial 30 05/10/17 00:37 70 16 97 Facial 30 05/10/17 00:00 97.0 70 18 109/70 97 Room Air 05/09/17 22:26 71 18 95 Facial 30 05/09/17 20:39 69 105/62 05/09/17 20:00 96.6 69 18 105/62 96 Room Air 05/09/17 19:46 71 18 Room Air 21 05/09/17 17:51 108/69 05/09/17 16:57 97.7 75 20 120/73 95 Room Air 05/09/17 11:55 97.7 66 18 105/66 96 Room Air Laboratory Tests 05/10/17 05:15: Prothrombin Time 30.0H, Prothromb Time International Ratio 2.8H Height (Feet): 5 Height (Inches): 7.00 Weight (Pounds): 219 General Appearance: no apparent distress EENT: normal ENT inspection Neck: normal alignment Cardiovascular: normal rate Abdomen: non tender 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
[2017-05-10 12:00] VITALS: BP 118/73
--- NOTE | 2017-05-10 13:12 | General Progress Note ---
Assessment/Plan Problem List: (1) Stress reaction ICD Codes: F43.0 - Acute stress reaction SNOMED: 48089179 (2) Hyperglycemia due to type 2 diabetes mellitus ICD Codes: E11.65 - Type 2 diabetes mellitus with hyperglycemia SNOMED: 838070577730366, 89449422 Qualifiers: Qualified Codes: E11.65 - Type 2 diabetes mellitus with hyperglycemia; Z79.4 - skilled nursing (current) use of insulin (3) Chest pain ICD Codes: R07.9 - Chest pain, unspecified SNOMED: 48601833 Qualifiers: Qualified Codes: R07.9 - Chest pain, unspecified (4) Diabetes mellitus ICD Codes: E11.9 - Type 2 diabetes mellitus without complications SNOMED: 46357605 (5) Acute coronary syndrome ICD Codes: I24.9 - Acute ischemic heart disease, unspecified SNOMED: 304435910 Status: stable, progressing, tolerating diet Assessment/Plan ot pt diet pain control cbc bmp am dc to snf Subjective Allergies: Coded Allergies: ADHESIVE TAPE (Verified Allergy, Unknown, 04/27/17) AMIODARONE (Verified Allergy, Unknown, 04/27/17) INFLUENZA VIRUS VACCINES (Verified Allergy, Unknown, 04/27/17) SULFAMETHIZOLE (Verified Allergy, Unknown, 04/27/17) All Systems: reviewed and negative except above Subjective sl weak Objective Last 24 Hour Vital Signs Date Time Temp Pulse Resp B/P (MAP) Pulse Ox O2 Delivery O2 Flow Rate FiO2 05/10/17 12:00 97.3 62 20 118/73 97 Room Air 05/10/17 09:21 76 116/72 05/10/17 08:04 76 18 Room Air 21 05/10/17 08:00 97.5 75 20 116/72 96 Room Air 05/10/17 05:32 66 16 96 Facial 30 05/10/17 05:17 106/68 05/10/17 04:01 97.0 65 18 106/68 98 05/10/17 03:07 65 18 95 Facial 30 05/10/17 00:37 70 16 97 Facial 30 05/10/17 00:00 97.0 70 18 109/70 97 Room Air 05/09/17 22:26 71 18 95 Facial 30 05/09/17 20:39 69 105/62 05/09/17 20:00 96.6 69 18 105/62 96 Room Air 05/09/17 19:46 71 18 Room Air 21 05/09/17 17:51 108/69 05/09/17 16:57 97.7 75 20 120/73 95 Room Air Laboratory Tests 05/10/17 05:15: Prothrombin Time 30.0H, Prothromb Time International Ratio 2.8H Height (Feet): 5 Height (Inches): 7.00 Weight (Pounds): 219 General Appearance: lethargic EENT: normal ENT inspection Neck: normal alignment Cardiovascular: normal peripheral pulses, normal rate, regular rhythm Respiratory/Chest: chest wall non-tender, lungs clear, normal breath sounds Abdomen: normal bowel sounds, non tender, soft Extremities: normal inspection Edema: no edema noted Arm (L), no edema noted Arm (R), no edema noted Leg (L), no edema noted Leg (R), no edema noted Pedal (L), no edema noted Pedal (R), no edema noted Generalized Neurologic: responsive, motor weakness Skin: normal pigmentation, warm/dry ANDRE SILVA May 10, 2017 13:12
[2017-05-10 16:00] VITALS: BP 119/75
--- NOTE | 2017-05-10 16:02 | Pulmonology Progress Note ---
Assessment/Plan Problems: (1) Acute coronary syndrome (2) Chest pain (3) Diabetes mellitus (4) CAD (coronary artery disease) (5) Hx of CABG Assessment/Plan no new complains, doing better sliding scale diabetic diet waiting for the discharge awaiting bipap machine Subjective ROS Limited/Unobtainable: No Constitutional: Reports: no symptoms HEENT: Repors: no symptoms Allergies: Coded Allergies: ADHESIVE TAPE (Verified Allergy, Unknown, 04/27/17) AMIODARONE (Verified Allergy, Unknown, 04/27/17) INFLUENZA VIRUS VACCINES (Verified Allergy, Unknown, 04/27/17) SULFAMETHIZOLE (Verified Allergy, Unknown, 04/27/17) Objective Last 24 Hour Vital Signs Date Time Temp Pulse Resp B/P (MAP) Pulse Ox O2 Delivery O2 Flow Rate FiO2 05/10/17 12:00 97.3 62 20 118/73 97 Room Air 05/10/17 09:21 76 116/72 05/10/17 08:04 76 18 Room Air 21 05/10/17 08:00 97.5 75 20 116/72 96 Room Air 05/10/17 05:32 66 16 96 Facial 30 05/10/17 05:17 106/68 05/10/17 04:01 97.0 65 18 106/68 98 05/10/17 03:07 65 18 95 Facial 30 05/10/17 00:37 70 16 97 Facial 30 05/10/17 00:00 97.0 70 18 109/70 97 Room Air 05/09/17 22:26 71 18 95 Facial 30 05/09/17 20:39 69 105/62 05/09/17 20:00 96.6 69 18 105/62 96 Room Air 05/09/17 19:46 71 18 Room Air 21 05/09/17 17:51 108/69 05/09/17 16:57 97.7 75 20 120/73 95 Room Air General Appearance: WD/WN HEENT: normocephalic, atraumatic Respiratory/Chest: chest wall non-tender, lungs clear Cardiovascular: normal peripheral pulses, normal rate, regular rhythm Abdomen: normal bowel sounds, no organomegaly Genitourinary: normal external genitalia Extremities: no clubbing Skin: no lesions Laboratory Tests 05/10/17 05:15: Prothrombin Time 30.0H, Prothromb Time International Ratio 2.8H Current Medications Medications (Trade) Dose Ordered Sig/Tanner Route PRN Reason Start Time Stop Time Status Last Admin Dose Admin Acetaminophen (Tylenol) 650 mg Q4H PRN ORAL FEVER>100.5 05/05/17 17:00 05/28/17 16:59 Allopurinol (Allopurinol) 300 mg DAILY ORAL 05/06/17 09:00 05/28/17 08:59 05/10/17 09:22 Aripiprazole (Abilify) 35 mg DAILY ORAL 05/06/17 09:00 06/05/17 08:59 05/10/17 09:22 Aspirin (ASA) 162 mg DAILY ORAL 05/06/17 09:00 05/28/17 08:59 05/10/17 09:22 Atorvastatin Calcium (Lipitor) 40 mg BEDTIME ORAL 05/05/17 21:00 05/28/17 20:59 05/09/17 20:35 Clopidogrel Bisulfate (Plavix) 75 mg DAILY ORAL 05/06/17 09:00 05/28/17 08:59 05/10/17 09:22 Dextrose (Dextrose 50%) STAT PRN IV Hypoglycemia 05/05/17 17:00 06/04/17 16:59 Enalaprilat (Vasotec) 2.5 mg Q6H PRN IV sbp more than 160 05/05/17 17:00 06/04/17 16:59 Escitalopram Oxalate (Lexapro) 20 mg DAILY ORAL 05/06/17 09:00 05/28/17 12:59 05/10/17 09:21 Fish Oil (Fish Oil) 1,000 mg DAILY ORAL 05/06/17 09:00 05/31/17 08:59 05/07/17 09:13 Insulin Aspart (NovoLOG) BEFORE MEALS AND HS SUBQ 05/05/17 17:30 05/28/17 17:29 05/10/17 11:41 Isosorbide Dinitrate (Isordil) 30 mg BID@0600,1800 ORAL 05/05/17 18:00 06/03/17 18:04 05/09/17 17:51 Ketoconazole (Nizoral 2% Cream) 1 applic DAILY TOPIC 05/06/17 09:00 06/01/17 08:59 05/10/17 09:23 Ketoconazole (Nizoral 2% Shampoo) 1 applic DAILY TOPIC 05/06/17 09:00 06/01/17 08:59 05/10/17 09:23 Metoprolol Tartrate (Lopressor) 50 mg Q12HR ORAL 05/05/17 21:00 05/30/17 20:59 05/10/17 09:21 Mirtazapine (Remeron) 30 mg QHS ORAL 05/05/17 21:00 05/28/17 20:59 05/09/17 20:36 Nitroglycerin (Ntg) 0.4 mg Q5MIN PRN SL Prn Chest Pain 05/05/17 16:00 06/04/17 15:59 05/07/17 00:12 Ondansetron HCl (Zofran) 4 mg Q6H PRN IVP Nausea & Vomiting 05/05/17 17:00 05/28/17 16:59 Pantoprazole (Protonix) 40 mg ACBREAKFAST ORAL 05/06/17 06:30 05/28/17 08:59 05/10/17 05:49 Polyethylene Glycol (Miralax) 17 gm DAILYPRN PRN ORAL Constipation 05/05/17 17:00 06/04/17 16:59 Quetiapine Fumarate (SEROquel) 25 mg DAILY@1700 ORAL 05/05/17 17:00 05/30/17 16:59 05/09/17 17:24 Quetiapine Fumarate (SEROquel) 200 mg BEDTIME ORAL 05/05/17 21:00 05/28/17 20:59 05/09/17 20:36 Ranolazine (Ranexa ER 500mg) 500 mg Q12HR ORAL 05/05/17 21:00 06/02/17 20:59 05/10/17 09:22 Tamsulosin HCl (Flomax) 0.4 mg BEDTIME ORAL 05/05/17 21:00 05/28/17 20:59 05/09/17 20:35 Temazepam (Restoril) 15 mg HSPRN PRN ORAL Insomnia 05/06/17 23:30 05/13/17 23:29 05/09/17 21:23 Warfarin Sodium (Coumadin per pharmacy) 1 ea DAILYPRN PRN MISC Per rx protocol 05/05/17 17:00 06/04/17 16:59 Warfarin Sodium (Coumadin) 5 mg COUMADIN ONCE ORAL 05/10/17 17:00 05/10/17 17:01 THADDEUS YA May 10, 2017 16:02
[2017-05-10] MEDS ORDERED: Warfarin Sodium 5mg ORAL ONE (17:00)
--- NOTE | 2017-05-10 17:26 | Cardiac Electrophysiology PN ---
Assessment/Plan Assessment/Plan 1. Chest pain and Hx of CABG with PCI June [address] [facility]. Already ruled out for myocardial infarction. Nuclear stress test showed no definite ischemia. 2D echocardiogram EF 65%. Continue aspirin,Toprol, Plavix and Lipitor and Renaxa 500. 2. Status post CABG and aortic valve replacement with a porcine aortic valve with residual mod . 3. History of atrial fibrillation and ablation, remained in sinus rhythm on aspirin,Toprol 50 bid, Coumadin and Plavix. 4. Diabetes. 5. Depression. 6. Status post amputation of the fingers. DW Sister OK to DC from cardiac perspective Subjective Subjective Alert in NAD. Still BIPAP machine for NH. Sister and RN at bedside. Objective Last 24 Hour Vital Signs Date Time Temp Pulse Resp B/P (MAP) Pulse Ox O2 Delivery O2 Flow Rate FiO2 05/10/17 16:00 97.5 64 20 119/75 95 Room Air 05/10/17 12:00 97.3 62 20 118/73 97 Room Air 05/10/17 09:21 76 116/72 05/10/17 08:04 76 18 Room Air 21 05/10/17 08:00 97.5 75 20 116/72 96 Room Air 05/10/17 05:32 66 16 96 Facial 30 05/10/17 05:17 106/68 05/10/17 04:01 97.0 65 18 106/68 98 05/10/17 03:07 65 18 95 Facial 30 05/10/17 00:37 70 16 97 Facial 30 05/10/17 00:00 97.0 70 18 109/70 97 Room Air 05/09/17 22:26 71 18 95 Facial 30 05/09/17 20:39 69 105/62 05/09/17 20:00 96.6 69 18 105/62 96 Room Air 05/09/17 19:46 71 18 Room Air 21 05/09/17 17:51 108/69 Laboratory Tests Test 05/10/17 05:15 Prothrombin Time 30.0 SEC (9.30-11.50) H Prothromb Time International Ratio 2.8 (0.9-1.1) H Objective HEAD AND NECK: Shows no JVD. LUNGS: Clear. CARDIOVASCULAR: Nl S1 and S2 with no gallop . 2/6 Systolic murmur LSB. Sternotomy intact ABDOMEN: Soft. EXTREMITIES: 1+ pitting edema. TOLUIE,ALEX May 10, 2017 17:26
[2017-05-10 20:00] VITALS: BP 107/56
[2017-05-10] MEDS: QUEtiapine 200mg tab ORAL SCH (21:31)
[2017-05-10] MEDS: Tamsulosin 0.4mg cap ORAL SCH (21:31)
[2017-05-11] VITALS (7 sets, daily range): BP systolic 100–115; BP diastolic 58–66
--- NOTE | 2017-05-11 05:00 | Progress Note ---
DATE: 05/10/2017 SUBJECTIVE: This is a 61-year-old male patient. He has acute coronary syndrome. PLAN: We will continue treatment with Abilify 5 mg daily to stabilize his mood. Chart reviewed and discussed with staff. Jody Armas M.D. DR: MARGAUX JOB#: [id number] CC:
[2017-05-11] MEDS: NovoLOG Insulin Flexpen SUBQ SCH ×4 (06:21→21:20)
[2017-05-11 07:37] LABS: BASOPHILS % (AUTO) 0.8 % (0.0-2.0); EOSINOPHILS % (AUTO) 5.8 % (0.0-3.0); MEAN CORPUSCULAR HEMOGLOBIN 32.3 PG (27.0-31.0); MEAN CORPUSCULAR HGB CONC 34.5 G/DL (32.0-36.0); MEAN CORPUSCULAR VOLUME 94 FL (80-99); MEAN PLATELET VOLUME 5.4 FL (6.5-10.1); MONOCYTES % (AUTO) 9.9 % (1.0-10.0); NEUTROPHILS % (AUTO) 52.5 % (45.0-75.0); PLATELET COUNT 147 K/UL (150-450); RED BLOOD COUNT 3.79 M/UL (4.70-6.10); RED CELL DISTRIBUTION WIDTH 14.7 % (11.6-14.8); WHITE BLOOD COUNT 4.4 K/UL (4.8-10.8)
[2017-05-11 07:47] LABS: INR 2.6 (0.9-1.1); PROTHROMBIN TIME 27.1 SEC (9.30-11.50)
[2017-05-11 07:57] LABS: ANION GAP 12 (5-15); CALCIUM 9.4 mg/dL (8.6-10.2); CARBON DIOXIDE 25 mEQ/L (20-30); CHLORIDE 101 mEQ/L (98-107); CREATININE 1.2 mg/dL (0.7-1.2); GLOMERULAR FILTRATION RATE > 60 mL/min (>60); HEMOLYSIS 14; POTASSIUM 3.7 mEQ/L (3.4-4.9); SODIUM 138 mEQ/L (135-145)
[2017-05-11] MEDS: Metoprolol Tartrate 50mg tab ORAL SCH ×2 (09:00→21:17)
--- NOTE | 2017-05-11 09:05 | Wound Care Consultation ---
Wound Assessment Wound Assessment : Wound Number: 1 Wound Present on Admission: Yes New Wound: No Status Change of Wound: No Wound Location Body Site Modif: mid Wound Location Body Site: other - sacrococcygeal Wound Type: pressure ulcer Kayla Test: Does not Kayla Pressure Ulcer Stage: I - remains intact Wound Length: 4.5 Wound Width: 3.0 Percent of Wound Clever/Red: 100 Wound Drainage Amount: None Wound Drainage Odor: None/Absent Tissue Surrounding Wound: Intact Wound General Appearance: Reddened Wound Comment #1 sacrococcygeal stage 1 pressure ulcer. -upon reassessment noted redness remains present to site , skin remains intact. no further deterioration present. reminded resident importance of repositioning off loading site.verbalizes he understands. recommendation. -Local wound care as ordered. -Keep clean and dry. -Low air loss spr mattress. -Turn and reposition. -Avoid shear and friction. -Optimize nutrition. -Offload affected area. -remind patient importance of repositioning. -Assess and notify MD for any changes of condition. BHUPINDER SCHMITT May 11, 2017 09:05
[2017-05-11] MEDS: Aspirin Baby 81mg ORAL SCH (09:56)
[2017-05-11] MEDS: Ranolazine 500mg tab ORAL SCH ×2 (09:58→21:18)
[2017-05-11] MEDS: ARIPiprazole 10mg tab ORAL SCH (09:58)
[2017-05-11] MEDS: KETOCONAZOLE 2% TOPIC SCH (09:59)
--- NOTE | 2017-05-11 11:26 | General Progress Note ---
Assessment/Plan Assessment/Plan 1. Pancytopenia. Monitor. --> Wbc, hgb, and platelets are low but not critical currently --> Give prbc if hgb<7 and platelets if <20k --> Potentially, the patient has a history of underlying liver disease. --> HIV and hepatitis panel are both negative --> Ultrasound of the abdomen reveal cysts on right kidney, fatty liver, splenomegaly, atherosclerotic vascular disease, and absent left kidney 2. Thrombocytopenia --> monitor, improving 3. Anemia, very mild. --> Continue to closely monitor, likely secondary to chronic disease. --> No blood transfusion required unless symptomatic or hgb<7 --> Has been stable with hgb >11 4. Diarrhea, rule out Clostridium difficile. 5. Acute coronary syndrome. Cardiology service is following. 6. Diabetes mellitus. Blood sugar goal between 80 and 120. Subjective Date patient seen: May 10, 2017 Constitutional: Reports: no symptoms HEENT: Reports: no symptoms Cardiovascular: Reports: no symptoms Respiratory: Reports: no symptoms Gastrointestinal/Abdominal: Reports: no symptoms Genitourinary: Reports: no symptoms Neurologic/Psychiatric: Reports: no symptoms Endocrine: Reports: no symptoms Hematologic/Lymphatic: Reports: anemia Allergies: Coded Allergies: ADHESIVE TAPE (Verified Allergy, Unknown, 04/27/17) AMIODARONE (Verified Allergy, Unknown, 04/27/17) INFLUENZA VIRUS VACCINES (Verified Allergy, Unknown, 04/27/17) SULFAMETHIZOLE (Verified Allergy, Unknown, 04/27/17) Subjective nad Objective Last 24 Hour Vital Signs Date Time Temp Pulse Resp B/P (MAP) Pulse Ox O2 Delivery O2 Flow Rate FiO2 05/11/17 09:00 68 100/58 05/11/17 08:00 97.2 68 20 100/58 96 Room Air 05/11/17 06:52 77 18 Room Air 21 05/11/17 06:20 114/66 05/11/17 05:12 64 20 97 Facial 30 05/11/17 04:00 97.6 57 18 114/66 95 Room Air 05/11/17 03:24 62 16 96 Facial 30 05/11/17 01:30 60 14 97 Facial 30 05/11/17 00:01 97.7 62 18 102/60 96 Room Air 05/10/17 23:45 64 15 97 Facial 30 05/10/17 21:07 72 18 Room Air 21 05/10/17 21:00 72 107/56 05/10/17 20:00 97.7 77 18 107/56 95 Room Air 05/10/17 17:23 119/75 05/10/17 16:00 97.5 64 20 119/75 95 Room Air 05/10/17 12:00 97.3 62 20 118/73 97 Room Air Laboratory Tests 05/11/17 06:15: White Blood Count 4.4L, Red Blood Count 3.79L, Hemoglobin 12.2L, Hematocrit 35.4L, Mean Corpuscular Volume 94, Mean Corpuscular Hemoglobin 32.3H, Mean Corpuscular Hemoglobin Concent 34.5, Red Cell Distribution Width 14.7, Platelet Count 147L, Mean Platelet Volume 5.4L, Neutrophils (%) (Auto) 52.5, Lymphocytes (%) (Auto) 31.0, Monocytes (%) (Auto) 9.9, Eosinophils (%) (Auto) 5.8H, Basophils (%) (Auto) 0.8, Prothrombin Time 27.1H, Prothromb Time International Ratio 2.6H, Sodium Level 138, Potassium Level 3.7, Chloride Level 101, Carbon Dioxide Level 25, Anion Gap 12, Blood Urea Nitrogen 14, Creatinine 1.2, Estimat Glomerular Filtration Rate > 60, Glucose Level 203H, Calcium Level 9.4 Height (Feet): 5 Height (Inches): 7.00 Weight (Pounds): 219 General Appearance: no apparent distress EENT: normal ENT inspection Cardiovascular: normal peripheral pulses Abdomen: non tender 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
--- NOTE | 2017-05-11 13:43 | General Progress Note ---
Assessment/Plan Problem List: (1) Stress reaction ICD Codes: F43.0 - Acute stress reaction SNOMED: 38792804 (2) Hyperglycemia due to type 2 diabetes mellitus ICD Codes: E11.65 - Type 2 diabetes mellitus with hyperglycemia SNOMED: 152879939909835, 95761975 Qualifiers: Qualified Codes: E11.65 - Type 2 diabetes mellitus with hyperglycemia; Z79.4 - prison (current) use of insulin (3) Chest pain ICD Codes: R07.9 - Chest pain, unspecified SNOMED: 31401629 Qualifiers: Qualified Codes: R07.9 - Chest pain, unspecified (4) Diabetes mellitus ICD Codes: E11.9 - Type 2 diabetes mellitus without complications SNOMED: 92745161 (5) Acute coronary syndrome ICD Codes: I24.9 - Acute ischemic heart disease, unspecified SNOMED: 156574631 Status: stable, progressing, tolerating diet Assessment/Plan ot pt diet pain control cbc bmp am dc to snf Subjective Constitutional: Reports: weakness Allergies: Coded Allergies: ADHESIVE TAPE (Verified Allergy, Unknown, 04/27/17) AMIODARONE (Verified Allergy, Unknown, 04/27/17) INFLUENZA VIRUS VACCINES (Verified Allergy, Unknown, 04/27/17) SULFAMETHIZOLE (Verified Allergy, Unknown, 04/27/17) All Systems: reviewed and negative except above Subjective sl weak anxious Objective Last 24 Hour Vital Signs Date Time Temp Pulse Resp B/P (MAP) Pulse Ox O2 Delivery O2 Flow Rate FiO2 05/11/17 09:00 68 100/58 05/11/17 08:00 97.2 68 20 100/58 96 Room Air 05/11/17 06:52 77 18 Room Air 05/11/17 06:20 114/66 05/11/17 05:12 64 20 97 Facial 30 05/11/17 04:00 97.6 57 18 114/66 95 Room Air 05/11/17 03:24 62 16 96 Facial 30 05/11/17 01:30 60 14 97 Facial 30 05/11/17 00:01 97.7 62 18 102/60 96 Room Air 05/10/17 23:45 64 15 97 Facial 30 05/10/17 21:07 72 18 Room Air 21 05/10/17 21:00 72 107/56 05/10/17 20:00 97.7 77 18 107/56 95 Room Air 05/10/17 17:23 119/75 05/10/17 16:00 97.5 64 20 119/75 95 Room Air Laboratory Tests 05/11/17 06:15: White Blood Count 4.4L, Red Blood Count 3.79L, Hemoglobin 12.2L, Hematocrit 35.4L, Mean Corpuscular Volume 94, Mean Corpuscular Hemoglobin 32.3H, Mean Corpuscular Hemoglobin Concent 34.5, Red Cell Distribution Width 14.7, Platelet Count 147L, Mean Platelet Volume 5.4L, Neutrophils (%) (Auto) 52.5, Lymphocytes (%) (Auto) 31.0, Monocytes (%) (Auto) 9.9, Eosinophils (%) (Auto) 5.8H, Basophils (%) (Auto) 0.8, Prothrombin Time 27.1H, Prothromb Time International Ratio 2.6H, Sodium Level 138, Potassium Level 3.7, Chloride Level 101, Carbon Dioxide Level 25, Anion Gap 12, Blood Urea Nitrogen 14, Creatinine 1.2, Estimat Glomerular Filtration Rate > 60, Glucose Level 203H, Calcium Level 9.4 Height (Feet): 5 Height (Inches): 7.00 Weight (Pounds): 219 General Appearance: lethargic Neck: normal inspection Cardiovascular: normal peripheral pulses, normal rate, regular rhythm Respiratory/Chest: chest wall non-tender, lungs clear, normal breath sounds Abdomen: normal bowel sounds, non tender, soft Extremities: normal inspection Edema: no edema noted Arm (L), no edema noted Arm (R), no edema noted Leg (L), no edema noted Leg (R), no edema noted Pedal (L), no edema noted Pedal (R), no edema noted Generalized Neurologic: responsive, motor weakness Skin: normal pigmentation, warm/dry ANDRE SILVA May 11, 2017 13:43
--- NOTE | 2017-05-11 15:17 | Infectious Diseases Prog Note ---
Assessment/Plan Problems: (1) Diarrhea Assessment & Plan: resolved, with no evidence of recurrent C DIFF, or stool infection and negative stool culture, keep off antibiotics. advised to avoid any unnecessary antibiotics in the future , avoid laxatives (2) Chest pain Assessment & Plan: resolved, he was ruled out for ACS , with negative stress test , medical management as per cardiology team (3) Diabetes mellitus Assessment & Plan: recommend tight glycemic control to keep blood glucose between 80-120 (4) CAD (coronary artery disease) Assessment & Plan: continue cardiac meds, cardiology is following (5) Dermatitis, seborrheic Assessment & Plan: on ketoconazole shampoo prn (6) THOMAS (acute kidney injury) Assessment & Plan: improving, suspect dehydration, recommend hydration and close monitor of renal function test . Subjective Constitutional: Reports: no symptoms HEENT: Reports: no symptoms Respiratory: Reports: no symptoms Breasts: Reports: no symptoms Cardiovascular: Reports: no symptoms Gastrointestinal/Abdominal: Reports: no symptoms Genitourinary: Reports: no symptoms Neurologic: Reports: no symptoms Psychiatric: Reports: no symptoms Skin: Reports: no symptoms Endocrine: Reports: no symptoms Hematologic: Reports: no symptoms Allergies: Coded Allergies: ADHESIVE TAPE (Verified Allergy, Unknown, 04/27/17) AMIODARONE (Verified Allergy, Unknown, 04/27/17) INFLUENZA VIRUS VACCINES (Verified Allergy, Unknown, 04/27/17) SULFAMETHIZOLE (Verified Allergy, Unknown, 04/27/17) Objective Vital Signs Last 24 Hour Vital Signs Date Time Temp Pulse Resp B/P (MAP) Pulse Ox O2 Delivery O2 Flow Rate FiO2 05/11/17 09:00 68 100/58 05/11/17 08:00 97.2 68 20 100/58 96 Room Air 05/11/17 06:52 77 18 Room Air 21 05/11/17 06:20 114/66 05/11/17 05:12 64 20 97 Facial 30 05/11/17 04:00 97.6 57 18 114/66 95 Room Air 05/11/17 03:24 62 16 96 Facial 30 05/11/17 01:30 60 14 97 Facial 30 05/11/17 00:01 97.7 62 18 102/60 96 Room Air 05/10/17 23:45 64 15 97 Facial 30 05/10/17 21:07 72 18 Room Air 21 05/10/17 21:00 72 107/56 05/10/17 20:00 97.7 77 18 107/56 95 Room Air 05/10/17 17:23 119/75 05/10/17 16:00 97.5 64 20 119/75 95 Room Air Height (Feet): 5 Height (Inches): 7.00 Weight (Pounds): 219 General Appearance: WD/WN, no acute distress HEENT: normocephalic, atraumatic, anicteric, mucous membranes moist, PERRL, EOMI, pharynx normal, supple, no JVD Respiratory/Chest: chest wall non-tender, lungs clear, normal breath sounds, no respiratory distress, no accessory muscle use Cardiovascular: normal peripheral pulses, normal rate, regular rhythm, no gallop/murmur, no JVD Abdomen: normal bowel sounds, soft, non tender, no organomegaly, non distended , no mass, no scars Extremities: no cyanosis, no clubbing Skin: no rash, no lesions Neurologic/Psychiatric: alert, oriented x 3 Laboratory Tests Test 05/11/17 06:15 White Blood Count 4.4 K/UL (4.8-10.8) L Red Blood Count 3.79 M/UL (4.70-6.10) L Hemoglobin 12.2 G/DL (14.2-18.0) L Hematocrit 35.4 % (42.0-52.0) L Mean Corpuscular Volume 94 FL (80-99) Mean Corpuscular Hemoglobin 32.3 PG (27.0-31.0) H Mean Corpuscular Hemoglobin Concent 34.5 G/DL (32.0-36.0) Red Cell Distribution Width 14.7 % (11.6-14.8) Platelet Count 147 K/UL (150-450) L Mean Platelet Volume 5.4 FL (6.5-10.1) L Neutrophils (%) (Auto) 52.5 % (45.0-75.0) Lymphocytes (%) (Auto) 31.0 % (20.0-45.0) Monocytes (%) (Auto) 9.9 % (1.0-10.0) Eosinophils (%) (Auto) 5.8 % (0.0-3.0) H Basophils (%) (Auto) 0.8 % (0.0-2.0) Prothrombin Time 27.1 SEC (9.30-11.50) H Prothromb Time International Ratio 2.6 (0.9-1.1) H Sodium Level 138 mEQ/L (135-145) Potassium Level 3.7 mEQ/L (3.4-4.9) Chloride Level 101 mEQ/L (98-107) Carbon Dioxide Level 25 mEQ/L (20-30) Anion Gap 12 (5-15) Blood Urea Nitrogen 14 mg/dL (7-23) Creatinine 1.2 mg/dL (0.7-1.2) Estimat Glomerular Filtration Rate > 60 mL/min (>60) Glucose Level 203 mg/dL (74-106) H Calcium Level 9.4 mg/dL (8.6-10.2) Current Medications Medications (Trade) Dose Ordered Sig/Tanner Route PRN Reason Start Time Stop Time Status Last Admin Dose Admin Acetaminophen (Tylenol) 650 mg Q4H PRN ORAL FEVER>100.5 05/05/17 17:00 05/28/17 16:59 Allopurinol (Allopurinol) 300 mg DAILY ORAL 05/06/17 09:00 05/28/17 08:59 05/11/17 09:58 Aripiprazole (Abilify) 35 mg DAILY ORAL 05/06/17 09:00 06/05/17 08:59 05/11/17 09:58 Aspirin (ASA) 162 mg DAILY ORAL 05/06/17 09:00 05/28/17 08:59 05/11/17 09:56 Atorvastatin Calcium (Lipitor) 40 mg BEDTIME ORAL 05/05/17 21:00 05/28/17 20:59 05/10/17 21:31 Clopidogrel Bisulfate (Plavix) 75 mg DAILY ORAL 05/06/17 09:00 05/28/17 08:59 05/11/17 09:57 Dextrose (Dextrose 50%) STAT PRN IV Hypoglycemia 05/05/17 17:00 06/04/17 16:59 Enalaprilat (Vasotec) 2.5 mg Q6H PRN IV sbp more than 160 05/05/17 17:00 06/04/17 16:59 Escitalopram Oxalate (Lexapro) 20 mg DAILY ORAL 05/06/17 09:00 05/28/17 12:59 05/11/17 09:56 Fish Oil (Fish Oil) 1,000 mg DAILY ORAL 05/06/17 09:00 05/31/17 08:59 05/07/17 09:13 Insulin Aspart (NovoLOG) BEFORE MEALS AND HS SUBQ 05/05/17 17:30 05/28/17 17:29 05/11/17 12:46 Isosorbide Dinitrate (Isordil) 30 mg BID@0600,1800 ORAL 05/05/17 18:00 06/03/17 18:04 05/11/17 06:20 Ketoconazole (Nizoral 2% Cream) 1 applic DAILY TOPIC 05/06/17 09:00 06/01/17 08:59 05/11/17 09:58 Ketoconazole (Nizoral 2% Shampoo) 1 applic DAILY TOPIC 05/06/17 09:00 06/01/17 08:59 05/11/17 09:59 Metoprolol Tartrate (Lopressor) 50 mg Q12HR ORAL 05/05/17 21:00 05/30/17 20:59 05/10/17 21:00 Mirtazapine (Remeron) 30 mg QHS ORAL 05/05/17 21:00 05/28/17 20:59 05/10/17 21:31 Nitroglycerin (Ntg) 0.4 mg Q5MIN PRN SL Prn Chest Pain 05/05/17 16:00 06/04/17 15:59 05/07/17 00:12 Ondansetron HCl (Zofran) 4 mg Q6H PRN IVP Nausea & Vomiting 05/05/17 17:00 05/28/17 16:59 Pantoprazole (Protonix) 40 mg ACBREAKFAST ORAL 05/06/17 06:30 05/28/17 08:59 05/11/17 06:20 Polyethylene Glycol (Miralax) 17 gm DAILYPRN PRN ORAL Constipation 05/05/17 17:00 06/04/17 16:59 Quetiapine Fumarate (SEROquel) 25 mg DAILY@1700 ORAL 05/05/17 17:00 05/30/17 16:59 05/10/17 17:22 Quetiapine Fumarate (SEROquel) 200 mg BEDTIME ORAL 05/05/17 21:00 05/28/17 20:59 05/10/17 21:31 Ranolazine (Ranexa ER 500mg) 500 mg Q12HR ORAL 05/05/17 21:00 06/02/17 20:59 05/11/17 09:58 Tamsulosin HCl (Flomax) 0.4 mg BEDTIME ORAL 05/05/17 21:00 05/28/17 20:59 05/10/17 21:31 Temazepam (Restoril) 15 mg HSPRN PRN ORAL Insomnia 05/06/17 23:30 05/13/17 23:29 05/10/17 22:34 Warfarin Sodium (Coumadin per pharmacy) 1 ea DAILYPRN PRN MISC Per rx protocol 05/05/17 17:00 06/04/17 16:59 Warfarin Sodium (Coumadin) 6 mg COUMADIN ORAL 05/11/17 17:00 05/11/17 17:01 Gladys Murillo M.D. May 11, 2017 15:17
--- NOTE | 2017-05-11 16:44 | Pulmonology Progress Note ---
Assessment/Plan Problems: (1) Acute coronary syndrome (2) Chest pain (3) Diabetes mellitus (4) CAD (coronary artery disease) (5) Hx of CABG Assessment/Plan no new complains, doing better sliding scale diabetic diet waiting for the discharge awaiting bipap machine Subjective ROS Limited/Unobtainable: No Constitutional: Reports: no symptoms HEENT: Repors: no symptoms Respiratory: Reports: no symptoms Cardiovascular: Reports: no symptoms Genitourinary: Reports: no symptoms Allergies: Coded Allergies: ADHESIVE TAPE (Verified Allergy, Unknown, 04/27/17) AMIODARONE (Verified Allergy, Unknown, 04/27/17) INFLUENZA VIRUS VACCINES (Verified Allergy, Unknown, 04/27/17) SULFAMETHIZOLE (Verified Allergy, Unknown, 04/27/17) Objective Last 24 Hour Vital Signs Date Time Temp Pulse Resp B/P (MAP) Pulse Ox O2 Delivery O2 Flow Rate FiO2 05/11/17 16:00 98.2 76 20 115/64 97 Room Air 05/11/17 12:00 97.3 70 20 113/62 96 Room Air 05/11/17 09:00 68 100/58 05/11/17 08:00 97.2 68 20 100/58 96 Room Air 05/11/17 06:52 77 18 Room Air 21 05/11/17 06:20 114/66 05/11/17 05:12 64 20 97 Facial 30 05/11/17 04:00 97.6 57 18 114/66 95 Room Air 05/11/17 03:24 62 16 96 Facial 30 05/11/17 01:30 60 14 97 Facial 30 05/11/17 00:01 97.7 62 18 102/60 96 Room Air 05/10/17 23:45 64 15 97 Facial 30 05/10/17 21:07 72 18 Room Air 21 05/10/17 21:00 72 107/56 05/10/17 20:00 97.7 77 18 107/56 95 Room Air 05/10/17 17:23 119/75 General Appearance: WD/WN HEENT: normocephalic, atraumatic Respiratory/Chest: chest wall non-tender, lungs clear Cardiovascular: normal peripheral pulses, normal rate Abdomen: normal bowel sounds, soft, non tender Genitourinary: normal external genitalia Extremities: no cyanosis Skin: no rash, no lesions, no ulcers Laboratory Tests 9/6/17 06:15: White Blood Count 4.4L, Red Blood Count 3.79L, Hemoglobin 12.2L, Hematocrit 35.4L, Mean Corpuscular Volume 94, Mean Corpuscular Hemoglobin 32.3H, Mean Corpuscular Hemoglobin Concent 34.5, Red Cell Distribution Width 14.7, Platelet Count 147L, Mean Platelet Volume 5.4L, Neutrophils (%) (Auto) 52.5, Lymphocytes (%) (Auto) 31.0, Monocytes (%) (Auto) 9.9, Eosinophils (%) (Auto) 5.8H, Basophils (%) (Auto) 0.8, Prothrombin Time 27.1H, Prothromb Time International Ratio 2.6H, Sodium Level 138, Potassium Level 3.7, Chloride Level 101, Carbon Dioxide Level 25, Anion Gap 12, Blood Urea Nitrogen 14, Creatinine 1.2, Estimat Glomerular Filtration Rate > 60, Glucose Level 203H, Calcium Level 9.4 Current Medications Medications (Trade) Dose Ordered Sig/Tanner Route PRN Reason Start Time Stop Time Status Last Admin Dose Admin Acetaminophen (Tylenol) 650 mg Q4H PRN ORAL FEVER>100.5 05/05/17 17:00 05/28/17 16:59 Allopurinol (Allopurinol) 300 mg DAILY ORAL 05/06/17 09:00 05/28/17 08:59 05/11/17 09:58 Aripiprazole (Abilify) 35 mg DAILY ORAL 05/06/17 09:00 06/05/17 08:59 05/11/17 09:58 Aspirin (ASA) 162 mg DAILY ORAL 05/06/17 09:00 05/28/17 08:59 05/11/17 09:56 Atorvastatin Calcium (Lipitor) 40 mg BEDTIME ORAL 05/05/17 21:00 05/28/17 20:59 05/10/17 21:31 Clopidogrel Bisulfate (Plavix) 75 mg DAILY ORAL 05/06/17 09:00 05/28/17 08:59 05/11/17 09:57 Dextrose (Dextrose 50%) STAT PRN IV Hypoglycemia 05/05/17 17:00 06/04/17 16:59 Enalaprilat (Vasotec) 2.5 mg Q6H PRN IV sbp more than 160 05/05/17 17:00 06/04/17 16:59 Escitalopram Oxalate (Lexapro) 20 mg DAILY ORAL 05/06/17 09:00 05/28/17 12:59 05/11/17 09:56 Fish Oil (Fish Oil) 1,000 mg DAILY ORAL 05/06/17 09:00 05/31/17 08:59 05/07/17 09:13 Insulin Aspart (NovoLOG) BEFORE MEALS AND HS SUBQ 05/05/17 17:30 05/28/17 17:29 05/11/17 12:46 Isosorbide Dinitrate (Isordil) 30 mg BID@0600,1800 ORAL 05/05/17 18:00 06/03/17 18:04 05/11/17 06:20 Ketoconazole (Nizoral 2% Cream) 1 applic DAILY TOPIC 05/06/17 09:00 06/01/17 08:59 05/11/17 09:58 Ketoconazole (Nizoral 2% Shampoo) 1 applic DAILY TOPIC 05/06/17 09:00 06/01/17 08:59 05/11/17 09:59 Metoprolol Tartrate (Lopressor) 50 mg Q12HR ORAL 05/05/17 21:00 05/30/17 20:59 05/10/17 21:00 Mirtazapine (Remeron) 30 mg QHS ORAL 05/05/17 21:00 05/28/17 20:59 05/10/17 21:31 Nitroglycerin (Ntg) 0.4 mg Q5MIN PRN SL Prn Chest Pain 05/05/17 16:00 06/04/17 15:59 05/07/17 00:12 Ondansetron HCl (Zofran) 4 mg Q6H PRN IVP Nausea & Vomiting 05/05/17 17:00 05/28/17 16:59 Pantoprazole (Protonix) 40 mg ACBREAKFAST ORAL 05/06/17 06:30 05/28/17 08:59 05/11/17 06:20 Polyethylene Glycol (Miralax) 17 gm DAILYPRN PRN ORAL Constipation 05/05/17 17:00 06/04/17 16:59 Quetiapine Fumarate (SEROquel) 25 mg DAILY@1700 ORAL 05/05/17 17:00 05/30/17 16:59 05/10/17 17:22 Quetiapine Fumarate (SEROquel) 200 mg BEDTIME ORAL 05/05/17 21:00 05/28/17 20:59 05/10/17 21:31 Ranolazine (Ranexa ER 500mg) 500 mg Q12HR ORAL 05/05/17 21:00 06/02/17 20:59 05/11/17 09:58 Tamsulosin HCl (Flomax) 0.4 mg BEDTIME ORAL 05/05/17 21:00 05/28/17 20:59 05/10/17 21:31 Temazepam (Restoril) 15 mg HSPRN PRN ORAL Insomnia 05/06/17 23:30 05/13/17 23:29 05/10/17 22:34 Warfarin Sodium (Coumadin per pharmacy) 1 ea DAILYPRN PRN MISC Per rx protocol 05/05/17 17:00 06/04/17 16:59 Warfarin Sodium (Coumadin) 6 mg COUMADIN ORAL 05/11/17 17:00 05/11/17 17:01 THADDEUS YA May 11, 2017 16:44
[2017-05-11] MEDS ORDERED: Warfarin Sodium 3mg ORAL SCH (17:00)
--- NOTE | 2017-05-11 17:19 | General Progress Note ---
Assessment/Plan Assessment/Plan 1. Pancytopenia. Monitor. --> Wbc, hgb, and platelets are low but not critical currently --> Give prbc if hgb<7 and platelets if <20k --> HIV and hepatitis panel are both negative --> Ultrasound of the abdomen reveal cysts on right kidney, fatty liver, splenomegaly, atherosclerotic vascular disease, and absent left kidney 2. Thrombocytopenia --> monitor, improving 3. Anemia, very mild. --> Continue to closely monitor, likely secondary to chronic disease. --> No blood transfusion required unless symptomatic or hgb<7 --> Has been stable with hgb >11 4. Diarrhea, rule out Clostridium difficile. 5. Acute coronary syndrome. Cardiology service is following. 6. Diabetes mellitus. Blood sugar goal between 80 and 120. Subjective Constitutional: Reports: no symptoms HEENT: Reports: no symptoms Cardiovascular: Reports: no symptoms Respiratory: Reports: no symptoms Gastrointestinal/Abdominal: Reports: no symptoms Genitourinary: Reports: no symptoms Neurologic/Psychiatric: Reports: no symptoms Endocrine: Reports: no symptoms Hematologic/Lymphatic: Reports: no symptoms Allergies: Coded Allergies: ADHESIVE TAPE (Verified Allergy, Unknown, 04/27/17) AMIODARONE (Verified Allergy, Unknown, 04/27/17) INFLUENZA VIRUS VACCINES (Verified Allergy, Unknown, 04/27/17) SULFAMETHIZOLE (Verified Allergy, Unknown, 04/27/17) Objective Last 24 Hour Vital Signs Date Time Temp Pulse Resp B/P (MAP) Pulse Ox O2 Delivery O2 Flow Rate FiO2 05/11/17 16:00 98.2 76 20 115/64 97 Room Air 05/11/17 12:00 97.3 70 20 113/62 96 Room Air 05/11/17 09:00 68 100/58 05/11/17 08:00 97.2 68 20 100/58 96 Room Air 05/11/17 06:52 77 18 Room Air 21 05/11/17 06:20 114/66 05/11/17 05:12 64 20 97 Facial 30 05/11/17 04:00 97.6 57 18 114/66 95 Room Air 05/11/17 03:24 62 16 96 Facial 30 05/11/17 01:30 60 14 97 Facial 30 05/11/17 00:01 97.7 62 18 102/60 96 Room Air 05/10/17 23:45 64 15 97 Facial 30 05/10/17 21:07 72 18 Room Air 21 05/10/17 21:00 72 107/56 05/10/17 20:00 97.7 77 18 107/56 95 Room Air 05/10/17 17:23 119/75 Laboratory Tests 05/11/17 06:15: White Blood Count 4.4L, Red Blood Count 3.79L, Hemoglobin 12.2L, Hematocrit 35.4L, Mean Corpuscular Volume 94, Mean Corpuscular Hemoglobin 32.3H, Mean Corpuscular Hemoglobin Concent 34.5, Red Cell Distribution Width 14.7, Platelet Count 147L, Mean Platelet Volume 5.4L, Neutrophils (%) (Auto) 52.5, Lymphocytes (%) (Auto) 31.0, Monocytes (%) (Auto) 9.9, Eosinophils (%) (Auto) 5.8H, Basophils (%) (Auto) 0.8, Prothrombin Time 27.1H, Prothromb Time International Ratio 2.6H, Sodium Level 138, Potassium Level 3.7, Chloride Level 101, Carbon Dioxide Level 25, Anion Gap 12, Blood Urea Nitrogen 14, Creatinine 1.2, Estimat Glomerular Filtration Rate > 60, Glucose Level 203H, Calcium Level 9.4 Height (Feet): 5 Height (Inches): 7.00 Weight (Pounds): 219 General Appearance: no apparent distress EENT: normal ENT inspection Neck: normal alignment Respiratory/Chest: no accessory muscle use Abdomen: no organomegaly Neurologic: bathroom 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
--- NOTE | 2017-05-11 18:24 | Cardiac Electrophysiology PN ---
Assessment/Plan Assessment/Plan 1. Atypical Chest pain and Hx of CABG with last PCI June 2016 at [facility]. Ruled out for myocardial infarction. Nuclear stress test showed no definite ischemia. 2D echocardiogram EF 65%. Continue aspirin,Toprol, Plavix and Lipitor and Renaxa 500. 2. Status post CABG and aortic valve replacement with a porcine aortic valve with residual mod . 3. History of atrial fibrillation and ablation, remained in sinus rhythm on aspirin,Toprol 50 bid, Coumadin and Plavix. 4. Diabetes. 5. Depression. 6. Status post amputation of the fingers. DW Sister OK to DC from cardiac perspective Subjective Subjective Alert in NAD. BIPAP machine arrived but they are appealing discharge. Sister and RN at bedside. Objective Last 24 Hour Vital Signs Date Time Temp Pulse Resp B/P (MAP) Pulse Ox O2 Delivery O2 Flow Rate FiO2 05/11/17 18:03 115/64 05/11/17 16:00 98.2 76 20 115/64 97 Room Air 05/11/17 12:00 97.3 70 20 113/62 96 Room Air 05/11/17 09:00 68 100/58 05/11/17 08:00 97.2 68 20 100/58 96 Room Air 05/11/17 06:52 77 18 Room Air 21 05/11/17 06:20 114/66 05/11/17 05:12 64 20 97 Facial 30 05/11/17 04:00 97.6 57 18 114/66 95 Room Air 05/11/17 03:24 62 16 96 Facial 30 05/11/17 01:30 60 14 97 Facial 30 05/11/17 00:01 97.7 62 18 102/60 96 Room Air 05/10/17 23:45 64 15 97 Facial 30 05/10/17 21:07 72 18 Room Air 21 05/10/17 21:00 72 107/56 05/10/17 20:00 97.7 77 18 107/56 95 Room Air Laboratory Tests Test 05/11/17 06:15 White Blood Count 4.4 K/UL (4.8-10.8) L Red Blood Count 3.79 M/UL (4.70-6.10) L Hemoglobin 12.2 G/DL (14.2-18.0) L Hematocrit 35.4 % (42.0-52.0) L Mean Corpuscular Volume 94 FL (80-99) Mean Corpuscular Hemoglobin 32.3 PG (27.0-31.0) H Mean Corpuscular Hemoglobin Concent 34.5 G/DL (32.0-36.0) Red Cell Distribution Width 14.7 % (11.6-14.8) Platelet Count 147 K/UL (150-450) L Mean Platelet Volume 5.4 FL (6.5-10.1) L Neutrophils (%) (Auto) 52.5 % (45.0-75.0) Lymphocytes (%) (Auto) 31.0 % (20.0-45.0) Monocytes (%) (Auto) 9.9 % (1.0-10.0) Eosinophils (%) (Auto) 5.8 % (0.0-3.0) H Basophils (%) (Auto) 0.8 % (0.0-2.0) Prothrombin Time 27.1 SEC (9.30-11.50) H Prothromb Time International Ratio 2.6 (0.9-1.1) H Sodium Level 138 mEQ/L (135-145) Potassium Level 3.7 mEQ/L (3.4-4.9) Chloride Level 101 mEQ/L (98-107) Carbon Dioxide Level 25 mEQ/L (20-30) Anion Gap 12 (5-15) Blood Urea Nitrogen 14 mg/dL (7-23) Creatinine 1.2 mg/dL (0.7-1.2) Estimat Glomerular Filtration Rate > 60 mL/min (>60) Glucose Level 203 mg/dL (74-106) H Calcium Level 9.4 mg/dL (8.6-10.2) Objective HEAD AND NECK: Shows no JVD. LUNGS: Clear. CARDIOVASCULAR: Nl S1 and S2 with no gallop . 2/6 Systolic murmur LSB. Sternotomy intact ABDOMEN: Soft. EXTREMITIES: 1+ pitting edema. ALEX VALDES May 11, 2017 18:24
[2017-05-11] MEDS: Tamsulosin 0.4mg cap ORAL SCH (21:18)
[2017-05-11] MEDS: QUEtiapine 200mg tab ORAL SCH (21:18)
[2017-05-12 04:00] VITALS: BP 104/65
[2017-05-12] MEDS: NovoLOG Insulin Flexpen SUBQ SCH ×4 (06:17→21:48)
[2017-05-12 07:08] LABS: BASOPHILS % (AUTO) 1.4 % (0.0-2.0); EOSINOPHILS % (AUTO) 5.7 % (0.0-3.0); LYMPHOCYTES % (AUTO) 39.1 % (20.0-45.0); MEAN CORPUSCULAR HEMOGLOBIN 33.8 PG (27.0-31.0); MEAN CORPUSCULAR HGB CONC 35.8 G/DL (32.0-36.0); MEAN CORPUSCULAR VOLUME 95 FL (80-99); MEAN PLATELET VOLUME 6.1 FL (6.5-10.1); NEUTROPHILS % (AUTO) 44.8 % (45.0-75.0); PLATELET COUNT 139 K/UL (150-450); RED BLOOD COUNT 3.71 M/UL (4.70-6.10); RED CELL DISTRIBUTION WIDTH 13.9 % (11.6-14.8); WHITE BLOOD COUNT 4.4 K/UL (4.8-10.8)
[2017-05-12 07:26] LABS: ANION GAP 12 (5-15); CALCIUM 9.6 mg/dL (8.6-10.2); CARBON DIOXIDE 26 mEQ/L (20-30); CHLORIDE 101 mEQ/L (98-107); CREATININE 1.2 mg/dL (0.7-1.2); GLOMERULAR FILTRATION RATE > 60 mL/min (>60); HEMOLYSIS 5; POTASSIUM 3.5 mEQ/L (3.4-4.9); SODIUM 139 mEQ/L (135-145)
[2017-05-12 08:15] VITALS: BP 101/56
[2017-05-12] MEDS: Aspirin Baby 81mg ORAL SCH (08:58)
[2017-05-12] MEDS: Metoprolol Tartrate 50mg tab ORAL SCH ×2 (08:59→21:46)
[2017-05-12] MEDS: Ranolazine 500mg tab ORAL SCH ×2 (09:00→21:45)
[2017-05-12] MEDS: KETOCONAZOLE 2% TOPIC SCH (09:00)
[2017-05-12] MEDS: ARIPiprazole 10mg tab ORAL SCH (09:00)
[2017-05-12 11:27] VITALS: BP 104/65
[2017-05-12 13:44] LABS: INR 2.5 (0.9-1.1); PROTHROMBIN TIME 26.2 SEC (9.30-11.50)
--- NOTE | 2017-05-12 13:55 | General Progress Note ---
Assessment/Plan Problem List: (1) Stress reaction ICD Codes: F43.0 - Acute stress reaction SNOMED: 32009695 (2) Hyperglycemia due to type 2 diabetes mellitus ICD Codes: E11.65 - Type 2 diabetes mellitus with hyperglycemia SNOMED: 300338077985649, [id number] Qualifiers: Qualified Codes: E11.65 - Type 2 diabetes mellitus with hyperglycemia; Z79.4 - residential (current) use of insulin (3) Chest pain ICD Codes: R07.9 - Chest pain, unspecified SNOMED: 59862325 Qualifiers: Qualified Codes: R07.9 - Chest pain, unspecified (4) Diabetes mellitus ICD Codes: E11.9 - Type 2 diabetes mellitus without complications SNOMED: 10732835 (5) Acute coronary syndrome ICD Codes: I24.9 - Acute ischemic heart disease, unspecified SNOMED: 651395995 Status: stable, progressing, tolerating diet Assessment/Plan ot pt diet pain control cbc bmp am dc to snf Subjective Constitutional: Reports: weakness Allergies: Coded Allergies: ADHESIVE TAPE (Verified Allergy, Unknown, 04/27/17) AMIODARONE (Verified Allergy, Unknown, 04/27/17) INFLUENZA VIRUS VACCINES (Verified Allergy, Unknown, 04/27/17) SULFAMETHIZOLE (Verified Allergy, Unknown, 04/27/17) All Systems: reviewed and negative except above Subjective sl weak anxious Objective Last 24 Hour Vital Signs Date Time Temp Pulse Resp B/P (MAP) Pulse Ox O2 Delivery O2 Flow Rate FiO2 05/12/17 11:27 97.8 62 19 104/65 96 Room Air 05/12/17 08:59 69 101/56 05/12/17 08:43 69 18 Room Air 05/12/17 08:15 97.5 67 19 101/56 97 Room Air 05/12/17 06:16 104/65 05/12/17 05:27 66 16 98 Facial 30 05/12/17 04:00 97.3 56 18 104/65 100 Bi-pap 05/12/17 03:18 66 15 100 Facial 30 05/12/17 01:35 65 20 100 Facial 30 05/11/17 23:52 98.0 67 18 100/61 97 Room Air 05/11/17 23:11 64 21 96 Facial 30 05/11/17 21:17 74 110/62 05/11/17 20:15 74 18 Room Air 21 05/11/17 20:00 98.4 76 18 110/62 95 Room Air 05/11/17 18:03 115/64 05/11/17 16:00 98.2 76 20 115/64 97 Room Air Intake and Output 05/12/17 05/13/17 19:00 07:00 Intake Total 560 ml Output Total 500 ml Balance 60 ml Intake Oral 560 ml Output Urine Total 500 ml Laboratory Tests 05/12/17 05:10: White Blood Count 4.4L, Red Blood Count 3.71L, Hemoglobin 12.6L, Hematocrit 35.1L, Mean Corpuscular Volume 95, Mean Corpuscular Hemoglobin 33.8H, Mean Corpuscular Hemoglobin Concent 35.8, Red Cell Distribution Width 13.9, Platelet Count 139L, Mean Platelet Volume 6.1L, Neutrophils (%) (Auto) 44.8L, Lymphocytes (%) (Auto) 39.1, Monocytes (%) (Auto) 9.0, Eosinophils (%) (Auto) 5.7H, Basophils (%) (Auto) 1.4, Sodium Level 139, Potassium Level 3.5, Chloride Level 101, Carbon Dioxide Level 26, Anion Gap 12, Blood Urea Nitrogen 15, Creatinine 1.2, Estimat Glomerular Filtration Rate > 60, Glucose Level 226H, Calcium Level 9.6 05/12/17 12:30: Prothrombin Time 26.2H, Prothromb Time International Ratio 2.5H Height (Feet): 5 Height (Inches): 7.00 Weight (Pounds): 219 General Appearance: lethargic EENT: normal ENT inspection Neck: normal alignment Cardiovascular: normal peripheral pulses, normal rate, regular rhythm Respiratory/Chest: chest wall non-tender, lungs clear, normal breath sounds Abdomen: normal bowel sounds, non tender, soft Extremities: normal inspection Edema: no edema noted Arm (L), no edema noted Arm (R), no edema noted Leg (L), no edema noted Leg (R), no edema noted Pedal (L), no edema noted Pedal (R), no edema noted Generalized Neurologic: responsive, motor weakness Skin: normal pigmentation, warm/dry ANDRE SILVA May 12, 2017 13:55
--- NOTE | 2017-05-12 15:51 | Infectious Diseases Prog Note ---
Assessment/Plan Problems: (1) Diarrhea Assessment & Plan: mild , with no evidence of recurrent C DIFF, or stool infection and negative stool culture, keep off antibiotics. advised to avoid any unnecessary antibiotics in the future , avoid laxatives (2) Chest pain Assessment & Plan: resolved, he was ruled out for ACS , with negative stress test , medical management as per cardiology team (3) Diabetes mellitus Assessment & Plan: recommend tight glycemic control to keep blood glucose between 80-120 (4) CAD (coronary artery disease) Assessment & Plan: continue cardiac meds, cardiology is following (5) Dermatitis, seborrheic Assessment & Plan: on ketoconazole shampoo prn (6) THOMAS (acute kidney injury) Assessment & Plan: improving, suspect dehydration, recommend hydration and close monitor of renal function test . Subjective Constitutional: Reports: no symptoms HEENT: Reports: no symptoms Respiratory: Reports: no symptoms Breasts: Reports: no symptoms Cardiovascular: Reports: no symptoms Gastrointestinal/Abdominal: Reports: no symptoms Genitourinary: Reports: no symptoms Neurologic: Reports: no symptoms Psychiatric: Reports: no symptoms Skin: Reports: no symptoms Endocrine: Reports: no symptoms Hematologic: Reports: no symptoms Allergies: Coded Allergies: ADHESIVE TAPE (Verified Allergy, Unknown, 04/27/17) AMIODARONE (Verified Allergy, Unknown, 04/27/17) INFLUENZA VIRUS VACCINES (Verified Allergy, Unknown, 04/27/17) SULFAMETHIZOLE (Verified Allergy, Unknown, 04/27/17) Objective Vital Signs Last 24 Hour Vital Signs Date Time Temp Pulse Resp B/P (MAP) Pulse Ox O2 Delivery O2 Flow Rate FiO2 05/12/17 11:27 97.8 62 19 104/65 96 Room Air 05/12/17 08:59 69 101/56 05/12/17 08:43 69 18 Room Air 05/12/17 08:15 97.5 67 19 101/56 97 Room Air 05/12/17 06:16 104/65 05/12/17 05:27 66 16 98 Facial 30 05/12/17 04:00 97.3 56 18 104/65 100 Bi-pap 05/12/17 03:18 66 15 100 Facial 30 05/12/17 01:35 65 20 100 Facial 30 05/11/17 23:52 98.0 67 18 100/61 97 Room Air 05/11/17 23:11 64 21 96 Facial 30 05/11/17 21:17 74 110/62 05/11/17 20:15 74 18 Room Air 21 05/11/17 20:00 98.4 76 18 110/62 95 Room Air 05/11/17 18:03 115/64 05/11/17 16:00 98.2 76 20 115/64 97 Room Air Height (Feet): 5 Height (Inches): 7.00 Weight (Pounds): 219 General Appearance: WD/WN, no acute distress HEENT: normocephalic, atraumatic, anicteric, mucous membranes moist, EOMI, pharynx normal, supple, no JVD Respiratory/Chest: chest wall non-tender, lungs clear, normal breath sounds, no respiratory distress, no accessory muscle use Cardiovascular: normal peripheral pulses, normal rate, regular rhythm, no gallop/murmur, no JVD Abdomen: normal bowel sounds, soft, non tender, no organomegaly, non distended , no mass, no scars Extremities: no cyanosis, no clubbing Skin: no rash, no lesions, no ulcers Neurologic/Psychiatric: alert, oriented x 3, responsive Musculoskeletal: normal muscle bulk, no effusion Laboratory Tests Test 05/12/17 05:10 05/12/17 12:30 White Blood Count 4.4 K/UL (4.8-10.8) L Red Blood Count 3.71 M/UL (4.70-6.10) L Hemoglobin 12.6 G/DL (14.2-18.0) L Hematocrit 35.1 % (42.0-52.0) L Mean Corpuscular Volume 95 FL (80-99) Mean Corpuscular Hemoglobin 33.8 PG (27.0-31.0) H Mean Corpuscular Hemoglobin Concent 35.8 G/DL (32.0-36.0) Red Cell Distribution Width 13.9 % (11.6-14.8) Platelet Count 139 K/UL (150-450) L Mean Platelet Volume 6.1 FL (6.5-10.1) L Neutrophils (%) (Auto) 44.8 % (45.0-75.0) L Lymphocytes (%) (Auto) 39.1 % (20.0-45.0) Monocytes (%) (Auto) 9.0 % (1.0-10.0) Eosinophils (%) (Auto) 5.7 % (0.0-3.0) H Basophils (%) (Auto) 1.4 % (0.0-2.0) Sodium Level 139 mEQ/L (135-145) Potassium Level 3.5 mEQ/L (3.4-4.9) Chloride Level 101 mEQ/L (98-107) Carbon Dioxide Level 26 mEQ/L (20-30) Anion Gap 12 (5-15) Blood Urea Nitrogen 15 mg/dL (7-23) Creatinine 1.2 mg/dL (0.7-1.2) Estimat Glomerular Filtration Rate > 60 mL/min (>60) Glucose Level 226 mg/dL (74-106) H Calcium Level 9.6 mg/dL (8.6-10.2) Prothrombin Time 26.2 SEC (9.30-11.50) H Prothromb Time International Ratio 2.5 (0.9-1.1) H Current Medications Medications (Trade) Dose Ordered Sig/Tanner Route PRN Reason Start Time Stop Time Status Last Admin Dose Admin Acetaminophen (Tylenol) 650 mg Q4H PRN ORAL FEVER>100.5 05/05/17 17:00 05/28/17 16:59 Allopurinol (Allopurinol) 300 mg DAILY ORAL 05/06/17 09:00 05/28/17 08:59 05/12/17 08:59 Aripiprazole (Abilify) 35 mg DAILY ORAL 05/06/17 09:00 06/05/17 08:59 05/12/17 09:00 Aspirin (ASA) 162 mg DAILY ORAL 05/06/17 09:00 05/28/17 08:59 05/12/17 08:58 Atorvastatin Calcium (Lipitor) 40 mg BEDTIME ORAL 05/05/17 21:00 05/28/17 20:59 05/11/17 21:18 Clopidogrel Bisulfate (Plavix) 75 mg DAILY ORAL 05/06/17 09:00 05/28/17 08:59 05/12/17 08:59 Dextrose (Dextrose 50%) STAT PRN IV Hypoglycemia 05/05/17 17:00 06/04/17 16:59 Enalaprilat (Vasotec) 2.5 mg Q6H PRN IV sbp more than 160 05/05/17 17:00 9/30/17 16:59 Escitalopram Oxalate (Lexapro) 20 mg DAILY ORAL 05/06/17 09:00 05/28/17 12:59 05/12/17 08:59 Fish Oil (Fish Oil) 1,000 mg DAILY ORAL 05/06/17 09:00 05/31/17 08:59 05/07/17 09:13 Insulin Aspart (NovoLOG) BEFORE MEALS AND HS SUBQ 05/05/17 17:30 05/28/17 17:29 05/12/17 12:26 Isosorbide Dinitrate (Isordil) 30 mg BID@0600,1800 ORAL 05/05/17 18:00 06/03/17 18:04 05/12/17 06:16 Ketoconazole (Nizoral 2% Cream) 1 applic DAILY TOPIC 05/06/17 09:00 06/01/17 08:59 05/12/17 09:09 Ketoconazole (Nizoral 2% Shampoo) 1 applic DAILY TOPIC 05/06/17 09:00 06/01/17 08:59 05/11/17 09:59 Metoprolol Tartrate (Lopressor) 50 mg Q12HR ORAL 05/05/17 21:00 05/30/17 20:59 05/12/17 08:59 Mirtazapine (Remeron) 30 mg QHS ORAL 05/05/17 21:00 05/28/17 20:59 05/11/17 21:18 Nitroglycerin (Ntg) 0.4 mg Q5MIN PRN SL Prn Chest Pain 05/05/17 16:00 06/04/17 15:59 05/07/17 00:12 Ondansetron HCl (Zofran) 4 mg Q6H PRN IVP Nausea & Vomiting 05/05/17 17:00 05/28/17 16:59 Pantoprazole (Protonix) 40 mg ACBREAKFAST ORAL 05/06/17 06:30 05/28/17 08:59 05/12/17 06:15 Polyethylene Glycol (Miralax) 17 gm DAILYPRN PRN ORAL Constipation 05/05/17 17:00 06/04/17 16:59 Quetiapine Fumarate (SEROquel) 25 mg DAILY@1700 ORAL 05/05/17 17:00 05/30/17 16:59 05/11/17 17:13 Quetiapine Fumarate (SEROquel) 200 mg BEDTIME ORAL 05/05/17 21:00 05/28/17 20:59 05/11/17 21:18 Ranolazine (Ranexa ER 500mg) 500 mg Q12HR ORAL 05/05/17 21:00 06/02/17 20:59 05/12/17 09:00 Tamsulosin HCl (Flomax) 0.4 mg BEDTIME ORAL 05/05/17 21:00 05/28/17 20:59 05/11/17 21:18 Temazepam (Restoril) 15 mg HSPRN PRN ORAL Insomnia 05/06/17 23:30 05/13/17 23:29 05/11/17 22:20 Warfarin Sodium (Coumadin per pharmacy) 1 ea DAILYPRN PRN MISC Per rx protocol 05/05/17 17:00 06/04/17 16:59 Warfarin Sodium (Coumadin) 6 mg COUMADIN ONCE ORAL 05/12/17 17:00 05/12/17 17:01 Gladys Murillo M.D. May 12, 2017 15:51
[2017-05-12 15:57] VITALS: BP 155/95
[2017-05-12] MEDS ORDERED: Warfarin Sodium 3mg ORAL ONE (17:00)
--- NOTE | 2017-05-12 17:47 | Cardiac Electrophysiology PN ---
Assessment/Plan Assessment/Plan 1. Atypical Chest pain. CABG with last PCI June 2016 at [facility]. Ruled out for myocardial infarction. Nuclear stress test,no definite ischemia. 2D echocardiogram EF 65%. Continue aspirin,Toprol, Plavix and Lipitor and Renaxa 500 bid. 2. Status post CABG and aortic valve replacement with a porcine aortic valve with residual mod . 3. History of atrial fibrillation and ablation, remained in sinus rhythm on aspirin,Toprol 50 bid, Coumadin and Plavix. 4. Diabetes. 5. Depression. 6. Status post amputation of the fingers. Subjective Subjective Alert in NAD. BIPAP machine arrived but they are still appealing discharge. Objective Last 24 Hour Vital Signs Date Time Temp Pulse Resp B/P (MAP) Pulse Ox O2 Delivery O2 Flow Rate FiO2 05/12/17 15:57 97.8 67 18 155/95 94 Room Air 05/12/17 11:27 97.8 62 19 104/65 96 Room Air 05/12/17 08:59 69 101/56 05/12/17 08:43 69 18 Room Air 05/12/17 08:15 97.5 67 19 101/56 97 Room Air 05/12/17 06:16 104/65 05/12/17 05:27 66 16 98 Facial 30 05/12/17 04:00 97.3 56 18 104/65 100 Bi-pap 05/12/17 03:18 66 15 100 Facial 30 05/12/17 01:35 65 20 100 Facial 30 05/11/17 23:52 98.0 67 18 100/61 97 Room Air 05/11/17 23:11 64 21 96 Facial 30 05/11/17 21:17 74 110/62 05/11/17 20:15 74 18 Room Air 21 05/11/17 20:00 98.4 76 18 110/62 95 Room Air 05/11/17 18:03 115/64 Intake and Output 05/12/17 05/13/17 19:00 07:00 Intake Total 560 ml Output Total 500 ml Balance 60 ml Intake Oral 560 ml Output Urine Total 500 ml Laboratory Tests Test 05/12/17 05:10 05/12/17 12:30 White Blood Count 4.4 K/UL (4.8-10.8) L Red Blood Count 3.71 M/UL (4.70-6.10) L Hemoglobin 12.6 G/DL (14.2-18.0) L Hematocrit 35.1 % (42.0-52.0) L Mean Corpuscular Volume 95 FL (80-99) Mean Corpuscular Hemoglobin 33.8 PG (27.0-31.0) H Mean Corpuscular Hemoglobin Concent 35.8 G/DL (32.0-36.0) Red Cell Distribution Width 13.9 % (11.6-14.8) Platelet Count 139 K/UL (150-450) L Mean Platelet Volume 6.1 FL (6.5-10.1) L Neutrophils (%) (Auto) 44.8 % (45.0-75.0) L Lymphocytes (%) (Auto) 39.1 % (20.0-45.0) Monocytes (%) (Auto) 9.0 % (1.0-10.0) Eosinophils (%) (Auto) 5.7 % (0.0-3.0) H Basophils (%) (Auto) 1.4 % (0.0-2.0) Sodium Level 139 mEQ/L (135-145) Potassium Level 3.5 mEQ/L (3.4-4.9) Chloride Level 101 mEQ/L (98-107) Carbon Dioxide Level 26 mEQ/L (20-30) Anion Gap 12 (5-15) Blood Urea Nitrogen 15 mg/dL (7-23) Creatinine 1.2 mg/dL (0.7-1.2) Estimat Glomerular Filtration Rate > 60 mL/min (>60) Glucose Level 226 mg/dL (74-106) H Calcium Level 9.6 mg/dL (8.6-10.2) Prothrombin Time 26.2 SEC (9.30-11.50) H Prothromb Time International Ratio 2.5 (0.9-1.1) H Objective HEAD AND NECK: Shows no JVD. LUNGS: Clear. CARDIOVASCULAR: Nl S1 and S2 with no gallop . 2/6 Systolic murmur LSB. Sternotomy intact ABDOMEN: Soft. EXTREMITIES: No edema. ALEX VALDES May 12, 2017 17:47
--- NOTE | 2017-05-12 18:56 | Pulmonology Progress Note ---
Assessment/Plan Problems: (1) Acute coronary syndrome (2) Chest pain (3) Diabetes mellitus (4) CAD (coronary artery disease) (5) Hx of CABG Assessment/Plan no new complains, doing better sliding scale diabetic diet waiting for the discharge awaiting bipap machine Subjective ROS Limited/Unobtainable: No Constitutional: Reports: no symptoms HEENT: Repors: no symptoms Respiratory: Reports: no symptoms Cardiovascular: Reports: no symptoms Allergies: Coded Allergies: ADHESIVE TAPE (Verified Allergy, Unknown, 04/27/17) AMIODARONE (Verified Allergy, Unknown, 04/27/17) INFLUENZA VIRUS VACCINES (Verified Allergy, Unknown, 04/27/17) SULFAMETHIZOLE (Verified Allergy, Unknown, 04/27/17) Objective Last 24 Hour Vital Signs Date Time Temp Pulse Resp B/P (MAP) Pulse Ox O2 Delivery O2 Flow Rate FiO2 05/12/17 18:00 155/95 05/12/17 15:57 97.8 67 18 155/95 94 Room Air 05/12/17 11:27 97.8 62 19 104/65 96 Room Air 05/12/17 08:59 69 101/56 05/12/17 08:43 69 18 Room Air 05/12/17 08:15 97.5 67 19 101/56 97 Room Air 05/12/17 06:16 104/65 05/12/17 05:27 66 16 98 Facial 30 05/12/17 04:00 97.3 56 18 104/65 100 Bi-pap 05/12/17 03:18 66 15 100 Facial 30 05/12/17 01:35 65 20 100 Facial 30 05/11/17 23:52 98.0 67 18 100/61 97 Room Air 05/11/17 23:11 64 21 96 Facial 30 05/11/17 21:17 74 110/62 05/11/17 20:15 74 18 Room Air 21 05/11/17 20:00 98.4 76 18 110/62 95 Room Air Intake and Output 05/12/17 05/13/17 19:00 07:00 Intake Total 560 ml Output Total 500 ml Balance 60 ml Intake Oral 560 ml Output Urine Total 500 ml General Appearance: WD/WN HEENT: normocephalic, atraumatic Respiratory/Chest: chest wall non-tender, lungs clear Cardiovascular: normal peripheral pulses, normal rate Abdomen: normal bowel sounds, soft, non tender Extremities: no cyanosis Skin: no rash, no ulcers Laboratory Tests 05/12/17 05:10: White Blood Count 4.4L, Red Blood Count 3.71L, Hemoglobin 12.6L, Hematocrit 35.1L, Mean Corpuscular Volume 95, Mean Corpuscular Hemoglobin 33.8H, Mean Corpuscular Hemoglobin Concent 35.8, Red Cell Distribution Width 13.9, Platelet Count 139L, Mean Platelet Volume 6.1L, Neutrophils (%) (Auto) 44.8L, Lymphocytes (%) (Auto) 39.1, Monocytes (%) (Auto) 9.0, Eosinophils (%) (Auto) 5.7H, Basophils (%) (Auto) 1.4, Sodium Level 139, Potassium Level 3.5, Chloride Level 101, Carbon Dioxide Level 26, Anion Gap 12, Blood Urea Nitrogen 15, Creatinine 1.2, Estimat Glomerular Filtration Rate > 60, Glucose Level 226H, Calcium Level 9.6 05/12/17 12:30: Prothrombin Time 26.2H, Prothromb Time International Ratio 2.5H Current Medications Medications (Trade) Dose Ordered Sig/Tanner Route PRN Reason Start Time Stop Time Status Last Admin Dose Admin Acetaminophen (Tylenol) 650 mg Q4H PRN ORAL FEVER>100.5 05/05/17 17:00 05/28/17 16:59 Allopurinol (Allopurinol) 300 mg DAILY ORAL 05/06/17 09:00 05/28/17 08:59 05/12/17 08:59 Aripiprazole (Abilify) 35 mg DAILY ORAL 05/06/17 09:00 06/05/17 08:59 05/12/17 09:00 Aspirin (ASA) 162 mg DAILY ORAL 05/06/17 09:00 05/28/17 08:59 05/12/17 08:58 Atorvastatin Calcium (Lipitor) 40 mg BEDTIME ORAL 05/05/17 21:00 05/28/17 20:59 05/11/17 21:18 Clopidogrel Bisulfate (Plavix) 75 mg DAILY ORAL 05/06/17 09:00 05/28/17 08:59 05/12/17 08:59 Dextrose (Dextrose 50%) STAT PRN IV Hypoglycemia 05/05/17 17:00 06/04/17 16:59 Enalaprilat (Vasotec) 2.5 mg Q6H PRN IV sbp more than 160 05/05/17 17:00 06/04/17 16:59 Escitalopram Oxalate (Lexapro) 20 mg DAILY ORAL 05/06/17 09:00 05/28/17 12:59 05/12/17 08:59 Fish Oil (Fish Oil) 1,000 mg DAILY ORAL 05/06/17 09:00 05/31/17 08:59 05/07/17 09:13 Insulin Aspart (NovoLOG) BEFORE MEALS AND HS SUBQ 05/05/17 17:30 05/28/17 17:29 05/12/17 17:14 Isosorbide Dinitrate (Isordil) 30 mg BID@0600,1800 ORAL 05/05/17 18:00 06/03/17 18:04 05/12/17 18:00 Ketoconazole (Nizoral 2% Cream) 1 applic DAILY TOPIC 05/06/17 09:00 06/01/17 08:59 05/12/17 09:09 Ketoconazole (Nizoral 2% Shampoo) 1 applic DAILY TOPIC 05/06/17 09:00 06/01/17 08:59 05/11/17 09:59 Metoprolol Tartrate (Lopressor) 50 mg Q12HR ORAL 05/05/17 21:00 05/30/17 20:59 05/12/17 08:59 Mirtazapine (Remeron) 30 mg QHS ORAL 05/05/17 21:00 05/28/17 20:59 05/11/17 21:18 Nitroglycerin (Ntg) 0.4 mg Q5MIN PRN SL Prn Chest Pain 05/05/17 16:00 06/04/17 15:59 05/07/17 00:12 Ondansetron HCl (Zofran) 4 mg Q6H PRN IVP Nausea & Vomiting 05/05/17 17:00 05/28/17 16:59 Pantoprazole (Protonix) 40 mg ACBREAKFAST ORAL 05/06/17 06:30 05/28/17 08:59 05/12/17 06:15 Polyethylene Glycol (Miralax) 17 gm DAILYPRN PRN ORAL Constipation 05/05/17 17:00 9/30/17 16:59 Quetiapine Fumarate (SEROquel) 25 mg DAILY@1700 ORAL 05/05/17 17:00 05/30/17 16:59 05/12/17 17:12 Quetiapine Fumarate (SEROquel) 200 mg BEDTIME ORAL 05/05/17 21:00 05/28/17 20:59 05/11/17 21:18 Ranolazine (Ranexa ER 500mg) 500 mg Q12HR ORAL 05/05/17 21:00 06/02/17 20:59 05/12/17 09:00 Tamsulosin HCl (Flomax) 0.4 mg BEDTIME ORAL 05/05/17 21:00 05/28/17 20:59 05/11/17 21:18 Temazepam (Restoril) 15 mg HSPRN PRN ORAL Insomnia 05/06/17 23:30 05/13/17 23:29 05/11/17 22:20 Warfarin Sodium (Coumadin per pharmacy) 1 ea DAILYPRN PRN MISC Per rx protocol 05/05/17 17:00 06/04/17 16:59 THADDEUS YA May 12, 2017 18:56
--- NOTE | 2017-05-12 19:05 | General Progress Note ---
Assessment/Plan Assessment/Plan 1. Pancytopenia. Monitor. --> Wbc, hgb, and platelets are low but not critical --> Give prbc if hgb<7 and platelets if <20k --> HIV and hepatitis panel are both negative --> Ultrasound of the abdomen reveal cysts on right kidney, fatty liver, splenomegaly, atherosclerotic vascular disease, and absent left kidney 2. Thrombocytopenia --> monitor, improving 3. Anemia, very mild. --> Continue to closely monitor, likely secondary to chronic disease. --> No blood transfusion required unless symptomatic or hgb<7 --> Has been stable with hgb >11 4. Diarrhea, resolved. 5. Acute coronary syndrome. Cardiology service is following. 6. Diabetes mellitus. Blood sugar goal between 80 and 120. Subjective Constitutional: Reports: no symptoms HEENT: Reports: no symptoms Cardiovascular: Reports: no symptoms Respiratory: Reports: other - await bipap Gastrointestinal/Abdominal: Reports: no symptoms Genitourinary: Reports: no symptoms Neurologic/Psychiatric: Reports: no symptoms Endocrine: Reports: no symptoms Hematologic/Lymphatic: Reports: anemia Allergies: Coded Allergies: ADHESIVE TAPE (Verified Allergy, Unknown, 04/27/17) AMIODARONE (Verified Allergy, Unknown, 04/27/17) INFLUENZA VIRUS VACCINES (Verified Allergy, Unknown, 04/27/17) SULFAMETHIZOLE (Verified Allergy, Unknown, 04/27/17) Subjective no new complaints, afebrile Objective Last 24 Hour Vital Signs Date Time Temp Pulse Resp B/P (MAP) Pulse Ox O2 Delivery O2 Flow Rate FiO2 05/12/17 18:00 155/95 05/12/17 15:57 97.8 67 18 155/95 94 Room Air 05/12/17 11:27 97.8 62 19 104/65 96 Room Air 05/12/17 08:59 69 101/56 05/12/17 08:43 69 18 Room Air 05/12/17 08:15 97.5 67 19 101/56 97 Room Air 05/12/17 06:16 104/65 05/12/17 05:27 66 16 98 Facial 30 05/12/17 04:00 97.3 56 18 104/65 100 Bi-pap 05/12/17 03:18 66 15 100 Facial 30 05/12/17 01:35 65 20 100 Facial 30 05/11/17 23:52 98.0 67 18 100/61 97 Room Air 05/11/17 23:11 64 21 96 Facial 30 05/11/17 21:17 74 110/62 05/11/17 20:15 74 18 Room Air 21 05/11/17 20:00 98.4 76 18 110/62 95 Room Air Intake and Output 05/12/17 05/13/17 19:00 07:00 Intake Total 560 ml Output Total 500 ml Balance 60 ml Intake Oral 560 ml Output Urine Total 500 ml Laboratory Tests 05/12/17 05:10: White Blood Count 4.4L, Red Blood Count 3.71L, Hemoglobin 12.6L, Hematocrit 35.1L, Mean Corpuscular Volume 95, Mean Corpuscular Hemoglobin 33.8H, Mean Corpuscular Hemoglobin Concent 35.8, Red Cell Distribution Width 13.9, Platelet Count 139L, Mean Platelet Volume 6.1L, Neutrophils (%) (Auto) 44.8L, Lymphocytes (%) (Auto) 39.1, Monocytes (%) (Auto) 9.0, Eosinophils (%) (Auto) 5.7H, Basophils (%) (Auto) 1.4, Sodium Level 139, Potassium Level 3.5, Chloride Level 101, Carbon Dioxide Level 26, Anion Gap 12, Blood Urea Nitrogen 15, Creatinine 1.2, Estimat Glomerular Filtration Rate > 60, Glucose Level 226H, Calcium Level 9.6 05/12/17 12:30: Prothrombin Time 26.2H, Prothromb Time International Ratio 2.5H Height (Feet): 5 Height (Inches): 7.00 Weight (Pounds): 219 General Appearance: no apparent distress EENT: normal ENT inspection Neck: normal alignment Edema: mild edema Skin: warm/dry Enrique Willis May 12, 2017 19:05
[2017-05-12 20:00] VITALS: BP 107/66
[2017-05-12] MEDS: Tamsulosin 0.4mg cap ORAL SCH (21:46)
[2017-05-12] MEDS: QUEtiapine 200mg tab ORAL SCH (21:46)
[2017-05-13] VITALS: BP 110/68
[2017-05-13 04:00] VITALS: BP 112/62
[2017-05-13] MEDS: NovoLOG Insulin Flexpen SUBQ SCH ×4 (06:18→21:31)
[2017-05-13 07:02] LABS: INR 2.4 (0.9-1.1); PROTHROMBIN TIME 25.2 SEC (9.30-11.50)
[2017-05-13 07:16] LABS: BASOPHILS % (AUTO) 0.6 % (0.0-2.0); EOSINOPHILS % (AUTO) 5.4 % (0.0-3.0); LYMPHOCYTES % (AUTO) 39.6 % (20.0-45.0); MEAN CORPUSCULAR HEMOGLOBIN 31.9 PG (27.0-31.0); MEAN CORPUSCULAR HGB CONC 34.1 G/DL (32.0-36.0); MEAN CORPUSCULAR VOLUME 93 FL (80-99); MEAN PLATELET VOLUME 5.7 FL (6.5-10.1); MONOCYTES % (AUTO) 8.5 % (1.0-10.0); PLATELET COUNT 127 K/UL (150-450); RED BLOOD COUNT 3.75 M/UL (4.70-6.10); RED CELL DISTRIBUTION WIDTH 14.6 % (11.6-14.8); WHITE BLOOD COUNT 3.8 K/UL (4.8-10.8)
[2017-05-13 07:19] LABS: ANION GAP 15 (5-15); CALCIUM 9.6 mg/dL (8.6-10.2); CARBON DIOXIDE 22 mEQ/L (20-30); CHLORIDE 105 mEQ/L (98-107); CREATININE 1.2 mg/dL (0.7-1.2); GLOMERULAR FILTRATION RATE > 60 mL/min (>60); HEMOLYSIS 50; POTASSIUM 4.1 mEQ/L (3.4-4.9); SODIUM 142 mEQ/L (135-145)
--- NOTE | 2017-05-13 07:45 | Pulmonology Progress Note ---
Assessment/Plan Assessment/Plan ASSESSMENT Chest pain Possible ACS CAD with hx of CABG and multiple cardiac interventions s/p AVR Moderate Hx of A fib with ablation DM Schizoaffective disorder, bipolar type Diarrhea, r/o C dif PLAN OF CARE [facility] floor Serial troponin x 3 negative ECG no acute ischemic changes, ruled out for acute [facility] Cardio follows chest pain atypical as per cardio ECHO with pEF 60-65% and RBSP of 32, moderate Nuclear stress test negative for evidence of ischemia s/p CABG with PCI June 2016 at [facility]. Continue antiplatelet therapy ( ASA and Plavix), Coumadin, BB , Ranexa , Isosorbide and statin- as per cardio recommendations remains in SR, on a/coagulation , Lipid panel with elevated TG counseled on low fat low cholesterol diet Added Fish oil creat down to 1.2c O2 prn to keep sat above 92% Pulmonary toilet prn CXR negative awaiting for BiPAP machine BS management with SS of insulin ID follows Hx of C dif, s/p Rx, stool C dif, stool culture both negative , off Vanco abdominal US with evidence of fatty liver. Splenomegaly. Psych follows Psych meds optimized as per psych Pain management PT/OT dc plan as per PMD awaiting for disposition and BiPAP machine case discussed and evaluated by supervising physician Subjective Allergies: Coded Allergies: ADHESIVE TAPE (Verified Allergy, Unknown, 04/27/17) AMIODARONE (Verified Allergy, Unknown, 04/27/17) INFLUENZA VIRUS VACCINES (Verified Allergy, Unknown, 04/27/17) SULFAMETHIZOLE (Verified Allergy, Unknown, 04/27/17) Subjective no chest pain, feeling better awaiting for placement and BiPAP machine creat-1.2 Objective Last 24 Hour Vital Signs Date Time Temp Pulse Resp B/P (MAP) Pulse Ox O2 Delivery O2 Flow Rate FiO2 05/13/17 06:17 112/62 05/13/17 04:00 97.5 66 18 112/62 91 Room Air 05/13/17 00:00 97.3 78 18 110/68 90 Room Air 05/12/17 23:12 70 18 98 Facial 30 05/12/17 21:46 72 155/95 05/12/17 20:02 72 18 Room Air 05/12/17 20:00 97.7 20 107/66 92 Room Air 05/12/17 18:00 155/95 05/12/17 15:57 97.8 67 18 155/95 94 Room Air 05/12/17 11:27 97.8 62 19 104/65 96 Room Air 05/12/17 08:59 69 101/56 05/12/17 08:43 69 18 Room Air 05/12/17 08:15 97.5 67 19 101/56 97 Room Air Objective General Appearance: no acute distress, other - awake, alert, responsive obese male HEENT: normocephalic, atraumatic, anicteric, mucous membranes moist Respiratory/Chest: chest wall non-tender, lungs clear, no respiratory distress , no accessory muscle use Cardiovascular: normal rate, regular rhythm Abdomen: normal bowel sounds, soft, non tender - obese Genitourinary: normal external genitalia Extremities: no edema, pedal pulses normal Neurologic/Psychiatric: abnormal gait, alert, responsive Musculoskeletal: normal muscle bulk Laboratory Tests 05/12/17 12:30: Prothrombin Time 26.2H, Prothromb Time International Ratio 2.5H 05/13/17 05:50: Prothrombin Time 25.2H, Prothromb Time International Ratio 2.4H, White Blood Count 3.8L, Red Blood Count 3.75L, Hemoglobin 12.0L, Hematocrit 35.0L, Mean Corpuscular Volume 93, Mean Corpuscular Hemoglobin 31.9H, Mean Corpuscular Hemoglobin Concent 34.1, Red Cell Distribution Width 14.6, Platelet Count 127L, Mean Platelet Volume 5.7L, Neutrophils (%) (Auto) 46.0, Lymphocytes (%) (Auto) 39.6, Monocytes (%) (Auto) 8.5, Eosinophils (%) (Auto) 5.4H, Basophils (%) (Auto ) 0.6, Sodium Level 142, Potassium Level 4.1, Chloride Level 105, Carbon Dioxide Level 22, Anion Gap 15, Blood Urea Nitrogen 16, Creatinine 1.2, Estimat Glomerular Filtration Rate > 60, Glucose Level 200H, Calcium Level 9.6 Current Medications Medications (Trade) Dose Ordered Sig/Tanner Route PRN Reason Start Time Stop Time Status Last Admin Dose Admin Acetaminophen (Tylenol) 650 mg Q4H PRN ORAL FEVER>100.5 05/05/17 17:00 05/28/17 16:59 Allopurinol (Allopurinol) 300 mg DAILY ORAL 05/06/17 09:00 05/28/17 08:59 05/12/17 08:59 Aripiprazole (Abilify) 35 mg DAILY ORAL 05/06/17 09:00 06/05/17 08:59 05/12/17 09:00 Aspirin (ASA) 162 mg DAILY ORAL 05/06/17 09:00 05/28/17 08:59 05/12/17 08:58 Atorvastatin Calcium (Lipitor) 40 mg BEDTIME ORAL 05/05/17 21:00 05/28/17 20:59 05/12/17 21:46 Clopidogrel Bisulfate (Plavix) 75 mg DAILY ORAL 05/06/17 09:00 05/28/17 08:59 05/12/17 08:59 Dextrose (Dextrose 50%) STAT PRN IV Hypoglycemia 05/05/17 17:00 06/04/17 16:59 Enalaprilat (Vasotec) 2.5 mg Q6H PRN IV sbp more than 160 05/05/17 17:00 06/04/17 16:59 Escitalopram Oxalate (Lexapro) 20 mg DAILY ORAL 05/06/17 09:00 05/28/17 12:59 05/12/17 08:59 Fish Oil (Fish Oil) 1,000 mg DAILY ORAL 05/06/17 09:00 05/31/17 08:59 05/07/17 09:13 Insulin Aspart (NovoLOG) BEFORE MEALS AND HS SUBQ 05/05/17 17:30 05/28/17 17:29 05/13/17 06:18 Isosorbide Dinitrate (Isordil) 30 mg BID@0600,1800 ORAL 05/05/17 18:00 06/03/17 18:04 05/13/17 06:17 Ketoconazole (Nizoral 2% Cream) 1 applic DAILY TOPIC 05/06/17 09:00 06/01/17 08:59 05/12/17 09:09 Ketoconazole (Nizoral 2% Shampoo) 1 applic DAILY TOPIC 05/06/17 09:00 06/01/17 08:59 05/11/17 09:59 Metoprolol Tartrate (Lopressor) 50 mg Q12HR ORAL 05/05/17 21:00 05/30/17 20:59 05/12/17 21:46 Mirtazapine (Remeron) 30 mg QHS ORAL 05/05/17 21:00 05/28/17 20:59 05/12/17 21:45 Nitroglycerin (Ntg) 0.4 mg Q5MIN PRN SL Prn Chest Pain 05/05/17 16:00 06/04/17 15:59 05/07/17 00:12 Ondansetron HCl (Zofran) 4 mg Q6H PRN IVP Nausea & Vomiting 05/05/17 17:00 05/28/17 16:59 Pantoprazole (Protonix) 40 mg ACBREAKFAST ORAL 05/06/17 06:30 05/28/17 08:59 05/13/17 06:17 Polyethylene Glycol (Miralax) 17 gm DAILYPRN PRN ORAL Constipation 05/05/17 17:00 06/04/17 16:59 Quetiapine Fumarate (SEROquel) 25 mg DAILY@1700 ORAL 05/05/17 17:00 05/30/17 16:59 05/12/17 17:12 Quetiapine Fumarate (SEROquel) 200 mg BEDTIME ORAL 05/05/17 21:00 05/28/17 20:59 05/12/17 21:46 Ranolazine (Ranexa ER 500mg) 500 mg Q12HR ORAL 05/05/17 21:00 06/02/17 20:59 05/12/17 21:45 Tamsulosin HCl (Flomax) 0.4 mg BEDTIME ORAL 05/05/17 21:00 05/28/17 20:59 05/12/17 21:46 Temazepam (Restoril) 15 mg HSPRN PRN ORAL Insomnia 05/06/17 23:30 05/13/17 23:29 05/12/17 22:32 Warfarin Sodium (Coumadin per pharmacy) 1 ea DAILYPRN PRN MISC Per rx protocol 05/05/17 17:00 06/04/17 16:59 [facility]Al[facility] CenterKennedi Kline NP May 13, 2017 07:45
[2017-05-13 08:00] VITALS: BP 104/63
[2017-05-13] MEDS: Metoprolol Tartrate 50mg tab ORAL SCH ×2 (09:00→20:42)
[2017-05-13] MEDS: Aspirin Baby 81mg ORAL SCH (09:40)
[2017-05-13] MEDS: Ranolazine 500mg tab ORAL SCH ×2 (09:41→21:28)
[2017-05-13] MEDS: ARIPiprazole 10mg tab ORAL SCH (09:41)
[2017-05-13] MEDS: KETOCONAZOLE 2% TOPIC SCH (09:42)
[2017-05-13 12:00] VITALS: BP 121/69
--- NOTE | 2017-05-13 13:04 | General Progress Note ---
Assessment/Plan Assessment/Plan 1. Pancytopenia. Monitor. --> Wbc, hgb, and platelets are low but not critical --> Give prbc if hgb<7 and platelets if <20k --> HIV and hepatitis panel are both negative --> Ultrasound of the abdomen reveal cysts on right kidney, fatty liver, splenomegaly, atherosclerotic vascular disease, and absent left kidney 2. Thrombocytopenia --> monitor, improving 3. Anemia, very mild. --> Continue to closely monitor, likely secondary to chronic disease. --> No blood transfusion required unless symptomatic or hgb<7 --> Has been stable with hgb >11 4. Diarrhea, resolved. --> ruled out c dif 5. Acute coronary syndrome. Cardiology service is following. 6. Diabetes mellitus. Subjective Constitutional: Reports: no symptoms HEENT: Reports: no symptoms Cardiovascular: Reports: no symptoms Respiratory: Reports: no symptoms Gastrointestinal/Abdominal: Reports: no symptoms Genitourinary: Reports: no symptoms Neurologic/Psychiatric: Reports: no symptoms Endocrine: Reports: no symptoms Hematologic/Lymphatic: Reports: no symptoms Allergies: Coded Allergies: ADHESIVE TAPE (Verified Allergy, Unknown, 04/27/17) AMIODARONE (Verified Allergy, Unknown, 04/27/17) INFLUENZA VIRUS VACCINES (Verified Allergy, Unknown, 04/27/17) SULFAMETHIZOLE (Verified Allergy, Unknown, 04/27/17) Subjective dc planning in progress, bipap Objective Last 24 Hour Vital Signs Date Time Temp Pulse Resp B/P (MAP) Pulse Ox O2 Delivery O2 Flow Rate FiO2 05/13/17 12:00 97.2 57 19 121/69 97 Room Air 05/13/17 09:00 76 104/63 05/13/17 08:32 76 20 Room Air 05/13/17 08:00 97.3 75 19 104/63 99 Room Air 05/13/17 06:17 112/62 05/13/17 04:00 97.5 66 18 112/62 91 Room Air 05/13/17 00:00 97.3 78 18 110/68 90 Room Air 05/12/17 23:12 70 18 98 Facial 30 05/12/17 21:46 72 155/95 05/12/17 20:02 72 18 Room Air 05/12/17 20:00 97.7 20 107/66 92 Room Air 05/12/17 18:00 155/95 9/7/17 15:57 97.8 67 18 155/95 94 Room Air Intake and Output 05/13/17 05/14/17 19:00 07:00 Intake Total 360 ml Balance 360 ml Intake Oral 360 ml Laboratory Tests 05/13/17 05:50: White Blood Count 3.8L, Red Blood Count 3.75L, Hemoglobin 12.0L, Hematocrit 35.0L, Mean Corpuscular Volume 93, Mean Corpuscular Hemoglobin 31.9H, Mean Corpuscular Hemoglobin Concent 34.1, Red Cell Distribution Width 14.6, Platelet Count 127L, Mean Platelet Volume 5.7L, Neutrophils (%) (Auto) 46.0, Lymphocytes (%) (Auto) 39.6, Monocytes (%) (Auto) 8.5, Eosinophils (%) (Auto) 5.4H, Basophils (%) (Auto) 0.6, Prothrombin Time 25.2H, Prothromb Time International Ratio 2.4H, Sodium Level 142, Potassium Level 4.1, Chloride Level 105, Carbon Dioxide Level 22, Anion Gap 15, Blood Urea Nitrogen 16, Creatinine 1.2, Estimat Glomerular Filtration Rate > 60, Glucose Level 200H, Calcium Level 9.6 Height (Feet): 5 Height (Inches): 7.00 Weight (Pounds): 219 General Appearance: no apparent distress EENT: normal ENT inspection Neck: normal alignment Cardiovascular: normal peripheral pulses Neurologic: drapery hand II-XII grossly normal Enrique Willis May 13, 2017 13:04
--- NOTE | 2017-05-13 14:00 | General Progress Note ---
Assessment/Plan Problem List: (1) Stress reaction ICD Codes: F43.0 - Acute stress reaction SNOMED: 91430948 (2) Hyperglycemia due to type 2 diabetes mellitus ICD Codes: E11.65 - Type 2 diabetes mellitus with hyperglycemia SNOMED: 982369519383065, [id number] Qualifiers: Qualified Codes: E11.65 - Type 2 diabetes mellitus with hyperglycemia; Z79.4 - shelter (current) use of insulin (3) Chest pain ICD Codes: R07.9 - Chest pain, unspecified SNOMED: 40400823 Qualifiers: Qualified Codes: R07.9 - Chest pain, unspecified (4) Diabetes mellitus ICD Codes: E11.9 - Type 2 diabetes mellitus without complications SNOMED: 16997071 (5) Acute coronary syndrome ICD Codes: I24.9 - Acute ischemic heart disease, unspecified SNOMED: 868124586 Status: stable, progressing, tolerating diet Assessment/Plan ot pt diet pain control cbc bmp am dc to snf Subjective Constitutional: Reports: weakness Allergies: Coded Allergies: ADHESIVE TAPE (Verified Allergy, Unknown, 04/27/17) AMIODARONE (Verified Allergy, Unknown, 04/27/17) INFLUENZA VIRUS VACCINES (Verified Allergy, Unknown, 04/27/17) SULFAMETHIZOLE (Verified Allergy, Unknown, 04/27/17) All Systems: reviewed and negative except above Subjective sl weak anxious Objective Last 24 Hour Vital Signs Date Time Temp Pulse Resp B/P (MAP) Pulse Ox O2 Delivery O2 Flow Rate FiO2 05/13/17 12:00 97.2 57 19 121/69 97 Room Air 05/13/17 09:00 76 104/63 05/13/17 08:32 76 20 Room Air 05/13/17 08:00 97.3 75 19 104/63 99 Room Air 05/13/17 06:17 112/62 05/13/17 04:00 97.5 66 18 112/62 91 Room Air 05/13/17 00:00 97.3 78 18 110/68 90 Room Air 05/12/17 23:12 70 18 98 Facial 30 05/12/17 21:46 72 155/95 05/12/17 20:02 72 18 Room Air 05/12/17 20:00 97.7 20 107/66 92 Room Air 05/12/17 18:00 155/95 05/12/17 15:57 97.8 67 18 155/95 94 Room Air Intake and Output 05/13/17 05/14/17 19:00 07:00 Intake Total 360 ml Balance 360 ml Intake Oral 360 ml Laboratory Tests 05/13/17 05:50: White Blood Count 3.8L, Red Blood Count 3.75L, Hemoglobin 12.0L, Hematocrit 35.0L, Mean Corpuscular Volume 93, Mean Corpuscular Hemoglobin 31.9H, Mean Corpuscular Hemoglobin Concent 34.1, Red Cell Distribution Width 14.6, Platelet Count 127L, Mean Platelet Volume 5.7L, Neutrophils (%) (Auto) 46.0, Lymphocytes (%) (Auto) 39.6, Monocytes (%) (Auto) 8.5, Eosinophils (%) (Auto) 5.4H, Basophils (%) (Auto) 0.6, Prothrombin Time 25.2H, Prothromb Time International Ratio 2.4H, Sodium Level 142, Potassium Level 4.1, Chloride Level 105, Carbon Dioxide Level 22, Anion Gap 15, Blood Urea Nitrogen 16, Creatinine 1.2, Estimat Glomerular Filtration Rate > 60, Glucose Level 200H, Calcium Level 9.6 Height (Feet): 5 Height (Inches): 7.00 Weight (Pounds): 219 General Appearance: lethargic EENT: normal ENT inspection Neck: normal alignment Cardiovascular: normal peripheral pulses, normal rate, regular rhythm Respiratory/Chest: chest wall non-tender, lungs clear, normal breath sounds Abdomen: normal bowel sounds, non tender, soft Extremities: normal inspection Edema: no edema noted Arm (L), no edema noted Arm (R), no edema noted Leg (L), no edema noted Leg (R), no edema noted Pedal (L), no edema noted Pedal (R), no edema noted Generalized Neurologic: responsive, motor weakness Skin: normal pigmentation, warm/dry ANDRE SILVA May 13, 2017 14:00
--- NOTE | 2017-05-13 15:43 | Cardiac Electrophysiology PN ---
Assessment/Plan Assessment/Plan 1. Atypical Chest pain.S/P CABG with last PCI June 2016 at [facility]. Ruled out for myocardial infarction. Nuclear stress test, no definite ischemia. 2D echocardiogram EF 65%. Continue aspirin,Toprol, Plavix and Lipitor and Renaxa 500 bid. 2. Status post aortic valve replacement with a porcine aortic valve with residual mod . 3. History of atrial fibrillation and ablation, remained in sinus rhythm on aspirin,Toprol 50 bid, Coumadin and Plavix. 4. Diabetes. 5. Depression. 6. Status post amputation of the fingers. Subjective Subjective Still awaiting BIPAP machine before discharge. Objective Last 24 Hour Vital Signs Date Time Temp Pulse Resp B/P (MAP) Pulse Ox O2 Delivery O2 Flow Rate FiO2 05/13/17 12:00 97.2 57 19 121/69 97 Room Air 05/13/17 09:00 76 104/63 05/13/17 08:32 76 20 Room Air 05/13/17 08:00 97.3 75 19 104/63 99 Room Air 05/13/17 06:17 112/62 05/13/17 04:00 97.5 66 18 112/62 91 Room Air 05/13/17 00:00 97.3 78 18 110/68 90 Room Air 05/12/17 23:12 70 18 98 Facial 30 05/12/17 21:46 72 155/95 05/12/17 20:02 72 18 Room Air 05/12/17 20:00 97.7 20 107/66 92 Room Air 05/12/17 18:00 155/95 05/12/17 15:57 97.8 67 18 155/95 94 Room Air Intake and Output 05/13/17 05/14/17 19:00 07:00 Intake Total 360 ml Balance 360 ml Intake Oral 360 ml Laboratory Tests Test 05/13/17 05:50 White Blood Count 3.8 K/UL (4.8-10.8) L Red Blood Count 3.75 M/UL (4.70-6.10) L Hemoglobin 12.0 G/DL (14.2-18.0) L Hematocrit 35.0 % (42.0-52.0) L Mean Corpuscular Volume 93 FL (80-99) Mean Corpuscular Hemoglobin 31.9 PG (27.0-31.0) H Mean Corpuscular Hemoglobin Concent 34.1 G/DL (32.0-36.0) Red Cell Distribution Width 14.6 % (11.6-14.8) Platelet Count 127 K/UL (150-450) L Mean Platelet Volume 5.7 FL (6.5-10.1) L Neutrophils (%) (Auto) 46.0 % (45.0-75.0) Lymphocytes (%) (Auto) 39.6 % (20.0-45.0) Monocytes (%) (Auto) 8.5 % (1.0-10.0) Eosinophils (%) (Auto) 5.4 % (0.0-3.0) H Basophils (%) (Auto) 0.6 % (0.0-2.0) Prothrombin Time 25.2 SEC (9.30-11.50) H Prothromb Time International Ratio 2.4 (0.9-1.1) H Sodium Level 142 mEQ/L (135-145) Potassium Level 4.1 mEQ/L (3.4-4.9) Chloride Level 105 mEQ/L (98-107) Carbon Dioxide Level 22 mEQ/L (20-30) Anion Gap 15 (5-15) Blood Urea Nitrogen 16 mg/dL (7-23) Creatinine 1.2 mg/dL (0.7-1.2) Estimat Glomerular Filtration Rate > 60 mL/min (>60) Glucose Level 200 mg/dL (74-106) H Calcium Level 9.6 mg/dL (8.6-10.2) Objective HEAD AND NECK: No JVD. LUNGS: Clear. CARDIOVASCULAR: Nl S1 and S2 with no gallop . 2/6 Systolic murmur LSB. Sternotomy intact ABDOMEN: Soft. EXTREMITIES: No edema. ALEX VALDES May 13, 2017 15:43
[2017-05-13 16:00] VITALS: BP 119/70
[2017-05-13] MEDS ORDERED: Warfarin Sodium 3mg ORAL ONE (17:00)
--- NOTE | 2017-05-13 18:22 | Infectious Diseases Prog Note ---
Assessment/Plan Problems: (1) Diarrhea Assessment & Plan: mild , with no evidence of recurrent C DIFF, or stool infection and negative stool culture, keep off antibiotics. advised to avoid any unnecessary antibiotics in the future , avoid laxatives (2) Chest pain Assessment & Plan: resolved, he was ruled out for ACS , with negative stress test , medical management as per cardiology team (3) Diabetes mellitus Assessment & Plan: recommend tight glycemic control to keep blood glucose between 80-120 (4) CAD (coronary artery disease) Assessment & Plan: continue cardiac meds, cardiology is following (5) Dermatitis, seborrheic Assessment & Plan: on ketoconazole shampoo prn (6) THOMAS (acute kidney injury) Assessment & Plan: improving, suspect dehydration, recommend hydration and close monitor of renal function test . Subjective Constitutional: Reports: no symptoms HEENT: Reports: no symptoms Respiratory: Reports: no symptoms Breasts: Reports: no symptoms Cardiovascular: Reports: no symptoms Gastrointestinal/Abdominal: Reports: no symptoms Genitourinary: Reports: no symptoms Neurologic: Reports: no symptoms Psychiatric: Reports: no symptoms Skin: Reports: no symptoms Allergies: Coded Allergies: ADHESIVE TAPE (Verified Allergy, Unknown, 04/27/17) AMIODARONE (Verified Allergy, Unknown, 04/27/17) INFLUENZA VIRUS VACCINES (Verified Allergy, Unknown, 04/27/17) SULFAMETHIZOLE (Verified Allergy, Unknown, 04/27/17) Objective Vital Signs Last 24 Hour Vital Signs Date Time Temp Pulse Resp B/P (MAP) Pulse Ox O2 Delivery O2 Flow Rate FiO2 05/13/17 17:28 119/70 05/13/17 16:00 97.4 70 19 119/70 95 Room Air 05/13/17 12:00 97.2 57 19 121/69 97 Room Air 05/13/17 09:00 76 104/63 05/13/17 08:32 76 20 Room Air 05/13/17 08:00 97.3 75 19 104/63 99 Room Air 05/13/17 06:17 112/62 05/13/17 04:00 97.5 66 18 112/62 91 Room Air 05/13/17 00:00 97.3 78 18 110/68 90 Room Air 05/12/17 23:12 70 18 98 Facial 30 05/12/17 21:46 72 155/95 05/12/17 20:02 72 18 Room Air 05/12/17 20:00 97.7 20 107/66 92 Room Air Height (Feet): 5 Height (Inches): 7.00 Weight (Pounds): 219 General Appearance: WD/WN, no acute distress HEENT: normocephalic, atraumatic, anicteric, mucous membranes moist, PERRL Respiratory/Chest: chest wall non-tender, lungs clear, normal breath sounds, no respiratory distress, no accessory muscle use Cardiovascular: normal peripheral pulses, normal rate, regular rhythm, no gallop/murmur, no JVD Abdomen: normal bowel sounds, soft, non tender, no organomegaly, non distended , no mass, no scars Extremities: no cyanosis, no clubbing Skin: no rash, no lesions, no ulcers Neurologic/Psychiatric: alert, oriented x 3, responsive Lymphatic: no neck adenopathy, no groin adenopathy Laboratory Tests Test 05/13/17 05:50 White Blood Count 3.8 K/UL (4.8-10.8) L Red Blood Count 3.75 M/UL (4.70-6.10) L Hemoglobin 12.0 G/DL (14.2-18.0) L Hematocrit 35.0 % (42.0-52.0) L Mean Corpuscular Volume 93 FL (80-99) Mean Corpuscular Hemoglobin 31.9 PG (27.0-31.0) H Mean Corpuscular Hemoglobin Concent 34.1 G/DL (32.0-36.0) Red Cell Distribution Width 14.6 % (11.6-14.8) Platelet Count 127 K/UL (150-450) L Mean Platelet Volume 5.7 FL (6.5-10.1) L Neutrophils (%) (Auto) 46.0 % (45.0-75.0) Lymphocytes (%) (Auto) 39.6 % (20.0-45.0) Monocytes (%) (Auto) 8.5 % (1.0-10.0) Eosinophils (%) (Auto) 5.4 % (0.0-3.0) H Basophils (%) (Auto) 0.6 % (0.0-2.0) Prothrombin Time 25.2 SEC (9.30-11.50) H Prothromb Time International Ratio 2.4 (0.9-1.1) H Sodium Level 142 mEQ/L (135-145) Potassium Level 4.1 mEQ/L (3.4-4.9) Chloride Level 105 mEQ/L (98-107) Carbon Dioxide Level 22 mEQ/L (20-30) Anion Gap 15 (5-15) Blood Urea Nitrogen 16 mg/dL (7-23) Creatinine 1.2 mg/dL (0.7-1.2) Estimat Glomerular Filtration Rate > 60 mL/min (>60) Glucose Level 200 mg/dL (74-106) H Calcium Level 9.6 mg/dL (8.6-10.2) Current Medications Medications (Trade) Dose Ordered Sig/Tanner Route PRN Reason Start Time Stop Time Status Last Admin Dose Admin Acetaminophen (Tylenol) 650 mg Q4H PRN ORAL FEVER>100.5 05/05/17 17:00 05/28/17 16:59 Allopurinol (Allopurinol) 300 mg DAILY ORAL 05/06/17 09:00 05/28/17 08:59 05/13/17 09:41 Aripiprazole (Abilify) 35 mg DAILY ORAL 05/06/17 09:00 06/05/17 08:59 05/13/17 09:41 Aspirin (ASA) 162 mg DAILY ORAL 05/06/17 09:00 05/28/17 08:59 05/13/17 09:40 Atorvastatin Calcium (Lipitor) 40 mg BEDTIME ORAL 05/05/17 21:00 05/28/17 20:59 05/12/17 21:46 Clopidogrel Bisulfate (Plavix) 75 mg DAILY ORAL 05/06/17 09:00 05/28/17 08:59 05/13/17 09:40 Dextrose (Dextrose 50%) STAT PRN IV Hypoglycemia 05/05/17 17:00 06/04/17 16:59 Enalaprilat (Vasotec) 2.5 mg Q6H PRN IV sbp more than 160 05/05/17 17:00 06/04/17 16:59 Escitalopram Oxalate (Lexapro) 20 mg DAILY ORAL 05/06/17 09:00 05/28/17 12:59 05/13/17 09:41 Fish Oil (Fish Oil) 1,000 mg DAILY ORAL 05/06/17 09:00 05/31/17 08:59 05/07/17 09:13 Insulin Aspart (NovoLOG) BEFORE MEALS AND HS SUBQ 05/05/17 17:30 05/28/17 17:29 05/13/17 17:29 Isosorbide Dinitrate (Isordil) 30 mg BID@0600,1800 ORAL 05/05/17 18:00 06/03/17 18:04 05/13/17 17:28 Ketoconazole (Nizoral 2% Cream) 1 applic DAILY TOPIC 05/06/17 09:00 06/01/17 08:59 05/13/17 09:42 Ketoconazole (Nizoral 2% Shampoo) 1 applic DAILY TOPIC 05/06/17 09:00 06/01/17 08:59 05/13/17 09:42 Metoprolol Tartrate (Lopressor) 50 mg Q12HR ORAL 05/05/17 21:00 05/30/17 20:59 05/12/17 21:46 Mirtazapine (Remeron) 30 mg QHS ORAL 05/05/17 21:00 05/28/17 20:59 05/12/17 21:45 Nitroglycerin (Ntg) 0.4 mg Q5MIN PRN SL Prn Chest Pain 05/05/17 16:00 06/04/17 15:59 05/07/17 00:12 Ondansetron HCl (Zofran) 4 mg Q6H PRN IVP Nausea & Vomiting 05/05/17 17:00 05/28/17 16:59 Pantoprazole (Protonix) 40 mg ACBREAKFAST ORAL 05/06/17 06:30 05/28/17 08:59 05/13/17 06:17 Polyethylene Glycol (Miralax) 17 gm DAILYPRN PRN ORAL Constipation 05/05/17 17:00 06/04/17 16:59 Quetiapine Fumarate (SEROquel) 25 mg DAILY@1700 ORAL 05/05/17 17:00 05/30/17 16:59 05/13/17 17:28 Quetiapine Fumarate (SEROquel) 200 mg BEDTIME ORAL 05/05/17 21:00 05/28/17 20:59 05/12/17 21:46 Ranolazine (Ranexa ER 500mg) 500 mg Q12HR ORAL 05/05/17 21:00 06/02/17 20:59 05/13/17 09:41 Tamsulosin HCl (Flomax) 0.4 mg BEDTIME ORAL 05/05/17 21:00 05/28/17 20:59 05/12/17 21:46 Temazepam (Restoril) 15 mg HSPRN PRN ORAL Insomnia 05/06/17 23:30 05/13/17 23:29 05/12/17 22:32 Warfarin Sodium (Coumadin per pharmacy) 1 ea DAILYPRN PRN MISC Per rx protocol 05/05/17 17:00 06/04/17 16:59 Gladys Murillo M.D. May 13, 2017 18:22
[2017-05-13] MEDS: Nitroglycerin Subl 0.4mg tab (Bottle Of 25) SL PRN ×2 (19:53→20:02)
[2017-05-13 20:00] VITALS: BP 106/65
[2017-05-13] MEDS: QUEtiapine 200mg tab ORAL SCH (21:28)
[2017-05-13] MEDS: Tamsulosin 0.4mg cap ORAL SCH (21:28)
[2017-05-14] VITALS: BP 109/76
[2017-05-14 04:00] VITALS: BP 110/67
[2017-05-14] MEDS: NovoLOG Insulin Flexpen SUBQ SCH ×4 (06:22→20:55)
[2017-05-14 07:43] LABS: BASOPHILS % (AUTO) 0.9 % (0.0-2.0); LYMPHOCYTES % (AUTO) 31.2 % (20.0-45.0); MEAN CORPUSCULAR HEMOGLOBIN 33.5 PG (27.0-31.0); MEAN CORPUSCULAR HGB CONC 35.6 G/DL (32.0-36.0); MEAN CORPUSCULAR VOLUME 94 FL (80-99); MONOCYTES % (AUTO) 10.1 % (1.0-10.0); NEUTROPHILS % (AUTO) 52.7 % (45.0-75.0); PLATELET COUNT 150 K/UL (150-450); RED BLOOD COUNT 3.93 M/UL (4.70-6.10); RED CELL DISTRIBUTION WIDTH 14.5 % (11.6-14.8); WHITE BLOOD COUNT 4.7 K/UL (4.8-10.8)
[2017-05-14 07:52] LABS: INR 2.6 (0.9-1.1); PROTHROMBIN TIME 27.4 SEC (9.30-11.50)
[2017-05-14 08:00] VITALS: BP 113/67
[2017-05-14] MEDS: KETOCONAZOLE 2% TOPIC SCH (08:49)
[2017-05-14] MEDS: Ranolazine 500mg tab ORAL SCH ×2 (08:50→20:51)
[2017-05-14] MEDS: Aspirin Baby 81mg ORAL SCH (08:50)
[2017-05-14 08:51] LABS: CALCIUM 9.9 mg/dL (8.6-10.2); CREATININE 1.3 mg/dL (0.7-1.2); GLOMERULAR FILTRATION RATE 56.1 mL/min (>60); POTASSIUM 3.6 mEQ/L (3.4-4.9)
[2017-05-14] MEDS: Metoprolol Tartrate 50mg tab ORAL SCH ×2 (08:51→21:00)
[2017-05-14] MEDS: ARIPiprazole 10mg tab ORAL SCH (08:52)
--- NOTE | 2017-05-14 09:01 | General Progress Note ---
Assessment/Plan Problem List: (1) Stress reaction ICD Codes: F43.0 - Acute stress reaction SNOMED: 63351839 (2) Hyperglycemia due to type 2 diabetes mellitus ICD Codes: E11.65 - Type 2 diabetes mellitus with hyperglycemia SNOMED: 643656633895952, [id number] Qualifiers: Qualified Codes: E11.65 - Type 2 diabetes mellitus with hyperglycemia; Z79.4 - FDC (current) use of insulin (3) Chest pain ICD Codes: R07.9 - Chest pain, unspecified SNOMED: [id number] Qualifiers: Qualified Codes: R07.9 - Chest pain, unspecified (4) Diabetes mellitus ICD Codes: E11.9 - Type 2 diabetes mellitus without complications SNOMED: 01270657 (5) Acute coronary syndrome ICD Codes: I24.9 - Acute ischemic heart disease, unspecified SNOMED: 599787057 Status: stable, progressing, tolerating diet Assessment/Plan ot pt diet pain control cbc bmp am dc to snf Subjective Constitutional: Reports: weakness Allergies: Coded Allergies: ADHESIVE TAPE (Verified Allergy, Unknown, 04/27/17) AMIODARONE (Verified Allergy, Unknown, 04/27/17) INFLUENZA VIRUS VACCINES (Verified Allergy, Unknown, 04/27/17) SULFAMETHIZOLE (Verified Allergy, Unknown, 04/27/17) All Systems: reviewed and negative except above Subjective sl weak anxious Objective Last 24 Hour Vital Signs Date Time Temp Pulse Resp B/P (MAP) Pulse Ox O2 Delivery O2 Flow Rate FiO2 05/14/17 08:51 78 113/67 05/14/17 08:00 97.9 78 18 113/67 93 Room Air 05/14/17 07:20 75 18 Room Air 05/14/17 06:12 110/67 05/14/17 05:22 75 14 98 Facial 30 05/14/17 04:00 97.3 59 20 110/67 98 Room Air 05/14/17 03:34 70 14 98 Facial 30 05/14/17 02:03 67 12 98 Facial 30 05/14/17 00:00 97.5 62 22 109/76 97 Room Air 05/13/17 23:35 72 18 98 Facial 30 05/13/17 20:42 74 106/65 05/13/17 20:02 106/65 05/13/17 20:00 97.3 74 22 106/65 96 Room Air 05/13/17 19:53 119/70 05/13/17 19:00 75 20 Room Air 05/13/17 17:28 119/70 05/13/17 16:00 97.4 70 19 119/70 95 Room Air 05/13/17 12:00 97.2 57 19 121/69 97 Room Air Laboratory Tests 05/14/17 05:05: White Blood Count 4.7L, Red Blood Count 3.93L, Hemoglobin 13.2L, Hematocrit 37.0L, Mean Corpuscular Volume 94, Mean Corpuscular Hemoglobin 33.5H, Mean Corpuscular Hemoglobin Concent 35.6, Red Cell Distribution Width 14.5, Platelet Count 150, Mean Platelet Volume 6.0L, Neutrophils (%) (Auto) 52.7, Lymphocytes ( %) (Auto) 31.2, Monocytes (%) (Auto) 10.1H, Eosinophils (%) (Auto) 5.0H, Basophils (%) (Auto) 0.9, Prothrombin Time 27.4H, Prothromb Time International Ratio 2.6H, Sodium Level 141, Potassium Level 3.6, Chloride Level 102, Carbon Dioxide Level 27, Anion Gap 12, Blood Urea Nitrogen 16, Creatinine 1.3H, Estimat Glomerular Filtration Rate 56.1, Glucose Level 191H, Calcium Level 9.9 Height (Feet): 5 Height (Inches): 7.00 Weight (Pounds): 219 General Appearance: lethargic EENT: normal ENT inspection Neck: normal alignment Cardiovascular: normal peripheral pulses, normal rate, regular rhythm Respiratory/Chest: chest wall non-tender, lungs clear, normal breath sounds Abdomen: normal bowel sounds, non tender, soft Extremities: normal inspection Edema: no edema noted Arm (L), no edema noted Arm (R), no edema noted Leg (L), no edema noted Leg (R), no edema noted Pedal (L), no edema noted Pedal (R), no edema noted Generalized Neurologic: motor weakness Skin: normal pigmentation, warm/dry ANDRE SILVA May 14, 2017 09:01
[2017-05-14 12:00] VITALS: BP 109/72
--- NOTE | 2017-05-14 13:51 | Pulmonology Progress Note ---
Assessment/Plan Assessment/Plan ASSESSMENT Chest pain Possible ACS CAD with hx of CABG and multiple cardiac interventions s/p AVR Moderate Hx of A fib with ablation DM Schizoaffective disorder, bipolar type Diarrhea, r/o C dif elevated creat PLAN OF CARE [place] floor Serial troponin x 3 negative ECG no acute ischemic changes, ruled out for acute [place] Cardio follows chest pain atypical as per cardio ECHO with pEF 60-65% and RBSP of 32, moderate Nuclear stress test negative for evidence of ischemia s/p CABG with PCI June 2016 at [facility]. Continue antiplatelet therapy ( ASA and Plavix), Coumadin, BB , Ranexa , Isosorbide and statin- as per cardio recommendations remains in SR, on a/coagulation , Lipid panel with elevated TG counseled on low fat low cholesterol diet Added Fish oil O2 prn to keep sat above 92% Pulmonary toilet prn CXR negative awaiting for BiPAP machine BS management with SS of insulin ID follows Hx of C dif, s/p Rx, stool C dif, stool culture both negative , off Vanco abdominal US with evidence of fatty liver. Splenomegaly creat up to 1.3- give 500 cc NS bolus . Psych follows Psych meds optimized as per psych Pain management PT/OT dc plan as per PMD awaiting for disposition and BiPAP machine, settings should be 15/5 case discussed and evaluated by supervising physician Subjective Allergies: Coded Allergies: ADHESIVE TAPE (Verified Allergy, Unknown, 04/27/17) AMIODARONE (Verified Allergy, Unknown, 04/27/17) INFLUENZA VIRUS VACCINES (Verified Allergy, Unknown, 04/27/17) SULFAMETHIZOLE (Verified Allergy, Unknown, 04/27/17) Subjective no chest pain, feeling better awaiting for placement and BiPAP machine creat-1.3 Objective Last 24 Hour Vital Signs Date Time Temp Pulse Resp B/P (MAP) Pulse Ox O2 Delivery O2 Flow Rate FiO2 05/14/17 12:00 97.0 76 18 109/72 95 Room Air 05/14/17 08:51 78 113/67 05/14/17 08:00 97.9 78 18 113/67 93 Room Air 05/14/17 07:20 75 18 Room Air 05/14/17 06:12 110/67 05/14/17 05:22 75 14 98 Facial 30 05/14/17 04:00 97.3 59 20 110/67 98 Room Air 9/9/17 03:34 70 14 98 Facial 30 05/14/17 02:03 67 12 98 Facial 30 05/14/17 00:00 97.5 62 22 109/76 97 Room Air 05/13/17 23:35 72 18 98 Facial 30 05/13/17 20:42 74 106/65 05/13/17 20:02 106/65 05/13/17 20:00 97.3 74 22 106/65 96 Room Air 05/13/17 19:53 119/70 05/13/17 19:00 75 20 Room Air 05/13/17 17:28 119/70 05/13/17 16:00 97.4 70 19 119/70 95 Room Air Objective General Appearance: no acute distress, other - awake, alert, responsive obese male HEENT: normocephalic, atraumatic, anicteric, mucous membranes moist Respiratory/Chest: chest wall non-tender, lungs clear, no respiratory distress , no accessory muscle use Cardiovascular: normal rate, regular rhythm Abdomen: normal bowel sounds, soft, non tender - obese Genitourinary: normal external genitalia Extremities: no edema, pedal pulses normal Neurologic/Psychiatric: abnormal gait, alert, responsive Musculoskeletal: normal muscle bulk Laboratory Tests 05/14/17 05:05: White Blood Count 4.7L, Red Blood Count 3.93L, Hemoglobin 13.2L, Hematocrit 37.0L, Mean Corpuscular Volume 94, Mean Corpuscular Hemoglobin 33.5H, Mean Corpuscular Hemoglobin Concent 35.6, Red Cell Distribution Width 14.5, Platelet Count 150, Mean Platelet Volume 6.0L, Neutrophils (%) (Auto) 52.7, Lymphocytes ( %) (Auto) 31.2, Monocytes (%) (Auto) 10.1H, Eosinophils (%) (Auto) 5.0H, Basophils (%) (Auto) 0.9, Prothrombin Time 27.4H, Prothromb Time International Ratio 2.6H, Sodium Level 141, Potassium Level 3.6, Chloride Level 102, Carbon Dioxide Level 27, Anion Gap 12, Blood Urea Nitrogen 16, Creatinine 1.3H, Estimat Glomerular Filtration Rate 56.1, Glucose Level 191H, Calcium Level 9.9 Current Medications Medications (Trade) Dose Ordered Sig/Tanner Route PRN Reason Start Time Stop Time Status Last Admin Dose Admin Acetaminophen (Tylenol) 650 mg Q4H PRN ORAL FEVER>100.5 05/05/17 17:00 05/28/17 16:59 Allopurinol (Allopurinol) 300 mg DAILY ORAL 05/06/17 09:00 05/28/17 08:59 05/14/17 08:52 Aripiprazole (Abilify) 35 mg DAILY ORAL 05/06/17 09:00 06/05/17 08:59 05/14/17 08:52 Aspirin (ASA) 162 mg DAILY ORAL 05/06/17 09:00 05/28/17 08:59 05/14/17 08:50 Atorvastatin Calcium (Lipitor) 40 mg BEDTIME ORAL 05/05/17 21:00 05/28/17 20:59 05/13/17 21:28 Clopidogrel Bisulfate (Plavix) 75 mg DAILY ORAL 05/06/17 09:00 05/28/17 08:59 05/14/17 08:50 Dextrose (Dextrose 50%) STAT PRN IV Hypoglycemia 05/05/17 17:00 06/04/17 16:59 Enalaprilat (Vasotec) 2.5 mg Q6H PRN IV sbp more than 160 05/05/17 17:00 06/04/17 16:59 Escitalopram Oxalate (Lexapro) 20 mg DAILY ORAL 05/06/17 09:00 05/28/17 12:59 05/14/17 08:50 Fish Oil (Fish Oil) 1,000 mg DAILY ORAL 05/06/17 09:00 05/31/17 08:59 05/07/17 09:13 Insulin Aspart (NovoLOG) BEFORE MEALS AND HS SUBQ 05/05/17 17:30 05/28/17 17:29 05/14/17 12:23 Isosorbide Dinitrate (Isordil) 30 mg BID@0600,1800 ORAL 05/05/17 18:00 06/03/17 18:04 05/14/17 06:12 Ketoconazole (Nizoral 2% Cream) 1 applic DAILY TOPIC 05/06/17 09:00 06/01/17 08:59 05/14/17 08:54 Ketoconazole (Nizoral 2% Shampoo) 1 applic DAILY TOPIC 05/06/17 09:00 06/01/17 08:59 05/14/17 08:49 Metoprolol Tartrate (Lopressor) 50 mg Q12HR ORAL 05/05/17 21:00 05/30/17 20:59 05/14/17 08:51 Mirtazapine (Remeron) 30 mg QHS ORAL 05/05/17 21:00 05/28/17 20:59 05/13/17 21:28 Nitroglycerin (Ntg) 0.4 mg Q5MIN PRN SL Prn Chest Pain 05/05/17 16:00 06/04/17 15:59 05/13/17 20:02 Ondansetron HCl (Zofran) 4 mg Q6H PRN IVP Nausea & Vomiting 05/05/17 17:00 05/28/17 16:59 Pantoprazole (Protonix) 40 mg ACBREAKFAST ORAL 05/06/17 06:30 05/28/17 08:59 05/14/17 06:11 Polyethylene Glycol (Miralax) 17 gm DAILYPRN PRN ORAL Constipation 05/05/17 17:00 06/04/17 16:59 Quetiapine Fumarate (SEROquel) 25 mg DAILY@1700 ORAL 05/05/17 17:00 05/30/17 16:59 05/13/17 17:28 Quetiapine Fumarate (SEROquel) 200 mg BEDTIME ORAL 05/05/17 21:00 05/28/17 20:59 05/13/17 21:28 Ranolazine (Ranexa ER 500mg) 500 mg Q12HR ORAL 05/05/17 21:00 06/02/17 20:59 05/14/17 08:50 Tamsulosin HCl (Flomax) 0.4 mg BEDTIME ORAL 05/05/17 21:00 05/28/17 20:59 05/13/17 21:28 Warfarin Sodium (Coumadin per pharmacy) 1 ea DAILYPRN PRN MISC Per rx protocol 05/05/17 17:00 06/04/17 16:59 Warfarin Sodium (Coumadin) 6 mg COUMADIN ONCE ORAL 05/14/17 17:00 05/14/17 17:01 [facility] CenterKennedi Kline NP May 14, 2017 13:51
[2017-05-14 16:00] VITALS: BP 106/69
--- NOTE | 2017-05-14 16:41 | Infectious Diseases Prog Note ---
Assessment/Plan Problems: (1) Diarrhea Assessment & Plan: resolved, no evidence of recurrent C DIFF, or stool infection . had negative stool culture, keep off antibiotics. advised to avoid any unnecessary antibiotics in the future , avoid laxatives (2) Chest pain Assessment & Plan: resolved, he was ruled out for ACS , with negative stress test , medical management as per cardiology team (3) Diabetes mellitus Assessment & Plan: recommend tight glycemic control to keep blood glucose between 80-120 (4) CAD (coronary artery disease) Assessment & Plan: continue cardiac meds, cardiology is following (5) Dermatitis, seborrheic Assessment & Plan: on ketoconazole shampoo prn (6) THOMAS (acute kidney injury) Assessment & Plan: improving, suspect dehydration, recommend hydration and close monitor of renal function test . Subjective Constitutional: Reports: no symptoms HEENT: Reports: no symptoms Respiratory: Reports: no symptoms Breasts: Reports: no symptoms Cardiovascular: Reports: no symptoms Gastrointestinal/Abdominal: Reports: no symptoms Genitourinary: Reports: no symptoms Neurologic: Reports: no symptoms Psychiatric: Reports: no symptoms Skin: Reports: no symptoms Endocrine: Reports: no symptoms Hematologic: Reports: no symptoms Allergies: Coded Allergies: ADHESIVE TAPE (Verified Allergy, Unknown, 04/27/17) AMIODARONE (Verified Allergy, Unknown, 04/27/17) INFLUENZA VIRUS VACCINES (Verified Allergy, Unknown, 04/27/17) SULFAMETHIZOLE (Verified Allergy, Unknown, 04/27/17) Objective Vital Signs Last 24 Hour Vital Signs Date Time Temp Pulse Resp B/P (MAP) Pulse Ox O2 Delivery O2 Flow Rate FiO2 05/14/17 16:00 97.3 63 18 106/69 97 Room Air 05/14/17 12:00 97.0 76 18 109/72 95 Room Air 05/14/17 08:51 78 113/67 05/14/17 08:00 97.9 78 18 113/67 93 Room Air 05/14/17 07:20 75 18 Room Air 05/14/17 06:12 110/67 05/14/17 05:22 75 14 98 Facial 30 05/14/17 04:00 97.3 59 20 110/67 98 Room Air 05/14/17 03:34 70 14 98 Facial 30 05/14/17 02:03 67 12 98 Facial 30 05/14/17 00:00 97.5 62 22 109/76 97 Room Air 05/13/17 23:35 72 18 98 Facial 30 05/13/17 20:42 74 106/65 05/13/17 20:02 106/65 05/13/17 20:00 97.3 74 22 106/65 96 Room Air 05/13/17 19:53 119/70 05/13/17 19:00 75 20 Room Air 05/13/17 17:28 119/70 Height (Feet): 5 Height (Inches): 7.00 Weight (Pounds): 219 General Appearance: WD/WN, no acute distress HEENT: normocephalic, atraumatic, anicteric, mucous membranes moist, PERRL, EOMI, pharynx normal, supple, no JVD Respiratory/Chest: chest wall non-tender, lungs clear, normal breath sounds, no respiratory distress, no accessory muscle use Cardiovascular: normal peripheral pulses, normal rate, regular rhythm, no gallop/murmur, no JVD Abdomen: normal bowel sounds, soft, non tender, no organomegaly, non distended , no mass, no scars Extremities: no cyanosis, no clubbing Skin: no rash, no lesions, no ulcers Neurologic/Psychiatric: alert, oriented x 3, responsive Lymphatic: no neck adenopathy, no groin adenopathy Laboratory Tests Test 05/14/17 05:05 White Blood Count 4.7 K/UL (4.8-10.8) L Red Blood Count 3.93 M/UL (4.70-6.10) L Hemoglobin 13.2 G/DL (14.2-18.0) L Hematocrit 37.0 % (42.0-52.0) L Mean Corpuscular Volume 94 FL (80-99) Mean Corpuscular Hemoglobin 33.5 PG (27.0-31.0) H Mean Corpuscular Hemoglobin Concent 35.6 G/DL (32.0-36.0) Red Cell Distribution Width 14.5 % (11.6-14.8) Platelet Count 150 K/UL (150-450) Mean Platelet Volume 6.0 FL (6.5-10.1) L Neutrophils (%) (Auto) 52.7 % (45.0-75.0) Lymphocytes (%) (Auto) 31.2 % (20.0-45.0) Monocytes (%) (Auto) 10.1 % (1.0-10.0) H Eosinophils (%) (Auto) 5.0 % (0.0-3.0) H Basophils (%) (Auto) 0.9 % (0.0-2.0) Prothrombin Time 27.4 SEC (9.30-11.50) H Prothromb Time International Ratio 2.6 (0.9-1.1) H Sodium Level 141 mEQ/L (135-145) Potassium Level 3.6 mEQ/L (3.4-4.9) Chloride Level 102 mEQ/L (98-107) Carbon Dioxide Level 27 mEQ/L (20-30) Anion Gap 12 (5-15) Blood Urea Nitrogen 16 mg/dL (7-23) Creatinine 1.3 mg/dL (0.7-1.2) H Estimat Glomerular Filtration Rate 56.1 mL/min (>60) Glucose Level 191 mg/dL (74-106) H Calcium Level 9.9 mg/dL (8.6-10.2) Current Medications Medications (Trade) Dose Ordered Sig/Tanner Route PRN Reason Start Time Stop Time Status Last Admin Dose Admin Acetaminophen (Tylenol) 650 mg Q4H PRN ORAL FEVER>100.5 05/05/17 17:00 05/28/17 16:59 Allopurinol (Allopurinol) 300 mg DAILY ORAL 05/06/17 09:00 05/28/17 08:59 05/14/17 08:52 Aripiprazole (Abilify) 35 mg DAILY ORAL 05/06/17 09:00 06/05/17 08:59 05/14/17 08:52 Aspirin (ASA) 162 mg DAILY ORAL 05/06/17 09:00 05/28/17 08:59 05/14/17 08:50 Atorvastatin Calcium (Lipitor) 40 mg BEDTIME ORAL 05/05/17 21:00 05/28/17 20:59 05/13/17 21:28 Clopidogrel Bisulfate (Plavix) 75 mg DAILY ORAL 05/06/17 09:00 05/28/17 08:59 05/14/17 08:50 Dextrose (Dextrose 50%) STAT PRN IV Hypoglycemia 05/05/17 17:00 06/04/17 16:59 Enalaprilat (Vasotec) 2.5 mg Q6H PRN IV sbp more than 160 05/05/17 17:00 06/04/17 16:59 Escitalopram Oxalate (Lexapro) 20 mg DAILY ORAL 05/06/17 09:00 05/28/17 12:59 05/14/17 08:50 Fish Oil (Fish Oil) 1,000 mg DAILY ORAL 05/06/17 09:00 05/31/17 08:59 05/07/17 09:13 Insulin Aspart (NovoLOG) BEFORE MEALS AND HS SUBQ 05/05/17 17:30 05/28/17 17:29 05/14/17 12:23 Isosorbide Dinitrate (Isordil) 30 mg BID@0600,1800 ORAL 05/05/17 18:00 06/03/17 18:04 05/14/17 06:12 Ketoconazole (Nizoral 2% Cream) 1 applic DAILY TOPIC 05/06/17 09:00 06/01/17 08:59 05/14/17 08:54 Ketoconazole (Nizoral 2% Shampoo) 1 applic DAILY TOPIC 05/06/17 09:00 06/01/17 08:59 05/14/17 08:49 Metoprolol Tartrate (Lopressor) 50 mg Q12HR ORAL 05/05/17 21:00 05/30/17 20:59 05/14/17 08:51 Mirtazapine (Remeron) 30 mg QHS ORAL 05/05/17 21:00 05/28/17 20:59 05/13/17 21:28 Nitroglycerin (Ntg) 0.4 mg Q5MIN PRN SL Prn Chest Pain 05/05/17 16:00 06/04/17 15:59 05/13/17 20:02 Ondansetron HCl (Zofran) 4 mg Q6H PRN IVP Nausea & Vomiting 05/05/17 17:00 05/28/17 16:59 Pantoprazole (Protonix) 40 mg ACBREAKFAST ORAL 05/06/17 06:30 05/28/17 08:59 05/14/17 06:11 Polyethylene Glycol (Miralax) 17 gm DAILYPRN PRN ORAL Constipation 05/05/17 17:00 06/04/17 16:59 Quetiapine Fumarate (SEROquel) 25 mg DAILY@1700 ORAL 05/05/17 17:00 05/30/17 16:59 05/13/17 17:28 Quetiapine Fumarate (SEROquel) 200 mg BEDTIME ORAL 05/05/17 21:00 05/28/17 20:59 05/13/17 21:28 Ranolazine (Ranexa ER 500mg) 500 mg Q12HR ORAL 05/05/17 21:00 06/02/17 20:59 05/14/17 08:50 Tamsulosin HCl (Flomax) 0.4 mg BEDTIME ORAL 05/05/17 21:00 05/28/17 20:59 05/13/17 21:28 Warfarin Sodium (Coumadin per pharmacy) 1 ea DAILYPRN PRN MISC Per rx protocol 05/05/17 17:00 06/04/17 16:59 Warfarin Sodium (Coumadin) 6 mg COUMADIN ONCE ORAL 05/14/17 17:00 05/14/17 17:01 Gladys Murillo M.D. May 14, 2017 16:41
[2017-05-14] MEDS ORDERED: Warfarin Sodium 3mg ORAL ONE (17:00)
--- NOTE | 2017-05-14 17:50 | Cardiac Electrophysiology PN ---
Assessment/Plan Assessment/Plan 1. Chest painand hx of CABG with last PCI June 2016. Ruled out forMI. Stress test, no definite ischemia. Echo EF 65%. Continue aspirin,Toprol, Plavix and Lipitor and Renaxa 500 bid. 2. Status post aortic valve replacement with a porcine aortic valve with residual mod . 3. History of atrial fibrillation and ablation, remained in sinus rhythm on aspirin,Toprol 50 bid, Coumadin and Plavix. 4. Diabetes. 5. Depression. 6. Status post amputation of the fingers. TROY RN Subjective Subjective Had chest pain earlier that responded quickly to nitro. Currently comfortable. Appealed discharge again awaiting BIPAP Objective Last 24 Hour Vital Signs Date Time Temp Pulse Resp B/P (MAP) Pulse Ox O2 Delivery O2 Flow Rate FiO2 05/14/17 17:34 106/69 05/14/17 16:00 97.3 63 18 106/69 97 Room Air 05/14/17 12:00 97.0 76 18 109/72 95 Room Air 05/14/17 08:51 78 113/67 05/14/17 08:00 97.9 78 18 113/67 93 Room Air 05/14/17 07:20 75 18 Room Air 05/14/17 06:12 110/67 05/14/17 05:22 75 14 98 Facial 30 05/14/17 04:00 97.3 59 20 110/67 98 Room Air 05/14/17 03:34 70 14 98 Facial 30 05/14/17 02:03 67 12 98 Facial 30 05/14/17 00:00 97.5 62 22 109/76 97 Room Air 05/13/17 23:35 72 18 98 Facial 30 05/13/17 20:42 74 106/65 05/13/17 20:02 106/65 05/13/17 20:00 97.3 74 22 106/65 96 Room Air 05/13/17 19:53 119/70 05/13/17 19:00 75 20 Room Air Laboratory Tests Test 05/14/17 05:05 White Blood Count 4.7 K/UL (4.8-10.8) L Red Blood Count 3.93 M/UL (4.70-6.10) L Hemoglobin 13.2 G/DL (14.2-18.0) L Hematocrit 37.0 % (42.0-52.0) L Mean Corpuscular Volume 94 FL (80-99) Mean Corpuscular Hemoglobin 33.5 PG (27.0-31.0) H Mean Corpuscular Hemoglobin Concent 35.6 G/DL (32.0-36.0) Red Cell Distribution Width 14.5 % (11.6-14.8) Platelet Count 150 K/UL (150-450) Mean Platelet Volume 6.0 FL (6.5-10.1) L Neutrophils (%) (Auto) 52.7 % (45.0-75.0) Lymphocytes (%) (Auto) 31.2 % (20.0-45.0) Monocytes (%) (Auto) 10.1 % (1.0-10.0) H Eosinophils (%) (Auto) 5.0 % (0.0-3.0) H Basophils (%) (Auto) 0.9 % (0.0-2.0) Prothrombin Time 27.4 SEC (9.30-11.50) H Prothromb Time International Ratio 2.6 (0.9-1.1) H Sodium Level 141 mEQ/L (135-145) Potassium Level 3.6 mEQ/L (3.4-4.9) Chloride Level 102 mEQ/L (98-107) Carbon Dioxide Level 27 mEQ/L (20-30) Anion Gap 12 (5-15) Blood Urea Nitrogen 16 mg/dL (7-23) Creatinine 1.3 mg/dL (0.7-1.2) H Estimat Glomerular Filtration Rate 56.1 mL/min (>60) Glucose Level 191 mg/dL (74-106) H Calcium Level 9.9 mg/dL (8.6-10.2) Objective HEAD AND NECK: No JVD. LUNGS: Clear. CARDIOVASCULAR: Nl S1 and S2 with no gallop . 2/6 Systolic murmur LSB. Sternotomy intact ABDOMEN: Soft. EXTREMITIES: No edema. ALEX VALDES May 14, 2017 17:50
[2017-05-14 20:00] VITALS: BP 96/55
[2017-05-14] MEDS: QUEtiapine 200mg tab ORAL SCH (20:51)
[2017-05-14] MEDS: Tamsulosin 0.4mg cap ORAL SCH (20:51)
--- NOTE | 2017-05-14 22:02 | General Progress Note ---
Assessment/Plan Assessment/Plan 1. Pancytopenia. Monitor. --> improving --> Give prbc if hgb<7 and platelets if <20k --> HIV and hepatitis panel are both negative --> Ultrasound of the abdomen reveal cysts on right kidney, fatty liver, splenomegaly, atherosclerotic vascular disease, and absent left kidney 2. Thrombocytopenia --> resolved 3. Anemia, very mild. --> Continue to closely monitor, likely secondary to chronic disease. --> No blood transfusion required unless symptomatic or hgb<7 --> Has been stable with hgb >11 4. Diarrhea, resolved. 5. Acute coronary syndrome. Cardiology service is following. 6. Diabetes mellitus. Subjective Constitutional: Reports: no symptoms HEENT: Reports: no symptoms Cardiovascular: Reports: no symptoms Respiratory: Reports: no symptoms Gastrointestinal/Abdominal: Reports: no symptoms Genitourinary: Reports: no symptoms Neurologic/Psychiatric: Reports: no symptoms Endocrine: Reports: no symptoms Hematologic/Lymphatic: Reports: no symptoms Allergies: Coded Allergies: ADHESIVE TAPE (Verified Allergy, Unknown, 04/27/17) AMIODARONE (Verified Allergy, Unknown, 04/27/17) INFLUENZA VIRUS VACCINES (Verified Allergy, Unknown, 04/27/17) SULFAMETHIZOLE (Verified Allergy, Unknown, 04/27/17) Subjective afebrile, no hemoptysis, no hematochezia Objective Last 24 Hour Vital Signs Date Time Temp Pulse Resp B/P (MAP) Pulse Ox O2 Delivery O2 Flow Rate FiO2 05/14/17 21:00 85 96/55 05/14/17 20:41 85 18 Room Air 05/14/17 20:00 97.3 79 20 96/55 92 Room Air 05/14/17 17:34 106/69 05/14/17 16:00 97.3 63 18 106/69 97 Room Air 05/14/17 12:00 97.0 76 18 109/72 95 Room Air 05/14/17 08:51 78 113/67 05/14/17 08:00 97.9 78 18 113/67 93 Room Air 05/14/17 07:20 75 18 Room Air 05/14/17 06:12 110/67 05/14/17 05:22 75 14 98 Facial 30 05/14/17 04:00 97.3 59 20 110/67 98 Room Air 05/14/17 03:34 70 14 98 Facial 30 05/14/17 02:03 67 12 98 Facial 30 05/14/17 00:00 97.5 62 22 109/76 97 Room Air 05/13/17 23:35 72 18 98 Facial 30 Intake and Output 05/14/17 05/15/17 19:00 07:00 Intake Total 800 ml Balance 800 ml Intake Oral 800 ml # Voids 2 # Bowel Movements 2 Laboratory Tests 05/14/17 05:05: White Blood Count 4.7L, Red Blood Count 3.93L, Hemoglobin 13.2L, Hematocrit 37.0L, Mean Corpuscular Volume 94, Mean Corpuscular Hemoglobin 33.5H, Mean Corpuscular Hemoglobin Concent 35.6, Red Cell Distribution Width 14.5, Platelet Count 150, Mean Platelet Volume 6.0L, Neutrophils (%) (Auto) 52.7, Lymphocytes ( %) (Auto) 31.2, Monocytes (%) (Auto) 10.1H, Eosinophils (%) (Auto) 5.0H, Basophils (%) (Auto) 0.9, Prothrombin Time 27.4H, Prothromb Time International Ratio 2.6H, Sodium Level 141, Potassium Level 3.6, Chloride Level 102, Carbon Dioxide Level 27, Anion Gap 12, Blood Urea Nitrogen 16, Creatinine 1.3H, Estimat Glomerular Filtration Rate 56.1, Glucose Level 191H, Calcium Level 9.9 Height (Feet): 5 Height (Inches): 7.00 Weight (Pounds): 219 General Appearance: no apparent distress EENT: normal ENT inspection Neck: normal alignment Cardiovascular: normal peripheral pulses Respiratory/Chest: chest wall non-tender Abdomen: no organomegaly Skin: warm/dry Enrique Willis May 14, 2017 22:02
[2017-05-15] VITALS: BP 108/67
--- NOTE | 2017-05-15 02:15 | Progress Note ---
DATE: 05/14/2017 NOTE: "POOR AUDIO QUALITY" SUBJECTIVE: This is a 61-year-old male patient with acute coronary syndrome. PLAN: The patient was diagnosed with schizoaffective, bipolar type. Continue him on Abilify . The chart was reviewed and discussed with the staff. Seen and assessed at the bedside. Jody Armas M.D. DR: Alex JOB#: [id number] CC:
[2017-05-15 04:00] VITALS: BP 109/66
[2017-05-15] MEDS: NovoLOG Insulin Flexpen SUBQ SCH ×4 (06:15→21:27)
[2017-05-15 07:27] LABS: BASOPHILS % (AUTO) 5.8 % (0.0-2.0); EOSINOPHILS % (AUTO) 6.4 % (0.0-3.0); LYMPHOCYTES % (AUTO) 23.4 % (20.0-45.0); MEAN CORPUSCULAR HEMOGLOBIN 32.3 PG (27.0-31.0); MEAN CORPUSCULAR HGB CONC 34.5 G/DL (32.0-36.0); MEAN CORPUSCULAR VOLUME 94 FL (80-99); MEAN PLATELET VOLUME 5.4 FL (6.5-10.1); MONOCYTES % (AUTO) 14.2 % (1.0-10.0); NEUTROPHILS % (AUTO) 50.3 % (45.0-75.0); PLATELET COUNT 135 K/UL (150-450); RED BLOOD COUNT 3.63 M/UL (4.70-6.10); RED CELL DISTRIBUTION WIDTH 14.3 % (11.6-14.8); WHITE BLOOD COUNT 4.1 K/UL (4.8-10.8)
[2017-05-15 07:38] LABS: CALCIUM 9.4 mg/dL (8.6-10.2); CREATININE 1.3 mg/dL (0.7-1.2); GLOMERULAR FILTRATION RATE 56.1 mL/min (>60); POTASSIUM 3.8 mEQ/L (3.4-4.9)
[2017-05-15 07:41] LABS: INR 2.7 (0.9-1.1); PROTHROMBIN TIME 28.2 SEC (9.30-11.50)
[2017-05-15 08:00] VITALS: BP 91/58
--- NOTE | 2017-05-15 08:05 | General Progress Note ---
Assessment/Plan Problem List: (1) Stress reaction ICD Codes: F43.0 - Acute stress reaction SNOMED: 40064705 (2) Hyperglycemia due to type 2 diabetes mellitus ICD Codes: E11.65 - Type 2 diabetes mellitus with hyperglycemia SNOMED: 587801664888060, [id number] Qualifiers: Qualified Codes: E11.65 - Type 2 diabetes mellitus with hyperglycemia; Z79.4 - correction (current) use of insulin (3) Chest pain ICD Codes: R07.9 - Chest pain, unspecified SNOMED: 45111882 Qualifiers: Qualified Codes: R07.9 - Chest pain, unspecified (4) Diabetes mellitus ICD Codes: E11.9 - Type 2 diabetes mellitus without complications SNOMED: 86963563 (5) Acute coronary syndrome ICD Codes: I24.9 - Acute ischemic heart disease, unspecified SNOMED: 622522621 Status: stable, progressing, tolerating diet Assessment/Plan ot pt diet pain control cbc bmp am dc to snf Subjective Constitutional: Reports: weakness Allergies: Coded Allergies: ADHESIVE TAPE (Verified Allergy, Unknown, 04/27/17) AMIODARONE (Verified Allergy, Unknown, 04/27/17) INFLUENZA VIRUS VACCINES (Verified Allergy, Unknown, 04/27/17) SULFAMETHIZOLE (Verified Allergy, Unknown, 04/27/17) All Systems: reviewed and negative except above Subjective sl weak anxious Objective Last 24 Hour Vital Signs Date Time Temp Pulse Resp B/P (MAP) Pulse Ox O2 Delivery O2 Flow Rate FiO2 05/15/17 06:10 109/66 05/15/17 05:00 67 12 98 Facial 30 05/15/17 04:00 97.0 68 18 109/66 99 Room Air 05/15/17 01:18 66 13 99 Facial 30 05/15/17 00:00 97.5 55 21 108/67 98 Bi-pap 05/14/17 22:46 68 21 98 Facial 30 05/14/17 21:00 85 96/55 05/14/17 20:41 85 18 Room Air 05/14/17 20:00 97.3 79 20 96/55 92 Room Air 05/14/17 17:34 106/69 05/14/17 16:00 97.3 63 18 106/69 97 Room Air 05/14/17 12:00 97.0 76 18 109/72 95 Room Air 05/14/17 08:51 78 113/67 Laboratory Tests 05/15/17 05:45: White Blood Count 4.1L, Red Blood Count 3.63L, Hemoglobin 11.7L, Hematocrit 33.9L, Mean Corpuscular Volume 94, Mean Corpuscular Hemoglobin 32.3H, Mean Corpuscular Hemoglobin Concent 34.5, Red Cell Distribution Width 14.3, Platelet Count 135L, Mean Platelet Volume 5.4L, Neutrophils (%) (Auto) 50.3, Lymphocytes (%) (Auto) 23.4, Monocytes (%) (Auto) 14.2H, Eosinophils (%) (Auto) 6.4H, Basophils (%) (Auto) 5.8H, Prothrombin Time 28.2H, Prothromb Time International Ratio 2.7H, Sodium Level 142, Potassium Level 3.8, Chloride Level 104, Carbon Dioxide Level 26, Anion Gap 12, Blood Urea Nitrogen 17, Creatinine 1.3H, Estimat Glomerular Filtration Rate 56.1, Glucose Level 227H, Calcium Level 9.4 Height (Feet): 5 Height (Inches): 7.00 Weight (Pounds): 219 General Appearance: lethargic EENT: normal ENT inspection Neck: normal alignment Cardiovascular: normal peripheral pulses, normal rate, regular rhythm Respiratory/Chest: chest wall non-tender, lungs clear, normal breath sounds Abdomen: normal bowel sounds, non tender, soft Extremities: normal inspection Edema: no edema noted Arm (L), no edema noted Arm (R), no edema noted Leg (L), no edema noted Leg (R), no edema noted Pedal (L), no edema noted Pedal (R), no edema noted Generalized Neurologic: responsive, motor weakness Skin: normal pigmentation, warm/dry ANDRE SILVA May 15, 2017 08:05
[2017-05-15] MEDS: Aspirin Baby 81mg ORAL SCH (08:35)
[2017-05-15] MEDS: Ranolazine 500mg tab ORAL SCH ×2 (08:35→21:18)
[2017-05-15] MEDS: ARIPiprazole 10mg tab ORAL SCH (08:35)
[2017-05-15] MEDS: KETOCONAZOLE 2% TOPIC SCH (08:41)
[2017-05-15] MEDS: Metoprolol Tartrate 50mg tab ORAL SCH ×2 (09:00→21:00)
[2017-05-15] MEDS ORDERED: NS 550ML IV ONE (09:04)
--- NOTE | 2017-05-15 10:51 | Pulmonology Progress Note ---
Assessment/Plan Assessment/Plan ASSESSMENT Chest pain Possible ACS CAD with hx of CABG and multiple cardiac interventions s/p AVR Moderate Hx of A fib with ablation DM Schizoaffective disorder, bipolar type Diarrhea, r/o C dif elevated creat PLAN OF CARE [facility] floor Serial troponin x 3 negative ECG no acute ischemic changes, ruled out for acute PA Cardio follows chest pain atypical as per cardio ECHO with pEF 60-65% and RBSP of 32, moderate Nuclear stress test negative for evidence of ischemia s/p CABG with PCI June 2016 at [facility]. Continue antiplatelet therapy ( ASA and Plavix), Coumadin, BB , Ranexa , Isosorbide and statin- as per cardio recommendations remains in SR, on a/coagulation , Lipid panel with elevated TG counseled on low fat low cholesterol diet Added Fish oil O2 prn to keep sat above 92% Pulmonary toilet prn CXR negative awaiting for BiPAP machine 15 settings BS management with SS of insulin ID follows Hx of C dif, s/p Rx, stool C dif, stool culture both negative , off Vanco abdominal US with evidence of fatty liver. Splenomegaly creat 1.3-after 500 cc NS bolus . avoid nephrotoxic push po fluids Psych follows Psych meds optimized as per psych Pain management PT/OT dc plan as per PMD awaiting for disposition and BiPAP machine, settings should be 15/ case discussed and evaluated by supervising physician Subjective Allergies: Coded Allergies: ADHESIVE TAPE (Verified Allergy, Unknown, 04/27/17) AMIODARONE (Verified Allergy, Unknown, 04/27/17) INFLUENZA VIRUS VACCINES (Verified Allergy, Unknown, 04/27/17) SULFAMETHIZOLE (Verified Allergy, Unknown, 04/27/17) Subjective no chest pain, feeling better awaiting for placement and BiPAP machine Objective Last 24 Hour Vital Signs Date Time Temp Pulse Resp B/P (MAP) Pulse Ox O2 Delivery O2 Flow Rate FiO2 05/15/17 09:00 70 91/58 05/15/17 08:00 97.0 70 18 58 96 Room Air 05/15/17 06:50 74 15 Room Air 05/15/17 06:10 109/66 05/15/17 05:00 67 12 98 Facial 30 05/15/17 04:00 97.0 68 18 109/66 99 Room Air 05/15/17 01:18 66 13 99 Facial 30 05/15/17 00:00 97.5 55 21 108/67 98 Bi-pap 05/14/17 22:46 68 21 98 Facial 30 05/14/17 21:00 85 96/55 05/14/17 20:41 85 18 Room Air 05/14/17 20:00 97.3 79 20 96/55 92 Room Air 05/14/17 17:34 106/69 05/14/17 16:00 97.3 63 18 106/69 97 Room Air 05/14/17 12:00 97.0 76 18 109/72 95 Room Air Objective General Appearance: no acute distress, other - awake, alert, responsive obese male HEENT: normocephalic, atraumatic, anicteric, mucous membranes moist Respiratory/Chest: chest wall non-tender, lungs clear, no respiratory distress , no accessory muscle use Cardiovascular: normal rate, regular rhythm Abdomen: normal bowel sounds, soft, non tender - obese Genitourinary: normal external genitalia Extremities: no edema, pedal pulses normal Neurologic/Psychiatric: abnormal gait, alert, responsive Musculoskeletal: normal muscle bulk Laboratory Tests 05/15/17 05:45: White Blood Count 4.1L, Red Blood Count 3.63L, Hemoglobin 11.7L, Hematocrit 33.9L, Mean Corpuscular Volume 94, Mean Corpuscular Hemoglobin 32.3H, Mean Corpuscular Hemoglobin Concent 34.5, Red Cell Distribution Width 14.3, Platelet Count 135L, Mean Platelet Volume 5.4L, Neutrophils (%) (Auto) 50.3, Lymphocytes (%) (Auto) 23.4, Monocytes (%) (Auto) 14.2H, Eosinophils (%) (Auto) 6.4H, Basophils (%) (Auto) 5.8H, Prothrombin Time 28.2H, Prothromb Time International Ratio 2.7H, Sodium Level 142, Potassium Level 3.8, Chloride Level 104, Carbon Dioxide Level 26, Anion Gap 12, Blood Urea Nitrogen 17, Creatinine 1.3H, Estimat Glomerular Filtration Rate 56.1, Glucose Level 227H, Calcium Level 9.4 Current Medications Medications (Trade) Dose Ordered Sig/Tanner Route PRN Reason Start Time Stop Time Status Last Admin Dose Admin Acetaminophen (Tylenol) 650 mg Q4H PRN ORAL FEVER>100.5 05/05/17 17:00 05/28/17 16:59 Allopurinol (Allopurinol) 300 mg DAILY ORAL 05/06/17 09:00 05/28/17 08:59 05/15/17 08:35 Aripiprazole (Abilify) 35 mg DAILY ORAL 05/06/17 09:00 06/05/17 08:59 05/15/17 08:35 Aspirin (ASA) 162 mg DAILY ORAL 05/06/17 09:00 05/28/17 08:59 05/15/17 08:35 Atorvastatin Calcium (Lipitor) 40 mg BEDTIME ORAL 05/05/17 21:00 05/28/17 20:59 05/14/17 20:51 Clopidogrel Bisulfate (Plavix) 75 mg DAILY ORAL 05/06/17 09:00 05/28/17 08:59 05/15/17 08:35 Dextrose (Dextrose 50%) STAT PRN IV Hypoglycemia 05/05/17 17:00 06/04/17 16:59 Enalaprilat (Vasotec) 2.5 mg Q6H PRN IV sbp more than 160 05/05/17 17:00 06/04/17 16:59 Escitalopram Oxalate (Lexapro) 20 mg DAILY ORAL 05/06/17 09:00 05/28/17 12:59 05/15/17 08:35 Fish Oil (Fish Oil) 1,000 mg DAILY ORAL 05/06/17 09:00 05/31/17 08:59 05/07/17 09:13 Insulin Aspart (NovoLOG) BEFORE MEALS AND HS SUBQ 05/05/17 17:30 05/28/17 17:29 05/15/17 06:15 Isosorbide Dinitrate (Isordil) 30 mg BID@0600,1800 ORAL 05/05/17 18:00 06/03/17 18:04 05/15/17 06:10 Ketoconazole (Nizoral 2% Cream) 1 applic DAILY TOPIC 05/06/17 09:00 06/01/17 08:59 05/15/17 08:41 Ketoconazole (Nizoral 2% Shampoo) 1 applic DAILY TOPIC 05/06/17 09:00 06/01/17 08:59 05/15/17 08:41 Metoprolol Tartrate (Lopressor) 50 mg Q12HR ORAL 05/05/17 21:00 05/30/17 20:59 05/14/17 08:51 Mirtazapine (Remeron) 30 mg QHS ORAL 05/05/17 21:00 05/28/17 20:59 05/14/17 20:52 Nitroglycerin (Ntg) 0.4 mg Q5MIN PRN SL Prn Chest Pain 05/05/17 16:00 06/04/17 15:59 05/13/17 20:02 Ondansetron HCl (Zofran) 4 mg Q6H PRN IVP Nausea & Vomiting 05/05/17 17:00 05/28/17 16:59 Pantoprazole (Protonix) 40 mg ACBREAKFAST ORAL 05/06/17 06:30 05/28/17 08:59 05/15/17 06:10 Polyethylene Glycol (Miralax) 17 gm DAILYPRN PRN ORAL Constipation 05/05/17 17:00 06/04/17 16:59 Quetiapine Fumarate (SEROquel) 25 mg DAILY@1700 ORAL 05/05/17 17:00 05/30/17 16:59 05/14/17 17:34 Quetiapine Fumarate (SEROquel) 200 mg BEDTIME ORAL 05/05/17 21:00 05/28/17 20:59 05/14/17 20:51 Ranolazine (Ranexa ER 500mg) 500 mg Q12HR ORAL 05/05/17 21:00 06/02/17 20:59 05/15/17 08:35 Tamsulosin HCl (Flomax) 0.4 mg BEDTIME ORAL 05/05/17 21:00 05/28/17 20:59 05/14/17 20:51 Temazepam (Restoril) 15 mg HSPRN PRN ORAL Insomnia 05/14/17 20:45 05/21/17 20:44 05/14/17 21:43 Warfarin Sodium (Coumadin per pharmacy) 1 ea DAILYPRN PRN MISC Per rx protocol 05/05/17 17:00 06/04/17 16:59 Warfarin Sodium (Coumadin) 6 mg COUMADIN ORAL 05/15/17 17:00 05/20/17 16:59 [facility]Kennedi Kline NP May 15, 2017 10:51
[2017-05-15 12:00] VITALS: BP 116/75
[2017-05-15 16:00] VITALS: BP 117/71
[2017-05-15] MEDS ORDERED: Warfarin Sodium 3mg ORAL SCH (17:00)
[2017-05-15 20:00] VITALS: BP 122/64
[2017-05-15] MEDS: Nitroglycerin Subl 0.4mg tab (Bottle Of 25) SL PRN ×2 (20:05→20:24)
[2017-05-15] MEDS: Tamsulosin 0.4mg cap ORAL SCH ×2 (20:28→21:45)
--- NOTE | 2017-05-15 20:31 | General Progress Note ---
Assessment/Plan Assessment/Plan 1. Pancytopenia. Monitor. --> oscillating --> Give prbc if hgb<7 and platelets if <20k --> HIV and hepatitis panel are both negative --> Ultrasound of the abdomen reveal cysts on right kidney, fatty liver, splenomegaly, atherosclerotic vascular disease, and absent left kidney 2. Thrombocytopenia --> 2/2 liver disease 3. Anemia, very mild. --> Continue to closely monitor, likely secondary to chronic disease. --> No blood transfusion required unless symptomatic or hgb<7 4. Diarrhea, resolved. 5. Acute coronary syndrome. Cardiology service is following. 6. Diabetes mellitus. Subjective Constitutional: Reports: no symptoms HEENT: Reports: no symptoms Cardiovascular: Reports: no symptoms Respiratory: Reports: no symptoms Gastrointestinal/Abdominal: Reports: no symptoms Genitourinary: Reports: no symptoms Neurologic/Psychiatric: Reports: no symptoms Endocrine: Reports: no symptoms Hematologic/Lymphatic: Reports: no symptoms Allergies: Coded Allergies: ADHESIVE TAPE (Verified Allergy, Unknown, 04/27/17) AMIODARONE (Verified Allergy, Unknown, 04/27/17) INFLUENZA VIRUS VACCINES (Verified Allergy, Unknown, 04/27/17) SULFAMETHIZOLE (Verified Allergy, Unknown, 04/27/17) Subjective nad Objective Last 24 Hour Vital Signs Date Time Temp Pulse Resp B/P (MAP) Pulse Ox O2 Delivery O2 Flow Rate FiO2 05/15/17 20:05 122/64 05/15/17 19:34 76 16 Room Air 05/15/17 16:28 117/71 05/15/17 16:00 97.2 71 20 117/71 98 Room Air 05/15/17 12:00 97.9 63 20 116/75 97 Room Air 05/15/17 09:00 70 91/58 05/15/17 08:00 97.0 70 18 91/58 96 Room Air 05/15/17 06:50 74 15 Room Air 05/15/17 06:10 109/66 05/15/17 05:00 67 12 98 Facial 30 05/15/17 04:00 97.0 68 18 109/66 99 Room Air 05/15/17 01:18 66 13 99 Facial 30 05/15/17 00:00 97.5 55 21 108/67 98 Bi-pap 05/14/17 22:46 68 21 98 Facial 30 05/14/17 21:00 85 96/55 05/14/17 20:41 85 18 Room Air Laboratory Tests 05/15/17 05:45: White Blood Count 4.1L, Red Blood Count 3.63L, Hemoglobin 11.7L, Hematocrit 33.9L, Mean Corpuscular Volume 94, Mean Corpuscular Hemoglobin 32.3H, Mean Corpuscular Hemoglobin Concent 34.5, Red Cell Distribution Width 14.3, Platelet Count 135L, Mean Platelet Volume 5.4L, Neutrophils (%) (Auto) 50.3, Lymphocytes (%) (Auto) 23.4, Monocytes (%) (Auto) 14.2H, Eosinophils (%) (Auto) 6.4H, Basophils (%) (Auto) 5.8H, Prothrombin Time 28.2H, Prothromb Time International Ratio 2.7H, Sodium Level 142, Potassium Level 3.8, Chloride Level 104, Carbon Dioxide Level 26, Anion Gap 12, Blood Urea Nitrogen 17, Creatinine 1.3H, Estimat Glomerular Filtration Rate 56.1, Glucose Level 227H, Calcium Level 9.4 Height (Feet): 5 Height (Inches): 7.00 Weight (Pounds): 219 General Appearance: no apparent distress EENT: normal ENT inspection Neck: normal alignment Extremities: normal inspection, no calf tenderness 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
[2017-05-15] MEDS: QUEtiapine 200mg tab ORAL SCH (21:18)
--- NOTE | 2017-05-15 22:03 | Infectious Diseases Prog Note ---
Assessment/Plan Problems: (1) Diarrhea Assessment & Plan: resolved, no C DIFF, or stool infection . had negative stool culture, keep off antibiotics. advised to avoid any unnecessary antibiotics in the future , avoid laxatives (2) Chest pain Assessment & Plan: resolved, he was ruled out for ACS , with negative stress test , medical management as per cardiology team (3) Diabetes mellitus Assessment & Plan: recommend tight glycemic control to keep blood glucose between 80-120 (4) CAD (coronary artery disease) Assessment & Plan: continue cardiac meds, cardiology is following (5) Dermatitis, seborrheic Assessment & Plan: on ketoconazole shampoo prn (6) THOMAS (acute kidney injury) Assessment & Plan: improving, suspect dehydration, recommend hydration and close monitor of renal function test . Subjective Constitutional: Reports: no symptoms HEENT: Reports: no symptoms Respiratory: Reports: no symptoms Breasts: Reports: no symptoms Cardiovascular: Reports: no symptoms Gastrointestinal/Abdominal: Reports: no symptoms Genitourinary: Reports: no symptoms Neurologic: Reports: no symptoms Psychiatric: Reports: no symptoms Skin: Reports: no symptoms Endocrine: Reports: no symptoms Hematologic: Reports: no symptoms Allergies: Coded Allergies: ADHESIVE TAPE (Verified Allergy, Unknown, 04/27/17) AMIODARONE (Verified Allergy, Unknown, 04/27/17) INFLUENZA VIRUS VACCINES (Verified Allergy, Unknown, 04/27/17) SULFAMETHIZOLE (Verified Allergy, Unknown, 04/27/17) Objective Vital Signs Last 24 Hour Vital Signs Date Time Temp Pulse Resp B/P (MAP) Pulse Ox O2 Delivery O2 Flow Rate FiO2 05/15/17 21:00 66 115/65 05/15/17 20:24 115/65 05/15/17 20:05 122/64 05/15/17 19:34 76 16 Room Air 05/15/17 16:28 117/71 05/15/17 16:00 97.2 71 20 117/71 98 Room Air 05/15/17 12:00 97.9 63 20 116/75 97 Room Air 05/15/17 09:00 70 91/58 05/15/17 08:00 97.0 70 18 91/58 96 Room Air 05/15/17 06:50 74 15 Room Air 05/15/17 06:10 109/66 05/15/17 05:00 67 12 98 Facial 30 05/15/17 04:00 97.0 68 18 109/66 99 Room Air 05/15/17 01:18 66 13 99 Facial 30 05/15/17 00:00 97.5 55 21 108/67 98 Bi-pap 05/14/17 22:46 68 21 98 Facial 30 Height (Feet): 5 Height (Inches): 7.00 Weight (Pounds): 219 General Appearance: WD/WN, no acute distress HEENT: normocephalic, atraumatic, anicteric, mucous membranes moist, PERRL, EOMI, pharynx normal, supple, no JVD Respiratory/Chest: chest wall non-tender, lungs clear, normal breath sounds, no respiratory distress, no accessory muscle use Cardiovascular: normal peripheral pulses, normal rate, regular rhythm, no gallop/murmur, no JVD Abdomen: normal bowel sounds, soft, non tender, no organomegaly, non distended , no mass, no scars Extremities: no cyanosis, no clubbing Skin: no rash, no lesions, no ulcers 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, alert, oriented x 3, responsive Lymphatic: no neck adenopathy, no groin adenopathy Laboratory Tests Test 05/15/17 05:45 White Blood Count 4.1 K/UL (4.8-10.8) L Red Blood Count 3.63 M/UL (4.70-6.10) L Hemoglobin 11.7 G/DL (14.2-18.0) L Hematocrit 33.9 % (42.0-52.0) L Mean Corpuscular Volume 94 FL (80-99) Mean Corpuscular Hemoglobin 32.3 PG (27.0-31.0) H Mean Corpuscular Hemoglobin Concent 34.5 G/DL (32.0-36.0) Red Cell Distribution Width 14.3 % (11.6-14.8) Platelet Count 135 K/UL (150-450) L Mean Platelet Volume 5.4 FL (6.5-10.1) L Neutrophils (%) (Auto) 50.3 % (45.0-75.0) Lymphocytes (%) (Auto) 23.4 % (20.0-45.0) Monocytes (%) (Auto) 14.2 % (1.0-10.0) H Eosinophils (%) (Auto) 6.4 % (0.0-3.0) H Basophils (%) (Auto) 5.8 % (0.0-2.0) H Prothrombin Time 28.2 SEC (9.30-11.50) H Prothromb Time International Ratio 2.7 (0.9-1.1) H Sodium Level 142 mEQ/L (135-145) Potassium Level 3.8 mEQ/L (3.4-4.9) Chloride Level 104 mEQ/L (98-107) Carbon Dioxide Level 26 mEQ/L (20-30) Anion Gap 12 (5-15) Blood Urea Nitrogen 17 mg/dL (7-23) Creatinine 1.3 mg/dL (0.7-1.2) H Estimat Glomerular Filtration Rate 56.1 mL/min (>60) Glucose Level 227 mg/dL (74-106) H Calcium Level 9.4 mg/dL (8.6-10.2) Current Medications Medications (Trade) Dose Ordered Sig/Tanner Route PRN Reason Start Time Stop Time Status Last Admin Dose Admin Acetaminophen (Tylenol) 650 mg Q4H PRN ORAL FEVER>100.5 05/05/17 17:00 05/28/17 16:59 Allopurinol (Allopurinol) 300 mg DAILY ORAL 05/06/17 09:00 05/28/17 08:59 05/15/17 08:35 Aripiprazole (Abilify) 35 mg DAILY ORAL 05/06/17 09:00 06/05/17 08:59 05/15/17 08:35 Aspirin (ASA) 162 mg DAILY ORAL 05/06/17 09:00 05/28/17 08:59 05/15/17 08:35 Atorvastatin Calcium (Lipitor) 40 mg BEDTIME ORAL 05/05/17 21:00 05/28/17 20:59 05/15/17 21:17 Clopidogrel Bisulfate (Plavix) 75 mg DAILY ORAL 05/06/17 09:00 05/28/17 08:59 05/15/17 08:35 Dextrose (Dextrose 50%) STAT PRN IV Hypoglycemia 05/05/17 17:00 06/04/17 16:59 Enalaprilat (Vasotec) 2.5 mg Q6H PRN IV sbp more than 160 05/05/17 17:00 06/04/17 16:59 Escitalopram Oxalate (Lexapro) 20 mg DAILY ORAL 05/06/17 09:00 05/28/17 12:59 05/15/17 08:35 Fish Oil (Fish Oil) 1,000 mg DAILY ORAL 05/06/17 09:00 05/31/17 08:59 05/07/17 09:13 Insulin Aspart (NovoLOG) BEFORE MEALS AND HS SUBQ 05/05/17 17:30 05/28/17 17:29 05/15/17 21:27 Isosorbide Dinitrate (Isordil) 30 mg BID@0600,1800 ORAL 05/05/17 18:00 06/03/17 18:04 05/15/17 16:28 Ketoconazole (Nizoral 2% Cream) 1 applic DAILY TOPIC 05/06/17 09:00 06/01/17 08:59 05/15/17 08:41 Ketoconazole (Nizoral 2% Shampoo) 1 applic DAILY TOPIC 05/06/17 09:00 06/01/17 08:59 05/15/17 08:41 Metoprolol Tartrate (Lopressor) 50 mg Q12HR ORAL 05/05/17 21:00 05/30/17 20:59 05/14/17 08:51 Mirtazapine (Remeron) 30 mg QHS ORAL 05/05/17 21:00 05/28/17 20:59 05/15/17 21:18 Nitroglycerin (Ntg) 0.4 mg Q5MIN PRN SL Prn Chest Pain 05/05/17 16:00 06/04/17 15:59 05/15/17 20:24 Ondansetron HCl (Zofran) 4 mg Q6H PRN IVP Nausea & Vomiting 05/05/17 17:00 05/28/17 16:59 Pantoprazole (Protonix) 40 mg ACBREAKFAST ORAL 05/06/17 06:30 05/28/17 08:59 05/15/17 06:10 Polyethylene Glycol (Miralax) 17 gm DAILYPRN PRN ORAL Constipation 05/05/17 17:00 06/04/17 16:59 Quetiapine Fumarate (SEROquel) 25 mg DAILY@1700 ORAL 05/05/17 17:00 05/30/17 16:59 05/15/17 16:25 Quetiapine Fumarate (SEROquel) 200 mg BEDTIME ORAL 05/05/17 21:00 05/28/17 20:59 05/15/17 21:18 Ranolazine (Ranexa ER 500mg) 500 mg Q12HR ORAL 05/05/17 21:00 06/02/17 20:59 05/15/17 21:18 Tamsulosin HCl (Flomax) 0.4 mg BEDTIME ORAL 05/05/17 21:00 05/28/17 20:59 05/15/17 21:45 Temazepam (Restoril) 15 mg HSPRN PRN ORAL Insomnia 05/14/17 20:45 05/21/17 20:44 05/15/17 21:44 Warfarin Sodium (Coumadin per pharmacy) 1 ea DAILYPRN PRN MISC Per rx protocol 05/05/17 17:00 06/04/17 16:59 Warfarin Sodium (Coumadin) 6 mg COUMADIN ORAL 05/15/17 17:00 05/20/17 16:59 05/15/17 16:24 Gladys Murillo M.D. May 15, 2017 22:03
[2017-05-16] VITALS: BP 119/66
[2017-05-16 04:00] VITALS: BP 124/77
[2017-05-16] MEDS: NovoLOG Insulin Flexpen SUBQ SCH ×4 (05:49→23:01)
[2017-05-16 08:15] VITALS: BP 108/73
--- NOTE | 2017-05-16 08:15 | Progress Note ---
DATE: 05/16/2017 SUBJECTIVE: This is a 61-year-old male patient with acute coronary syndrome. PLAN: I am going to check to prevent any decline in his cognition. Chart reviewed and discussed with staff. . Continue him on Abilify 5 mg q.p.m. . Jody Armas M.D. DR: LEXIE JOB#: [id number] CC:
[2017-05-16] MEDS: Metoprolol Tartrate 50mg tab ORAL SCH (09:00)
[2017-05-16] MEDS: Ranolazine 500mg tab ORAL SCH ×2 (09:43→22:59)
[2017-05-16] MEDS: ARIPiprazole 10mg tab ORAL SCH (09:44)
[2017-05-16] MEDS: Aspirin Baby 81mg ORAL SCH (09:45)
--- NOTE | 2017-05-16 09:45 | Progress Note ---
DATE: 05/13/2017 SUBJECTIVE: The patient is a 61-year-old male patient with acute coronary syndrome. The patient still has a lot of mood lability. PLAN: Continue him on Abilify mg q.p.m., encouraged him to medications to stabilize his mood, to reduce the mood lability secondary to stress acute coronary syndrome. Chart reviewed and discussed with staff. Jody Armas M.D. DR: Citlaly JOB#: [id number] CC:
[2017-05-16] MEDS: KETOCONAZOLE 2% TOPIC SCH (09:55)
[2017-05-16 10:12] LABS: MEAN CORPUSCULAR HEMOGLOBIN 31.9 PG (27.0-31.0); MEAN CORPUSCULAR HGB CONC 34.4 G/DL (32.0-36.0); MEAN CORPUSCULAR VOLUME 93 FL (80-99); MEAN PLATELET VOLUME 5.6 FL (6.5-10.1); PLATELET COUNT 134 K/UL (150-450); RED BLOOD COUNT 3.65 M/UL (4.70-6.10); RED CELL DISTRIBUTION WIDTH 13.9 % (11.6-14.8); WHITE BLOOD COUNT 3.4 K/UL (4.8-10.8)
[2017-05-16 10:25] LABS: ANION GAP 12 (5-15); CALCIUM 9.1 mg/dL (8.6-10.2); CARBON DIOXIDE 25 mEQ/L (20-30); CHLORIDE 99 mEQ/L (98-107); CREATININE 1.2 mg/dL (0.7-1.2); GLOMERULAR FILTRATION RATE > 60 mL/min (>60); HEMOLYSIS 7; SODIUM 136 mEQ/L (135-145)
[2017-05-16 10:26] LABS: INR 2.9 (0.9-1.1); PROTHROMBIN TIME 30.6 SEC (9.30-11.50)
[2017-05-16 10:43] LABS: BASOPHILS % (MANUAL) 1 % (0-2); EOSINOPHILS % (MANUAL) 7 % (0-3); LYMPHOCYTES % (MANUAL) 34 % (20-45); NEUTROPHILS % (MANUAL) 54 % (45-75); TOTAL CELLS COUNTED 100
[2017-05-16 10:44] LABS: BAND NEUTROPHILS % (MANUAL) 0 % (0-8); HYPOCHROMASIA 1+; MICROCYTES 2+; OVALOCYTES 1+; PLATELET ESTIMATE DECREASED; PLATELET MORPHOLOGY NORMAL; TEAR DROP CELLS 1+
[2017-05-16 12:15] VITALS: BP 115/72
--- NOTE | 2017-05-16 13:38 | General Progress Note ---
Assessment/Plan Problem List: (1) Stress reaction ICD Codes: F43.0 - Acute stress reaction SNOMED: 66541221 (2) Hyperglycemia due to type 2 diabetes mellitus ICD Codes: E11.65 - Type 2 diabetes mellitus with hyperglycemia SNOMED: 769580641745499, 97650180 Qualifiers: Qualified Codes: E11.65 - Type 2 diabetes mellitus with hyperglycemia; Z79.4 - skilled nursing (current) use of insulin (3) Chest pain ICD Codes: R07.9 - Chest pain, unspecified SNOMED: 75922239 Qualifiers: Qualified Codes: R07.9 - Chest pain, unspecified (4) Diabetes mellitus ICD Codes: E11.9 - Type 2 diabetes mellitus without complications SNOMED: 43241736 (5) Acute coronary syndrome ICD Codes: I24.9 - Acute ischemic heart disease, unspecified SNOMED: 902391439 Status: stable, progressing, tolerating diet Assessment/Plan ot pt diet pain control cbc bmp am dc to snf Subjective Constitutional: Reports: weakness Allergies: Coded Allergies: ADHESIVE TAPE (Verified Allergy, Unknown, 04/27/17) AMIODARONE (Verified Allergy, Unknown, 04/27/17) INFLUENZA VIRUS VACCINES (Verified Allergy, Unknown, 04/27/17) SULFAMETHIZOLE (Verified Allergy, Unknown, 04/27/17) All Systems: reviewed and negative except above Subjective sl weak anxious Objective Last 24 Hour Vital Signs Date Time Temp Pulse Resp B/P (MAP) Pulse Ox O2 Delivery O2 Flow Rate FiO2 05/16/17 12:15 97.5 74 19 115/72 99 Room Air 05/16/17 09:00 83 108/73 05/16/17 08:15 98.7 83 20 108/73 95 Room Air 05/16/17 07:10 68 16 Room Air 05/16/17 05:47 124/77 05/16/17 05:26 68 22 98 Facial 30 05/16/17 04:00 98.1 66 21 124/77 95 Bi-pap 2.0 05/16/17 03:07 70 16 98 Facial 30 05/16/17 01:33 69 24 99 Facial 30 05/16/17 00:00 97.7 76 20 119/66 96 Room Air 05/15/17 22:36 73 21 98 Facial 30 05/15/17 21:00 66 115/65 05/15/17 20:24 115/65 05/15/17 20:05 122/64 05/15/17 20:00 97.6 72 20 122/64 96 Room Air 05/15/17 19:34 76 16 Room Air 05/15/17 16:28 117/71 05/15/17 16:00 97.2 71 20 117/71 98 Room Air Intake and Output 05/16/17 05/17/17 19:00 07:00 Intake Total 480 ml Output Total 350 ml Balance 130 ml Intake Oral 480 ml Output Urine Total 350 ml # Voids 2 Laboratory Tests 05/16/17 09:35: White Blood Count 3.4L, Red Blood Count 3.65L, Hemoglobin 11.6L, Hematocrit 33.8L, Mean Corpuscular Volume 93, Mean Corpuscular Hemoglobin 31.9H, Mean Corpuscular Hemoglobin Concent 34.4, Red Cell Distribution Width 13.9, Platelet Count 134L, Mean Platelet Volume 5.6L, Neutrophils (%) (Auto) , Lymphocytes (%) (Auto) , Monocytes (%) (Auto) , Eosinophils (%) (Auto) , Basophils (%) (Auto) , Differential Total Cells Counted 100, Neutrophils % (Manual) 54, Lymphocytes % ( Manual) 34, Monocytes % (Manual) 4, Eosinophils % (Manual) 7H, Basophils % ( Manual) 1, Band Neutrophils 0, Platelet Estimate DecreasedL, Platelet Morphology Normal, Hypochromasia 1+, Microcytosis 2+, Tear Drop Cells 1+, Ovalocytes 1+, Prothrombin Time 30.6H, Prothromb Time International Ratio 2.9H, Sodium Level 136, Potassium Level 4.0, Chloride Level 99, Carbon Dioxide Level 25, Anion Gap 12, Blood Urea Nitrogen 16, Creatinine 1.2, Estimat Glomerular Filtration Rate > 60, Glucose Level 273H, Calcium Level 9.1 Height (Feet): 5 Height (Inches): 7.00 Weight (Pounds): 219 General Appearance: lethargic EENT: normal ENT inspection Neck: normal alignment Cardiovascular: normal peripheral pulses, normal rate, regular rhythm Respiratory/Chest: chest wall non-tender, lungs clear, normal breath sounds Abdomen: normal bowel sounds, non tender, soft Extremities: normal inspection Edema: no edema noted Arm (L), no edema noted Arm (R), no edema noted Leg (L), no edema noted Leg (R), no edema noted Pedal (L), no edema noted Pedal (R), no edema noted Generalized Neurologic: motor weakness Skin: normal pigmentation, warm/dry ANDRE SILVA May 16, 2017 13:38
--- NOTE | 2017-05-16 14:40 | Pulmonology Progress Note ---
Assessment/Plan Problems: (1) Acute coronary syndrome (2) Chest pain (3) Diabetes mellitus (4) CAD (coronary artery disease) (5) Hx of CABG Assessment/Plan no new complains, doing better sliding scale diabetic diet waiting for the discharge awaiting bipap machine prescription give for bipap Subjective ROS Limited/Unobtainable: No Constitutional: Reports: no symptoms HEENT: Repors: no symptoms Respiratory: Reports: no symptoms Cardiovascular: Reports: no symptoms Allergies: Coded Allergies: ADHESIVE TAPE (Verified Allergy, Unknown, 04/27/17) AMIODARONE (Verified Allergy, Unknown, 04/27/17) INFLUENZA VIRUS VACCINES (Verified Allergy, Unknown, 04/27/17) SULFAMETHIZOLE (Verified Allergy, Unknown, 04/27/17) Objective Last 24 Hour Vital Signs Date Time Temp Pulse Resp B/P (MAP) Pulse Ox O2 Delivery O2 Flow Rate FiO2 05/16/17 12:15 97.5 74 19 115/72 99 Room Air 05/16/17 09:00 83 108/73 05/16/17 08:15 98.7 83 20 108/73 95 Room Air 05/16/17 07:10 68 16 Room Air 05/16/17 05:47 124/77 05/16/17 05:26 68 22 98 Facial 30 05/16/17 04:00 98.1 66 21 124/77 95 Bi-pap 2.0 05/16/17 03:07 70 16 98 Facial 30 05/16/17 01:33 69 24 99 Facial 30 05/16/17 00:00 97.7 76 20 119/66 96 Room Air 05/15/17 22:36 73 21 98 Facial 30 05/15/17 21:00 66 115/65 05/15/17 20:24 115/65 05/15/17 20:05 122/64 05/15/17 20:00 97.6 72 20 122/64 96 Room Air 05/15/17 19:34 76 16 Room Air 05/15/17 16:28 117/71 05/15/17 16:00 97.2 71 20 117/71 98 Room Air Intake and Output 05/16/17 05/17/17 19:00 07:00 Intake Total 480 ml Output Total 350 ml Balance 130 ml Intake Oral 480 ml Output Urine Total 350 ml # Voids 2 General Appearance: WD/WN, no acute distress Respiratory/Chest: chest wall non-tender, lungs clear Cardiovascular: normal peripheral pulses, normal rate, no JVD Abdomen: soft, non tender, no organomegaly Genitourinary: normal external genitalia Extremities: no cyanosis, no clubbing Skin: no rash Laboratory Tests 05/16/17 09:35: White Blood Count 3.4L, Red Blood Count 3.65L, Hemoglobin 11.6L, Hematocrit 33.8L, Mean Corpuscular Volume 93, Mean Corpuscular Hemoglobin 31.9H, Mean Corpuscular Hemoglobin Concent 34.4, Red Cell Distribution Width 13.9, Platelet Count 134L, Mean Platelet Volume 5.6L, Neutrophils (%) (Auto) , Lymphocytes (%) (Auto) , Monocytes (%) (Auto) , Eosinophils (%) (Auto) , Basophils (%) (Auto) , Differential Total Cells Counted 100, Neutrophils % (Manual) 54, Lymphocytes % ( Manual) 34, Monocytes % (Manual) 4, Eosinophils % (Manual) 7H, Basophils % ( Manual) 1, Band Neutrophils 0, Platelet Estimate DecreasedL, Platelet Morphology Normal, Hypochromasia 1+, Microcytosis 2+, Tear Drop Cells 1+, Ovalocytes 1+, Prothrombin Time 30.6H, Prothromb Time International Ratio 2.9H, Sodium Level 136, Potassium Level 4.0, Chloride Level 99, Carbon Dioxide Level 25, Anion Gap 12, Blood Urea Nitrogen 16, Creatinine 1.2, Estimat Glomerular Filtration Rate > 60, Glucose Level 273H, Calcium Level 9.1 Current Medications Medications (Trade) Dose Ordered Sig/Tanner Route PRN Reason Start Time Stop Time Status Last Admin Dose Admin Acetaminophen (Tylenol) 650 mg Q4H PRN ORAL FEVER>100.5 05/05/17 17:00 05/28/17 16:59 Allopurinol (Allopurinol) 300 mg DAILY ORAL 05/06/17 09:00 05/28/17 08:59 05/16/17 09:44 Aripiprazole (Abilify) 35 mg DAILY ORAL 05/06/17 09:00 06/05/17 08:59 05/16/17 09:44 Aspirin (ASA) 162 mg DAILY ORAL 05/06/17 09:00 05/28/17 08:59 05/16/17 09:45 Atorvastatin Calcium (Lipitor) 40 mg BEDTIME ORAL 05/05/17 21:00 05/28/17 20:59 05/15/17 21:17 Clopidogrel Bisulfate (Plavix) 75 mg DAILY ORAL 05/06/17 09:00 05/28/17 08:59 05/16/17 09:44 Dextrose (Dextrose 50%) STAT PRN IV Hypoglycemia 05/05/17 17:00 06/04/17 16:59 Enalaprilat (Vasotec) 2.5 mg Q6H PRN IV sbp more than 160 05/05/17 17:00 06/04/17 16:59 Escitalopram Oxalate (Lexapro) 20 mg DAILY ORAL 05/06/17 09:00 05/28/17 12:59 05/16/17 09:44 Fish Oil (Fish Oil) 1,000 mg DAILY ORAL 05/06/17 09:00 05/31/17 08:59 05/16/17 09:44 Insulin Aspart (NovoLOG) BEFORE MEALS AND HS SUBQ 05/05/17 17:30 05/28/17 17:29 05/16/17 12:24 Isosorbide Dinitrate (Isordil) 30 mg BID@0600,1800 ORAL 05/05/17 18:00 06/03/17 18:04 05/16/17 05:47 Ketoconazole (Nizoral 2% Cream) 1 applic DAILY TOPIC 05/06/17 09:00 06/01/17 08:59 05/16/17 09:56 Ketoconazole (Nizoral 2% Shampoo) 1 applic DAILY TOPIC 05/06/17 09:00 06/01/17 08:59 05/16/17 09:55 Metoprolol Tartrate (Lopressor) 50 mg Q12HR ORAL 05/05/17 21:00 05/30/17 20:59 05/14/17 08:51 Mirtazapine (Remeron) 30 mg QHS ORAL 05/05/17 21:00 05/28/17 20:59 05/15/17 21:18 Nitroglycerin (Ntg) 0.4 mg Q5MIN PRN SL Prn Chest Pain 05/05/17 16:00 06/04/17 15:59 05/15/17 20:24 Ondansetron HCl (Zofran) 4 mg Q6H PRN IVP Nausea & Vomiting 05/05/17 17:00 05/28/17 16:59 Pantoprazole (Protonix) 40 mg ACBREAKFAST ORAL 05/06/17 06:30 05/28/17 08:59 05/16/17 05:47 Polyethylene Glycol (Miralax) 17 gm DAILYPRN PRN ORAL Constipation 05/05/17 17:00 06/04/17 16:59 Quetiapine Fumarate (SEROquel) 25 mg DAILY@1700 ORAL 05/05/17 17:00 05/30/17 16:59 05/15/17 16:25 Quetiapine Fumarate (SEROquel) 200 mg BEDTIME ORAL 05/05/17 21:00 05/28/17 20:59 05/15/17 21:18 Ranolazine (Ranexa ER 500mg) 500 mg Q12HR ORAL 05/05/17 21:00 06/02/17 20:59 05/16/17 09:43 Tamsulosin HCl (Flomax) 0.4 mg BEDTIME ORAL 05/05/17 21:00 05/28/17 20:59 05/15/17 21:45 Temazepam (Restoril) 15 mg HSPRN PRN ORAL Insomnia 05/14/17 20:45 05/21/17 20:44 05/15/17 21:44 Warfarin Sodium (Coumadin per pharmacy) 1 ea DAILYPRN PRN MISC Per rx protocol 05/05/17 17:00 06/04/17 16:59 Warfarin Sodium (Coumadin) 5 mg COUMADIN ONCE ORAL 05/16/17 17:00 05/16/17 17:01 THADDEUS YA May 16, 2017 14:40
[2017-05-16 16:06] VITALS: BP 114/70
[2017-05-16] MEDS ORDERED: Warfarin Sodium 5mg ORAL ONE (17:00)
--- NOTE | 2017-05-16 17:40 | Infectious Diseases Prog Note ---
Assessment/Plan Problems: (1) Diarrhea Assessment & Plan: resolved, no C DIFF, or stool infection . had negative stool culture, keep off antibiotics. advised to avoid any unnecessary antibiotics in the future , avoid laxatives (2) Chest pain Assessment & Plan: resolved, he was ruled out for ACS , with negative stress test , medical management as per cardiology team (3) Diabetes mellitus Assessment & Plan: recommend tight glycemic control to keep blood glucose between 80-120 (4) CAD (coronary artery disease) Assessment & Plan: continue cardiac meds, cardiology is following (5) Dermatitis, seborrheic Assessment & Plan: on ketoconazole shampoo prn (6) THOMAS (acute kidney injury) Assessment & Plan: improving, suspect dehydration, recommend hydration and close monitor of renal function test . Subjective Constitutional: Reports: no symptoms HEENT: Reports: no symptoms Respiratory: Reports: no symptoms Breasts: Reports: no symptoms Cardiovascular: Reports: no symptoms Gastrointestinal/Abdominal: Reports: no symptoms Genitourinary: Reports: no symptoms Neurologic: Reports: no symptoms Psychiatric: Reports: no symptoms Skin: Reports: no symptoms Endocrine: Reports: no symptoms Hematologic: Reports: no symptoms Allergies: Coded Allergies: ADHESIVE TAPE (Verified Allergy, Unknown, 04/27/17) AMIODARONE (Verified Allergy, Unknown, 04/27/17) INFLUENZA VIRUS VACCINES (Verified Allergy, Unknown, 04/27/17) SULFAMETHIZOLE (Verified Allergy, Unknown, 04/27/17) Objective Vital Signs Last 24 Hour Vital Signs Date Time Temp Pulse Resp B/P (MAP) Pulse Ox O2 Delivery O2 Flow Rate FiO2 05/16/17 16:06 97.1 72 20 114/70 95 Room Air 05/16/17 12:15 97.5 74 19 115/72 99 Room Air 05/16/17 09:00 83 108/73 05/16/17 08:15 98.7 83 20 108/73 95 Room Air 05/16/17 07:10 68 16 Room Air 05/16/17 05:47 124/77 05/16/17 05:26 68 22 98 Facial 30 05/16/17 04:00 98.1 66 21 124/77 95 Bi-pap 2.0 05/16/17 03:07 70 16 98 Facial 30 05/16/17 01:33 69 24 99 Facial 30 05/16/17 00:00 97.7 76 20 119/66 96 Room Air 05/15/17 22:36 73 21 98 Facial 30 05/15/17 21:00 66 115/65 05/15/17 20:24 115/65 05/15/17 20:05 122/64 05/15/17 20:00 97.6 72 20 122/64 96 Room Air 05/15/17 19:34 76 16 Room Air Height (Feet): 5 Height (Inches): 7.00 Weight (Pounds): 219 General Appearance: WD/WN, no acute distress HEENT: normocephalic, atraumatic, anicteric, mucous membranes moist, PERRL, EOMI, pharynx normal, supple Respiratory/Chest: chest wall non-tender, lungs clear, normal breath sounds, no respiratory distress, no accessory muscle use Cardiovascular: normal peripheral pulses, normal rate, regular rhythm, no gallop/murmur, no JVD Abdomen: normal bowel sounds, soft, non tender, no organomegaly, non distended , no mass, no scars Extremities: no cyanosis, no clubbing Skin: no rash, no lesions, no ulcers Neurologic/Psychiatric: alert, oriented x 3, responsive Lymphatic: no neck adenopathy, no groin adenopathy Laboratory Tests Test 05/16/17 09:35 White Blood Count 3.4 K/UL (4.8-10.8) L Red Blood Count 3.65 M/UL (4.70-6.10) L Hemoglobin 11.6 G/DL (14.2-18.0) L Hematocrit 33.8 % (42.0-52.0) L Mean Corpuscular Volume 93 FL (80-99) Mean Corpuscular Hemoglobin 31.9 PG (27.0-31.0) H Mean Corpuscular Hemoglobin Concent 34.4 G/DL (32.0-36.0) Red Cell Distribution Width 13.9 % (11.6-14.8) Platelet Count 134 K/UL (150-450) L Mean Platelet Volume 5.6 FL (6.5-10.1) L Neutrophils (%) (Auto) % (45.0-75.0) Lymphocytes (%) (Auto) % (20.0-45.0) Monocytes (%) (Auto) % (1.0-10.0) Eosinophils (%) (Auto) % (0.0-3.0) Basophils (%) (Auto) % (0.0-2.0) Differential Total Cells Counted 100 Neutrophils % (Manual) 54 % (45-75) Lymphocytes % (Manual) 34 % (20-45) Monocytes % (Manual) 4 % (1-10) Eosinophils % (Manual) 7 % (0-3) H Basophils % (Manual) 1 % (0-2) Band Neutrophils 0 % (0-8) Platelet Estimate Decreased L Platelet Morphology Normal Hypochromasia 1+ Microcytosis 2+ Tear Drop Cells 1+ Ovalocytes 1+ Prothrombin Time 30.6 SEC (9.30-11.50) H Prothromb Time International Ratio 2.9 (0.9-1.1) H Sodium Level 136 mEQ/L (135-145) Potassium Level 4.0 mEQ/L (3.4-4.9) Chloride Level 99 mEQ/L (98-107) Carbon Dioxide Level 25 mEQ/L (20-30) Anion Gap 12 (5-15) Blood Urea Nitrogen 16 mg/dL (7-23) Creatinine 1.2 mg/dL (0.7-1.2) Estimat Glomerular Filtration Rate > 60 mL/min (>60) Glucose Level 273 mg/dL (74-106) H Calcium Level 9.1 mg/dL (8.6-10.2) Current Medications Medications (Trade) Dose Ordered Sig/Tanner Route PRN Reason Start Time Stop Time Status Last Admin Dose Admin Acetaminophen (Tylenol) 650 mg Q4H PRN ORAL FEVER>100.5 05/05/17 17:00 05/28/17 16:59 Allopurinol (Allopurinol) 300 mg DAILY ORAL 05/06/17 09:00 05/28/17 08:59 05/16/17 09:44 Aripiprazole (Abilify) 35 mg DAILY ORAL 05/06/17 09:00 06/05/17 08:59 05/16/17 09:44 Aspirin (ASA) 162 mg DAILY ORAL 05/06/17 09:00 05/28/17 08:59 05/16/17 09:45 Atorvastatin Calcium (Lipitor) 40 mg BEDTIME ORAL 05/05/17 21:00 05/28/17 20:59 05/15/17 21:17 Clopidogrel Bisulfate (Plavix) 75 mg DAILY ORAL 05/06/17 09:00 05/28/17 08:59 05/16/17 09:44 Dextrose (Dextrose 50%) STAT PRN IV Hypoglycemia 05/05/17 17:00 06/04/17 16:59 Enalaprilat (Vasotec) 2.5 mg Q6H PRN IV sbp more than 160 05/05/17 17:00 06/04/17 16:59 Escitalopram Oxalate (Lexapro) 20 mg DAILY ORAL 05/06/17 09:00 05/28/17 12:59 05/16/17 09:44 Fish Oil (Fish Oil) 1,000 mg DAILY ORAL 05/06/17 09:00 05/31/17 08:59 05/16/17 09:44 Insulin Aspart (NovoLOG) BEFORE MEALS AND HS SUBQ 05/05/17 17:30 05/28/17 17:29 05/16/17 16:15 Isosorbide Dinitrate (Isordil) 30 mg BID@0600,1800 ORAL 05/05/17 18:00 06/03/17 18:04 05/16/17 05:47 Ketoconazole (Nizoral 2% Cream) 1 applic DAILY TOPIC 05/06/17 09:00 06/01/17 08:59 05/16/17 09:56 Ketoconazole (Nizoral 2% Shampoo) 1 applic DAILY TOPIC 05/06/17 09:00 06/01/17 08:59 05/16/17 09:55 Metoprolol Tartrate (Lopressor) 50 mg Q12HR ORAL 05/05/17 21:00 05/30/17 20:59 05/14/17 08:51 Mirtazapine (Remeron) 30 mg QHS ORAL 05/05/17 21:00 05/28/17 20:59 05/15/17 21:18 Nitroglycerin (Ntg) 0.4 mg Q5MIN PRN SL Prn Chest Pain 05/05/17 16:00 06/04/17 15:59 05/15/17 20:24 Ondansetron HCl (Zofran) 4 mg Q6H PRN IVP Nausea & Vomiting 05/05/17 17:00 05/28/17 16:59 Pantoprazole (Protonix) 40 mg ACBREAKFAST ORAL 05/06/17 06:30 05/28/17 08:59 05/16/17 05:47 Polyethylene Glycol (Miralax) 17 gm DAILYPRN PRN ORAL Constipation 05/05/17 17:00 06/04/17 16:59 Quetiapine Fumarate (SEROquel) 25 mg DAILY@1700 ORAL 05/05/17 17:00 05/30/17 16:59 05/16/17 16:38 Quetiapine Fumarate (SEROquel) 200 mg BEDTIME ORAL 05/05/17 21:00 05/28/17 20:59 05/15/17 21:18 Ranolazine (Ranexa ER 500mg) 500 mg Q12HR ORAL 05/05/17 21:00 06/02/17 20:59 05/16/17 09:43 Tamsulosin HCl (Flomax) 0.4 mg BEDTIME ORAL 05/05/17 21:00 05/28/17 20:59 05/15/17 21:45 Temazepam (Restoril) 15 mg HSPRN PRN ORAL Insomnia 05/14/17 20:45 05/21/17 20:44 05/15/17 21:44 Warfarin Sodium (Coumadin per pharmacy) 1 ea DAILYPRN PRN MISC Per rx protocol 05/05/17 17:00 06/04/17 16:59 Gladys Murillo M.D. May 16, 2017 17:40
--- NOTE | 2017-05-16 18:33 | Cardiac Electrophysiology PN ---
Assessment/Plan Assessment/Plan 1. Chest painand hx of CABG with last PCI June 2016. Ruled out for OH. Stress test, no definite ischemia. Echo EF 65%. Continue aspirin,Toprol, Plavix and Lipitor and Renaxa 500 bid. Decrease Isordil to 20 bid. 2. Status post aortic valve replacement with a porcine aortic valve with residual mod . 3. History of atrial fibrillation and ablation, remained in sinus rhythm on aspirin. Decrease Toprol to 25 bid, Coumadin and Plavix. 4. Diabetes. 5. Depression. 6. Status post amputation of the fingers. TROY RN Subjective Subjective Comfortable in NAD. No chest pain Objective Last 24 Hour Vital Signs Date Time Temp Pulse Resp B/P (MAP) Pulse Ox O2 Delivery O2 Flow Rate FiO2 05/16/17 16:06 97.1 72 20 114/70 95 Room Air 05/16/17 12:15 97.5 74 19 115/72 99 Room Air 05/16/17 09:00 83 108/73 05/16/17 08:15 98.7 83 20 108/73 95 Room Air 05/16/17 07:10 68 16 Room Air 05/16/17 05:47 124/77 05/16/17 05:26 68 22 98 Facial 30 05/16/17 04:00 98.1 66 21 124/77 95 Bi-pap 2.0 05/16/17 03:07 70 16 98 Facial 30 05/16/17 01:33 69 24 99 Facial 30 05/16/17 00:00 97.7 76 20 119/66 96 Room Air 05/15/17 22:36 73 21 98 Facial 30 05/15/17 21:00 66 115/65 05/15/17 20:24 115/65 05/15/17 20:05 122/64 05/15/17 20:00 97.6 72 20 122/64 96 Room Air 05/15/17 19:34 76 16 Room Air Intake and Output 05/16/17 05/17/17 19:00 07:00 Intake Total 480 ml Output Total 350 ml Balance 130 ml Intake Oral 480 ml Output Urine Total 350 ml # Voids 2 Laboratory Tests Test 05/16/17 09:35 White Blood Count 3.4 K/UL (4.8-10.8) L Red Blood Count 3.65 M/UL (4.70-6.10) L Hemoglobin 11.6 G/DL (14.2-18.0) L Hematocrit 33.8 % (42.0-52.0) L Mean Corpuscular Volume 93 FL (80-99) Mean Corpuscular Hemoglobin 31.9 PG (27.0-31.0) H Mean Corpuscular Hemoglobin Concent 34.4 G/DL (32.0-36.0) Red Cell Distribution Width 13.9 % (11.6-14.8) Platelet Count 134 K/UL (150-450) L Mean Platelet Volume 5.6 FL (6.5-10.1) L Neutrophils (%) (Auto) % (45.0-75.0) Lymphocytes (%) (Auto) % (20.0-45.0) Monocytes (%) (Auto) % (1.0-10.0) Eosinophils (%) (Auto) % (0.0-3.0) Basophils (%) (Auto) % (0.0-2.0) Differential Total Cells Counted 100 Neutrophils % (Manual) 54 % (45-75) Lymphocytes % (Manual) 34 % (20-45) Monocytes % (Manual) 4 % (1-10) Eosinophils % (Manual) 7 % (0-3) H Basophils % (Manual) 1 % (0-2) Band Neutrophils 0 % (0-8) Platelet Estimate Decreased L Platelet Morphology Normal Hypochromasia 1+ Microcytosis 2+ Tear Drop Cells 1+ Ovalocytes 1+ Prothrombin Time 30.6 SEC (9.30-11.50) H Prothromb Time International Ratio 2.9 (0.9-1.1) H Sodium Level 136 mEQ/L (135-145) Potassium Level 4.0 mEQ/L (3.4-4.9) Chloride Level 99 mEQ/L (98-107) Carbon Dioxide Level 25 mEQ/L (20-30) Anion Gap 12 (5-15) Blood Urea Nitrogen 16 mg/dL (7-23) Creatinine 1.2 mg/dL (0.7-1.2) Estimat Glomerular Filtration Rate > 60 mL/min (>60) Glucose Level 273 mg/dL (74-106) H Calcium Level 9.1 mg/dL (8.6-10.2) Objective HEAD AND NECK: No JVD. LUNGS: Clear. CARDIOVASCULAR: Nl S1 and S2 with no gallop. 2/6 Systolic murmur LSB. Sternotomy intact ABDOMEN: Soft. EXTREMITIES: No edema. ALEX VALDES May 16, 2017 18:33
[2017-05-16 20:00] VITALS: BP 112/69
--- NOTE | 2017-05-16 21:14 | General Progress Note ---
Assessment/Plan Assessment/Plan 1. Pancytopenia. Monitor. --> oscillating --> Give prbc if hgb<7 and platelets if <20k --> HIV and hepatitis panel are both negative --> Ultrasound of the abdomen reveal cysts on right kidney, fatty liver, splenomegaly, atherosclerotic vascular disease, and absent left kidney 2. Thrombocytopenia --> 2/2 liver disease 3. Anemia, very mild. --> Continue to closely monitor, likely secondary to chronic disease. --> No blood transfusion required unless symptomatic or hgb<7 4. Diarrhea, resolved. 5. Acute coronary syndrome. Cardiology service is following. 6. Diabetes mellitus. Subjective Constitutional: Reports: no symptoms HEENT: Reports: no symptoms Cardiovascular: Reports: no symptoms Respiratory: Reports: no symptoms Gastrointestinal/Abdominal: Reports: no symptoms Genitourinary: Reports: no symptoms Neurologic/Psychiatric: Reports: no symptoms Endocrine: Reports: no symptoms Hematologic/Lymphatic: Reports: no symptoms Allergies: Coded Allergies: ADHESIVE TAPE (Verified Allergy, Unknown, 04/27/17) AMIODARONE (Verified Allergy, Unknown, 04/27/17) INFLUENZA VIRUS VACCINES (Verified Allergy, Unknown, 04/27/17) SULFAMETHIZOLE (Verified Allergy, Unknown, 04/27/17) Subjective no fevers, no chills, no bleeding Objective Last 24 Hour Vital Signs Date Time Temp Pulse Resp B/P (MAP) Pulse Ox O2 Delivery O2 Flow Rate FiO2 05/16/17 19:51 70 18 Room Air 21 05/16/17 19:45 114/70 05/16/17 16:06 97.1 72 20 114/70 95 Room Air 05/16/17 12:15 97.5 74 19 115/72 99 Room Air 05/16/17 09:00 83 108/73 05/16/17 08:15 98.7 83 20 108/73 95 Room Air 05/16/17 07:10 68 16 Room Air 05/16/17 05:47 124/77 05/16/17 05:26 68 22 98 Facial 30 05/16/17 04:00 98.1 66 21 124/77 95 Bi-pap 2.0 05/16/17 03:07 70 16 98 Facial 30 05/16/17 01:33 69 24 99 Facial 30 05/16/17 00:00 97.7 76 20 119/66 96 Room Air 05/15/17 22:36 73 21 98 Facial 30 Intake and Output 05/16/17 05/17/17 19:00 07:00 Intake Total 720 ml Output Total 350 ml Balance 370 ml Intake Oral 720 ml Output Urine Total 350 ml # Voids 2 Laboratory Tests 05/16/17 09:35: White Blood Count 3.4L, Red Blood Count 3.65L, Hemoglobin 11.6L, Hematocrit 33.8L, Mean Corpuscular Volume 93, Mean Corpuscular Hemoglobin 31.9H, Mean Corpuscular Hemoglobin Concent 34.4, Red Cell Distribution Width 13.9, Platelet Count 134L, Mean Platelet Volume 5.6L, Neutrophils (%) (Auto) , Lymphocytes (%) (Auto) , Monocytes (%) (Auto) , Eosinophils (%) (Auto) , Basophils (%) (Auto) , Differential Total Cells Counted 100, Neutrophils % (Manual) 54, Lymphocytes % ( Manual) 34, Monocytes % (Manual) 4, Eosinophils % (Manual) 7H, Basophils % ( Manual) 1, Band Neutrophils 0, Platelet Estimate DecreasedL, Platelet Morphology Normal, Hypochromasia 1+, Microcytosis 2+, Tear Drop Cells 1+, Ovalocytes 1+, Prothrombin Time 30.6H, Prothromb Time International Ratio 2.9H, Sodium Level 136, Potassium Level 4.0, Chloride Level 99, Carbon Dioxide Level 25, Anion Gap 12, Blood Urea Nitrogen 16, Creatinine 1.2, Estimat Glomerular Filtration Rate > 60, Glucose Level 273H, Calcium Level 9.1 Height (Feet): 5 Height (Inches): 7.00 Weight (Pounds): 219 General Appearance: no apparent distress EENT: normal ENT inspection Neck: normal alignment Cardiovascular: normal peripheral pulses Respiratory/Chest: normal breath sounds Neurologic: care process manager II-XII grossly normal Skin: normal pigmentation Enrique Willis May 16, 2017 21:14
--- NOTE | 2017-05-16 21:45 | Consultation ---
DATE OF CONSULTATION: 05/14/2017 PSYCHOTHERAPY CONSULTATION PROGRESS NOTE CONSULTING PHYSICIAN: Zhen Davila M.D. TREATING ATTENDING PHYSICIAN: Sven Ordoñez D.O. HISTORY OF PRESENT ILLNESS: The patient is a 61-year-old male patient, was brought into hospital with chest pain, failure to thrive, and diagnosed with schizoaffective disorder, bipolar type. The patient has been confused, disorganized, has poor insight, poor judgment, and poor impulse control requiring hospitalization for stabilization of symptoms. This clinician is providing the patient with reality orientation, supportive psychotherapy, assessing the patient's mental status, encouraging the patient to participate in treatment milieu. MENTAL STATUS EXAMINATION: The patient is alert and oriented x2, person and place. Mood is dysphoric. Affect is blunted. Thought process is disorganized. The patient has poor attention and concentration. Poor insight, judgment, and impulse control. PLAN: Provided with reality orientation and supportive psychotherapy. Continue with medication management and behavioral management. This clinician has reviewed the patient's chart. Discussed the treatment with nursing staff. Zhen Davila PsyD. DR: Ana JOB#: [id number] CC:
[2017-05-16] MEDS: Metoprolol 25mg tab ORAL SCH (22:59)
[2017-05-16] MEDS: QUEtiapine 200mg tab ORAL SCH (23:00)
[2017-05-16] MEDS: Tamsulosin 0.4mg cap ORAL SCH (23:00)
[2017-05-17] VITALS (7 sets, daily range): BP systolic 103–149; BP diastolic 60–82
[2017-05-17 06:23] LABS: MEAN CORPUSCULAR HEMOGLOBIN 33.4 PG (27.0-31.0); MEAN CORPUSCULAR HGB CONC 35.7 G/DL (32.0-36.0); MEAN CORPUSCULAR VOLUME 93 FL (80-99); MEAN PLATELET VOLUME 5.5 FL (6.5-10.1); PLATELET COUNT 145 K/UL (150-450); RED BLOOD COUNT 3.75 M/UL (4.70-6.10); RED CELL DISTRIBUTION WIDTH 13.7 % (11.6-14.8); WHITE BLOOD COUNT 4.4 K/UL (4.8-10.8)
[2017-05-17 06:38] LABS: INR 2.6 (0.9-1.1)
[2017-05-17] MEDS: NovoLOG Insulin Flexpen SUBQ SCH ×4 (06:39→21:07)
[2017-05-17 06:45] LABS: ANION GAP 12 (5-15); CALCIUM 9.7 mg/dL (8.6-10.2); CARBON DIOXIDE 26 mEQ/L (20-30); CHLORIDE 103 mEQ/L (98-107); CREATININE 1.2 mg/dL (0.7-1.2); GLOMERULAR FILTRATION RATE > 60 mL/min (>60); HEMOLYSIS 2; POTASSIUM 3.7 mEQ/L (3.4-4.9); SODIUM 141 mEQ/L (135-145)
[2017-05-17] MEDS: Ranolazine 500mg tab ORAL SCH ×2 (08:44→21:06)
[2017-05-17] MEDS: ARIPiprazole 10mg tab ORAL SCH (08:45)
[2017-05-17] MEDS: Aspirin Baby 81mg ORAL SCH (08:45)
[2017-05-17 09:31] LABS: EOSINOPHILS % (MANUAL) 2 % (0-3); LYMPHOCYTES % (MANUAL) 30 % (20-45); NEUTROPHILS % (MANUAL) 60 % (45-75); OVALOCYTES 1+; TOTAL CELLS COUNTED 100
[2017-05-17 09:32] LABS: TEAR DROP CELLS 1+
[2017-05-17 09:46] LABS: BAND NEUTROPHILS % (MANUAL) 0 % (0-8); BASOPHILS % (MANUAL) 0 % (0-2); PLATELET ESTIMATE DECREASED; PLATELET MORPHOLOGY NORMAL
[2017-05-17] MEDS: Metoprolol 25mg tab ORAL SCH ×2 (10:20→21:00)
[2017-05-17] MEDS: KETOCONAZOLE 2% TOPIC SCH (10:20)
--- NOTE | 2017-05-17 14:24 | General Progress Note ---
Assessment/Plan Problem List: (1) Stress reaction ICD Codes: F43.0 - Acute stress reaction SNOMED: 83897061 (2) Hyperglycemia due to type 2 diabetes mellitus ICD Codes: E11.65 - Type 2 diabetes mellitus with hyperglycemia SNOMED: 013234441379579, [id number] Qualifiers: Qualified Codes: E11.65 - Type 2 diabetes mellitus with hyperglycemia; Z79.4 - halfway (current) use of insulin (3) Chest pain ICD Codes: R07.9 - Chest pain, unspecified SNOMED: [id number] Qualifiers: Qualified Codes: R07.9 - Chest pain, unspecified (4) Diabetes mellitus ICD Codes: E11.9 - Type 2 diabetes mellitus without complications SNOMED: 57856444 (5) Acute coronary syndrome ICD Codes: I24.9 - Acute ischemic heart disease, unspecified SNOMED: [id number] Status: stable, progressing, tolerating diet Assessment/Plan ot pt diet pain control cbc bmp am dc to snf Subjective Constitutional: Reports: weakness Allergies: Coded Allergies: ADHESIVE TAPE (Verified Allergy, Unknown, 04/27/17) AMIODARONE (Verified Allergy, Unknown, 04/27/17) INFLUENZA VIRUS VACCINES (Verified Allergy, Unknown, 04/27/17) SULFAMETHIZOLE (Verified Allergy, Unknown, 04/27/17) All Systems: reviewed and negative except above Subjective sl weak anxious Objective Last 24 Hour Vital Signs Date Time Temp Pulse Resp B/P (MAP) Pulse Ox O2 Delivery O2 Flow Rate FiO2 05/17/17 12:00 96.4 64 18 109/69 98 Room Air 05/17/17 10:20 66 111/67 05/17/17 10:17 66 111/67 05/17/17 08:00 96.1 78 18 103/67 97 Room Air 05/17/17 07:35 78 18 Room Air 21 05/17/17 05:29 68 14 98 Facial 30 05/17/17 05:12 115/71 05/17/17 04:00 97.3 66 21 149/82 99 Room Air 05/17/17 03:38 70 14 98 Facial 30 05/17/17 00:55 74 16 97 Facial 30 05/17/17 00:00 97.3 77 21 115/71 98 Room Air 05/16/17 23:32 75 20 98 Facial 30 05/16/17 22:59 75 112/69 05/16/17 20:00 97.3 75 20 112/69 98 Room Air 05/16/17 19:51 70 18 Room Air 21 05/16/17 19:45 114/70 05/16/17 16:06 97.1 72 20 114/70 95 Room Air Intake and Output 05/17/17 05/18/17 19:00 07:00 Intake Total 700 ml Balance 700 ml Intake Oral 700 ml # Voids 2 Laboratory Tests 05/17/17 05:20: White Blood Count 4.4L, Red Blood Count 3.75L, Hemoglobin 12.5L, Hematocrit 35.1L, Mean Corpuscular Volume 93, Mean Corpuscular Hemoglobin 33.4H, Mean Corpuscular Hemoglobin Concent 35.7, Red Cell Distribution Width 13.7, Platelet Count 145L, Mean Platelet Volume 5.5L, Neutrophils (%) (Auto) , Lymphocytes (%) (Auto) , Monocytes (%) (Auto) , Eosinophils (%) (Auto) , Basophils (%) (Auto) , Differential Total Cells Counted 100, Neutrophils % (Manual) 60, Lymphocytes % ( Manual) 30, Monocytes % (Manual) 8, Eosinophils % (Manual) 2, Basophils % ( Manual) 0, Band Neutrophils 0, Platelet Estimate DecreasedL, Platelet Morphology Normal, Tear Drop Cells 1+, Ovalocytes 1+, Prothrombin Time 28.0H, Prothromb Time International Ratio 2.6H, Sodium Level 141, Potassium Level 3.7, Chloride Level 103, Carbon Dioxide Level 26, Anion Gap 12, Blood Urea Nitrogen 16, Creatinine 1.2, Estimat Glomerular Filtration Rate > 60, Glucose Level 180H , Calcium Level 9.7 Height (Feet): 5 Height (Inches): 7.00 Weight (Pounds): 219 General Appearance: lethargic EENT: normal ENT inspection Neck: normal alignment Cardiovascular: normal peripheral pulses, normal rate, regular rhythm Respiratory/Chest: chest wall non-tender, lungs clear, normal breath sounds Abdomen: normal bowel sounds, non tender, soft Extremities: normal inspection Edema: no edema noted Arm (L), no edema noted Arm (R), no edema noted Leg (L), no edema noted Leg (R), no edema noted Pedal (L), no edema noted Pedal (R), no edema noted Generalized Neurologic: responsive, motor weakness Skin: normal pigmentation, warm/dry ANDRE SILVA May 17, 2017 14:24
--- NOTE | 2017-05-17 15:57 | Pulmonology Progress Note ---
Assessment/Plan Problems: (1) Acute coronary syndrome (2) Chest pain (3) Diabetes mellitus (4) CAD (coronary artery disease) (5) Hx of CABG Assessment/Plan no new complains, doing better sliding scale diabetic diet waiting for the discharge awaiting bipap machine prescription give for bipap Subjective ROS Limited/Unobtainable: No Constitutional: Reports: no symptoms HEENT: Repors: no symptoms Respiratory: Reports: no symptoms Allergies: Coded Allergies: ADHESIVE TAPE (Verified Allergy, Unknown, 04/27/17) AMIODARONE (Verified Allergy, Unknown, 04/27/17) INFLUENZA VIRUS VACCINES (Verified Allergy, Unknown, 04/27/17) SULFAMETHIZOLE (Verified Allergy, Unknown, 04/27/17) Objective Last 24 Hour Vital Signs Date Time Temp Pulse Resp B/P (MAP) Pulse Ox O2 Delivery O2 Flow Rate FiO2 05/17/17 12:00 96.4 64 18 109/69 98 Room Air 05/17/17 10:20 66 111/67 05/17/17 10:17 66 111/67 05/17/17 08:00 96.1 78 18 103/67 97 Room Air 05/17/17 07:35 78 18 Room Air 21 05/17/17 05:29 68 14 98 Facial 30 05/17/17 05:12 115/71 05/17/17 04:00 97.3 66 21 149/82 99 Room Air 05/17/17 03:38 70 14 98 Facial 30 05/17/17 00:55 74 16 97 Facial 30 05/17/17 00:00 97.3 77 21 115/71 98 Room Air 05/16/17 23:32 75 20 98 Facial 30 05/16/17 22:59 75 112/69 05/16/17 20:00 97.3 75 20 112/69 98 Room Air 05/16/17 19:51 70 18 Room Air 21 05/16/17 19:45 114/70 05/16/17 16:06 97.1 72 20 114/70 95 Room Air Intake and Output 05/17/17 05/18/17 19:00 07:00 Intake Total 700 ml Balance 700 ml Intake Oral 700 ml # Voids 2 General Appearance: WD/WN HEENT: normocephalic, atraumatic Respiratory/Chest: chest wall non-tender, normal breath sounds Cardiovascular: normal peripheral pulses, normal rate, regular rhythm Abdomen: normal bowel sounds, soft, non tender Genitourinary: normal external genitalia Extremities: no cyanosis Skin: no rash 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, no motor/sensory deficits Lymphatic: no neck adenopathy Laboratory Tests 05/17/17 05:20: White Blood Count 4.4L, Red Blood Count 3.75L, Hemoglobin 12.5L, Hematocrit 35.1L, Mean Corpuscular Volume 93, Mean Corpuscular Hemoglobin 33.4H, Mean Corpuscular Hemoglobin Concent 35.7, Red Cell Distribution Width 13.7, Platelet Count 145L, Mean Platelet Volume 5.5L, Neutrophils (%) (Auto) , Lymphocytes (%) (Auto) , Monocytes (%) (Auto) , Eosinophils (%) (Auto) , Basophils (%) (Auto) , Differential Total Cells Counted 100, Neutrophils % (Manual) 60, Lymphocytes % ( Manual) 30, Monocytes % (Manual) 8, Eosinophils % (Manual) 2, Basophils % ( Manual) 0, Band Neutrophils 0, Platelet Estimate DecreasedL, Platelet Morphology Normal, Tear Drop Cells 1+, Ovalocytes 1+, Prothrombin Time 28.0H, Prothromb Time International Ratio 2.6H, Sodium Level 141, Potassium Level 3.7, Chloride Level 103, Carbon Dioxide Level 26, Anion Gap 12, Blood Urea Nitrogen 16, Creatinine 1.2, Estimat Glomerular Filtration Rate > 60, Glucose Level 180H , Calcium Level 9.7 Current Medications Medications (Trade) Dose Ordered Sig/Tanner Route PRN Reason Start Time Stop Time Status Last Admin Dose Admin Acetaminophen (Tylenol) 650 mg Q4H PRN ORAL FEVER>100.5 05/05/17 17:00 05/28/17 16:59 Allopurinol (Allopurinol) 300 mg DAILY ORAL 05/06/17 09:00 05/28/17 08:59 05/17/17 08:44 Aripiprazole (Abilify) 35 mg DAILY ORAL 05/06/17 09:00 06/05/17 08:59 05/17/17 08:45 Aspirin (ASA) 162 mg DAILY ORAL 05/06/17 09:00 05/28/17 08:59 05/17/17 08:45 Atorvastatin Calcium (Lipitor) 40 mg BEDTIME ORAL 05/05/17 21:00 05/28/17 20:59 05/16/17 22:59 Clopidogrel Bisulfate (Plavix) 75 mg DAILY ORAL 05/06/17 09:00 05/28/17 08:59 05/17/17 08:46 Dextrose (Dextrose 50%) STAT PRN IV Hypoglycemia 05/05/17 17:00 06/04/17 16:59 Enalaprilat (Vasotec) 2.5 mg Q6H PRN IV sbp more than 160 05/05/17 17:00 06/04/17 16:59 Escitalopram Oxalate (Lexapro) 20 mg DAILY ORAL 05/06/17 09:00 05/28/17 12:59 05/17/17 08:45 Fish Oil (Fish Oil) 1,000 mg DAILY ORAL 05/06/17 09:00 05/31/17 08:59 05/16/17 09:44 Insulin Aspart (NovoLOG) BEFORE MEALS AND HS SUBQ 05/05/17 17:30 05/28/17 17:29 05/17/17 11:09 Isosorbide Dinitrate (Isordil) 20 mg BID@0600,1800 ORAL 05/16/17 19:45 06/15/17 19:44 05/17/17 05:12 Ketoconazole (Nizoral 2% Cream) 1 applic DAILY TOPIC 05/06/17 09:00 06/01/17 08:59 05/17/17 10:21 Ketoconazole (Nizoral 2% Shampoo) 1 applic DAILY TOPIC 05/06/17 09:00 06/01/17 08:59 05/17/17 10:20 Metoprolol Tartrate (Lopressor) 25 mg Q12HR ORAL 05/16/17 21:00 06/15/17 20:59 05/17/17 10:20 Mirtazapine (Remeron) 30 mg QHS ORAL 05/05/17 21:00 05/28/17 20:59 05/16/17 23:00 Nitroglycerin (Ntg) 0.4 mg Q5MIN PRN SL Prn Chest Pain 05/05/17 16:00 06/04/17 15:59 05/15/17 20:24 Ondansetron HCl (Zofran) 4 mg Q6H PRN IVP Nausea & Vomiting 05/05/17 17:00 05/28/17 16:59 Pantoprazole (Protonix) 40 mg ACBREAKFAST ORAL 05/06/17 06:30 05/28/17 08:59 05/17/17 05:11 Polyethylene Glycol (Miralax) 17 gm DAILYPRN PRN ORAL Constipation 05/05/17 17:00 06/04/17 16:59 Quetiapine Fumarate (SEROquel) 25 mg DAILY@1700 ORAL 05/05/17 17:00 05/30/17 16:59 05/16/17 16:38 Quetiapine Fumarate (SEROquel) 200 mg BEDTIME ORAL 05/05/17 21:00 05/28/17 20:59 05/16/17 23:00 Ranolazine (Ranexa ER 500mg) 500 mg Q12HR ORAL 05/05/17 21:00 06/02/17 20:59 05/17/17 08:44 Tamsulosin HCl (Flomax) 0.4 mg BEDTIME ORAL 05/05/17 21:00 05/28/17 20:59 05/16/17 23:00 Temazepam (Restoril) 15 mg HSPRN PRN ORAL Insomnia 05/14/17 20:45 05/21/17 20:44 05/16/17 22:59 Warfarin Sodium (Coumadin per pharmacy) 1 ea DAILYPRN PRN MISC Per rx protocol 05/05/17 17:00 06/04/17 16:59 Warfarin Sodium (Coumadin) 6 mg COUMADIN ONCE ORAL 05/17/17 17:00 05/17/17 17:01 THADDEUS YA May 17, 2017 15:57
[2017-05-17] MEDS ORDERED: Warfarin Sodium 3mg ORAL ONE (17:00)
--- NOTE | 2017-05-17 17:02 | Progress Note ---
DATE: 05/17/2017 NOTE: "POOR AUDIO QUALITY" Subjective: The patient is a 61-year-old male patient with acute coronary syndrome. He still has mood lability. Plan: Continue him on Abilify at dose of mg daily. He will continue to be followed by psychiatry throughout his hospital course. chart was reviewed and discussed with the staff. Seen and assessed at the bedside. Jody Armas M.D. DR: Alex JOB#: [id number] CC:
--- NOTE | 2017-05-17 17:10 | Infectious Diseases Prog Note ---
Assessment/Plan Problems: (1) Diarrhea Assessment & Plan: resolved, no C DIFF, or stool infection . had negative stool culture, keep off antibiotics. advised to avoid any unnecessary antibiotics in the future , avoid laxatives (2) Chest pain Assessment & Plan: resolved, he was ruled out for ACS , with negative stress test , medical management as per cardiology team (3) Diabetes mellitus Assessment & Plan: recommend tight glycemic control to keep blood glucose between 80-120 (4) CAD (coronary artery disease) Assessment & Plan: continue cardiac meds, cardiology is following (5) Dermatitis, seborrheic Assessment & Plan: on ketoconazole shampoo prn (6) THOMAS (acute kidney injury) Assessment & Plan: improving, suspect dehydration, recommend hydration and close monitor of renal function test . Subjective Constitutional: Reports: no symptoms HEENT: Reports: no symptoms Respiratory: Reports: no symptoms Breasts: Reports: no symptoms Cardiovascular: Reports: no symptoms Gastrointestinal/Abdominal: Reports: no symptoms Genitourinary: Reports: no symptoms Neurologic: Reports: no symptoms Psychiatric: Reports: no symptoms Skin: Reports: no symptoms Endocrine: Reports: no symptoms Hematologic: Reports: no symptoms Musculoskeletal: Reports: no symptoms Allergies: Coded Allergies: ADHESIVE TAPE (Verified Allergy, Unknown, 04/27/17) AMIODARONE (Verified Allergy, Unknown, 04/27/17) INFLUENZA VIRUS VACCINES (Verified Allergy, Unknown, 04/27/17) SULFAMETHIZOLE (Verified Allergy, Unknown, 04/27/17) Objective Vital Signs Last 24 Hour Vital Signs Date Time Temp Pulse Resp B/P (MAP) Pulse Ox O2 Delivery O2 Flow Rate FiO2 05/17/17 16:00 97.0 67 18 124/80 97 Room Air 05/17/17 12:00 96.4 64 18 109/69 98 Room Air 05/17/17 10:20 66 111/67 05/17/17 10:17 66 111/67 05/17/17 08:00 96.1 78 18 103/67 97 Room Air 05/17/17 07:35 78 18 Room Air 21 05/17/17 05:29 68 14 98 Facial 30 05/17/17 05:12 115/71 05/17/17 04:00 97.3 66 21 149/82 99 Room Air 05/17/17 03:38 70 14 98 Facial 30 05/17/17 00:55 74 16 97 Facial 30 05/17/17 00:00 97.3 77 21 115/71 98 Room Air 05/16/17 23:32 75 20 98 Facial 30 05/16/17 22:59 75 112/69 05/16/17 20:00 97.3 75 20 112/69 98 Room Air 05/16/17 19:51 70 18 Room Air 21 05/16/17 19:45 114/70 Height (Feet): 5 Height (Inches): 7.00 Weight (Pounds): 219 General Appearance: WD/WN, no acute distress HEENT: normocephalic, atraumatic, anicteric, mucous membranes moist, PERRL, EOMI, pharynx normal, supple, no JVD Respiratory/Chest: chest wall non-tender, lungs clear, normal breath sounds, no respiratory distress, no accessory muscle use Cardiovascular: normal peripheral pulses, normal rate, regular rhythm, no gallop/murmur, no JVD Abdomen: normal bowel sounds, soft, non tender, no organomegaly, non distended , no mass, no scars Extremities: no cyanosis, no clubbing Skin: no rash, no lesions Neurologic/Psychiatric: alert, oriented x 3 Lymphatic: no neck adenopathy, no groin adenopathy Laboratory Tests Test 05/17/17 05:20 White Blood Count 4.4 K/UL (4.8-10.8) L Red Blood Count 3.75 M/UL (4.70-6.10) L Hemoglobin 12.5 G/DL (14.2-18.0) L Hematocrit 35.1 % (42.0-52.0) L Mean Corpuscular Volume 93 FL (80-99) Mean Corpuscular Hemoglobin 33.4 PG (27.0-31.0) H Mean Corpuscular Hemoglobin Concent 35.7 G/DL (32.0-36.0) Red Cell Distribution Width 13.7 % (11.6-14.8) Platelet Count 145 K/UL (150-450) L Mean Platelet Volume 5.5 FL (6.5-10.1) L Neutrophils (%) (Auto) % (45.0-75.0) Lymphocytes (%) (Auto) % (20.0-45.0) Monocytes (%) (Auto) % (1.0-10.0) Eosinophils (%) (Auto) % (0.0-3.0) Basophils (%) (Auto) % (0.0-2.0) Differential Total Cells Counted 100 Neutrophils % (Manual) 60 % (45-75) Lymphocytes % (Manual) 30 % (20-45) Monocytes % (Manual) 8 % (1-10) Eosinophils % (Manual) 2 % (0-3) Basophils % (Manual) 0 % (0-2) Band Neutrophils 0 % (0-8) Platelet Estimate Decreased L Platelet Morphology Normal Tear Drop Cells 1+ Ovalocytes 1+ Prothrombin Time 28.0 SEC (9.30-11.50) H Prothromb Time International Ratio 2.6 (0.9-1.1) H Sodium Level 141 mEQ/L (135-145) Potassium Level 3.7 mEQ/L (3.4-4.9) Chloride Level 103 mEQ/L (98-107) Carbon Dioxide Level 26 mEQ/L (20-30) Anion Gap 12 (5-15) Blood Urea Nitrogen 16 mg/dL (7-23) Creatinine 1.2 mg/dL (0.7-1.2) Estimat Glomerular Filtration Rate > 60 mL/min (>60) Glucose Level 180 mg/dL (74-106) H Calcium Level 9.7 mg/dL (8.6-10.2) Current Medications Medications (Trade) Dose Ordered Sig/Tanner Route PRN Reason Start Time Stop Time Status Last Admin Dose Admin Acetaminophen (Tylenol) 650 mg Q4H PRN ORAL FEVER>100.5 05/05/17 17:00 05/28/17 16:59 Allopurinol (Allopurinol) 300 mg DAILY ORAL 05/06/17 09:00 05/28/17 08:59 05/17/17 08:44 Aripiprazole (Abilify) 35 mg DAILY ORAL 05/06/17 09:00 06/05/17 08:59 05/17/17 08:45 Aspirin (ASA) 162 mg DAILY ORAL 05/06/17 09:00 05/28/17 08:59 05/17/17 08:45 Atorvastatin Calcium (Lipitor) 40 mg BEDTIME ORAL 05/05/17 21:00 05/28/17 20:59 05/16/17 22:59 Clopidogrel Bisulfate (Plavix) 75 mg DAILY ORAL 05/06/17 09:00 05/28/17 08:59 05/17/17 08:46 Dextrose (Dextrose 50%) STAT PRN IV Hypoglycemia 05/05/17 17:00 06/04/17 16:59 Enalaprilat (Vasotec) 2.5 mg Q6H PRN IV sbp more than 160 05/05/17 17:00 06/04/17 16:59 Escitalopram Oxalate (Lexapro) 20 mg DAILY ORAL 05/06/17 09:00 05/28/17 12:59 05/17/17 08:45 Fish Oil (Fish Oil) 1,000 mg DAILY ORAL 05/06/17 09:00 05/31/17 08:59 05/16/17 09:44 Insulin Aspart (NovoLOG) BEFORE MEALS AND HS SUBQ 05/05/17 17:30 05/28/17 17:29 05/17/17 16:24 Isosorbide Dinitrate (Isordil) 20 mg BID@0600,1800 ORAL 05/16/17 19:45 06/15/17 19:44 05/17/17 05:12 Ketoconazole (Nizoral 2% Cream) 1 applic DAILY TOPIC 05/06/17 09:00 06/01/17 08:59 05/17/17 10:21 Ketoconazole (Nizoral 2% Shampoo) 1 applic DAILY TOPIC 05/06/17 09:00 06/01/17 08:59 05/17/17 10:20 Metoprolol Tartrate (Lopressor) 25 mg Q12HR ORAL 05/16/17 21:00 06/15/17 20:59 05/17/17 10:20 Mirtazapine (Remeron) 30 mg QHS ORAL 05/05/17 21:00 05/28/17 20:59 05/16/17 23:00 Nitroglycerin (Ntg) 0.4 mg Q5MIN PRN SL Prn Chest Pain 05/05/17 16:00 06/04/17 15:59 05/15/17 20:24 Ondansetron HCl (Zofran) 4 mg Q6H PRN IVP Nausea & Vomiting 05/05/17 17:00 05/28/17 16:59 Pantoprazole (Protonix) 40 mg ACBREAKFAST ORAL 05/06/17 06:30 05/28/17 08:59 05/17/17 05:11 Polyethylene Glycol (Miralax) 17 gm DAILYPRN PRN ORAL Constipation 05/05/17 17:00 06/04/17 16:59 Quetiapine Fumarate (SEROquel) 25 mg DAILY@1700 ORAL 05/05/17 17:00 05/30/17 16:59 05/17/17 16:29 Quetiapine Fumarate (SEROquel) 200 mg BEDTIME ORAL 05/05/17 21:00 05/28/17 20:59 05/16/17 23:00 Ranolazine (Ranexa ER 500mg) 500 mg Q12HR ORAL 05/05/17 21:00 06/02/17 20:59 05/17/17 08:44 Tamsulosin HCl (Flomax) 0.4 mg BEDTIME ORAL 05/05/17 21:00 05/28/17 20:59 05/16/17 23:00 Temazepam (Restoril) 15 mg HSPRN PRN ORAL Insomnia 05/14/17 20:45 05/21/17 20:44 05/16/17 22:59 Warfarin Sodium (Coumadin per pharmacy) 1 ea DAILYPRN PRN MISC Per rx protocol 05/05/17 17:00 06/04/17 16:59 Gladys Murillo M.D. May 17, 2017 17:10
--- NOTE | 2017-05-17 18:07 | General Progress Note ---
Assessment/Plan Assessment/Plan 1. Pancytopenia. Monitor. --> Give prbc if hgb<7 and platelets if <20k --> HIV and hepatitis panel are both negative --> Ultrasound of the abdomen reveal cysts on right kidney, fatty liver, splenomegaly, atherosclerotic vascular disease, and absent left kidney 2. Thrombocytopenia --> 2/2 liver disease --> improving 3. Anemia, very mild. --> Continue to closely monitor, likely secondary to chronic disease. --> No blood transfusion required unless symptomatic or hgb<7 4. Diarrhea, resolved. 5. Acute coronary syndrome. Cardiology service is following. 6. Diabetes mellitus. Subjective Constitutional: Reports: no symptoms HEENT: Reports: no symptoms Cardiovascular: Reports: no symptoms Respiratory: Reports: no symptoms Gastrointestinal/Abdominal: Reports: no symptoms Genitourinary: Reports: no symptoms Neurologic/Psychiatric: Reports: no symptoms Endocrine: Reports: no symptoms Hematologic/Lymphatic: Reports: anemia Allergies: Coded Allergies: ADHESIVE TAPE (Verified Allergy, Unknown, 04/27/17) AMIODARONE (Verified Allergy, Unknown, 04/27/17) INFLUENZA VIRUS VACCINES (Verified Allergy, Unknown, 04/27/17) SULFAMETHIZOLE (Verified Allergy, Unknown, 04/27/17) Subjective no fevers, no chills, bipap machine Objective Last 24 Hour Vital Signs Date Time Temp Pulse Resp B/P (MAP) Pulse Ox O2 Delivery O2 Flow Rate FiO2 05/17/17 17:32 127/61 05/17/17 16:00 97.0 67 18 124/80 97 Room Air 05/17/17 12:00 96.4 64 18 109/69 98 Room Air 05/17/17 10:20 66 111/67 05/17/17 10:17 66 111/67 05/17/17 08:00 96.1 78 18 103/67 97 Room Air 05/17/17 07:35 78 18 Room Air 21 05/17/17 05:29 68 14 98 Facial 30 05/17/17 05:12 115/71 05/17/17 04:00 97.3 66 21 149/82 99 Room Air 05/17/17 03:38 70 14 98 Facial 30 05/17/17 00:55 74 16 97 Facial 30 05/17/17 00:00 97.3 77 21 115/71 98 Room Air 05/16/17 23:32 75 20 98 Facial 30 05/16/17 22:59 75 112/69 05/16/17 20:00 97.3 75 20 112/69 98 Room Air 05/16/17 19:51 70 18 Room Air 21 05/16/17 19:45 114/70 Intake and Output 05/17/17 05/18/17 19:00 07:00 Intake Total 700 ml Balance 700 ml Intake Oral 700 ml # Voids 2 Laboratory Tests 05/17/17 05:20: White Blood Count 4.4L, Red Blood Count 3.75L, Hemoglobin 12.5L, Hematocrit 35.1L, Mean Corpuscular Volume 93, Mean Corpuscular Hemoglobin 33.4H, Mean Corpuscular Hemoglobin Concent 35.7, Red Cell Distribution Width 13.7, Platelet Count 145L, Mean Platelet Volume 5.5L, Neutrophils (%) (Auto) , Lymphocytes (%) (Auto) , Monocytes (%) (Auto) , Eosinophils (%) (Auto) , Basophils (%) (Auto) , Differential Total Cells Counted 100, Neutrophils % (Manual) 60, Lymphocytes % ( Manual) 30, Monocytes % (Manual) 8, Eosinophils % (Manual) 2, Basophils % ( Manual) 0, Band Neutrophils 0, Platelet Estimate DecreasedL, Platelet Morphology Normal, Tear Drop Cells 1+, Ovalocytes 1+, Prothrombin Time 28.0H, Prothromb Time International Ratio 2.6H, Sodium Level 141, Potassium Level 3.7, Chloride Level 103, Carbon Dioxide Level 26, Anion Gap 12, Blood Urea Nitrogen 16, Creatinine 1.2, Estimat Glomerular Filtration Rate > 60, Glucose Level 180H , Calcium Level 9.7 Height (Feet): 5 Height (Inches): 7.00 Weight (Pounds): 219 General Appearance: no apparent distress EENT: PERRL/EOMI, normal ENT inspection Neck: non-tender, normal alignment Cardiovascular: normal peripheral pulses Respiratory/Chest: chest wall non-tender 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
[2017-05-17] MEDS: Tamsulosin 0.4mg cap ORAL SCH (21:06)
[2017-05-17] MEDS: QUEtiapine 200mg tab ORAL SCH (21:06)
[2017-05-18] VITALS: BP 111/64
[2017-05-18 04:00] VITALS: BP 91/61
[2017-05-18] MEDS: NovoLOG Insulin Flexpen SUBQ SCH ×2 (06:03→11:45)
[2017-05-18 06:27] LABS: MEAN CORPUSCULAR HEMOGLOBIN 33.5 PG (27.0-31.0); MEAN CORPUSCULAR HGB CONC 35.7 G/DL (32.0-36.0); MEAN CORPUSCULAR VOLUME 94 FL (80-99); MEAN PLATELET VOLUME 5.4 FL (6.5-10.1); PLATELET COUNT 148 K/UL (150-450); RED BLOOD COUNT 3.88 M/UL (4.70-6.10); RED CELL DISTRIBUTION WIDTH 14.1 % (11.6-14.8); WHITE BLOOD COUNT 4.6 K/UL (4.8-10.8)
[2017-05-18 06:41] LABS: INR 2.4 (0.9-1.1); PROTHROMBIN TIME 25.2 SEC (9.30-11.50)
[2017-05-18 07:11] LABS: CALCIUM 9.7 mg/dL (8.6-10.2); CREATININE 1.3 mg/dL (0.7-1.2); GLOMERULAR FILTRATION RATE 56.1 mL/min (>60); POTASSIUM 3.5 mEQ/L (3.4-4.9)
[2017-05-18 08:00] VITALS: BP 136/82
[2017-05-18 09:14] LABS: BAND NEUTROPHILS % (MANUAL) 0 % (0-8); BASOPHILS % (MANUAL) 0 % (0-2); EOSINOPHILS % (MANUAL) 9 % (0-3); LYMPHOCYTES % (MANUAL) 39 % (20-45); NEUTROPHILS % (MANUAL) 44 % (45-75); PLATELET ESTIMATE DECREASED; PLATELET MORPHOLOGY NORMAL; TOTAL CELLS COUNTED 100
[2017-05-18 09:15] LABS: MACROCYTES 1+; OVALOCYTES 1+
[2017-05-18] MEDS: Ranolazine 500mg tab ORAL SCH (09:23)
[2017-05-18] MEDS: Metoprolol 25mg tab ORAL SCH (09:23)
[2017-05-18] MEDS: Aspirin Baby 81mg ORAL SCH (09:23)
[2017-05-18] MEDS: ARIPiprazole 10mg tab ORAL SCH (09:28)
[2017-05-18] MEDS: KETOCONAZOLE 2% TOPIC SCH (09:29)
[2017-05-18 11:59] VITALS: BP 122/74
--- NOTE | 2017-05-18 13:43 | Wound Care Consultation ---
Wound Assessment Wound Assessment : Wound Present on Admission: Yes New Wound: No Status Change of Wound: No Wound Location Body Site Modif: mid Wound Location Body Site: other - sacrococcygeal Wound Type: pressure ulcer Kayla Test: Does not Kayla Pressure Ulcer Stage: I - reolved Wound Drainage Amount: None Wound Drainage Odor: None/Absent Tissue Surrounding Wound: Intact Wound General Appearance: Asymptomatic Wound Comment #1 Sacrococcygeal stage I pressure ulcer Resolved. skin intact. will cont to monitor and apply preventative measures as recommended. SURY DIAZ RN May 18, 2017 13:43
[2017-05-18] MEDS ORDERED: WARFARIN SODIU7.5 MG ORAL (14:29)
--- NOTE | 2017-05-18 14:50 | General Progress Note ---
Assessment/Plan Assessment/Plan 1. Pancytopenia. Monitor. --> Give prbc if hgb<7 and platelets if <20k --> HIV and hepatitis panel are both negative --> Ultrasound of the abdomen reveal cysts on right kidney, fatty liver, splenomegaly, atherosclerotic vascular disease, and absent left kidney 2. Thrombocytopenia --> 2/2 liver disease --> improving 3. Anemia, very mild. --> Continue to closely monitor, likely secondary to chronic disease. --> No blood transfusion required unless symptomatic or hgb<7 4. Diarrhea, resolved. 5. Acute coronary syndrome. Cardiology service is following. 6. Diabetes mellitus. Subjective Constitutional: Reports: no symptoms HEENT: Reports: no symptoms Cardiovascular: Reports: no symptoms Respiratory: Reports: no symptoms Gastrointestinal/Abdominal: Reports: no symptoms Genitourinary: Reports: no symptoms Neurologic/Psychiatric: Reports: no symptoms Endocrine: Reports: no symptoms Hematologic/Lymphatic: Reports: no symptoms Allergies: Coded Allergies: ADHESIVE TAPE (Verified Allergy, Unknown, 04/27/17) AMIODARONE (Verified Allergy, Unknown, 04/27/17) INFLUENZA VIRUS VACCINES (Verified Allergy, Unknown, 04/27/17) SULFAMETHIZOLE (Verified Allergy, Unknown, 04/27/17) Subjective no bleeding, afebrile, will be dc today Objective Last 24 Hour Vital Signs Date Time Temp Pulse Resp B/P (MAP) Pulse Ox O2 Delivery O2 Flow Rate FiO2 05/18/17 11:59 98.0 65 18 122/74 97 Room Air 05/18/17 09:23 85 136/82 05/18/17 08:45 85 18 Room Air 05/18/17 08:00 97.0 78 18 136/82 96 Room Air 05/18/17 06:00 91/61 05/18/17 05:51 79 16 98 Facial 30 05/18/17 04:00 96.4 65 20 91/61 97 Room Air 05/18/17 03:00 69 15 98 Facial 30 05/18/17 01:04 72 13 98 Facial 30 05/18/17 00:00 97.3 70 20 111/64 96 Room Air 05/17/17 22:53 76 16 98 Facial 30 05/17/17 21:00 76 104/60 05/17/17 20:11 76 18 Room Air 05/17/17 20:00 96.4 69 20 104/60 98 Room Air 05/17/17 17:32 127/61 05/17/17 16:00 97.0 67 18 124/80 97 Room Air Laboratory Tests 05/18/17 04:45: White Blood Count 4.6L, Red Blood Count 3.88L, Hemoglobin 13.0L, Hematocrit 36.4L, Mean Corpuscular Volume 94, Mean Corpuscular Hemoglobin 33.5H, Mean Corpuscular Hemoglobin Concent 35.7, Red Cell Distribution Width 14.1, Platelet Count 148L, Mean Platelet Volume 5.4L, Neutrophils (%) (Auto) , Lymphocytes (%) (Auto) , Monocytes (%) (Auto) , Eosinophils (%) (Auto) , Basophils (%) (Auto) , Differential Total Cells Counted 100, Neutrophils % (Manual) 44L, Lymphocytes % (Manual) 39, Monocytes % (Manual) 8, Eosinophils % (Manual) 9H, Basophils % ( Manual) 0, Band Neutrophils 0, Platelet Estimate DecreasedL, Platelet Morphology Normal, Macrocytosis 1+, Ovalocytes 1+, Prothrombin Time 25.2H, Prothromb Time International Ratio 2.4H, Sodium Level 141, Potassium Level 3.5, Chloride Level 99, Carbon Dioxide Level 30, Anion Gap 12, Blood Urea Nitrogen 17 , Creatinine 1.3H, Estimat Glomerular Filtration Rate 56.1, Glucose Level 211H, Calcium Level 9.7 Height (Feet): 5 Height (Inches): 7.00 Weight (Pounds): 219 General Appearance: no apparent distress EENT: PERRL/EOMI Neck: normal alignment, supple Cardiovascular: normal rate, regular rhythm Respiratory/Chest: no accessory muscle use Abdomen: non tender, soft Skin: normal pigmentation, warm/dry Enrique Willis May 18, 2017 14:50
--- NOTE | 2017-05-18 15:18 | General Progress Note ---
Assessment/Plan Problem List: (1) Stress reaction ICD Codes: F43.0 - Acute stress reaction SNOMED: 98801404 (2) Hyperglycemia due to type 2 diabetes mellitus ICD Codes: E11.65 - Type 2 diabetes mellitus with hyperglycemia SNOMED: [id number], [id number] Qualifiers: Qualified Codes: E11.65 - Type 2 diabetes mellitus with hyperglycemia; Z79.4 - shelter (current) use of insulin (3) Chest pain ICD Codes: R07.9 - Chest pain, unspecified SNOMED: 74181446 Qualifiers: Qualified Codes: R07.9 - Chest pain, unspecified (4) Diabetes mellitus ICD Codes: E11.9 - Type 2 diabetes mellitus without complications SNOMED: 23780636 (5) Acute coronary syndrome ICD Codes: I24.9 - Acute ischemic heart disease, unspecified SNOMED: 564425844 Status: stable, progressing, tolerating diet Assessment/Plan ot pt diet pain control dc to snf Subjective Allergies: Coded Allergies: ADHESIVE TAPE (Verified Allergy, Unknown, 04/27/17) AMIODARONE (Verified Allergy, Unknown, 04/27/17) INFLUENZA VIRUS VACCINES (Verified Allergy, Unknown, 04/27/17) SULFAMETHIZOLE (Verified Allergy, Unknown, 04/27/17) All Systems: reviewed and negative except above Subjective sl weak anxious Objective Last 24 Hour Vital Signs Date Time Temp Pulse Resp B/P (MAP) Pulse Ox O2 Delivery O2 Flow Rate FiO2 05/18/17 11:59 98.0 65 18 122/74 97 Room Air 05/18/17 09:23 85 136/82 05/18/17 08:45 85 18 Room Air 05/18/17 08:00 97.0 78 18 136/82 96 Room Air 05/18/17 06:00 91/61 05/18/17 05:51 79 16 98 Facial 30 05/18/17 04:00 96.4 65 20 91/61 97 Room Air 05/18/17 03:00 69 15 98 Facial 30 05/18/17 01:04 72 13 98 Facial 30 05/18/17 00:00 97.3 70 20 111/64 96 Room Air 05/17/17 22:53 76 16 98 Facial 30 05/17/17 21:00 76 104/60 05/17/17 20:11 76 18 Room Air 21 05/17/17 20:00 96.4 69 20 104/60 98 Room Air 05/17/17 17:32 127/61 05/17/17 16:00 97.0 67 18 124/80 97 Room Air Laboratory Tests 05/18/17 04:45: White Blood Count 4.6L, Red Blood Count 3.88L, Hemoglobin 13.0L, Hematocrit 36.4L, Mean Corpuscular Volume 94, Mean Corpuscular Hemoglobin 33.5H, Mean Corpuscular Hemoglobin Concent 35.7, Red Cell Distribution Width 14.1, Platelet Count 148L, Mean Platelet Volume 5.4L, Neutrophils (%) (Auto) , Lymphocytes (%) (Auto) , Monocytes (%) (Auto) , Eosinophils (%) (Auto) , Basophils (%) (Auto) , Differential Total Cells Counted 100, Neutrophils % (Manual) 44L, Lymphocytes % (Manual) 39, Monocytes % (Manual) 8, Eosinophils % (Manual) 9H, Basophils % ( Manual) 0, Band Neutrophils 0, Platelet Estimate DecreasedL, Platelet Morphology Normal, Macrocytosis 1+, Ovalocytes 1+, Prothrombin Time 25.2H, Prothromb Time International Ratio 2.4H, Sodium Level 141, Potassium Level 3.5, Chloride Level 99, Carbon Dioxide Level 30, Anion Gap 12, Blood Urea Nitrogen 17 , Creatinine 1.3H, Estimat Glomerular Filtration Rate 56.1, Glucose Level 211H, Calcium Level 9.7 Height (Feet): 5 Height (Inches): 7.00 Weight (Pounds): 219 General Appearance: lethargic EENT: normal ENT inspection Neck: normal alignment Cardiovascular: normal peripheral pulses, normal rate, regular rhythm Respiratory/Chest: chest wall non-tender, lungs clear, normal breath sounds Abdomen: normal bowel sounds, non tender, soft Extremities: normal inspection Edema: no edema noted Arm (L), no edema noted Arm (R), no edema noted Leg (L), no edema noted Leg (R), no edema noted Pedal (L), no edema noted Pedal (R), no edema noted Generalized Neurologic: responsive, motor weakness Skin: normal pigmentation, warm/dry ANDRE SILVA May 18, 2017 15:18
--- NOTE | 2017-05-18 15:32 | Pulmonology Progress Note ---
Assessment/Plan Problems: (1) Acute coronary syndrome (2) Chest pain (3) Diabetes mellitus (4) CAD (coronary artery disease) (5) Hx of CABG Assessment/Plan no new complains, doing better sliding scale diabetic diet waiting for the discharge awaiting bipap machine prescription give for bipap Subjective ROS Limited/Unobtainable: No Constitutional: Reports: no symptoms Respiratory: Reports: no symptoms Allergies: Coded Allergies: ADHESIVE TAPE (Verified Allergy, Unknown, 04/27/17) AMIODARONE (Verified Allergy, Unknown, 04/27/17) INFLUENZA VIRUS VACCINES (Verified Allergy, Unknown, 04/27/17) SULFAMETHIZOLE (Verified Allergy, Unknown, 04/27/17) Objective Last 24 Hour Vital Signs Date Time Temp Pulse Resp B/P (MAP) Pulse Ox O2 Delivery O2 Flow Rate FiO2 05/18/17 11:59 98.0 65 18 122/74 97 Room Air 05/18/17 09:23 85 136/82 05/18/17 08:45 85 18 Room Air 05/18/17 08:00 97.0 78 18 136/82 96 Room Air 05/18/17 06:00 91/61 05/18/17 05:51 79 16 98 Facial 30 05/18/17 04:00 96.4 65 20 91/61 97 Room Air 05/18/17 03:00 69 15 98 Facial 30 05/18/17 01:04 72 13 98 Facial 30 05/18/17 00:00 97.3 70 20 111/64 96 Room Air 05/17/17 22:53 76 16 98 Facial 30 05/17/17 21:00 76 104/60 05/17/17 20:11 76 18 Room Air 21 05/17/17 20:00 96.4 69 20 104/60 98 Room Air 05/17/17 17:32 127/61 05/17/17 16:00 97.0 67 18 124/80 97 Room Air General Appearance: WD/WN HEENT: normocephalic, atraumatic Respiratory/Chest: chest wall non-tender, lungs clear Cardiovascular: normal peripheral pulses Abdomen: normal bowel sounds Genitourinary: normal external genitalia Extremities: no cyanosis Skin: no lesions Neurologic/Psychiatric: no motor/sensory deficits, oriented x 3 Lymphatic: no neck adenopathy Laboratory Tests 05/18/17 04:45: White Blood Count 4.6L, Red Blood Count 3.88L, Hemoglobin 13.0L, Hematocrit 36.4L, Mean Corpuscular Volume 94, Mean Corpuscular Hemoglobin 33.5H, Mean Corpuscular Hemoglobin Concent 35.7, Red Cell Distribution Width 14.1, Platelet Count 148L, Mean Platelet Volume 5.4L, Neutrophils (%) (Auto) , Lymphocytes (%) (Auto) , Monocytes (%) (Auto) , Eosinophils (%) (Auto) , Basophils (%) (Auto) , Differential Total Cells Counted 100, Neutrophils % (Manual) 44L, Lymphocytes % (Manual) 39, Monocytes % (Manual) 8, Eosinophils % (Manual) 9H, Basophils % ( Manual) 0, Band Neutrophils 0, Platelet Estimate DecreasedL, Platelet Morphology Normal, Macrocytosis 1+, Ovalocytes 1+, Prothrombin Time 25.2H, Prothromb Time International Ratio 2.4H, Sodium Level 141, Potassium Level 3.5, Chloride Level 99, Carbon Dioxide Level 30, Anion Gap 12, Blood Urea Nitrogen 17 , Creatinine 1.3H, Estimat Glomerular Filtration Rate 56.1, Glucose Level 211H, Calcium Level 9.7 Current Medications Medications (Trade) Dose Ordered Sig/Tanner Route PRN Reason Start Time Stop Time Status Last Admin Dose Admin Acetaminophen (Tylenol) 650 mg Q4H PRN ORAL FEVER>100.5 05/05/17 17:00 05/28/17 16:59 Allopurinol (Allopurinol) 300 mg DAILY ORAL 05/06/17 09:00 05/28/17 08:59 05/18/17 09:23 Aripiprazole (Abilify) 35 mg DAILY ORAL 05/06/17 09:00 06/05/17 08:59 05/18/17 09:28 Aspirin (ASA) 162 mg DAILY ORAL 05/06/17 09:00 05/28/17 08:59 05/18/17 09:23 Atorvastatin Calcium (Lipitor) 40 mg BEDTIME ORAL 05/05/17 21:00 05/28/17 20:59 05/17/17 21:06 Clopidogrel Bisulfate (Plavix) 75 mg DAILY ORAL 05/06/17 09:00 05/28/17 08:59 05/18/17 09:22 Dextrose (Dextrose 50%) STAT PRN IV Hypoglycemia 05/05/17 17:00 06/04/17 16:59 Enalaprilat (Vasotec) 2.5 mg Q6H PRN IV sbp more than 160 05/05/17 17:00 06/04/17 16:59 Escitalopram Oxalate (Lexapro) 20 mg DAILY ORAL 05/06/17 09:00 05/28/17 12:59 05/18/17 09:23 Fish Oil (Fish Oil) 1,000 mg DAILY ORAL 05/06/17 09:00 05/31/17 08:59 05/16/17 09:44 Insulin Aspart (NovoLOG) BEFORE MEALS AND HS SUBQ 05/05/17 17:30 05/28/17 17:29 05/18/17 11:45 Isosorbide Dinitrate (Isordil) 20 mg BID@0600,1800 ORAL 05/16/17 19:45 06/15/17 19:44 05/17/17 17:32 Ketoconazole (Nizoral 2% Cream) 1 applic DAILY TOPIC 05/06/17 09:00 06/01/17 08:59 05/18/17 09:31 Ketoconazole (Nizoral 2% Shampoo) 1 applic DAILY TOPIC 05/06/17 09:00 06/01/17 08:59 05/18/17 09:29 Metoprolol Tartrate (Lopressor) 25 mg Q12HR ORAL 05/16/17 21:00 06/15/17 20:59 05/18/17 09:23 Mirtazapine (Remeron) 30 mg QHS ORAL 05/05/17 21:00 05/28/17 20:59 05/17/17 21:06 Nitroglycerin (Ntg) 0.4 mg Q5MIN PRN SL Prn Chest Pain 05/05/17 16:00 06/04/17 15:59 05/15/17 20:24 Ondansetron HCl (Zofran) 4 mg Q6H PRN IVP Nausea & Vomiting 05/05/17 17:00 05/28/17 16:59 Pantoprazole (Protonix) 40 mg ACBREAKFAST ORAL 05/06/17 06:30 05/28/17 08:59 05/18/17 06:02 Polyethylene Glycol (Miralax) 17 gm DAILYPRN PRN ORAL Constipation 05/05/17 17:00 06/04/17 16:59 Quetiapine Fumarate (SEROquel) 25 mg DAILY@1700 ORAL 05/05/17 17:00 05/30/17 16:59 05/17/17 16:29 Quetiapine Fumarate (SEROquel) 200 mg BEDTIME ORAL 05/05/17 21:00 05/28/17 20:59 05/17/17 21:06 Ranolazine (Ranexa ER 500mg) 500 mg Q12HR ORAL 05/05/17 21:00 06/02/17 20:59 05/18/17 09:23 Tamsulosin HCl (Flomax) 0.4 mg BEDTIME ORAL 05/05/17 21:00 05/28/17 20:59 05/17/17 21:06 Temazepam (Restoril) 15 mg HSPRN PRN ORAL Insomnia 05/14/17 20:45 05/21/17 20:44 05/17/17 22:35 Warfarin Sodium (Coumadin per pharmacy) 1 ea DAILYPRN PRN MISC Per rx protocol 05/05/17 17:00 06/04/17 16:59 Warfarin Sodium (Coumadin) 7 mg COUMADIN ONCE ORAL 05/18/17 17:00 05/18/17 17:01 THADDEUS YA May 18, 2017 15:32
[2017-05-18 16:01] VITALS: BP 105/74
[2017-05-18] MEDS ORDERED: WARFARIN SOD ORAL ONE ×2 (17:00)
--- NOTE | 2017-05-18 17:21 | Infectious Diseases Prog Note ---
Assessment/Plan Problems: (1) Diarrhea Assessment & Plan: resolved, no C DIFF, or stool infection . with negative stool culture, keep off antibiotics. advised to avoid any unnecessary antibiotics in the future , avoid laxatives (2) Chest pain Assessment & Plan: resolved, no ACS , with negative stress test , medical management as per cardiology team (3) Diabetes mellitus Assessment & Plan: recommend tight glycemic control to keep blood glucose between 80-120 (4) CAD (coronary artery disease) Assessment & Plan: continue cardiac meds, cardiology is following (5) Dermatitis, seborrheic Assessment & Plan: on ketoconazole shampoo prn (6) THOMAS (acute kidney injury) Assessment & Plan: improving, suspect dehydration, recommend hydration and close monitor of renal function test . Subjective Constitutional: Reports: no symptoms HEENT: Reports: no symptoms Respiratory: Reports: no symptoms Breasts: Reports: no symptoms Cardiovascular: Reports: no symptoms Gastrointestinal/Abdominal: Reports: no symptoms Genitourinary: Reports: no symptoms Neurologic: Reports: no symptoms Psychiatric: Reports: no symptoms Skin: Reports: no symptoms Endocrine: Reports: no symptoms Hematologic: Reports: no symptoms Musculoskeletal: Reports: no symptoms Allergies: Coded Allergies: ADHESIVE TAPE (Verified Allergy, Unknown, 04/27/17) AMIODARONE (Verified Allergy, Unknown, 04/27/17) INFLUENZA VIRUS VACCINES (Verified Allergy, Unknown, 04/27/17) SULFAMETHIZOLE (Verified Allergy, Unknown, 04/27/17) Objective Vital Signs Last 24 Hour Vital Signs Date Time Temp Pulse Resp B/P (MAP) Pulse Ox O2 Delivery O2 Flow Rate FiO2 05/18/17 16:01 97.3 60 18 105/74 97 Room Air 05/18/17 11:59 98.0 65 18 122/74 97 Room Air 05/18/17 09:23 85 136/82 05/18/17 08:45 85 18 Room Air 05/18/17 08:00 97.0 78 18 136/82 96 Room Air 05/18/17 06:00 91/61 05/18/17 05:51 79 16 98 Facial 30 05/18/17 04:00 96.4 65 20 91/61 97 Room Air 05/18/17 03:00 69 15 98 Facial 30 05/18/17 01:04 72 13 98 Facial 30 05/18/17 00:00 97.3 70 20 111/64 96 Room Air 05/17/17 22:53 76 16 98 Facial 30 05/17/17 21:00 76 104/60 05/17/17 20:11 76 18 Room Air 21 05/17/17 20:00 96.4 69 20 104/60 98 Room Air 05/17/17 17:32 127/61 Height (Feet): 5 Height (Inches): 7.00 Weight (Pounds): 219 General Appearance: WD/WN, no acute distress HEENT: normocephalic, atraumatic, anicteric, mucous membranes moist Respiratory/Chest: chest wall non-tender, lungs clear, normal breath sounds, no respiratory distress, no accessory muscle use Cardiovascular: normal peripheral pulses, normal rate, regular rhythm, no gallop/murmur, no JVD Abdomen: normal bowel sounds, soft, non tender, no organomegaly, non distended , no mass, no scars Extremities: no cyanosis, no clubbing Skin: no rash, no lesions Neurologic/Psychiatric: alert, oriented x 3, responsive Lymphatic: no neck adenopathy, no groin adenopathy Laboratory Tests Test 05/18/17 04:45 White Blood Count 4.6 K/UL (4.8-10.8) L Red Blood Count 3.88 M/UL (4.70-6.10) L Hemoglobin 13.0 G/DL (14.2-18.0) L Hematocrit 36.4 % (42.0-52.0) L Mean Corpuscular Volume 94 FL (80-99) Mean Corpuscular Hemoglobin 33.5 PG (27.0-31.0) H Mean Corpuscular Hemoglobin Concent 35.7 G/DL (32.0-36.0) Red Cell Distribution Width 14.1 % (11.6-14.8) Platelet Count 148 K/UL (150-450) L Mean Platelet Volume 5.4 FL (6.5-10.1) L Neutrophils (%) (Auto) % (45.0-75.0) Lymphocytes (%) (Auto) % (20.0-45.0) Monocytes (%) (Auto) % (1.0-10.0) Eosinophils (%) (Auto) % (0.0-3.0) Basophils (%) (Auto) % (0.0-2.0) Differential Total Cells Counted 100 Neutrophils % (Manual) 44 % (45-75) L Lymphocytes % (Manual) 39 % (20-45) Monocytes % (Manual) 8 % (1-10) Eosinophils % (Manual) 9 % (0-3) H Basophils % (Manual) 0 % (0-2) Band Neutrophils 0 % (0-8) Platelet Estimate Decreased L Platelet Morphology Normal Macrocytosis 1+ Ovalocytes 1+ Prothrombin Time 25.2 SEC (9.30-11.50) H Prothromb Time International Ratio 2.4 (0.9-1.1) H Sodium Level 141 mEQ/L (135-145) Potassium Level 3.5 mEQ/L (3.4-4.9) Chloride Level 99 mEQ/L (98-107) Carbon Dioxide Level 30 mEQ/L (20-30) Anion Gap 12 (5-15) Blood Urea Nitrogen 17 mg/dL (7-23) Creatinine 1.3 mg/dL (0.7-1.2) H Estimat Glomerular Filtration Rate 56.1 mL/min (>60) Glucose Level 211 mg/dL (74-106) H Calcium Level 9.7 mg/dL (8.6-10.2) Current Medications Medications (Trade) Dose Ordered Sig/Tanner Route PRN Reason Start Time Stop Time Status Last Admin Dose Admin Acetaminophen (Tylenol) 650 mg Q4H PRN ORAL FEVER>100.5 05/05/17 17:00 05/28/17 16:59 Allopurinol (Allopurinol) 300 mg DAILY ORAL 05/06/17 09:00 05/28/17 08:59 05/18/17 09:23 Aripiprazole (Abilify) 35 mg DAILY ORAL 05/06/17 09:00 06/05/17 08:59 05/18/17 09:28 Aspirin (ASA) 162 mg DAILY ORAL 05/06/17 09:00 05/28/17 08:59 05/18/17 09:23 Atorvastatin Calcium (Lipitor) 40 mg BEDTIME ORAL 05/05/17 21:00 05/28/17 20:59 05/17/17 21:06 Clopidogrel Bisulfate (Plavix) 75 mg DAILY ORAL 05/06/17 09:00 05/28/17 08:59 05/18/17 09:22 Dextrose (Dextrose 50%) STAT PRN IV Hypoglycemia 05/05/17 17:00 06/04/17 16:59 Enalaprilat (Vasotec) 2.5 mg Q6H PRN IV sbp more than 160 05/05/17 17:00 06/04/17 16:59 Escitalopram Oxalate (Lexapro) 20 mg DAILY ORAL 05/06/17 09:00 05/28/17 12:59 05/18/17 09:23 Fish Oil (Fish Oil) 1,000 mg DAILY ORAL 05/06/17 09:00 05/31/17 08:59 05/16/17 09:44 Insulin Aspart (NovoLOG) BEFORE MEALS AND HS SUBQ 05/05/17 17:30 05/28/17 17:29 05/18/17 11:45 Isosorbide Dinitrate (Isordil) 20 mg BID@0600,1800 ORAL 05/16/17 19:45 06/15/17 19:44 05/17/17 17:32 Ketoconazole (Nizoral 2% Cream) 1 applic DAILY TOPIC 05/06/17 09:00 06/01/17 08:59 05/18/17 09:31 Ketoconazole (Nizoral 2% Shampoo) 1 applic DAILY TOPIC 05/06/17 09:00 06/01/17 08:59 05/18/17 09:29 Metoprolol Tartrate (Lopressor) 25 mg Q12HR ORAL 05/16/17 21:00 06/15/17 20:59 05/18/17 09:23 Mirtazapine (Remeron) 30 mg QHS ORAL 05/05/17 21:00 05/28/17 20:59 05/17/17 21:06 Nitroglycerin (Ntg) 0.4 mg Q5MIN PRN SL Prn Chest Pain 05/05/17 16:00 06/04/17 15:59 05/15/17 20:24 Ondansetron HCl (Zofran) 4 mg Q6H PRN IVP Nausea & Vomiting 05/05/17 17:00 05/28/17 16:59 Pantoprazole (Protonix) 40 mg ACBREAKFAST ORAL 05/06/17 06:30 05/28/17 08:59 05/18/17 06:02 Polyethylene Glycol (Miralax) 17 gm DAILYPRN PRN ORAL Constipation 05/05/17 17:00 06/04/17 16:59 Quetiapine Fumarate (SEROquel) 25 mg DAILY@1700 ORAL 05/05/17 17:00 05/30/17 16:59 05/17/17 16:29 Quetiapine Fumarate (SEROquel) 200 mg BEDTIME ORAL 05/05/17 21:00 05/28/17 20:59 05/17/17 21:06 Ranolazine (Ranexa ER 500mg) 500 mg Q12HR ORAL 05/05/17 21:00 06/02/17 20:59 05/18/17 09:23 Tamsulosin HCl (Flomax) 0.4 mg BEDTIME ORAL 05/05/17 21:00 05/28/17 20:59 05/17/17 21:06 Temazepam (Restoril) 15 mg HSPRN PRN ORAL Insomnia 05/14/17 20:45 05/21/17 20:44 05/17/17 22:35 Warfarin Sodium (Coumadin per pharmacy) 1 ea DAILYPRN PRN MISC Per rx protocol 05/05/17 17:00 06/04/17 16:59 Gladys Murillo M.D. May 18, 2017 17:21
--- NOTE | 2017-05-18 17:26 | Cardiac Electrophysiology PN ---
Assessment/Plan Assessment/Plan 1. Chest pain and hx of CABG with last PCI 06/2016. Ruled out for LA. Stress test, no definite ischemia. Echo EF 65%. Continue aspirin,Toprol, Plavix and Lipitor and Renaxa 500 bid. On Isordil 20 bid. 2. Status post aortic valve replacement with a porcine aortic valve with residual mod . 3. History of atrial fibrillation and ablation, remained in sinus rhythm on aspirin.On Toprol 25 bid, Coumadin and Plavix. 4. Diabetes. 5. Depression. 6. Status post amputation of the fingers. 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 DC today Subjective Subjective Comfortable in NAD. No chest pain. Received his BIPAP. Expecting DC today. Objective Last 24 Hour Vital Signs Date Time Temp Pulse Resp B/P (MAP) Pulse Ox O2 Delivery O2 Flow Rate FiO2 05/18/17 16:01 97.3 60 18 105/74 97 Room Air 05/18/17 11:59 98.0 65 18 122/74 97 Room Air 05/18/17 09:23 85 136/82 05/18/17 08:45 85 18 Room Air 05/18/17 08:00 97.0 78 18 136/82 96 Room Air 05/18/17 06:00 91/61 05/18/17 05:51 79 16 98 Facial 30 05/18/17 04:00 96.4 65 20 91/61 97 Room Air 05/18/17 03:00 69 15 98 Facial 30 05/18/17 01:04 72 13 98 Facial 30 05/18/17 00:00 97.3 70 20 111/64 96 Room Air 05/17/17 22:53 76 16 98 Facial 30 05/17/17 21:00 76 104/60 05/17/17 20:11 76 18 Room Air 21 05/17/17 20:00 96.4 69 20 104/60 98 Room Air 05/17/17 17:32 127/61 Laboratory Tests Test 05/18/17 04:45 White Blood Count 4.6 K/UL (4.8-10.8) L Red Blood Count 3.88 M/UL (4.70-6.10) L Hemoglobin 13.0 G/DL (14.2-18.0) L Hematocrit 36.4 % (42.0-52.0) L Mean Corpuscular Volume 94 FL (80-99) Mean Corpuscular Hemoglobin 33.5 PG (27.0-31.0) H Mean Corpuscular Hemoglobin Concent 35.7 G/DL (32.0-36.0) Red Cell Distribution Width 14.1 % (11.6-14.8) Platelet Count 148 K/UL (150-450) L Mean Platelet Volume 5.4 FL (6.5-10.1) L Neutrophils (%) (Auto) % (45.0-75.0) Lymphocytes (%) (Auto) % (20.0-45.0) Monocytes (%) (Auto) % (1.0-10.0) Eosinophils (%) (Auto) % (0.0-3.0) Basophils (%) (Auto) % (0.0-2.0) Differential Total Cells Counted 100 Neutrophils % (Manual) 44 % (45-75) L Lymphocytes % (Manual) 39 % (20-45) Monocytes % (Manual) 8 % (1-10) Eosinophils % (Manual) 9 % (0-3) H Basophils % (Manual) 0 % (0-2) Band Neutrophils 0 % (0-8) Platelet Estimate Decreased L Platelet Morphology Normal Macrocytosis 1+ Ovalocytes 1+ Prothrombin Time 25.2 SEC (9.30-11.50) H Prothromb Time International Ratio 2.4 (0.9-1.1) H Sodium Level 141 mEQ/L (135-145) Potassium Level 3.5 mEQ/L (3.4-4.9) Chloride Level 99 mEQ/L (98-107) Carbon Dioxide Level 30 mEQ/L (20-30) Anion Gap 12 (5-15) Blood Urea Nitrogen 17 mg/dL (7-23) Creatinine 1.3 mg/dL (0.7-1.2) H Estimat Glomerular Filtration Rate 56.1 mL/min (>60) Glucose Level 211 mg/dL (74-106) H Calcium Level 9.7 mg/dL (8.6-10.2) Objective HEAD AND NECK: No JVD. LUNGS: Clear. CARDIOVASCULAR: Nl S1 and S2 with no gallop. 2/6 Systolic murmur LSB. Sternotomy intact ABDOMEN: Soft. EXTREMITIES: No edema. ALEX VALDES May 18, 2017 17:26
[2017-05-18] MEDS ORDERED: NS 275ml ONE (18:26)
--- NOTE | 2017-05-20 08:30 | Progress Note ---
DATE: 05/17/2017 PSYCHOTHERAPY CONSULTATION PROGRESS NOTE TREATING ATTENDING PHYSICIAN: Sven Ordoñez D.O. Subjective: The patient is a 61-year-old male patient . The patient has a history of schizoaffective disorder, bipolar type. The patient has been disoriented, confused, and has poor insight, poor judgment, and poor impulse control requiring hospitalization for stabilization of symptoms. The patient states that he does not feel today. Mental Status Examination: The patient is alert and oriented x2, person and place. Mood is dysphoric. Affect is blunted. Thought process is disorganized. The patient has poor attention and concentration. Poor insight, judgment, and impulse control. Plan: This clinician provided the patient with reality orientation and supportive psychotherapy . Continue with medication management and behavioral management. This clinician has reviewed the patient's chart and discussed the treatment with nursing staff. Zhen Davila PsyD. : AMBERLY JOB#: [id number] CC:
--- NOTE | 2017-05-20 08:30 | Progress Note ---
PSYCHOTHERAPY CONSULTATION PROGRESS NOTE CONSULTING PHYSICIAN: Zhen Davila M.D. TREATING ATTENDING PHYSICIAN: Sven Ordoñez D.O. Subjective: This patient is a 61-year-old male patient. The patient is . The patient has had feelings of hopelessness and helplessness. He also denies suicidal or homicidal thoughts of ideation. He is disorganized and confused. . Mental Status Examination: The patient is alert and oriented x2, person and place. Mood is dysphoric. Affect is congruent. Thought process is disorganized. DIAGNOSIS: Schizoaffective disorder. Plan: This clinician assessed this patient. Provided the patient with supportive psychotherapy, reality orientation, and assessed the patient's mental status. Continue with medication management and behavioral management. This clinician has reviewed the patient's chart and discussed the treatment with nursing staff. Zhen Davila PsyD. DR: MADHU JOB#: [id number] CC:
--- NOTE | 2017-05-20 13:31 | Discharge Summary ---
Discharge Summary Hospital Course Date of Admission Apr 28, 2017 at 01:18 Date of Discharge May 18, 2017 at 18:27 Admitting Diagnosis ACS HPI Maycol Ferguson is a 61 year old male who was admitted on Apr 28, 2017 at 01:18 for Acute Coronary Syndrome Hospital Course [id number] Discharge Discharge Disposition Patient was discharged to snf Discharge Diagnoses: Karla Santos NP May 20, 2017 13:31
--- NOTE | 2017-05-20 22:30 | Discharge Summary 2 SIG ---
DATE OF ADMISSION: 04/28/2017 DATE OF DISCHARGE: 05/18/2017 CONSULTANTS: 1. Arnoldo Luna M.D. 2. Chadd Liu M.D. 3. Gladys Murillo M.D. 4. Jody Armas M.D. 5. Enrique Willis M.D. Brief Hospital Course: The patient is a 61-year-old male, who is a resident of [facility] and presented in the ED complaining of substernal chest pain with shortness of breath. He has history of coronary artery disease and previous AR. Symptoms worsen when he has lack of sleep or is under stress. He was given aspirin and nitroglycerin by EMS. On arrival to ED, first set of troponins were negative. EKG was in normal sinus rhythm with no acute changes. Chest x-ray showed no acute disease. He was admitted to telemetry for evaluation of acute coronary syndrome and underwent cardiac workup. He has history of atrial fibrillation, status post ablation in 2013. EKG was in sinus rhythm, but no acute ST elevation. He was continued on aspirin, Plavix, and Lipitor. Troponins were negative. He underwent nuclear stress test. There was no definite ischemia. Echocardiogram showed EF of 65%. He is status post aortic valve replacement with porcine aortic valve and residual moderate aortic stenosis. Ranexa 500 mg was added. The patient had pancytopenia possibly from medication-induced or possibly splenomegaly. Ultrasound of the abdomen revealed a cyst on the right kidney with splenomegaly, fatty liver, and atherosclerotic vascular disease with absent left kidney. Thrombocytopenia was assessed to be secondary to fatty liver and anemia was mild. No need for blood transfusion. He complained of diarrhea and was previously treated for C. difficile colitis. He was given oral vancomycin. Stool studies were negative for C. difficile and negative for Salmonella, Shigella, and Campylobacter. Antibiotic was discontinued. He had elevated renal function and was given IV hydration. Venous duplex of lower extremity was negative for DVT. The patient was placed on BiPAP nightly. It was a difficult placement as the patient's family refused to go back to [facility]. He was referred to several facilities. He was accepted; however, the patient and family declined transfer. There were also issues regarding delivery of BiPAP, as some [employer] companies would not deliver BiPAP if the patient was going to [facility] facility. Arrangements had been made for safe discharge and finally the patient was accepted at [facility], and BiPAP to be delivered by [facility]. Discharge Disposition: The patient was discharged to [facility] facility. FINAL DIAGNOSES: 1. Chest pain, the patient was ruled out for myocardial infarction with nuclear stress test showing no definite ischemia. 2. Acute stress reaction. 3. Hyperglycemia due to type 2 diabetes mellitus. 4. Coronary artery disease with prior coronary artery bypass graft. 5. Aortic valve replacement with residual moderate aortic stenosis. 6. Atrial fibrillation, status post ablation. 7. Depression. 8. Status post amputation of fingers. 9. Pancytopenia. 10. Thrombocytopenia. 11. Anemia. 12. Schizoaffective disorder, bipolar type. 13. Diarrhea, Clostridium difficile negative. 14. Sacrococcygeal stage I pressure ulcer, present on admission. DISCHARGE MEDICATIONS: Refer to medication list. Sven Ordoñez D.O. I have been assigned to dictate discharge summary on this account and I was not involved in the patient's management. Karla Santos N.P. DR: TAMIKA JOB#: [id number] CC: ELOY
== END 2017-05-18 18:27 | DRG 313 ==
LOC: EDBD 23:44 → EMR 23:59 → 2E 04-28 01:18 → EDBEDREQ 04-28 01:33 → 2E 04-28 03:57 → 4W 05-05 15:41 → 4E 05-06 11:34
DX: R07.9 Chest pain, unspecified (principal); I25.2 Old myocardial infarction; G93.40 Encephalopathy, unspecified; D61.818 Other pancytopenia; N17.9 Acute kidney failure, unspecified; L89.151 Pressure ulcer of sacral region, stage 1; E11.65 Type 2 diabetes mellitus with hyperglycemia; F25.0 Schizoaffective disorder, bipolar type; Z95.4 Presence of other heart-valve replacement; F43.0 Acute stress reaction; I10 Essential (primary) hypertension; I25.10 Atherosclerotic heart disease of native coronary artery without angina pectoris; Z95.1 Presence of aortocoronary bypass graft; Z95.5 Presence of coronary angioplasty implant and graft; R13.10 Dysphagia, unspecified; E78.5 Hyperlipidemia, unspecified; F32.9 Major depressive disorder, single episode, unspecified; K76.0 Fatty (change of) liver, not elsewhere classified; D64.9 Anemia, unspecified; R19.7 Diarrhea, unspecified; D69.6 Thrombocytopenia, unspecified; Z79.4 Long term (current) use of insulin; L21.9 Seborrheic dermatitis, unspecified
CPT/HCPCS: 36415; 71010; 76700; 78452; 80048; 80053; 80061; 82550; 82553; 82962; 83880; 84443; 84484; 85007; 85025; 85610; 85730; 86140; 86703; 86705; 86709; 86803; 87045; 87081; 87324; 87340; 93005; 93017; 93306; 93926; 93970; 94660; 94664; 97803; 99285; J1815; J2405

== ENCOUNTER 2017-07-11 22:32 | Emergency (ER) | payer MEDICARE, MEDICAID ==
[~2017-07-11] VITALS: Ht 170.2 cm; Wt 100.2 kg
[2017-07-11 22:32] VITALS: BP 116/66
[~2017-07-11 22:32] MED LIST: ABILIFY20 MG ORAL; ALLOPURINOL300 M1 ORAL; AMBIEN10 M1 ORAL; AMOXICILLI250 MG/5 M ORAL; ARIPIPRAZOLE10 MG PO; ASCORBIC ACID500 MG ORAL; ASPIR 8181 MG ORAL; ATORVASTATIN CA40 MG ORAL; COENZYME Q10100 MG PO; COUMADIN5 MG ORAL; COUMADIN7.5 MG ORAL; FERROUS SULFAT325 MG ORAL; FISH OIL 1,0001 EAC5 ORAL; FLOMAX0.4 MG ORAL; FUROSEMIDE20 M1 ORAL; HIBICLENS118 ML TP; ISORDIL30 MG PO; LANTUS SOL100 UNIT/1 SUBQ; LEXAPRO20 MG ORAL; MAGNESIUM250 M2 PO; MELATONIN5 M4 ORAL; METOPROLOL SUCC25 MG ORAL; METOPROLOL TART50 M1 ORAL; MIRTAZAPINE30 M1 ORAL; MULTIVITAMINS1 EAC2 ORAL; NITROGLYCERIN0.4 MG SL; NIZORAL 2% C1 APPLIC TOPIC; NOVOLOG100 UNIT/5; PANTOPRAZOLE SO20 MG ORAL; PLAVIX75 MG ORAL; PROTONIX40 MG ORAL; QUETIAPINE FUM300 MG ORAL; RANEXA500 MG ORAL; SEROQUEL200 MG ORAL; TAMSULOSIN HCL0.4 MG ORAL; VITAMIN D310000 UNIT PO; WARFARIN SODIU7.5 MG ORAL; ZETIA10 MG ORAL
--- NOTE | 2017-07-12 00:17 | Emergency Room Report ---
History of Present Illness General Chief Complaint: Skin Rash/Abscess Source: Patient, Medical Record Present Illness HPI Is a 62-year-old male from a [facility]. He has multiple medical problems. He presents with chief complaint of bruising to abdominal wall. [facility] was concerned about intra-abdominal hematoma and bleeding. Does receive heparin subcutaneously in that area. The bruising is bigger than usual. This occurred the last couple days. No nausea no vomiting. No fever or chills. Patient denies any complaint. Allergies: Coded Allergies: ADHESIVE TAPE (Verified Allergy, Unknown, 04/27/17) AMIODARONE (Verified Allergy, Unknown, 04/27/17) INFLUENZA VIRUS VACCINE, SPECIFIC (Unverified Allergy, Unknown, 07/11/17) INFLUENZA VIRUS VACCINES (Verified Allergy, Unknown, 04/27/17) SULFA (SULFONAMIDE ANTIBIOTICS) (Unverified Allergy, Unknown, 07/11/17) SULFAMETHIZOLE (Verified Allergy, Unknown, 04/27/17) TIOTROPIUM (Unverified Allergy, Unknown, 07/11/17) Patient History Past Medical History: see triage record, old chart reviewed Past Surgical History: other Pertinent Family History: none Social History: Denies: smoking Immunizations: other Reviewed Nursing Documentation: PMH: Agreed, PSxH: Agreed Nursing Documentation-PMH Hx Cardiac Problems: Yes - GOUT,ATHEROSCLEROTIC HEART DISEASE Hx Hypertension: Yes Hx Diabetes: Yes Hx Cancer: No Hx Gastrointestinal Problems: No History Of Psychiatric Problem: Yes - BIPOLAR Review of Systems Eye: Denies: eye pain, blurred vision ENT: Denies: ear pain, nose congestion, throat swelling Respiratory: Denies: cough, shortness of breath Cardiovascular: Denies: chest pain, palpitations Gastrointestinal: Denies: abdominal pain, diarrhea, nausea, vomiting Musculoskeletal: Denies: back pain, joint pain Skin: Denies: rash Neurological: Denies: headache, numbness Endocrine: Denies: increased thirst, increased urine Hematologic/Lymphatic: Denies: easy bruising All Other Systems: negative except mentioned in HPI Physical Exam Vital Signs Date Time Temp Pulse Resp B/P (MAP) Pulse Ox O2 Delivery O2 Flow Rate FiO2 07/11/17 22:24 98.2 73 14 102/69 93 Room Air vitals normal Sp02 EP Interpretation: reviewed, normal General Appearance: well appearing, no apparent distress, alert Head: normocephalic, atraumatic Eyes: bilateral eye PERRL, bilateral eye EOMI ENT: hearing grossly normal, normal pharynx Neck: full range of motion, supple, no meningismus Respiratory: chest non-tender, lungs clear, normal breath sounds Cardiovascular #1: regular rate, rhythm, no murmur Gastrointestinal: normal bowel sounds, non tender, no mass, no organomegaly, no bruit, non-distended, other - Left lower abdominal wall with subcutaneous hematoma. There is 1 and measure about 4 x 6 cm. No abscess. Musculoskeletal: back normal, normal range of motion Neurologic: alert, oriented x3 Psychiatric: mood/affect normal Skin: warm/dry Medical Decision Making Diagnostic Impression: Primary Impression: Subcutaneous hematoma ER Course Patient with subcutaneous hematoma from heparin shot. Not deep infection. No evidence of intra-abdominal bleeding. We'll discharge home. CT/MRI/US Diagnostic Results CT/MRI/US Diagnostic Results : Imaging Test Ordered: CT abdomen and pelvis Impression read by radiologist. No acute process. Last Vital Signs Date Time Temp Pulse Resp B/P (MAP) Pulse Ox O2 Delivery O2 Flow Rate FiO2 07/11/17 22:32 98.2 73 14 116/66 96 Room Air Status: improved Disposition: [facility] Condition: Stable Referrals: ANDRE SILVA (PCP) Additional Instructions: Followup with your DrNatalee in 7 days. Return if worse. RULA NATH M.D. Jul 12, 2017 00:17
--- NOTE | 2017-07-12 00:17 | Emergency Room Report ---
History of Present Illness General Chief Complaint: Skin Rash/Abscess Source: Patient, Medical Record Present Illness HPI Is a 62-year-old male from a [facility]. He has multiple medical problems. He presents with chief complaint of bruising to abdominal wall. [facility] was concerned about intra-abdominal hematoma and bleeding. Does receive heparin subcutaneously in that area. The bruising is bigger than usual. This occurred the last couple days. No nausea no vomiting. No fever or chills. Patient denies any complaint. Allergies: Coded Allergies: ADHESIVE TAPE (Verified Allergy, Unknown, 04/27/17) AMIODARONE (Verified Allergy, Unknown, 04/27/17) INFLUENZA VIRUS VACCINE, SPECIFIC (Unverified Allergy, Unknown, 07/11/17) INFLUENZA VIRUS VACCINES (Verified Allergy, Unknown, 04/27/17) SULFA (SULFONAMIDE ANTIBIOTICS) (Unverified Allergy, Unknown, 07/11/17) SULFAMETHIZOLE (Verified Allergy, Unknown, 04/27/17) TIOTROPIUM (Unverified Allergy, Unknown, 07/11/17) Patient History Past Medical History: see triage record, old chart reviewed Past Surgical History: other Pertinent Family History: none Social History: Denies: smoking Immunizations: other Reviewed Nursing Documentation: PMH: Agreed, PSxH: Agreed Nursing Documentation-PMH Hx Cardiac Problems: Yes - GOUT,ATHEROSCLEROTIC HEART DISEASE Hx Hypertension: Yes Hx Diabetes: Yes Hx Cancer: No Hx Gastrointestinal Problems: No History Of Psychiatric Problem: Yes - BIPOLAR Review of Systems Eye: Denies: eye pain, blurred vision ENT: Denies: ear pain, nose congestion, throat swelling Respiratory: Denies: cough, shortness of breath Cardiovascular: Denies: chest pain, palpitations Gastrointestinal: Denies: abdominal pain, diarrhea, nausea, vomiting Musculoskeletal: Denies: back pain, joint pain Skin: Denies: rash Neurological: Denies: headache, numbness Endocrine: Denies: increased thirst, increased urine Hematologic/Lymphatic: Denies: easy bruising All Other Systems: negative except mentioned in HPI Physical Exam Vital Signs Date Time Temp Pulse Resp B/P (MAP) Pulse Ox O2 Delivery O2 Flow Rate FiO2 07/11/17 22:24 98.2 73 14 102/69 93 Room Air vitals normal Sp02 EP Interpretation: reviewed, normal General Appearance: well appearing, no apparent distress, alert Head: normocephalic, atraumatic Eyes: bilateral eye PERRL, bilateral eye EOMI ENT: hearing grossly normal, normal pharynx Neck: full range of motion, supple, no meningismus Respiratory: chest non-tender, lungs clear, normal breath sounds Cardiovascular #1: regular rate, rhythm, no murmur Gastrointestinal: normal bowel sounds, non tender, no mass, no organomegaly, no bruit, non-distended, other - Left lower abdominal wall with subcutaneous hematoma. There is 1 and measure about 4 x 6 cm. No abscess. Musculoskeletal: back normal, normal range of motion Neurologic: alert, oriented x3 Psychiatric: mood/affect normal Skin: warm/dry Medical Decision Making Diagnostic Impression: Primary Impression: Subcutaneous hematoma ER Course Patient with subcutaneous hematoma from heparin shot. Not deep infection. No evidence of intra-abdominal bleeding. We'll discharge home. CT/MRI/US Diagnostic Results CT/MRI/US Diagnostic Results : Imaging Test Ordered: CT abdomen and pelvis Impression read by radiologist. No acute process. Last Vital Signs Date Time Temp Pulse Resp B/P (MAP) Pulse Ox O2 Delivery O2 Flow Rate FiO2 07/11/17 22:32 98.2 73 14 116/66 96 Room Air Status: improved Disposition: [facility] SN[facility] Condition: Stable Referrals: ANDRE SILVA (PCP) Additional Instructions: Followup with your DrNatalee in 7 days. Return if worse. RULA NATH M.D. Jul 12, 2017 00:17
--- NOTE | 2017-07-12 00:17 | Emergency Room Report ---
History of Present Illness General Chief Complaint: Skin Rash/Abscess Source: Patient, Medical Record Present Illness HPI Is a 62-year-old male from a assisted. He has multiple medical problems. He presents with chief complaint of bruising to abdominal wall. half-way was concerned about intra-abdominal hematoma and bleeding. Does receive heparin subcutaneously in that area. The bruising is bigger than usual. This occurred the last couple days. No nausea no vomiting. No fever or chills. Patient denies any complaint. Allergies: Coded Allergies: ADHESIVE TAPE (Verified Allergy, Unknown, 04/27/17) AMIODARONE (Verified Allergy, Unknown, 04/27/17) INFLUENZA VIRUS VACCINE, SPECIFIC (Unverified Allergy, Unknown, 07/11/17) INFLUENZA VIRUS VACCINES (Verified Allergy, Unknown, 04/27/17) SULFA (SULFONAMIDE ANTIBIOTICS) (Unverified Allergy, Unknown, 07/11/17) SULFAMETHIZOLE (Verified Allergy, Unknown, 04/27/17) TIOTROPIUM (Unverified Allergy, Unknown, 07/11/17) Patient History Past Medical History: see triage record, old chart reviewed Past Surgical History: other Pertinent Family History: none Social History: Denies: smoking Immunizations: other Reviewed Nursing Documentation: PMH: Agreed, PSxH: Agreed Nursing Documentation-PMH Hx Cardiac Problems: Yes - GOUT,ATHEROSCLEROTIC HEART DISEASE Hx Hypertension: Yes Hx Diabetes: Yes Hx Cancer: No Hx Gastrointestinal Problems: No History Of Psychiatric Problem: Yes - BIPOLAR Review of Systems Eye: Denies: eye pain, blurred vision ENT: Denies: ear pain, nose congestion, throat swelling Respiratory: Denies: cough, shortness of breath Cardiovascular: Denies: chest pain, palpitations Gastrointestinal: Denies: abdominal pain, diarrhea, nausea, vomiting Musculoskeletal: Denies: back pain, joint pain Skin: Denies: rash Neurological: Denies: headache, numbness Endocrine: Denies: increased thirst, increased urine Hematologic/Lymphatic: Denies: easy bruising All Other Systems: negative except mentioned in HPI Physical Exam Vital Signs Date Time Temp Pulse Resp B/P (MAP) Pulse Ox O2 Delivery O2 Flow Rate FiO2 07/11/17 22:24 98.2 73 14 102/69 93 Room Air vitals normal Sp02 EP Interpretation: reviewed, normal General Appearance: well appearing, no apparent distress, alert Head: normocephalic, atraumatic Eyes: bilateral eye PERRL, bilateral eye EOMI ENT: hearing grossly normal, normal pharynx Neck: full range of motion, supple, no meningismus Respiratory: chest non-tender, lungs clear, normal breath sounds Cardiovascular #1: regular rate, rhythm, no murmur Gastrointestinal: normal bowel sounds, non tender, no mass, no organomegaly, no bruit, non-distended, other - Left lower abdominal wall with subcutaneous hematoma. There is 1 and measure about 4 x 6 cm. No abscess. Musculoskeletal: back normal, normal range of motion Neurologic: alert, oriented x3 Psychiatric: mood/affect normal Skin: warm/dry Medical Decision Making Diagnostic Impression: Primary Impression: Subcutaneous hematoma ER Course Patient with subcutaneous hematoma from heparin shot. Not deep infection. No evidence of intra-abdominal bleeding. We'll discharge home. CT/MRI/US Diagnostic Results CT/MRI/US Diagnostic Results : Imaging Test Ordered: CT abdomen and pelvis Impression read by radiologist. No acute process. Last Vital Signs Date Time Temp Pulse Resp B/P (MAP) Pulse Ox O2 Delivery O2 Flow Rate FiO2 07/11/17 22:32 98.2 73 14 116/66 96 Room Air Status: improved Disposition: [facility] SN[facility] Condition: Stable Referrals: ANDRE SILVA (PCP) Additional Instructions: Followup with your DrNatalee in 7 days. Return if worse. RULA NATH M.D. Jul 12, 2017 00:17
[2017-07-12 00:32] VITALS: BP 115/68
[2017-07-12 00:54] VITALS: BP 115/68
--- NOTE | 2017-07-12 10:18 | Diagnostic Imaging Report ---
Indication: Abdominal pain Technique: Continuous helical transaxial imaging of the abdomen and pelvis was obtained from the lung bases to the pubic symphysis. No intravenous contrast was administered. Coronal 2-D reformats were also obtained. Total Dose length Product (DLP): [address] Dose Index Volume (CTDIvol): 2.15, 18.4 mGy Comparison: none Findings: There is prominence of epicardial fat especially at the anterior right lung base. A coronary and aorta calcifications are present. There is minimal reticular densities likely atelectasis posterior basal aspects of the lungs. Small hiatal hernia noted. Gallbladder is grossly unremarkable appearance. There are calcifications within the right kidney mostly vascular. There is one focus that is probably parenchymal and could be a small nonobstructive stone. Hypodensities are present in the right kidney. Statistically these are probably cysts. These are not completely or adequately evaluated on the current study. The left kidney is absent. Normal appendix noted. Suggestion of mild diverticulosis. No free fluid or free air identified and no evidence of bowel obstruction. Urinary bladder is unremarkable. Subcutaneous soft tissue nodules noted in the left anterior abdominal wall probably injection foci. Impression: Nonobstructive stone demonstrated within the right kidney. Atherosclerotic vascular disease Normal appendix Status post left nephrectomy. The CT scanner at [facility] is accredited by the [employer] and the scans are performed using dose optimization techniques as appropriate to a performed exam including Automatic Exposure control.
== END 2017-07-12 00:54 ==
LOC: EDBD 22:32 → EMR 23:07
DX: S30.1XXA Contusion of abdominal wall, initial encounter (principal); E11.9 Type 2 diabetes mellitus without complications; I10 Essential (primary) hypertension; I25.10 Atherosclerotic heart disease of native coronary artery without angina pectoris; F31.9 Bipolar disorder, unspecified; Z91.048 Other nonmedicinal substance allergy status; Z88.8 Allergy status to other drugs, medicaments and biological substances; Z88.2 Allergy status to sulfonamides; Z88.7 Allergy status to serum and vaccine; X58.XXXA Exposure to other specified factors, initial encounter; Y92.9 Unspecified place or not applicable
CPT/HCPCS: 74176; 99284